=== PATIENT | female | born 1985 | race Caucasian/White ===

== ENCOUNTER 2018-02-10 11:05 | Outpatient (CLI) | payer BC, MEDICAID, SELFPAY ==
[2018-02-10 11:26] VITALS: BMI 32.8
[2018-02-10 11:58] LABS: Absolute Neutrophil Count 5.8 X10^3/uL (2.0-7.7); Basophil# 0.03 X10^3/uL; Basophil% 0.3 % (0-1); Eosinophil# 0.08 X10^3/uL; Eosinophils% 0.9 % (0-5); Hematocrit 36.1 % (37-47); Hemoglobin 12.4 g/dl (12.0-15.0); Lymphocyte % 25.2 % (19-41); Mean Corp Hgb Conc 34.3 g/gl (32-36); Mean Corpuscular Hgb 28.7 pg (27.0-32.0); Mean Corpuscular Volume 83.6 fL (81-99); Mean Platelet Vol. 10.8 fl (6.2-12.0); Monocyte# 0.57 X10^3/uL; Monocyte% 6.5 % (0-10); Neutrophil # 5.81 X10^3/uL (2.7-7.7); Neutrophil % 66.5 % (47-70); Platelet Count 214 K/mm3 (150-450); RBC Distribution Width CV 13.7 % (11.6-14.6); RBC Distribution Width SD 41.1 fl (35.1-43.9); Red Blood Count 4.32 M/mm3 (4.2-5.4); White Blood Count 8.7 K/mm3 (4.4-11.0)
[2018-02-10 12:05] LABS: POSITIVE COUNT NO; POSITIVE DIFFERENTIAL NO; POSITIVE MORPHOLOGY NO
[2018-02-10 12:20] LABS: Protein, Urine (Random) 16.5 mg/dL (<11.9); Protein:Creat Ratio 209 mg/g CRE (0-200)
[2018-02-10 12:25] LABS: ALB/GLOB Ratio 0.6 RATIO (0.9-2.4); AST(SGOT) 26 U/L (15-37); Alanine Aminotransfer ALT/SGPT 45 U/L (13-56); Albumin, Serum 2.8 g/dL (3.2-5.0); Alkaline Phosphatase 242 U/L (45-117); Anion Gap 9 (5-15); BUN 9 mg/dL (7-18); BUN/Creat Ratio 18.1 RATIO (10-20); Calcium,Total 8.9 mg/dL (8.5-10.1); Chloride 107 mmol/L (98-107); EST Glomerular Filtration Rate 153 mL/min (>60); Est Glom Filt Rate - Afr Amer 186 mL/min (>60); Estimated Creatinine Clearance 158.53 ml/min; Globulin 4.6 g/dL (2.2-4.2); Glucose 83 mg/dL (74-106); Potassium 3.9 mmol/L (3.5-5.1); Protein, Total 7.4 g/dL (6.4-8.2); Sodium Level 137 mmol/L (136-145)
[2018-02-10] MEDS: 0.9% NaCl Peripheral Flush Adult/Peds IV (12:25)
[2018-02-10] MEDS: Mag Hydrox/Al Hydrox/Simeth 30 ML UDC PO (12:25)
[2018-02-10] MEDS: Acetaminophen 500 MG Tablet 1000 MG PO (12:25)
--- NOTE | 2018-02-10 18:23 | OB.TRI.NOTE ---
History of Present Illness Date of Service: 02/10/18 Was patient seen by the physician?: Yes Reason For Visit: breech, elevated BP Date of Service: 02/10/18 Final PILAR: 03/04/18 Final PILAR Source: US <20 weeks Gestational age: 36 Weeks and 6 Days History of Present Illness: 32-year-old 8 para 6106 36-6/7 weeks gestation presents from the office today due to being vanessa breech with elevated blood pressures. She denies any visual changes, epigastric pain, or persistent headaches. She has had a mild intermittent headache that resolved with Tylenol. She also had some sinus congestion and a cold which she reviewed the headache 2. Had good movement. Regular contractions, vaginal bleeding, or leaking of fluid. She has a history of some elevated blood pressures in her prior pregnancies but never in between her pregnancies. She was induced for elevated blood pressures with at least 1 of her previous pregnancies but it was at full-term. She also was confirmed to be vanessa breech in the office today. She had a growth scan last week which revealed an AGA fetus with an amniotic fluid volume of 11. Her placenta is in the right lateral and fundal area. She presents for rule out preeclampsia evaluation and possible attempted external cephalic version. Home Medications Medication Instructions Recorded Vits [Prenatabs FA] 1 tablet PO DAILY 02/10/18 proMETHazine tablet [Phenergan 25 mg PO Q8H PRN PRN 02/10/18 tablet] Allergies No Known Allergies Allergy (Verified 02/10/18 12:01) Physical Exam General: Alert, Cooperative, No apparent distress Abdomen: Soft, Non Tender, Non-Distended, Gravid, Appropriate for Gestational Age Extremities:: Other - trace edema, 2+ DTRs, no clonus Estimated gestational size: Appropriate for gestational size Presentation: Breech Cervix Dilation (cm): 1 Station: -3 Effacement (%): 50 NST - FHR Rate Baby A Baseline: 150 bpm Variability:: Moderate Accelerations:: 15 x 15 Decelerations:: None NST Reactive:: Yes, Appropriate for gestational age FHR Category:: Category I Uterine Activity:: no ctxs Impression/Plan 32-year-old 8 para 6106 at 6-6/7 weeks gestation. Preeclampsia labs are negative. She has no symptoms of preeclampsia with severe features. At this point she has gestational hypertension. She agrees to monitoring her blood pressures at home twice daily and calling us if they are persistently above 140s/90s she develops symptoms of severe preeclampsia. Risks benefits and alternatives to trial of external cephalic version were discussed with patient, her questions were answered to her satisfaction she desired to proceed. Consent was signed. She has O+ blood type. Procedure note: The breech was elevated out of the pelvis and an attempt was made at a frontward roll and then a backward roll. The head moved less than 4 cm in either direction and the breech was not able to be rotated significantly. Patient tolerated the procedure well. At this point the procedure was terminated. I discussed with the patient and her increased risk of morbidity mortality with breech delivery. We discussed risk of possible hypoxia and brain damage. We discussed increased risk of maternal trauma. I reviewed with them that my recommendation medically would be for primary section if AB remains breech. Patient states understanding. However, she would like to proceed with a breech vaginal delivery if at all possible. I discussed with her that I would recommend that she have a epidural in place. In addition, I discussed with her that if there was a cord prolapse or any other emergent situation that a section may be indicated and she states understanding of this. This point she declined section and elects for trial of vaginal breech delivery if she should arrive in labor. I discussed with the patient that she meets criteria for gestational hypertension. At this time there is no evidence of preeclampsia. However I discussed with her that I would recommend delivery between 37 and 38 weeks gestation. We discussed that the standard of care decreased and maternal morbidity from preeclampsia. She states understanding this. She agrees to follow-up in our office 3-4 days or return here as needed. She was scheduled for an appointment in my office at 1040 on 02/14/18
== END 2018-02-10 13:13 | disposition home or self-care (01) ==
LOC: WPOUT 11:17 → WP 11:18
PROVIDERS: Family Provider Family Medicine Geriatric Medicine; PCP Family Medicine Geriatric Medicine; Visit Provider Obstetrics & Gynecology
DX: O32.1XX0 Maternal care for breech presentation, not applicable or unspecified (principal); O13.3 Gestational [pregnancy-induced] hypertension without significant proteinuria, third trimester; Z3A.36 36 weeks gestation of pregnancy
CPT/HCPCS: 36415; 59025; 59050; 59412; 76815; 80053; 82570; 84156; 85025; 86850; 86900; 99218; A4216; G0378

== ENCOUNTER 2018-02-16 19:35 | Inpatient (IN) | payer BC, MEDICAID, SELFPAY ==
[2018-02-16 19:48] VITALS: BMI 32.9
[2018-02-16] MEDS: Lactated Ringers 1,000 ML 50 ML IV (19:55)
[2018-02-16 20:14] LABS: Hematocrit 37.1 % (37-47); Hemoglobin 12.6 g/dl (12.0-15.0); Mean Corpuscular Hgb 28.2 pg (27.0-32.0); Mean Platelet Vol. 10.6 fl (6.2-12.0); Platelet Count 221 K/mm3 (150-450); RBC Distribution Width CV 13.7 % (11.6-14.6); RBC Distribution Width SD 41.7 fl (35.1-43.9); Red Blood Count 4.47 M/mm3 (4.2-5.4); Scan Indicated on CBC? Y/N NO; White Blood Count 9.3 K/mm3 (4.4-11.0)
[2018-02-16] MEDS: 0.9% Normal Saline 100 ML IV.SOLN. INTRA-UTER (20:15)
[2018-02-16] MEDS: Mag Hydrox/Al Hydrox/Simeth 30 ML UDC PO (20:18)
[2018-02-16] MEDS: proMETHazine 25 MG/ML Syringe IV (20:18)
--- NOTE | 2018-02-16 20:29 | PCM.HP.OB ---
History Date of Admission: 02/16/18 Final PILAR: 03/04/18 Final PILAR Source: US <20 weeks Gestational age: 37 Weeks and 5 Days History of this : 32yo @ 37.5 weeks gestation gestational HTN - BREECH presentation that declined primary c/s. pt had attempt at external cephalic version and failed. pt was counseled on Breech vaginal delivery by Dr. Brenda Quevedo and opted for Breech vaginal delivery. pt is not against a primary c/s if indicated due to distress. pt transferred care to [facility] at 34 weeks gestation. EFW on ultrasound at 35.5 wks was 6lb5oz Allergies No Known Allergies Allergy (Verified 02/10/18 12:01) Current Medications Acetaminophen (Tylenol) 325 - 650 mg PO Q4H PRN PRN PRN Reason: PAIN OR FEVER >100.4F Al Hydroxide/Mg Hydroxide (Mylanta Ii) 15 - 30 ml PO Q4H PRN PRN PRN Reason: INDIGESTION Last Admin: 02/16/18 20:18 Dose: 30 ml Citric Acid/Sodium Citrate (Bicitra) 30 ml PO UD PRN Lactated Ringer's () 1,000 mls @ 50 mls/hr IV .Q20H MADISYN Last Admin: 02/16/18 19:55 Dose: 50 mls/hr Oxytocin/Sodium Chloride () 30 units in 500 mls @ 1 mls/hr IV .Q500H MADISYN Penicillin G Potassium 5 mu/ (Dextrose) 105 mls @ 150 mls/hr IV X1 ONE Stop: 02/16/18 20:41 Penicillin G Potassium/Dextrose (Penicillin G Potassium) 3 mu in 50 mls @ 100 mls/hr IV Q4H MADISYN Nalbuphine HCl (Nubain) 5 - 10 mg IV Q3H PRN PRN PRN Reason: PAIN (4-10/10) Ondansetron HCl (Zofran) 4 mg IV Q8H PRN PRN PRN Reason: NAUSEA Promethazine HCl (Phenergan) 6.25 - 12.5 mg IV Q4H PRN PRN; Protocol PRN Reason: IF NAUSEA PERSISTS Last Admin: 02/16/18 20:18 Dose: 12.5 mg Sodium Chloride () 5 - 15 ml IV UD MADISYN Last Admin: 02/16/18 20:11 Dose: Not Given Smoking Status: Never smoker Alcohol: None Drug Use: none Number of Fetus(es): 1 Review of Systems Constitutional: Denies: Anorexia Cardiovascular: Denies: Chest Pain Gastrointestinal: Denies: Abdominal Pain Physical Exam General: Alert, Oriented x3 Abdomen: Soft, Non Tender, Gravid Estimated gestational size: Appropriate for gestational size Presentation: Breech Cervix Dilation (cm): 1 Station: -3 Effacement (%): 40 Assessment/Plan 32yo @ 37.5 wks, Labor induction for Gestational HTN, Breech presentation - declines C/S 1) admit to L&D 2) samson/pitocin 3) will have two physicians available for delivery 4) pt counseled on risks of vaginal breech delivery previously and wishes to proceed 5) PCN for GBS prophylaxis 6) Epidural if requested for pain
[2018-02-17] MEDS: Lactated Ringers 1,000 ML 50 ML IV ×2 (00:11→09:55)
[2018-02-17] MEDS: Acetaminophen 325 MG Tablet PO (01:27)
[2018-02-17] MEDS: 0.9% Saline Lock 10 ML Syringe IV ×2 (01:28→03:34)
[2018-02-17] MEDS: Oxytocin 30 units/NS 500 ml 30 UNITS/500 ML IV.SOLN IV (03:36)
[2018-02-17] MEDS: fentaNYL-bupivacaine (epidural) 100 ML BAG EPIDURAL (08:11)
[2018-02-17] MEDS: Ondansetron 4 MG/2 ML Vial IV (08:40)
[2018-02-17] MEDS: Mag Hydrox/Al Hydrox/Simeth 30 ML UDC PO (11:21)
[2018-02-17] MEDS: Oxytocin 30 units/NS 500 ml 30 UNITS/500 ML IV.SOLN 334 UNITS IV (14:01)
--- NOTE | 2018-02-17 14:14 | PCM.OB.VAG ---
Vaginal Delivery Maternal Presentation: Medically Indicated Induction Method of Induction: Pitocin, Cannon Bulb, Amniotomy Medical Reason for Induction: Gestational Hypertension Amniotic Membrane Rupture Type: Artificial Amniotic Fluid Description: Clear - upon rupture, meconium passed by fetus as labor progressed Final PILAR: 03/04/18 Final PILAR Source: US <20 weeks Gestational age: 37 Weeks and 6 Days Date of Procedure: 02/17/18 Pre-Operative Diagnosis: vanessa breech, grandmultiparrous, 37 weeks, gest HTN Post-Operative Diagnosis: same Surgery/ Procedure Performed: Spontaneous Vaginal Delivery Type of Anesthesia: Epidural Description of Procedure: Morning the patient was examined and found to be 4 cm 70% effaced and -2 station, artificial rupture membranes was performed with return of clear fluid. The position was confirmed by ultrasound and was vanessa breech and the head was flexed. position was left sacrum transverse. I was called to the room and the patient was complete and feeling the urge to push. The fetus had been passing some meconium during the later stages of labor. The patient began pushing in the breech began to crown. As it crowned, it rotated spontaneously to sacrum anterior position. The patient continued to push until were delivered to the knees. Towel was placed under the legs to allow for support until the delivered past the umbilicus with maternal pushing efforts only. At this point the hips were rotated and the left leg was swept out. The right leg delivered spontaneously. The was then wrapped in a blanket with the legs flexed at the hips against the abdomen and the patient pushed until the scapula were indentified. The arms were swept out. With the next push the head delivered without difficulty before I could even reach the maxilla. A loose nuchal cord x 1 was easily reduced and the infant was placed on the maternal abdomen. No traction was placed on the neck and the spine was kept neutral during the delivery by supporting it with the towel. Dr. Payan assisted. From of the breech until complete delivery was timed and was 91 seconds. The cord was clamped and cut as the was not immediately vigorous. The Pitocin infusion was initiated for active management of the third stage. The placenta was delivered spontaneously and intact. The cervix and vagina were intact. The perineum and cervix were intact. The fundus was firm. Sponge and needle counts were correct. A vaginal sweep was completed by me. Presentation: Vanessa Breech Placenta Disposition: [facility] Cord Vessel Description: 3 Vessels Nuchal Cord Compression: Without compression Cord Entanglement: Around neck x 1, loose Drain: - - none Estimated Blood Loss: 200 A gender: Female (1 minute): 8 (5 minute): 9 Episiotomy Description: None Laceration: None Medications given after delivery: IV Pitocin Complications: None
[2018-02-17] MEDS: Oxytocin 30 units/NS 500 ml 30 UNITS/500 ML IV.SOLN 167 UNITS IV (14:31)
--- NOTE | 2018-02-17 14:32 | OP.PCM_ITS ---
Vaginal Delivery Maternal Presentation: Medically Indicated Induction Method of Induction: Pitocin, Cannon Bulb, Amniotomy Medical Reason for Induction: Gestational Hypertension Amniotic Membrane Rupture Type: Artificial Amniotic Fluid Description: Clear - upon rupture, meconium passed by fetus as labor progressed Final PILAR: 03/04/18 Final PILAR Source: US <20 weeks Gestational age: 37 Weeks and 6 Days Date of Procedure: 02/17/18 Pre-Operative Diagnosis: vanessa breech, grandmultiparrous, 37 weeks, gest HTN Post-Operative Diagnosis: same Surgery/ Procedure Performed: Spontaneous Vaginal Delivery Type of Anesthesia: Epidural Description of Procedure: Morning the patient was examined and found to be 4 cm 70% effaced and -2 station , artificial rupture membranes was performed with return of clear fluid. The position was confirmed by ultrasound and was vanessa breech and the head was flexed. position was left sacrum transverse. I was called to the room and the patient was complete and feeling the urge to push. The fetus had been passing some meconium during the later stages of labor. The patient began pushing in the breech began to crown. As it crowned, it rotated spontaneously to sacrum anterior position. The patient continued to push until were delivered to the knees. Towel was placed under the legs to allow for support until the delivered past the umbilicus with maternal pushing efforts only. At this point the hips were rotated and the left leg was swept out. The right leg delivered spontaneously. The was then wrapped in a blanket with the legs flexed at the hips against the abdomen and the patient pushed until the scapula were indentified. The arms were swept out. With the next push the head delivered without difficulty before I could even reach the maxilla. A loose nuchal cord x 1 was easily reduced and the was placed on the maternal abdomen. No traction was placed on the neck and the spine was kept neutral during the delivery by supporting it with the towel. Dr. Payan assisted. From of the breech until complete delivery was timed and was 91 seconds. The cord was clamped and cut as the was not immediately vigorous. The Pitocin infusion was initiated for active management of the third stage. The placenta was delivered spontaneously and intact. The cervix and vagina were intact. The perineum and cervix were intact. The fundus was firm. Sponge and needle counts were correct. A vaginal sweep was completed by me. Presentation: Vanessa Breech Placenta Disposition: [facility] Cord Vessel Description: 3 Vessels Nuchal Cord Compression: Without compression Cord Entanglement: Around neck x 1, loose Drain: - - none Estimated Blood Loss: 200 Infant A gender: Female (1 minute): 8 (5 minute): 9 Episiotomy Description: None Laceration: None Medications given after delivery: IV Pitocin Complications: None
[2018-02-17] MEDS: oxyCODONE 5 MG Tablet PO ×2 (16:06→20:15)
[2018-02-17] MEDS: Acetaminophen 500 MG Tablet 1000 MG PO (17:10)
[2018-02-17 20:24] VITALS: BP 122/85; PULSE 102; RESP 18
[2018-02-18 00:15] VITALS: BP 105/64; PULSE 74; RESP 18; TEMP 36.5
[2018-02-18] MEDS: oxyCODONE 5 MG Tablet PO ×6 (00:28→22:48)
[2018-02-18 05:10] VITALS: BP 114/86; PULSE 88; RESP 18; TEMP 36.6
[2018-02-18 06:43] LABS: Hematocrit 35.8 % (37-47); Mean Corp Hgb Conc 33.5 g/gl (32-36); Mean Corpuscular Hgb 28.2 pg (27.0-32.0); Mean Corpuscular Volume 84.2 fL (81-99); Mean Platelet Vol. 10.2 fl (6.2-12.0); Platelet Count 195 K/mm3 (150-450); RBC Distribution Width CV 14.1 % (11.6-14.6); RBC Distribution Width SD 43.5 fl (35.1-43.9); Red Blood Count 4.25 M/mm3 (4.2-5.4)
[2018-02-18 06:51] LABS: Scan Indicated on CBC? Y/N NO
[2018-02-18 08:45] VITALS: BP 124/72; PULSE 98; RESP 18; TEMP 36.7; O2SAT 95
--- NOTE | 2018-02-18 09:57 | PCM.PN.OB ---
Subjective: Some abdominal pain with nursing. Meds help. - Physical Exam General: Alert, Oriented x3 Abdomen: Soft, Non Tender, Non-Distended - ff mid & below umb Extremities: No Calf Tenderness Vital Signs Temp Pulse Resp BP Pulse Ox 98.0 F 98 18 124/72 H 95 02/18/18 08:45 02/18/18 08:45 02/18/18 08:45 02/18/18 08:45 02/18/18 08:45 Oxygen Delivery Method Room Air Weight: 210 lb 1.608 oz Body Mass Index (BMI) 32.9 Intake and Output for Last 24 Hours 02/16/18 02/17/18 02/18/18 23:59 23:59 23:59 Intake Total 1350 / 1350 Output Total 201 / 201 1400 / 1400 Balance 1149 / 1149 -1400 / -1400 Laboratory Tests Past 24 Hrs 02/18/18 06:30 WBC 12.0 H RBC 4.25 Hgb 12.0 Hct 35.8 L MCV 84.2 MCH 28.2 MCHC 33.5 RDW 14.1 RDW Differential 43.5 Plt Count 195 MPV 10.2 Medical Necessity - Tobacco Use Smoking Status: Never smoker Assessment/Plan PPD#1 Routine care
[2018-02-18] MEDS: Senna/Docusate Sodium 1 Tablet PO (12:36)
[2018-02-18 12:42] VITALS: BP 129/74; PULSE 98; RESP 16; TEMP 36.1; O2SAT 96
[2018-02-18] MEDS: Naproxen 250 MG Tablet PO (14:00)
[2018-02-18 16:25] VITALS: BP 110/65; PULSE 96; RESP 16; TEMP 36.7; O2SAT 95
[2018-02-18 21:00] VITALS: BP 138/79; PULSE 94; RESP 16; TEMP 36.6
[2018-02-19 02:00] VITALS: BP 109/58; PULSE 83; RESP 16; TEMP 37.3
--- NOTE | 2018-02-19 03:50 | PCM.PN.OB ---
Subjective: Pain controlled - Physical Exam General: Alert, Oriented x3 Abdomen: Soft, Non Tender, Non-Distended - ff mid & below umb Extremities: No Calf Tenderness Vital Signs Temp Pulse Resp BP Pulse Ox 99.1 F 83 16 109/58 L 95 02/19/18 02:00 02/19/18 02:00 02/19/18 02:00 02/19/18 02:00 02/18/18 16:25 Oxygen Delivery Method Room Air Weight: 210 lb 1.608 oz Body Mass Index (BMI) 32.9 Intake and Output for Last 24 Hours 02/17/18 02/18/18 02/19/18 23:59 23:59 23:59 Output Total 1400 / 1400 Balance -1400 / -1400 Laboratory Tests Past 24 Hrs 02/18/18 06:30 WBC 12.0 H RBC 4.25 Hgb 12.0 Hct 35.8 L MCV 84.2 MCH 28.2 MCHC 33.5 RDW 14.1 RDW Differential 43.5 Plt Count 195 MPV 10.2 Medical Necessity - Tobacco Use Smoking Status: Never smoker Assessment/Plan PPD#2 D/c home later today Oxycodone (5 tabs) given for pain as she reports severe cramping with
--- NOTE | 2018-02-19 03:57 | PCM.DCVAG ---
Discharge Diet: No Restrictions Discharge Activity: May not drive while taking narcotic pain medications., May Shower May resume sexual activity in: 4-6 weeks Weight Bearing Status: Weight bearing as tolerated Additional Instructions: If you experience any of the following, contact your healthcare provider. Bleeding that soaks a pad every hour for 2 hours Fever 100.4 or higher Unrelieved incision or abdominal pain Swelling, redness, discharge or bleeding from your incision or episiotomy site Your incision begins to separate Problems urinating (including inability to urinate or burning while urinating). Visual changes Severe headache Flu-like symptoms Pain or redness in one of both of your breasts Pain, warmth, tenderness or swelling in your legs, especially the calf area Frequent nausea and vomiting Symptoms of depression or anxiety If you experience any of the following, call 911 or go to the nearest Emergency Room. Chest pain Problems breathing Seizure activity Partial or complete paralysis of a body part, slurred speech, weakness or drooping of the face, or a sudden inability to walk or hold your balance Allergies/Adverse Reactions: Allergies No Known Allergies Allergy (Verified 02/10/18 12:01) Medications to take at Discharge Vits [Prenatabs FA] 1 tablet PO DAILY 02/10/18 proMETHazine tablet [Phenergan tablet] 25 mg PO Q8H PRN PRN 02/10/18 Oxycodone [Oxyir] 5 - 10 mg PO Q4H PRN PRN 3 Days #5 tab 02/19/18 The following prescriptions were given: Oxycodone [Oxyir] 5 - 10 mg PO Q4H PRN PRN 3 Days #5 tab PRN Reason: Mod-Severe Pain () Primary Care Physician: Fransisco Downey [Primary Care Provider] -
--- NOTE | 2018-02-19 03:58 | DCINST_ITS ---
Discharge Diet: No Restrictions Discharge Activity: May not drive while taking narcotic pain medications., May Shower May resume sexual activity in: 4-6 weeks Weight Bearing Status: Weight bearing as tolerated Additional Instructions: If you experience any of the following, contact your healthcare provider. * Bleeding that soaks a pad every hour for 2 hours * Fever 100.4 or higher * Unrelieved incision or abdominal pain * Swelling, redness, discharge or bleeding from your incision or episiotomy site * Your incision begins to separate * Problems urinating (including inability to urinate or burning while urinating) . * Visual changes * Severe headache * Flu-like symptoms * Pain or redness in one of both of your breasts * Pain, warmth, tenderness or swelling in your legs, especially the calf area * Frequent nausea and vomiting * Symptoms of depression or anxiety If you experience any of the following, call 911 or go to the nearest Emergency Room. * Chest pain * Problems breathing * Seizure activity * Partial or complete paralysis of a body part, slurred speech, weakness or drooping of the face, or a sudden inability to walk or hold your balance Allergies/Adverse Reactions: Allergies No Known Allergies Allergy (Verified 02/10/18 12:01) Medications to take at Discharge Vits [Prenatabs FA] 1 tablet PO DAILY 02/10/18 proMETHazine tablet [Phenergan tablet] 25 mg PO Q8H PRN PRN 02/10/18 Oxycodone [Oxyir] 5 - 10 mg PO Q4H PRN PRN 3 Days #5 tab 02/19/18 The following prescriptions were given: Oxycodone [Oxyir] 5 - 10 mg PO Q4H PRN PRN 3 Days #5 tab PRN Reason: Mod-Severe Pain () Primary Care Physician: Fransisco Downey [Primary Care Provider] -
[2018-02-19] MEDS: oxyCODONE 5 MG Tablet PO ×3 (06:32→15:18)
[2018-02-19 10:00] VITALS: BP 123/68; PULSE 94; RESP 18; TEMP 36.4; O2SAT 96
[2018-02-19] MEDS: Hydrocortisone 2.5% Crm 1 APPLIC TOPICAL (10:32)
[2018-02-19] MEDS: Senna/Docusate Sodium 1 Tablet PO (10:32)
[2018-02-19] MEDS: Naproxen 250 MG Tablet PO (13:03)
[2018-02-19 15:00] VITALS: BP 120/70; PULSE 94; RESP 16; TEMP 36.7; O2SAT 95
== END 2018-02-19 19:30 | disposition home or self-care (01) | DRG 775 ==
PROVIDERS: Admitting Provider Obstetrics & Gynecology; Family Provider Family Medicine Geriatric Medicine; PCP Family Medicine Geriatric Medicine; Visit Provider Obstetrics & Gynecology
DX: O32.1XX0 Maternal care for breech presentation, not applicable or unspecified (principal); O13.3 Gestational [pregnancy-induced] hypertension without significant proteinuria, third trimester; O69.81X0 Labor and delivery complicated by cord around neck, without compression, not applicable or unspecified; O77.0 Labor and delivery complicated by meconium in amniotic fluid; O09.43 Supervision of pregnancy with grand multiparity, third trimester; Z3A.37 37 weeks gestation of pregnancy; Z37.0 Single live birth
CPT/HCPCS: 59025; 59050; 76815; 85027; 86850; 86900; 99218; J7120; A4216; G0378; J0290; J2405

== ENCOUNTER 2019-09-10 07:15 | Inpatient (IN) | payer BC, MEDICAID, SELFPAY ==
[2019-09-10] MEDS: Lactated Ringers 1,000 ML 50 ML IV (07:30)
[2019-09-10 07:46] VITALS: BMI 32.6
[2019-09-10] MEDS: Ondansetron 4 MG/2 ML Vial IV ×2 (08:16→16:26)
[2019-09-10] MEDS: Oxytocin 30 units/NS 500 ml 30 UNITS/500 ML IV.SOLN IV (09:00)
[2019-09-10] MEDS: Mag Hydrox/Al Hydrox/Simeth 30 ML UDC PO (09:00)
[2019-09-10] MEDS: 0.9% Normal Saline 100 ML IV.SOLN. IY (09:14)
[2019-09-10 09:21] LABS: Absolute Lymphocyte Count 1.67 X10^3/uL (0.83-4.51); Absolute Neutrophil Count 4.3 X10^3/uL (2.0-7.7); Basophil# 0.02 X10^3/uL; Basophil% 0.3 % (0-1); Eosinophil# 0.12 X10^3/uL; Eosinophils% 1.8 % (0-5); Hematocrit 36.3 % (37-47); Lymphocyte # 1.67 X10^3/ul (4.0); Lymphocyte % 25.5 % (19-41); Mean Corp Hgb Conc 33.1 g/dL (32-36); Mean Corpuscular Hgb 28.5 pg (27.0-32.0); Mean Corpuscular Volume 86.2 fL (81-99); Mean Platelet Vol. 10.3 fl (6.2-12.0); Monocyte# 0.43 X10^3/uL; Monocyte% 6.6 % (0-10); NRBC Flagged by Analyzer 0 % (0-5); Neutrophil # 4.29 X10^3/uL (2.7-7.7); Neutrophil % 65.3 % (47-70); Platelet Count 220 K/mm3 (150-450); RBC Distribution Width CV 13.9 % (11.6-14.6); RBC Distribution Width SD 43.5 fl (35.1-43.9); Red Blood Count 4.21 M/mm3 (4.2-5.4); White Blood Count 6.6 K/mm3 (4.4-11.0)
[2019-09-10 09:30] LABS: Prothrombin Time (Protime)PT. 13.3 SECONDS (11.7-14.9)
[2019-09-10 09:31] LABS: Partial Thromboplast Time 25.9 Seconds (24.1-36.2)
[2019-09-10 09:36] LABS: AST(SGOT) 38 U/L (15-37); Alanine Aminotransfer ALT/SGPT 53 U/L (13-56); Creatinine, Serum 0.48 mg/dL (0.55-1.02); EST Glomerular Filtration Rate 158 mL/min (>60); Est Glom Filt Rate - Afr Amer 191 mL/min (>60); Estimated Creatinine Clearance 162.11 ml/min; Uric Acid 4.1 mg/dL (2.6-6.0)
[2019-09-10] MEDS: Nalbuphine 10 MG/ML Ampul IV (16:19)
[2019-09-10] MEDS: Lactated Ringers 500 ML 999 ML IV (17:30)
[2019-09-10] MEDS: fentaNYL-bupivacaine (epidural) 100 ML BAG EPIDURAL (18:00)
[2019-09-10] MEDS: Oxytocin 30 units/NS 500 ml 30 UNITS/500 ML IV.SOLN 334 UNITS IV (18:44)
--- NOTE | 2019-09-10 18:55 | PCM.OPRPT ---
Vaginal Delivery Maternal Presentation: Medically Indicated Induction Method of Induction: Pitocin, Cannon Bulb, Amniotomy Medical Reason for Induction: Gestational Hypertension Amniotic Membrane Rupture Type: Artificial Amniotic Fluid Description: Clear Final PILAR: 09/30/19 Final PILAR Source: US <20 weeks Gestational age: 37 Weeks and 1 Days Date of Procedure: 09/10/19 Pre-Operative Diagnosis: labor Post-Operative Diagnosis: same Surgery/ Procedure Performed: Spontaneous Vaginal Delivery Type of Anesthesia: Epidural Description of Procedure: A vigorous female infant was delivered SHANIKA over intact perineum. The remainder the was delivered with maternal pushing and gentle traction only in less than 15 seconds. The Pitocin infusion was initiated for active management of the third stage. The cord was clamped and cut after pulsation stopped. The infant was attended to by the waiting nursing staff. The placenta was delivered spontaneously and intact. The cervix and vagina were intact. Sponge and needle counts were correct. A vaginal sweep was completed by me. Presentation: SHANIKA Placental Delivery Description: Spontaneous Placenta Disposition: [facility] Cord Vessel Description: 3 Vessels Cord Entanglement: None Drain: - - none Estimated Blood Loss: 200 Infant A gender: Female (1 minute): 8 (5 minute): 9 Episiotomy Description: None Laceration: None Medications given after delivery: IV Pitocin Complications: None
--- NOTE | 2019-09-10 18:57 | PCM.HP.OB ---
History Date of Admission: 02/16/18 Final PILAR: 09/30/19 Final PILAR Source: US <20 weeks Gestational age: 37 Weeks and 1 Days History of this : This is a 34 year-old, 9 para 7-1-0-7 presents at 37-1/7 weeks gestation for induction of labor due to gestational hypertension. She denies any epigastric pain. She is had intermittent headaches over the last couple months of . No severe persistent headache today. Good movement. No vaginal bleeding or leaking of fluid. No regular contractions. Allergies No Known Allergies Allergy (Verified 09/10/19 07:50) Home Medications: Home Medications Vits [Prenatabs FA] 1 tablet PO DAILY 02/10/18 proMETHazine tablet [Phenergan tablet] 25 mg PO Q8H PRN PRN 02/10/18 Acetaminophen/Butalbital/Caffe [Fioricet] 1 tab PO Q4H PRN PRN 09/10/19 Smoking Status: Never smoker Number of Fetus(es): 1 History Past Pregnancies: Past Pregnancies Delivery Date Name GA/ Weeks Outcome Route Wt Sex Labor Length Anesthesia Delivery Location Provider FOB Expected Infant Delivery Method: Spontaneous Vaginal Review of Systems Constitutional: Denies: Chills, Fever Eyes: Denies: Blurred vision Cardiovascular: Denies: Chest Pain Respiratory: Denies: Cough Gastrointestinal: Denies: Diarrhea, Nausea Genitourinary: Denies: Dysuria Neurological: Denies: Blurred vision, Double vision, Change in Speech, Slurred speech, Confusion Physical Exam General: Alert, Cooperative, No apparent distress Cardiovascular: Regular rate Lungs: Normal air movement Abdomen: Soft, Non-Distended, Gravid, Appropriate for Gestational Age Extremities:: Other Neurological: Cranial nerves II-XII grossly intact, Deep Tendon Reflexes 2+/4 and Symmetrical. Negative for: Clonus MANAGER CONTRACTING: Normal external genitalia Estimated gestational size: Appropriate for gestational size Presentation: Cephalic Cervix Dilation (cm): 1 Station: -3 Effacement (%): 60 Assessment/Plan This is a 34 year-old, 9 para 7-1-0-7 at 37-1/7 weeks gestation for induction of labor due to gestational hypertension. No evidence of preeclampsia. Estimated weight is less than 4500 g clinically and pelvis clinically adequate to expect vaginal delivery. May have nitrous oxide, Nubain or epidural as needed for pain control. Procedure note: This morning at approximately 8:30 AM, Cannon catheter was placed over stylette into the internal cervical loss in the usual sterile fashion. The balloon was inflated with 30 cc of normal saline. Placement over the internal cervical loss was confirmed. The patient and fetus tolerated the procedure well.
[2019-09-10 20:45] VITALS: BP 119/82; PULSE 95; RESP 18; TEMP 36.7
[2019-09-10] MEDS: Naproxen 250 MG Tablet 500 MG PO (21:29)
[2019-09-10 23:13] VITALS: BP 110/62; PULSE 85; RESP 18; TEMP 36.7
[2019-09-11 04:00] VITALS: BP 101/60; PULSE 71; RESP 16; TEMP 36.4
--- NOTE | 2019-09-11 05:30 | NURSING ---
Taking over pt and care at this time.
[2019-09-11 08:00] VITALS: BP 121/73; PULSE 80; RESP 16; TEMP 36.2
--- NOTE | 2019-09-11 08:02 | PN.OBGYN_ITS ---
Subjective: Patient is doing well. Denies lightheadedness, dizziness, headache, vision changes, chest pain, shortness of breath, palpitations, increased pain, leg pain. Ambulating voiding without difficulty. Lochia normal. Breast-feeding. - Physical Exam Vitals/I&O's: Vital Signs Temp Pulse Resp BP 97.5 F L 71 16 101/60 09/11/19 04:00 09/11/19 04:00 09/11/19 04:00 09/11/19 04:00 Oxygen Delivery Method Room Air Weight: 208 lb 9.6 oz Body Mass Index (BMI) 32.6 Intake and Output for Last 24 Hours 09/09/19 09/10/19 09/11/19 23:59 23:59 23:59 Intake Total 2372.79 / 2372.79 Output Total 1400 / 1400 Balance 972.79 / 972.79 General: Alert, No apparent distress HEENT: Atraumatic Abdomen: Soft, Non Tender, - - FF@U Extremities: No edema Skin: No rashes Neurological: Neuro grossly intact Psych/Mental Status: Normal Affect, Appropriate Laboratory Results 09/10/19 07:30: WBC Cancelled, Corrected WBC Cancelled, RBC Cancelled, Hgb Cancelled, Hct Cancelled, MCV Cancelled, MCH Cancelled, MCHC Cancelled, RDW Std Deviation Cancelled, RDW Coeff of Kathryn Cancelled, Plt Count Cancelled, MPV Cancelled, Immature Gran % (Auto) Cancelled, Neut % (Auto) Cancelled, Lymph % (Auto) Cancelled, Pickett % (Auto) Cancelled, Eos % (Auto) Cancelled, Baso % (Auto) Cancelled, Absolute Neuts (auto) Cancelled, Absolute Lymphs (auto) Cancelled, Total Counted Cancelled, Neutrophils % (Manual) Cancelled, Band Neutrophils % Cancelled, Lymphocytes % (Manual) Cancelled, Monocytes % (Manual) Cancelled, Eosinophils % (Manual) Cancelled, Basophils % (Manual) Cancelled, Metamyelocytes % Cancelled, Myelocytes % Cancelled, Promyelocytes % Cancelled, Blast Cells % Cancelled, Plasma Cell % (Manual) Cancelled, Other Cells % Cancelled, Nucleated RBC % Cancelled, Nucleated RBCs/100 WBC Cancelled, Differential Comment Cancelled, Diff Path Review Cancelled, Hypersegmented Neuts Cancelled, Atypical Lymphocytes Cancelled, Reactive Lymphocytes Cancelled, Smudge Cells Cancelled, Toxic Granulation Cancelled, Toxic Vacuolation Cancelled, Dohle Bodies Cancelled, Nevaeh Rods Cancelled, Platelet Estimate Cancelled, Plt Morphology Comment Cancelled, RBC Morphology Cancelled, Polychromasia Cancelled, Hypochromasia Cancelled, Poikilocytosis Cancelled, Basophilic Stippling Cancelled, Anisocytosis Cancelled, Microcytosis Cancelled, Macrocytosis Cancelled, Spherocytes Cancelled, Sickle Cells Cancelled, Target Cells Cancelled, Tear Drop Cells Cancelled, Ovalocytes Cancelled, Stomatocytes Cancelled, [place] Bodies Cancelled, Zoila Cells Cancelled, Bite Cells Cancelled, Crenated Cell Cancelled, Acanthocytes (Spur) Cancelled, Rouleaux Cancelled, Schistocytes Cancelled 09/10/19 07:30: Blood Type O POSITIVE, Antibody Screen NEGATIVE 09/10/19 09:10: PT 13.3, INR 1.0, APTT 25.9 09/10/19 09:10: Creatinine 0.48 L, Estim Creat Clear Calc 162.11, Est GFR (MDRD) Af Amer 191, Est GFR (MDRD) Non-Af 158, Uric Acid 4.1, AST 38 H, ALT 53 09/10/19 09:10: WBC 6.6, RBC 4.21, Hgb 12.0, Hct 36.3 L, MCV 86.2, MCH 28.5, MCHC 33.1, RDW Std Deviation 43.5, RDW Coeff of Kathryn 13.9, Plt Count 220, MPV 10.3, Immature Gran % (Auto) 0.500, Neut % (Auto) 65.3, Lymph % (Auto) 25.5, Pickett % (Auto) 6.6, Eos % (Auto) 1.8, Baso % (Auto) 0.3, Absolute Neuts (auto) 4.3, Absolute Lymphs (auto) 1.67, Nucleated RBC % 0 Current Medications Acetaminophen (Tylenol) 1,000 mg PO Q8H PRN PRN PRN Reason: Pain Score 1-3/10 Bisacodyl (Dulcolax) 10 mg RECTAL UD PRN PRN Reason: If no BM Dibucaine (Dibucaine) 1 applic TOPICAL TID PRN PRN; Protocol PRN Reason: Discomfort Hydrocortisone (Hytone) 1 applic TOPICAL TID PRN PRN; Protocol PRN Reason: Discomfort Methylergonovine Maleate (Methergine) 0.2 mg IM X1 PRN PRN Reason: Excess bleeding/uterine atony Naproxen (Naprosyn) 500 mg PO Q8H PRN PRN PRN Reason: Pain Score 1-3/10 Last Admin: 09/10/19 21:29 Dose: 500 mg Documented by: Ondansetron HCl (Zofran) 4 mg IV Q4H PRN PRN PRN Reason: Nausea Oxycodone HCl (Oxyir) 5 mg PO Q6 PRN PRN Reason: Pain Score 6-10/10 Senna/Docusate Sodium (Senokot-S, Bridget-Colace) 1 - 2 tablet PO DAILY PRN PRN PRN Reason: Constipation Simethicone (Mylicon) 80 mg PO PCHS PRN PRN Reason: Indigestion/Stomach pain Sodium Chloride () 5 - 15 ml IV UD PRN PRN Reason: SALINE FLUSH Medical Necessity - Tobacco Use Smoking Status: Never smoker Assessment/Plan day 1 from a vaginal delivery - Pt doing well - - Dispo: Pt requests to go home today. D/c home 24 hrs after delivery
--- NOTE | 2019-09-11 08:03 | DCINST_ITS ---
Discharge Diet: No Restrictions Discharge Activity: May Drive, May Shower, May Take a Tub Bath May resume sexual activity in: 6 weeks Weight Bearing Status: Full weight bearing Lifting Restrictions: None Call your doctor if you observe: Fever of 101 or Higher, Inability to urinate, Inability to have a bowel movement, Using more than one pad per hour, Shortness of breath, Dizziness, Fainting spells, Chest pain, Increased palpitations (irregular heartbeat), Calf discomfort, Uncontrolled pain Cleanse incision/area with: Soap & Water Instructions: After a Vaginal Additional Instructions: If you experience any of the following, contact your healthcare provider. * Bleeding that soaks a pad every hour for 2 hours * Fever 100.4 or higher * Unrelieved incision or abdominal pain * Swelling, redness, discharge or bleeding from your incision or episiotomy site * Your incision begins to separate * Problems urinating (including inability to urinate or burning while urinating). * Visual changes * Severe headache * Flu-like symptoms * Pain or redness in one of both of your breasts * Pain, warmth, tenderness or swelling in your legs, especially the calf area * Frequent nausea and vomiting * Symptoms of depression or anxiety If you experience any of the following, call 911 or go to the nearest Emergency Room. * Chest pain * Problems breathing * Seizure activity * Partial or complete paralysis of a body part, slurred speech, weakness or drooping of the face, or a sudden inability to walk or hold your balance Allergies/Adverse Reactions: Allergies No Known Allergies Allergy (Verified 09/10/19 07:50) Medications to take at Discharge Vits [Prenatabs FA] 1 tablet PO DAILY 02/10/18 proMETHazine tablet [Phenergan tablet] 25 mg PO Q8H PRN PRN 02/10/18 Acetaminophen/Butalbital/Caffe [Fioricet] 1 tab PO Q4H PRN PRN 09/10/19 Please Follow Up With: Brenda Quevedo MD When: 6 weeks for visit. You can also schedule an appointment 1-2 weeks after your delivery for follow up Primary Care Physician: Fransisco Downey [Primary Care Provider] - Test Results: Test results from this visit will be discussed in further detail at your follow- up appointment, if applicable. Proposed Discharge Date: 09/11/19 - 24 hours after delivery
[2019-09-11] MEDS: Naproxen 250 MG Tablet 500 MG PO ×2 (11:07→21:42)
[2019-09-11 12:25] VITALS: BP 110/67; PULSE 93; RESP 16; TEMP 36.3
[2019-09-11] MEDS: Senna/Docusate Sodium 1 Tablet PO (21:43)
[2019-09-11 22:00] VITALS: BP 125/72; PULSE 80; RESP 16; TEMP 36.4
[2019-09-11] MEDS: Acetaminophen 500 MG Tablet 1000 MG PO (22:58)
[2019-09-12 02:00] VITALS: BP 111/69; PULSE 76; RESP 15; TEMP 36.6
--- NOTE | 2019-09-12 08:32 | PCM.PN.OB ---
Subjective: pain well controlled, average lochia, denies OVIEDO or epigastric pain - Physical Exam Vitals/I&O's: Vital Signs Temp Pulse Resp BP 97.9 F 76 15 111/69 09/12/19 02:00 09/12/19 02:00 09/12/19 02:00 09/12/19 02:00 Oxygen Delivery Method Room Air Weight: 94.619 kg Body Mass Index (BMI) 32.6 Intake and Output for Last 24 Hours 09/10/19 09/11/19 09/12/19 23:59 23:59 23:59 Intake Total 2372.79 / 2372.79 Output Total 1400 / 1400 Balance 972.79 / 972.79 General: Alert, Cooperative, No apparent distress Current Medications Acetaminophen (Tylenol) 1,000 mg PO Q8H PRN PRN PRN Reason: Pain Score 1-3/10 Last Admin: 09/11/19 22:58 Dose: 1,000 mg Documented by: Bisacodyl (Dulcolax) 10 mg RECTAL UD PRN PRN Reason: If no BM Dibucaine (Dibucaine) 1 applic TOPICAL TID PRN PRN; Protocol PRN Reason: Discomfort Hydrocortisone (Hytone) 1 applic TOPICAL TID PRN PRN; Protocol PRN Reason: Discomfort Methylergonovine Maleate (Methergine) 0.2 mg IM X1 PRN PRN Reason: Excess bleeding/uterine atony Naproxen (Naprosyn) 500 mg PO Q8H PRN PRN PRN Reason: Pain Score 1-3/10 Last Admin: 09/11/19 21:42 Dose: 500 mg Documented by: Ondansetron HCl (Zofran) 4 mg IV Q4H PRN PRN PRN Reason: Nausea Oxycodone HCl (Oxyir) 5 mg PO Q6 PRN PRN Reason: Pain Score 6-10/10 Senna/Docusate Sodium (Senokot-S, Bridget-Colace) 1 - 2 tablet PO DAILY PRN PRN PRN Reason: Constipation Last Admin: 09/11/19 21:43 Dose: 1 tablet Documented by: Simethicone (Mylicon) 80 mg PO PCHS PRN PRN Reason: Indigestion/Stomach pain Sodium Chloride () 5 - 15 ml IV UD PRN PRN Reason: SALINE FLUSH Medical Necessity - Tobacco Use Smoking Status: Never smoker Assessment/Plan PPD#2 s/p doing well bp stable, ready for d/c home monitor bp
[2019-09-12] MEDS: Senna/Docusate Sodium 1 Tablet PO (08:44)
[2019-09-12] MEDS: Dibucaine 30 GM Tube 1 APPLIC TOPICAL (08:45)
[2019-09-12] MEDS: Hydrocortisone 2.5% Crm 1 APPLIC TOPICAL (08:45)
[2019-09-12 08:57] VITALS: BP 129/80; PULSE 82; RESP 16; TEMP 36.4
== END 2019-09-12 09:15 | disposition home or self-care (01) | DRG 807 ==
PROVIDERS: Admitting Provider Obstetrics & Gynecology; Family Provider Family Medicine Geriatric Medicine; PCP Family Medicine Geriatric Medicine; Referring Provider Obstetrics & Gynecology; Visit Provider Obstetrics & Gynecology
DX: O13.4 Gestational [pregnancy-induced] hypertension without significant proteinuria, complicating childbirth (principal); Z37.0 Single live birth; Z3A.37 37 weeks gestation of pregnancy
CPT/HCPCS: 59025; 59050; 82565; 84450; 84460; 84550; 85025; 85610; 85730; 86850; 86900; 86901; 99218; J7120; G0378; J0290; J2405

== ENCOUNTER 2022-01-11 07:15 | Inpatient (IN) | payer OTHER, MEDICAID, SELFPAY ==
[2022-01-11] VITALS (10 sets, daily range): BP systolic 119–155; BP diastolic 68–83; PULSE 89–107; TEMP 36.2–36.8; O2SAT 96–98; BMI 29.9
[2022-01-11 08:45] LABS: Absolute Neutrophil Count 5.3 X10^3/uL (2.0-7.7); Basophil# 0.03 X10^3/uL; Basophil% 0.4 % (0-1); Eosinophil# 0.12 X10^3/uL; Eosinophils% 1.6 % (0-5); Hematocrit 37.4 % (37-47); Hemoglobin 12.8 g/dL (12.0-15.0); Lymphocyte % 22.2 % (19-41); Mean Corp Hgb Conc 34.2 g/dL (32-36); Mean Corpuscular Hgb 29.4 pg (27.0-32.0); Mean Platelet Vol. 10.4 fl (6.2-12.0); Monocyte# 0.42 X10^3/uL; Monocyte% 5.5 % (0-10); NRBC Flagged by Analyzer 0 % (0-5); Neutrophil # 5.34 X10^3/uL (2.7-7.7); Neutrophil % 69.6 % (47-70); Platelet Count 205 K/mm3 (150-450); RBC Distribution Width CV 13.2 % (11.6-14.6); RBC Distribution Width SD 40.9 fl (35.1-43.9); Red Blood Count 4.35 M/mm3 (4.2-5.4); White Blood Count 7.7 K/mm3 (4.4-11.0)
[2022-01-11] MEDS: Lactated Ringers 1,000 ML 50 ML IV (08:45)
[2022-01-11] MEDS: 0.9% Normal Saline Single 100 ML IV.SOLN. INTRA-UTER (09:05)
[2022-01-11] MEDS: Oxytocin 30 units/NS 500 ml 30 UNITS/500 ML IV.SOLN IV (09:51)
--- NOTE | 2022-01-11 10:59 | PCM.HP.OB ---
HPI - General General Date of Admission: 01/11/22 HPI Narrative MARITZA PHAN, is a 36 F who presents [facility] Medical History (Updated 01/11/22 @ 09:30 by Leigh Robbins) depression Pre-eclampsia Stillborn, normal Home Medications Prenatabs FA 1 tab PO DAILY 02/10/18 [History Last Taken 01/10/22 21:00] ondansetron HCl [Zofran] 4 mg PO Q6H 01/11/22 [History Last Taken 01/11/22 05:30] promethazine [Phenergan] 25 mg PO Q6H PRN 01/11/22 [History Last Taken 01/09/22 21:00] ursodiol 300 mg PO BID 01/11/22 [History Last Taken 01/10/22 21:00] Allergy/AdvReac Type Severity Reaction Status Date / Time No Known Allergies Allergy Verified 01/11/22 07:44 Social History Smoking Status: Never smoker History Elective abortions Hx Para 8 Spontaneous abortions Hx # Term Pregnancies Ectopic pregnancies Hx # Pregnancies Multiple births # of living children NST FHR Rate Baby A Baseline: 155 Variability:: Moderate Accelerations:: 15 x 15 Decelerations:: None FHR Category:: Category I Uterine Activity:: None Vital Signs Vital Signs Vital Signs: 01/11/22 07:42 01/11/22 07:43 Temperature 97.2 F L Temperature Source Temporal Pulse Rate 99 Blood Pressure 127/83 H BP Systolic 127 BP Diastolic 83 Weight Weight: 191 lb 9.307 oz Body Mass Index (BMI) 29.9 Labs Labs Labs: Blood Type O POSITIVE Antibody Screen NEGATIVE Hct 37.4 % (37-47) Hgb 12.8 g/dL (12.0-15.0) Rhogam given: No
--- NOTE | 2022-01-11 12:10 | PCM.HP.OB ---
HPI - General General Date of Admission: 01/11/22 HPI Narrative MARITZA PHAN, is a 36-year-old 11 para 8-1-1-8 who presents at 36 weeks gestation for induction of labor due to severe cholestasis of , suspected growth restriction, history of COVID-19 in the second trimester. She denies any vaginal bleeding or leaking of fluid. She has had some irregular contractions. was complicated to date by COVID-19 and second trimester and influenza in the third trimester. Is also had significant nausea and fatigue during the . Maternal Data Information Final PILAR: 02/08/22 Gestational age: 36 0/7 [facility] Medical History (Updated 01/11/22 @ 12:[address] Brenda Quevedo MD) depression Pre-eclampsia Stillborn, normal Home Medications Prenatabs FA 1 tab PO DAILY 02/10/18 [History Last Taken 01/10/22 21:00] ondansetron HCl [Zofran] 4 mg PO Q6H 01/11/22 [History Last Taken 01/11/22 05:30] promethazine [Phenergan] 25 mg PO Q6H PRN 01/11/22 [History Last Taken 01/09/22 21:00] ursodiol 300 mg PO BID 01/11/22 [History Last Taken 01/10/22 21:00] Allergy/AdvReac Type Severity Reaction Status Date / Time No Known Allergies Allergy Verified 01/11/22 07:44 Social History Smoking Status: Never smoker History Elective abortions Hx Para 8 Spontaneous abortions Hx # Term Pregnancies Ectopic pregnancies Hx # Pregnancies Multiple births # of living children NST FHR Rate Baby A Baseline: normal Variability:: Moderate Accelerations:: 15 x 15 Decelerations:: None NST Reactive:: Yes FHR Category:: Category I ROS Constitutional Constitutional: Denies fatigue, fever(s) or malaise Eyes Eyes: Denies change in vision ENT HEENT: Denies dizziness or headache(s) Cardiovascular Cardiovascular: Denies chest pain, dyspnea or lightheadedness Respiratory/Chest Respiratory/Chest: Denies cough or dyspnea Gastrointestinal Gastrointestinal: Denies change in bowel habits Genitourinary Genitourinary: Denies burning urination or genital lesions Integumentary Integumentary: Denies rash Neurologic Neurologic: Denies confusion, dizziness, headache(s), numbness or weakness Vital Signs Vital Signs Vital Signs: 01/11/22 07:42 01/11/22 07:43 01/11/22 11:04 Temperature 97.2 F L 97.9 F Temperature Source Temporal Pulse Rate 99 89 Blood Pressure 127/83 H 119/74 BP Systolic 127 119 BP Diastolic 83 74 Pulse Ox 01/11/22 11:05 Temperature Temperature Source Pulse Rate 91 Blood Pressure BP Systolic BP Diastolic Pulse Ox 97 Weight Weight: 86.9 kg Body Mass Index (BMI) 29.9 Physical Exam Const alert and no apparent distress General Appearance: cooperative HEENT normocephalic Resp normal respiratory effort Cardio regular rate GI soft to palpation GI Narrative: gravid, nontender, appropriate for gestational age Extremity no calf tenderness General Extremity: edema Skin no wounds Rashes: No rashes noted Psych activity/motor behavior normal Labs Labs Labs: Blood Type O POSITIVE Antibody Screen NEGATIVE Hct 37.4 % (37-47) Hgb 12.8 g/dL (12.0-15.0) Rhogam given: No Assessment & Plan (1) 36 weeks gestation of : PLAN: Risk benefits and alternatives to late delivery versus continued close monitoring expectant management were discussed with the patient, questions were answered to her satisfaction she desires to proceed with induction of labor. We will proceed with Cannon and Pitocin ripening of cervix. Artificial rupture membranes as needed. May have epidural if desires. May use nitrous oxide if needed. Suspect SGA fetus, possible intrauterine growth restriction. Bronzer is notified. Estimated weight is less than 3000 g clinically and pelvis clinically adequate to expect vaginal delivery. (2) Supervision of other high risk pregnancies, third trimester: (3) Grand multipara in labor: (4) Unfavorable cervix in term : (5) Advanced maternal age during in third trimester: (6) Cholestasis during in third trimester: (7) Personal history of COVID-19:
[2022-01-11] MEDS: Lactated Ringers 1,000 ML 200 ML IV ×2 (14:33→19:35)
[2022-01-11] MEDS: Ondansetron 4 MG/2 ML Vial IV ×2 (14:41→22:06)
--- NOTE | 2022-01-11 17:22 | PCM.PN.OB ---
Subjective Subjective Resting upright in bed. at bedside. Objective Data Objective Data Vital Signs: Vital Signs Temp Pulse BP Pulse Ox 97.9 F 89 124/72 H 97 01/11/22 15:57 01/11/22 15:57 01/11/22 15:57 01/11/22 11:05 Weight: 191 lb 9.307 oz Body Mass Index (BMI) 29.9 Intake & Output: Intake and Output for Last 24 Hours 01/09/22 01/10/22 01/11/22 23:59 23:59 23:59 Intake Total 1031.31 / 1031.31 Balance 1031.31 / 1031.31 Lab / Micro Data Result Diagrams: 01/11/22 08:30 Labs: Laboratory Results - last 24 hr 01/11/22 08:30: WBC 7.7, RBC 4.35, Hgb 12.8, Hct 37.4, MCV 86.0, MCH 29.4, MCHC 34.2, RDW Std Deviation 40.9, RDW Coeff of Kathryn 13.2, Plt Count 205, MPV 10.4, Immature Gran % (Auto) 0.700, Neut % (Auto) 69.6, Lymph % (Auto) 22.2, Christian % (Auto) 5.5, Eos % (Auto) 1.6, Baso % (Auto) 0.4, Absolute Neuts (auto) 5.3, Absolute Lymphs (auto) 1.70, Nucleated RBC % 0 01/11/22 08:30: Blood Type O POSITIVE, Antibody Screen NEGATIVE Micro: Microbiology 01/11/22 08:30 Nasal Secretion SARS-CoV-2 Antigen (Rapid) - Final Physical Exam Manual OB Exam: estimated gestational size appropriate, presentation cephalic, dilated 4cm, effaced 50% and station -1 Amniotic Fluid: clear amniotic fluid NST FHR Rate Baby A Baseline: 135 Variability:: Moderate Accelerations:: 15 x 15 Decelerations:: None FHR Category:: Category I Uterine Activity:: Every 2-3 minutes, moderate to strong Assessment & Plan (1) Cholestasis during in third trimester: (2) Advanced maternal age during in third trimester: (3) Unfavorable cervix in term : (4) Grand multipara in labor: (5) 36 weeks gestation of : PLAN: 1) AROM with patient consent, clear fluid 2) Continue Pitocin per policy, at 14mu's 3) Planning unmedicated , nitrous upon request 4) Continuous EFM 5) managing patient and notified of patient status
[2022-01-11] MEDS: 0.9% Saline Lock 10 ML Syringe IV (22:06)
[2022-01-11] MEDS: Mag Hydrox/Al Hydrox/Simeth 30 ML UDC PO (22:16)
[2022-01-11] MEDS: Lactated Ringers 500 ML 999 ML IV (23:31)
[2022-01-12] VITALS (41 sets, daily range): BP systolic 99–133; BP diastolic 57–82; PULSE 81–103; RESP 16–18; TEMP 36.1–36.6; O2SAT 96–99
[2022-01-12] MEDS: Oxytocin 30 units/NS 500 ml 30 UNITS/500 ML IV.SOLN 334 UNITS IV
--- NOTE | 2022-01-12 00:10 | EX.PCM.OBRPT ---
Assessment & Plan (1) Personal history of COVID-19: (2) Cholestasis during in third trimester: (3) 36 weeks gestation of : (4) delivery: Maternal Data Information Final PILAR: 02/08/22 Gestational age: 36 0/7 Vaginal Delivery Maternal Presentation Maternal Presentation: Medically Indicated Induction Type of Induction: Pitocin, Cannon Bulb and Amniotomy Operative Information Date of Procedure: 01/11/22 Pre-Operative Diagnosis: labor, cholestasis of Post-Operative Diagnosis: same Surgery / Procedure Performed: Spontaneous Vaginal Delivery Type of Anesthesia: None Special Medications: none Drain: - (none) Estimated Blood Loss: 100 Time of Delivery: 23:55 Findings Description of Procedure: A vigorous female was delivered SHANIKA over an intact perineum. The remainder the infant was delivered with maternal pushing and gentle traction only in less than 15 seconds. The Pitocin infusion was initiated for active management of the third stage. The cord was clamped and cut after 1 minute. The was attended to by the waiting nursing staff. The placenta was delivered spontaneously and intact. The cervix and vagina were intact. Sponge and needle counts were correct. A vaginal sweep was completed by me. Presentation: SHANIKA Amniotic Membrane Rupture Type: Spontaneous Amniotic Fluid Description: Clear Placental Delivery Description: Spontaneous Placenta Disposition: [facility] Cord Vessel Description: 3 Vessels Cord Entanglement: None Infant A Gender: Female (Gemma) (1 minute): 8 (5 minute): 9 Delayed Cord Clamping: Yes Post Vaginal Delivery Medications Given After Delivery: IV Pitocin Episiotomy Description: None Laceration: None Complication Complications: None
[2022-01-12] MEDS: oxyCODONE 5 MG Tablet PO ×6 (00:56→22:54)
[2022-01-12] MEDS: 0.9% Saline Lock 10 ML Syringe IV (02:13)
[2022-01-12] MEDS: Ibuprofen 600 MG Tablet PO (08:35)
--- NOTE | 2022-01-12 18:40 | PCM.PN.OB ---
Subjective Subjective Denied complaints when seen this am Objective Data Objective Data Vital Signs: Vital Signs Temp Pulse Resp BP Pulse Ox 97.5 F L 88 16 104/64 99 01/12/22 16:28 01/12/22 16:27 01/12/22 16:27 01/12/22 16:27 01/12/22 16:27 Oxygen Delivery Method Room Air Weight: 191 lb 9.307 oz Body Mass Index (BMI) 29.9 Intake & Output: Intake and Output for Last 24 Hours 01/10/22 01/11/22 01/12/22 23:59 23:59 23:59 Intake Total 3246.67 / 3246.67 1000 / 1000 Output Total 800 / 800 Balance 3246.67 / 3246.67 200 / 200 Lab / Micro Data Result Diagrams: 01/11/22 08:30 Micro: Microbiology 01/11/22 08:30 Nasal Secretion SARS-CoV-2 Antigen (Rapid) - Final Physical Exam Const alert, oriented x3 and no apparent distress HEENT normocephalic GI soft to palpation, non-tender and non-distended GI Narrative: fundus firm, mid & below umbilicus Extremity normal to inspection and no calf tenderness Assessment & Plan (1) Cholestasis during in third trimester: (2) Advanced maternal age during in third trimester: (3) delivery: COMMENT: PPD#1 PLAN: ROutine care
[2022-01-13 00:28] VITALS: TEMP 36.3
[2022-01-13 00:29] VITALS: BP 121/80; PULSE 81; RESP 18; TEMP 36.3
--- NOTE | 2022-01-13 01:04 | NURSING ---
Late entry: at 0030 pt requested that this RN leave them alone so we can sleep. This RN confirms that patient does not want rounded on and mother agrees. RN and patient agree to resume rounding at 0300.
[2022-01-13] MEDS: oxyCODONE 5 MG Tablet PO (03:14)
--- NOTE | 2022-01-13 08:10 | PCM.PN.OB ---
Subjective Subjective Patient is doing well this morning. She has no complaints and desires discharge today. No issues with pain. Lochia is normal. No chest pain or shortness of breath. No pain in her legs. Objective Data Objective Data Vital Signs: Vital Signs Temp Pulse Resp BP Pulse Ox 97.4 F L 81 18 121/80 H 99 01/13/22 00:29 01/13/22 00:29 01/13/22 00:29 01/13/22 00:29 01/12/22 16:27 Oxygen Delivery Method Room Air Weight: 191 lb 9.307 oz Body Mass Index (BMI) 29.9 Intake & Output: Intake and Output for Last 24 Hours 01/11/22 01/12/22 01/13/22 23:59 23:59 23:59 Intake Total 3246.67 / 3246.67 1000 / 1000 Output Total 800 / 800 Balance 3246.67 / 3246.67 200 / 200 Lab / Micro Data Result Diagrams: 01/11/22 08:30 Micro: Microbiology 01/11/22 08:30 Nasal Secretion SARS-CoV-2 Antigen (Rapid) - Final Physical Exam Const no apparent distress General Appearance: comfortable Assessment & Plan (1) Status post vaginal delivery: PLAN: PPD#2 doing well Desires discharge today
--- NOTE | 2022-01-13 08:12 | PCM.DC ---
Discharge Instructions Diet Discharge Diet: No restrictions Activity Discharge Activity: May Shower May resume sexual activity in: 6 weeks Weight Bearing Status: Weight bearing as tolerated Lifting Restrictions: Nothing heavier than baby Dressing / Incision Call your doctor if you observe: Fever of 101 or Higher, Coldness, Increased Pain, Numbness or Tingling, Change in Color, Inability to urinate, Inability to have a bowel movement, Using more than 1 pad per hour, Shortness of breath, Dizziness, Fainting spells, Swelling in the ankles, Chest pain, Increased palpitations (irregular heartbeat), Calf discomfort and Uncontrolled pain Follow Up Care When: 6 week visit Test Results: Test results from this visit will be discussed in further detail at your follow-up appointment, if applicable. Discharge Plan Admission Admit Date/Time: 01/11/22 07:15 Primary Reason for Your Visit: Delivery Attending Provider: Brenda Quevedo Primary Care Provider: Fransisco Downey Instructions Patient Instructions: After a Vaginal Discharge Orders/Prescriptions Prescriptions: New ibuprofen 600 mg tablet 600 mg PO Q6H PRN (Reason: pain) Qty: 30 RF: 0 Continued Prenatabs FA 1 TABLET tablet 1 tab PO DAILY RF: 0 Discontinued ondansetron HCl [Zofran] 4 mg Tablet 4 mg PO Q6H RF: 0 promethazine [Phenergan] 25 mg Tablet 25 mg PO Q6H PRN (Reason: Nausea) RF: 0 ursodiol 300 mg Capsule 300 mg PO BID RF: 0 Referrals / Follow Up: Fransisco Downey MD [Primary Care Provider] - Disposition Disposition (needs filled in before D/C Order can be placed): Home, Self Care
[2022-01-13 08:30] VITALS: BP 110/74; PULSE 82; RESP 16; TEMP 36.6
[2022-01-13 08:31] VITALS: TEMP 36.6
[2022-01-13 08:33] VITALS: BP 110/74; PULSE 82
--- NOTE | 2022-01-13 10:45 | CASEMGMT ---
Social Work Assessment Labor and Delivery Unit Date of Referral: 01/12/2022 Time of Referral: 09:32 Referred By: Dr. Lizett Morales Date of Intervention: 01/13/2022 Time of Intervention: 10:45 Reason for Referral: Mental Health History obtained from: Mother of baby (MOB), Father of baby (FOB), charting, nursing. Household composition: MOB, FOB, Edvin Liu live in a private home with their 8 children and now this , Sadie Liu. Edvin?s mother is also living in the home since dEvin?s father in 2021. Patient's parent/guardian status: MOB and FOB have been for 17 years. was planned and accepted. FOB is father to all of MOB?s children. FOB does not have any other children. Medical History: MOB induced due to Cholestasis at 36 weeks with vaginal delivery. MOB with history prior to delivery of this infant. Infant born on 01/11/2021 with apgars of 8 and 9 at 1min and 5min. Infant birthweight of 2570g. MOB plans to breast feed infant. Dr. Tere Grimes to follow care of in the community. Educational Status: MOB denies any issues with comprehension or understanding. Financial Status: Denies concerns. FOB works full-time for an accounting firm. Infant Supplies: MOB reports to have needed infant supplies including a car seat and crib. Childcare/Caregiver(s): MOB plans to be primary caregiver for . MOB is a homemaker and cares for the children in the home. FOB?s mother is currently caring for children in the home and is able to assist with care of children as needed after MOB?s/infants discharge from hospital. Transportation: MOB denies issues or concerns. Programs/Agencies Involved: No active community services. Children Services/Legal Issues: None identified. Mental Health History: MOB denies mental health history. MOB reports history of depression with one ?13 years ago.? MOB reports to have been ?more down.? MOB denies suicidal thoughts, plans, intents or history of. MOB reports positive relationship with FOB and family supports and feels that MOB is able to reach out to support system if MOB is having signs/symptoms of depression and anxiety. Substance Use History: Denies. PHQ9: Did not trigger. Family/Social Stressors: MOB denies stressors outside adjusting to life with now 9 children. Support Systems: MOB reports to have positive support from FOB and multiple other family members/friends. Depression and Anxiety/Shaken Baby/Safe Sleeping: This social worker psychiatric provided MOB with resources on depression/anxiety as well as shaken baby, and safe sleeping. ASSESSMENT: This social worker psychiatric met with MOB, FOB and infant in room. This social worker psychiatric introduced self and social worker psychiatric role. MOB agreeable to speak with this social worker psychiatric and provided verbal permission for this social worker psychiatric to speak openly with FOB present. FOB holding infant and providing support for MOB during assessment. MOB gazing towards often during assessment. MOB with pleasant and engaged affect during assessment. MOB denies issues or concerns on returning to home and to be bonding with infant. PLAN: to discharge to home with MOB and FOB. No other services requested or indicated. Kanwal MORENO, CIPRIANO
== END 2022-01-13 12:00 | disposition home or self-care (01) | DRG 805 ==
PROVIDERS: Admitting Provider Advanced Practice Midwife; PCP Family Medicine Geriatric Medicine; Referring Provider Advanced Practice Midwife; Visit Provider Obstetrics & Gynecology
DX: O60.14X0 Preterm labor third trimester with preterm delivery third trimester, not applicable or unspecified (principal); Z37.0 Single live birth; K83.1 Obstruction of bile duct; O26.62 Liver and biliary tract disorders in childbirth; O36.5930 Maternal care for other known or suspected poor fetal growth, third trimester, not applicable or unspecified; O34.43 Maternal care for other abnormalities of cervix, third trimester; Z3A.36 36 weeks gestation of pregnancy; Z86.16 Personal history of COVID-19; Z87.59 Personal history of other complications of pregnancy, childbirth and the puerperium
CPT/HCPCS: 59025; 59050; 85025; 86850; 86900; 86901; 87426; 99218; J7120; A4216; G0378; J2405

== ENCOUNTER 2023-02-09 07:20 | Inpatient (IN) | payer OTHER, MEDICAID, SELFPAY ==
[2023-02-09] VITALS (60 sets, daily range): BP systolic 79–143; BP diastolic 43–83; PULSE 68–149; TEMP 36.1–36.9; O2SAT 96–100
[2023-02-09] MEDS: Lactated Ringers 1,000 ML 200 ML IV ×2 (08:35→13:37)
[2023-02-09] MEDS: Mag Hydrox/Al Hydrox/Simeth 30 ML UDC PO (08:54)
[2023-02-09] MEDS: Oxytocin 15 Units/NS 250ml 15 UNITS/250 ML IV.SOLN 2 UNITS IV (08:56)
[2023-02-09 09:23] LABS: Syphilis Antibodies Non-reactive
[2023-02-09] MEDS: Ondansetron 4 MG/2 ML Vial IV (11:13)
--- NOTE | 2023-02-09 13:07 | PCM.HP.OB ---
[facility] - General General Date of Admission: 02/09/23 Date of Service: 02/09/23 Chief Complaint: induction HPI Narrative MARITZA PHAN, is a 37 F who presents 12 para 8-2-1-9 who presents at 39 gestational weeks for induction of labor due to high risk with advanced maternal age. This has been uncomplicated to date other than advanced maternal age. She has a history remarkable for depression, preeclampsia and earlier pregnancies, iron deficiency anemia, nausea and vomiting of , cholestasis of with just her last . Maternal Data Information Final PILAR: 02/15/23 Gestational age: 39 17 [facility] Medical History (Updated 02/09/23 @ 13:[address] Brenda Quevedo MD) Cholestasis during in third trimester Grand multipara in labor Personal history of COVID-19 depression Pre-eclampsia delivery Stillborn, normal Unfavorable cervix in term Home Medications vits,calcium no.78-iron fumarate-folic acid 29 mg-1 mg tablet (Prenatabs FA) 1 tab PO DAILY 02/10/18 [History Last Taken 02/08/23 21:00] aspirin 81 mg chewable tablet 81 mg PO DAILY 02/09/23 [History Last Taken 02/08/23 06:00] ondansetron HCl 4 mg tablet 4 mg PO Q6H nausea 02/09/23 [History Last Taken 02/09/23 06:00] Allergy/AdvReac Type Severity Reaction Status Date / Time No Known Allergies Allergy Verified 01/11/22 07:44 Surgical History (Updated 02/09/23 @ 09:25 by Leigh Robbins) History of surgery Status post vaginal delivery Social History Smoking Status: Never smoker History Elective abortions Hx Para 9 Spontaneous abortions Hx # Term Pregnancies Ectopic pregnancies Hx # Pregnancies Multiple births # of living children ROS Constitutional Constitutional: Denies fatigue, fever(s) or malaise Eyes Eyes: Denies change in vision ENT HEENT: Denies dizziness or headache(s) Cardiovascular Cardiovascular: Denies chest pain, dyspnea or lightheadedness Respiratory/Chest Respiratory/Chest: Denies cough or dyspnea Gastrointestinal Gastrointestinal: Denies change in bowel habits Genitourinary Genitourinary: Denies burning urination or genital lesions Integumentary Integumentary: Denies rash Neurologic Neurologic: Denies confusion, dizziness, headache(s), numbness or weakness Vital Signs Vital Signs Vital Signs: 02/09/23 07:52 02/09/23 07:54 02/09/23 07:54 Temperature Temperature Source Temporal Pulse Rate 88 Blood Pressure 125/82 H BP Systolic 125 BP Diastolic 82 02/09/23 07:53 02/09/23 11:28 02/09/23 11:28 Temperature 97.0 F L Temperature Source Pulse Rate 82 Blood Pressure 114/66 BP Systolic 114 BP Diastolic 66 02/09/23 11:28 02/09/23 11:28 Temperature 97.9 F Temperature Source Temporal Pulse Rate Blood Pressure BP Systolic BP Diastolic Weight Weight: 87.09 kg Body Mass Index (BMI) 30.0 Physical Exam Const alert and no apparent distress General Appearance: cooperative HEENT normocephalic Resp normal respiratory effort Cardio regular rate GI soft to palpation GI Narrative: gravid, nontender, appropriate for gestational age Extremity no calf tenderness General Extremity: edema Skin no wounds Rashes: No rashes noted Psych activity/motor behavior normal Labs Labs Labs: Blood Type O POSITIVE Antibody Screen NEGATIVE Hct Not Reportable Hgb Not Reportable Syphilis Total Ab Non-reactive Rhogam given: No Assessment & Plan (1) Supervision of other high risk pregnancies, third trimester: PLAN: High risk grand multiparity patient for induction of labor due to advanced maternal age. Risk benefits and alternatives to induction and reviewed, consent was signed questions were answered and she desires to proceed. Estimated weight is less than 4500 g clinically and pelvis clinically adequate to expect vaginal delivery. May use epidural, nitrous oxide or other pain relieving methods as indicated. (2) 39 weeks gestation of :
[2023-02-09] MEDS: fentaNYL 100 MCG/2 ML Ampul IV (13:45)
[2023-02-09] MEDS: LACTATED RINGERS 500 ML 999 ML IV ×2 (15:20→16:20)
[2023-02-09] MEDS: fentaNYL-bupivacaine (epidural) 100 ML BAG EPIDURAL (16:08)
--- NOTE | 2023-02-09 18:24 | PCM.PN.BLA ---
Progress Note Called to confirm presentation, US confirms complete breech. EFW < 4000 gm clinically, Pelvis adequate. R/B/a to c/s vs vaginal delivery of breech. Questions answered. She desires to proceed w/ planned breech delivery. Meconium noted but likely from breech more than MSF as fluid initially clear. Peds aware. Epidural adequate. Cannon in place.
--- NOTE | 2023-02-09 18:54 | EX.PCM.OBRPT ---
Assessment & Plan (1) (spontaneous vaginal delivery): (2) Breech : Maternal Data Information Final PILAR: 02/17/23 Gestational age: 39 1/7 Vaginal Delivery Maternal Presentation Maternal Presentation: Medically Indicated Induction Type of Induction: Pitocin and Amniotomy Operative Information Date of Procedure: 02/09/23 Pre-Operative Diagnosis: labor Post-Operative Diagnosis: same Surgery / Procedure Performed: Spontaneous Vaginal Delivery (Complete breech) preschool substitute teacher #1: Alessandra Ruiz Type of Anesthesia: Epidural Special Medications: none Drain: Cannon to straight drain Estimated Blood Loss: 200 Time of Delivery: 18:41 Findings Description of Procedure: A vigorous [female] was complete breech, sacrum SHANIKA over an intact perineum. The legs were swept out individually and a towel was placed around the neonates torso. The left arm was swept out and there was a loose nuchal cord that reduced. The right arm was then swept out. Gentle traction was then placed on the maxilla. The infant delivered on the next push with minimal traction. The entire delivery occurred within 1 contraction. The Pitocin infusion was initiated for active management of the third stage. The cord was clamped and cut after cord pulsations ceased. The infant was attended to by the waiting nursing staff. The placenta was delivered spontaneously and intact. The cervix and vagina were intact. Sponge and needle counts were correct. A vaginal sweep was completed by me. Presentation: Complete Breech Amniotic Membrane Rupture Type: Artificial Amniotic Fluid Description: Clear Placental Delivery Description: Spontaneous Placenta Disposition: [facility] Cord Vessel Description: 3 Vessels Cord Entanglement: - (around body x 1 loose) Nuchal Cord Compression: Without compression A Gender: Female (1 minute): 8 (5 minute): 9 Delayed Cord Clamping: Yes Post Vaginal Delivery Medications Given After Delivery: IV Pitocin Episiotomy Description: None Laceration: None Complication Complications: None
[2023-02-09] MEDS: Oxytocin 15 Units/NS 250ml 15 UNITS/250 ML IV.SOLN 83 UNITS IV (19:20)
[2023-02-09] MEDS: Ibuprofen 600 MG Tablet PO (20:45)
[2023-02-09] MEDS: oxyCODONE 5 MG Tablet PO (21:25)
[2023-02-10] VITALS (12 sets, daily range): BP systolic 98–147; BP diastolic 59–84; PULSE 71–107; RESP 15–16; TEMP 35.9–36.7; O2SAT 97–98
[2023-02-10] MEDS: oxyCODONE 5 MG Tablet PO ×6 (01:07→22:55)
[2023-02-10] MEDS: cycloBENZAPRine HCl 10 MG Tablet PO ×3 (02:29→17:47)
[2023-02-10] MEDS: 0.9% Saline Lock 10 ML Syringe IV ×2 (05:25→05:37)
[2023-02-10] MEDS: HYDROmorphone 1 MG/ML Syringe IV (05:25)
--- NOTE | 2023-02-10 08:56 | PCM.PN.OB ---
Subjective Subjective Patient reports neck pain that radiates down her back. Also reports a headache. She has h/o torticollis and thinks this may be flaring. Pain is somewhat worse when she sits up. Objective Data Objective Data Vital Signs: Vital Signs Temp Pulse Resp BP Pulse Ox O2 Del Method 97.2 F L 88 16 127/82 H 97 Room Air 02/10/23 07:49 02/10/23 07:50 02/10/23 07:49 02/10/23 07:49 02/10/23 07:49 02/10/23 07:49 Oxygen Delivery Method Room Air Weight: 192 lb Body Mass Index (BMI) 30.0 Intake & Output: Intake and Output for Last 24 Hours 02/08/23 02/09/23 02/10/23 23:59 23:59 23:59 Intake Total 3500.00 / 3500.00 Output Total 700 / 950 250 / 250 Balance 2800.00 / 2550.00 -250 / -250 Lab / Micro Data Result Diagrams: 02/09/23 08:33 Labs: Laboratory Results - last 24 hr 02/09/23 08:33: WBC , RBC Not Reportable, Hgb Not Reportable, Hct Not Reportable, MCV Not Reportable, MCH Not Reportable, MCHC Not Reportable, RDW Std Deviation Not Reportable, RDW Coeff of Kathryn Not Reportable, Plt Count Not Reportable, Neut % (Auto) Not Reportable, Absolute Neuts (auto) Not Reportable 02/09/23 08:33: Blood Type O POSITIVE, Antibody Screen NEGATIVE 02/09/23 08:33: Syphilis Total Ab Non-reactive Physical Exam Const alert, oriented x3 and no apparent distress HEENT normocephalic GI soft to palpation, non-tender and non-distended GI Narrative: fundus firm, mid & below umbilicus Extremity normal to inspection and no calf tenderness Assessment & Plan (1) (spontaneous vaginal delivery): COMMENT: PPD#1 (2) Breech : PLAN: Plan Routine PP care Neck. back & head pain - try flexeril & heat. If no improvement plan for anesthesia eval for possible spinal headache.
--- NOTE | 2023-02-10 08:58 | DCINST_ITS ---
Discharge Instructions Diet Discharge Diet: No restrictions Activity Discharge Activity: May Shower May resume sexual activity in: 6 weeks Weight Bearing Status: Weight bearing as tolerated Dressing / Incision Call your doctor if you observe: Fever of 101 or Higher, Coldness, Increased Pain, Change in Color, Inability to urinate, Inability to have a bowel movement, Using more than 1 pad per hour, Shortness of breath, Dizziness, Fainting spells, Chest pain, Increased palpitations (irregular heartbeat), Calf discomfort and Uncontrolled pain Suture Line Care: Avoid Pulling/Pushing and Avoid Pinching/Bending Follow Up Care Please Follow Up With: Brenda Quevedo MD When: Follow up in 2 and 6 weeks for visits. Test Results: Test results from this visit will be discussed in further detail at your follow- up appointment, if applicable. Discharge Plan Admission Admit Date/Time: 02/09/23 07:20 Primary Reason for Your Visit: Vaginal delivery Attending Provider: Brenda Quevedo Primary Care Provider: Fransisco Downey Discharge Orders/Prescriptions Prescriptions: New acetaminophen 500 mg Tablet 1,000 mg PO Q6H PRN PRN (Reason: Pain 1-10 Or Fever) Qty: 0 0RF ibuprofen 600 mg Tablet 600 mg PO Q6H PRN PRN (Reason: Pain Score 1-3) Qty: 0 0RF Continued Prenatabs FA 1 TABLET tablet 1 tab PO DAILY Discontinued ondansetron HCl [Zofran] 4 mg Tablet 4 mg PO Q6H aspirin [Baby Aspirin] 81 mg Tablet,Chewable 81 mg PO DAILY Referrals / Follow Up: Fransisco Downey MD [Primary Care Provider] - Disposition Disposition (needs filled in before D/C Order can be placed): Home, Self Care
[2023-02-10] MEDS: Ibuprofen 600 MG Tablet PO (10:13)
[2023-02-11] MEDS: cycloBENZAPRine HCl 10 MG Tablet PO (01:46)
[2023-02-11 01:47] VITALS: BP 123/56; PULSE 77; RESP 15; TEMP 36.6
[2023-02-11] MEDS: Ibuprofen 600 MG Tablet PO (01:54)
[2023-02-11] MEDS: oxyCODONE 5 MG Tablet PO ×2 (02:56→07:46)
[2023-02-11 07:52] VITALS: BP 117/79; PULSE 87; RESP 16; TEMP 36.4; O2SAT 97
[2023-02-11 07:53] VITALS: TEMP 36.1
[2023-02-11 07:54] VITALS: BP 117/79; PULSE 82
--- NOTE | 2023-02-11 08:39 | PCM.PN.OB ---
Subjective Subjective Doing well per patient and nursing staff. Ambulating and taking PO without difficulty. Voiding and passing flatus. Pain controlled. , services for assistance. Denies headache, visual changes, chest pain, shortness of breath, leg pain or increased bleeding. Lochia normal. Objective Data Objective Data Vital Signs: Vital Signs Temp Pulse Resp BP Pulse Ox O2 Del Method 97.0 F L 82 16 117/79 97 Room Air 02/11/23 07:53 02/11/23 07:54 02/11/23 07:52 02/11/23 07:54 02/11/23 07:52 02/11/23 07:52 Oxygen Delivery Method Room Air Weight: 192 lb Body Mass Index (BMI) 30.0 Intake & Output: Intake and Output for Last 24 Hours 02/09/23 02/10/23 02/11/23 23:59 23:59 23:59 Intake Total 3500.00 / 3500.00 400 / 400 Output Total 700 / 950 250 / 250 Balance 2800.00 / 2550.00 -250 / 150 400 / 400 Lab / Micro Data Result Diagrams: 02/09/23 08:33 ROS Constitutional Constitutional: Reports systems reviewed and no addt'l complaints, except as documented; Denies headache(s) Eyes Eyes: Denies acute decrease in peripheral vision, blurry vision or change in vision ENT HEENT: Reports systems reviewed and no addt'l complaints, except as documented Cardiovascular Cardiovascular: Denies chest pain or dizziness Respiratory/Chest Respiratory/Chest: Denies cough, dyspnea, dyspnea on exertion, shortness of breath at rest or shortness of breath with exertion Gastrointestinal Gastrointestinal: Denies abdominal pain, diarrhea, nausea or vomiting Genitourinary Genitourinary: Denies abdominal discomfort Musculoskeletal Musculoskeletal: Denies limited range of motion Integumentary Integumentary: Reports systems reviewed and no addt'l complaints, except as documented Neurologic Neurologic: Reports systems reviewed and no addt'l complaints, except as documented Psychiatric Psychiatric: Reports systems reviewed and no addt'l complaints, except as documented Endocrine Endocrinology: Reports systems reviewed and no addt'l complaints, except as documented Hematologic/Lymphatic Hematologic/Lymphatic: Reports systems reviewed and no addt'l complaints, except as documented Allergic/Immunologic Allergic/Immunologic: Reports systems reviewed and no addt'l complaints, except as documented Physical Exam Const alert and oriented x3 General Appearance: cooperative Orientation / Consciousness: awake, oriented to person, oriented to place and oriented to time Exam Limitations: no limitations HEENT normocephalic Head and Scalp: normal to inspection, normocephalic and atraumatic Face and Sinus: normal facial exam Eyes General Eye: normal appearance of both eyes Neck full ROM Chest Chest: symmetrical chest wall rise Resp normal respiratory effort and normal air movement Auscultation: clear to auscultation bilaterally Cardio regular rate, regular rhythm, S1 normal heart sound, S2 normal heart sound, no murmurs, no rub, no gallops and no clicks GI normal to inspection, nondistended, normoactive bowel sounds and non-tender appearance of the vagina normal Bladder / Kidney Exam: no CVA tenderness Back/Spine normal ROM Extremity normal to inspection and full ROM Skin no rashes or lesions noted Neuro oriented x3, CN's II-XII intact bilaterally and moves all extremities Sensorium / Orientation: awake, alert and oriented to person Motor Exam: clonus absent Deep Tendon Reflexes: Rt Patellar (L4): 2+ and Lt Patellar (L4): 2+ Assessment & Plan (1) Breech : (2) (spontaneous vaginal delivery): COMMENT: PPD#2 PLAN: Plan 1) Routine PPD#2 2) Pain management, flexeril and oxycodone for neck and back pain 3) Vitals stable 4) I&O 5) Follow up in 2 weeks and 6 weeks
--- NOTE | 2023-02-11 08:48 | PCM.DC.SUM ---
Providers Date of Admission: 02/09/23 Primary Care Physician: Dr. Fransisco Downey MD Reason For Visit: VAGINAL DELIVERY Diagnosis Discharge Diagnosis (1) Breech : Status: Acute Code(s): O32.1XX0 - Maternal care for breech presentation, not applicable or unspecified (2) (spontaneous vaginal delivery): Status: Acute Code(s): O80 - Encounter for full-term uncomplicated delivery Plan 1) Routine PPD#2 2) Pain management, flexeril and oxycodone for neck and back pain 3) Vitals stable 4) I&O 5) Follow up in 2 weeks and 6 weeks Medications at Discharge Home Medications vits,calcium no.78-iron fumarate-folic acid 29 mg-1 mg tablet (Prenatabs FA) 1 tab PO DAILY 02/10/18 acetaminophen 500 mg tablet 1,000 mg PO Q6H PRN PRN Pain 1-10 Or Fever #0 tabs 02/10/23 ibuprofen 600 mg tablet 600 mg PO Q6H PRN PRN Pain Score 1-3 #0 tabs 02/10/23 cyclobenzaprine 10 mg tablet 10 mg PO TID PRN PRN neck pain #30 tabs 02/11/23 oxycodone 5 mg tablet 5 mg PO Q6H 7 days #10 tabs 02/11/23 Weight / BMI Weight Weight: 192 lb Body Mass Index (BMI) 30.0 ABG / Lab / Microbiology Data Result Diagrams: 02/09/23 08:33 D/C Instructions Discharge Diet: No restrictions May resume sexual activity in: 6 weeks Weight Bearing Status: Weight bearing as tolerated Call your doctor if you observe: Fever of 101 or Higher, Coldness, Increased Pain, Change in Color, Inability to urinate, Inability to have a bowel movement, Using more than 1 pad per hour, Shortness of breath, Dizziness, Fainting spells, Chest pain, Increased palpitations (irregular heartbeat), Calf discomfort and Uncontrolled pain Suture Line Care: Avoid Pulling/Pushing and Avoid Pinching/Bending Please Follow Up With: Brenda Quevedo MD When: Follow up in 2 and 6 weeks for visits. Meaningful Use Info Meaningful Use Diagnoses (Choose all that apply): None applicable Discharge Plan Admission Admit Date/Time: 02/09/23 07:20 Primary Reason for Your Visit: Vaginal delivery Attending Provider: Brenda Quevedo Primary Care Provider: Fransisco Downey Discharge Orders/Prescriptions Prescriptions: New acetaminophen 500 mg Tablet 1,000 mg PO Q6H PRN PRN (Reason: Pain 1-10 Or Fever) Qty: 0 0RF ibuprofen 600 mg Tablet 600 mg PO Q6H PRN PRN (Reason: Pain Score 1-3) Qty: 0 0RF cyclobenzaprine 10 mg Tablet 10 mg PO TID PRN PRN (Reason: neck pain) Qty: 30 0RF oxycodone 5 mg Tablet 5 mg PO Q6H 7 Days Qty: 10 0RF Continued Prenatabs FA 1 TABLET tablet 1 tab PO DAILY Discontinued ondansetron HCl [Zofran] 4 mg Tablet 4 mg PO Q6H aspirin [Baby Aspirin] 81 mg Tablet,Chewable 81 mg PO DAILY Referrals / Follow Up: Fransisco Downey MD [Primary Care Provider] - Brenda Quevedo MD [Med Staff - Active Staff] - (2 weeks virtual visit and 6 weeks in person) Disposition Disposition (needs filled in before D/C Order can be placed): Home, Self Care
== END 2023-02-11 09:55 | disposition home or self-care (01) | DRG 807 ==
PROVIDERS: Advanced Practice Midwife; Admitting Provider Obstetrics & Gynecology; PCP Family Medicine Geriatric Medicine; Visit Provider Obstetrics & Gynecology
DX: O32.1XX0 Maternal care for breech presentation, not applicable or unspecified (principal); Z37.0 Single live birth; M54.2 Cervicalgia; X58.XXXA Exposure to other specified factors, initial encounter; O99.893 Other specified diseases and conditions complicating puerperium; O69.81X0 Labor and delivery complicated by cord around neck, without compression, not applicable or unspecified; O77.0 Labor and delivery complicated by meconium in amniotic fluid; Z79.82 Long term (current) use of aspirin; Z86.16 Personal history of COVID-19; Z3A.39 39 weeks gestation of pregnancy; Z87.59 Personal history of other complications of pregnancy, childbirth and the puerperium
CPT/HCPCS: 59025; 59050; 76815; 85025; 86780; 86850; 86900; 86901; 99221; J7120; A4216; G0378; J2405

== ENCOUNTER 2025-10-12 07:11 | Inpatient (IN) | payer OTHER, SELFPAY ==
[2025-10-12] VITALS (25 sets, daily range): BP systolic 107–145; BP diastolic 62–87; PULSE 69–222; RESP 16; TEMP 36.2–36.6; O2SAT 85–98
--- OUTSIDE RECORDS SUMMARY | 2025-10-12 07:13 | XMS RPT_ITS | CCD ---
Author Organization [facility] ion [facility] Care Team Providers Care S Iron Worker Name Role Phone SAMIA MONICA Unavailable Unavailable KIM ROSS Unavailable Unavailable NO PRIMARY CARE, Unavailable Unavailable Kim Ross Unavailable Unavailable Shayan, Ross Unavailable Unavailable Downey, Ross Unavailable Unavailable Kim Ross Unavailable Unavailable Ross Downey Unavailable Unavailable Ross Downey Unavailable Unavailable Ross Downey Primary Care Provider Ross Downey Primary Care Provider Shayan Arizmendi, Ross Torres Primary Care Provider Ross Downey MD Primary Care Provider Shayan Arizmendi, Ross Torres Primary Care Provider Shayan Arizmendi, Ross Torres Primary Care Provider Shayan Arizmendi, Ross Torres Primary Care Provider Brian Downey Primary Care Unavailable Alessandra Ruiz Referring Unavailable Brenda Mcdaniel Admitting Unavailable Brenda Mcdaniel Attending Unavailable Shayan HOPKINS, Ross Torres Primary Care Provider Shayan Arizmendi, Ross Torres Primary Care Provider ROSS DOWNEY Attending Unavailable ROSS DOWNEY Referring Unavailable DOWNEY, ROSS Primary Care Unavailable DOWNEY, ROSS Referring Unavailable DOWNEY, ROSS Primary Care Unavailable ROSS DOWNEY Attending Unavailable SHAYAN, ROSS Referring Unavailable DOWNEY, ROSS Primary Care Unavailable DOWNEY, ROSS Referring Unavailable DOWNEY, ROSS Primary Care Unavailable SHAYAN, ROSS Attending Unavailable OMAR FREEDMAN Referring Unavailable ROSS DOWNEY JR Primary Care Unavaila ELIZABETH Espinoza Attending Unavailable ROSS DOWNEY JR Primary Care Unavaila KELLY Ann Referring Unavailable ROSS DOWNEY JR Primary Care UnavailBRENDA Olson Referring Unavailable DOWNEY JR, [facility] Unavaila ble REZA, OMAR Referring Unavailable DOWNEY , [facility] Unavaila ble REZA, OMAR Referring Unavailable DOWNEY , ROSS [facility] Unavaila ble SENDY, CAITLYN Attending Unavailable REZA, OMAR Referring Unavailable SHAYAN , ROSS [facility] Unavaila ble BRENDA MCDANIEL Attending Unavailable SHAYAN MATUTE, ROSS [facility] Unavaila ble JASMIN MCKEON Attending Unavailable DOWNEY , ROSS [facility] Unavaila ble SHAYAN MATUTE, [facility] Unavaila ble SHAYAN MATUTE, [facility] Unavaila ble SENDY, CAITLYN Attending Unavailable MEENA CUEVAS Attending Unavailable DOWNEY , ROSS [facility] Unavaila ble REZA, OMAR Attending Unavailable SHAYAN MATUTE, [facility] Unavaila BRENDA Ames Attending Unavailable DOWNEY , [facility] Unavaila ble Medications Current Medications Medication Drug Class(es) Dates Sig (Normalized) Sig (Original) aspirin 81 mg delayed release oral tablet (8 sources) Platelet Aggregation Inhibitor, Nonsteroidal Anti-inflammatory Drug Start: 03-28-2025 take 2 tablets by mouth once daily at bedtime aspirin, enteric coated (ECOTRIN LOW STRENGTH) 81 mg EC tablet Indications: with uncertain dates in first trimester (HCC) Take 2 tablets by mouth daily at bedtime. Starting at 12 weeks. 180 tablet 2 03/28/2025 Active enteric contrast (will be provided with radiology test) (1 source) Start: 04-26-2024 End: 04-27-2024 enteric contrast (will be provided with radiology test) Indications: Right sided abdominal pain , Abdominal distension (gaseous) , Right lower quadrant abdominal pain , Nausea For CT ABD/PEL W IVCON Routine order Administer, As Directed One Time Only, via Oral, Rectal, both Oral and Rectal, Enteric Tube, Stoma or Indwelling Catheter, Enteric Contrast as designated per enteric contrast guidelines 1 Each 0 04/26/2024 04/27/2024 Active ferrous sulfate (8 sources) ferrous sulfate (IRON ORAL) Take by mouth. Active fluconazole 100 mg oral tablet (3 sources) Azole Antifungal Start: 01-20-2022 End: 01-26-2022 fluconazole (DIFLUCAN) 100 mg tablet 100 mg every other day x 3 doses 3 tablet 0 01/20/2022 01/26/2022 Active Start: 01-20-2022 End: 01-20-2022 take 1 tablet by mouth once fluconazole (DIFLUCAN) 150 mg tablet Take 1 tablet by mouth one time only for 1 dose. 1 tablet 0 01/20/2022 01/20/2022 Discontinued Comment on above: 100 mg every other d ay x 3 doses Take 1 tablet by dez th one time only for 1 dose. hydrocortisone acetate 25 mg rectal suppository (3 sources) Corticosteroid Start: 05-25-2024 End: 2024 hydrocortisone (ANUSOL-HC) 25 mg suppository Indications: Hemorrhoids, internal 1 Suppository by RECTAL route every 12 hours. 60 Each 0 05/25/2024 2024 Active Start: 04-26-2024 End: 05-10-2024 hydrocortisone (ANUSOL-HC) 2 .5 % rectal cream Indications: BRBPR (bright red blood per rectum) , Hemorrhoids, internal by RECTAL route two times a day for 14 days. 28 g 2 04/26/2024 05/10/2024 Active ibuprofen 600 mg oral tablet (1 source) Nonsteroidal Anti-inflammatory Drug Start: 01-13-2022 take 600 mg by mouth every six hours Ibuprofen Active 600 MG PO EVERY 6 HOURS January 13, 2022 8:18am iv contrast (will be provided with radiology test) (1 source) Start: 04-26-2024 End: 04-27-2024 iv contrast (will be provided with radiology test) Indications: Right sided abdominal pain , Abdominal distension (gaseous) , Right lower quadrant abdominal pain , Nausea CT ABD/PEL -Inject, intravenously, once for 1 dose.No IV access, insert saline lock prior to the beginning of sedation, infusion, injection of imaging exam. Discontinue saline lock post exam. If Pt. has a central line or IVAD, may access for administration according to line specific nursing protocol. Once exam is complete flush line and de-access according to line specific nursing protocol in the CT contrast administration guidelines link. 1 Each 0 04/26/2024 04/27/2024 Active Magnesium (8 sources) MAGNESIUM ORAL Take by mouth. Active metroNIDAZOLE 250 mg oral tablet (2 sources) Nitroimidazole Antimicrobial Start: 01-09-2025 End: 01-16-2025 take 1 tablet by mouth three times daily metroNIDAZOLE (FLAGYL) 250 mg tablet Indications: Anal disorder , Papule Take 1 tablet by mouth three times a day for 7 days. 21 tablet 01/09/2025 01/16/2025 Active naproxen 500 mg oral tablet (3 sources) Nonsteroidal Anti-inflammatory Drug Start: 03-23-2016 take 1 tablet by mouth twice daily at mealtime naproxen (NAPROSYN) 500 MG tablet Take 1 tablet by mouth 2 times daily (with meals) 30 tablet 0 03/23/2016 Active ondansetron 4 mg disintegrating oral tablet (20 sources) Serotonin-3 Receptor Antagonist Start: 04-17-2025 take 1 tablet by mouth every eight hours as needed ondansetron orally disintegrating (ZOFRAN ODT) 4 mg disintegrating tablet Take 1 tablet by mouth every 8 hours as needed for nausea/vomiting. 60 tablet 4 04/17/2025 Active Start: 03-28-2025 End: 04-17-2025 take 1 tablet by mouth every eight hours as needed for nausea ondansetron (ZOFRAN) 4 mg tablet Indications: Nausea and vomiting in (HCC) Take 1 tablet by mouth every 8 hours as needed for nausea/vomiting. 60 tablet 3 03/28/2025 04/17/2025 Discontinued Start: 01-11-2022 End: 01-13-2022 take 1 tablet by mouth every six hours Ondansetron Hcl (Zofran) 4 mg Tablet Discontinued 4 MG PO EVERY 6 HOURS January 11, 2022 7:45am January 13, 2022 8:11am Start: 12-01-2021 End: 04-26-2024 take 1 tablet by mouth every eight hours as needed ondansetron orally disintegrating (ZOFRAN ODT) 4 mg disintegrating tablet Take 1 tablet by mouth every 8 hours as needed for nausea/vomiting. 40 tablet 2 01/27/2023 04/26/2024 Discontinued Comment on above: DISSOLVE ONE TABLET BY MOUTH ON TONGUE EVERY 8 HOURS NEEDED FOR NAUSEA/VOMITING. Take 1 tablet by dez th every 8 hours as needed for nausea/vomiting. PNV no.95/ferrous fum/folic ac ( ORAL) (8 sources) PNV no.95/ferrous fum/folic ac ( ORAL) Take by mouth. Active Vit,[id number] (Prenatabs Fa) 1 TABLET tablet (1 source) Start: 02-11-20 take 1 tablet by mouth once daily Vit,[id number]- Folic (Prenatabs Fa) 1 TABLET tablet Active 1 TABLET PO DAILY February 10, 2018 12:01pm traMADol hydrochloride 50 mg oral tablet (3 sources) Opioid Agonist take 1 tablet by mouth every six hours as needed for pain traMADol (ULTRAM) 50 MG tablet Take 50 mg by mouth every 6 hours as needed for Pain 0 Active Completed/Discontinued Medications Medication Drug Class(es) Dates Sig (Normalized) Sig (Original) acetaminophen 325 mg / butalbital 50 mg / caffeine 40 mg oral tablet (1 source) Barbiturate, Central Nervous System Stimulant, Methylxanthine Start: 09-10-2019 End: 09-12-2019 take 1 tablet by mouth every four hours as needed Butalbital-Acetam inophen-Caff Discontinued 1 TABLET PO EVERY 4 HOURS NEEDED September 10, 2019 8:50am September 12, 2019 9:31am Ascorbic Acid (20 sources) Vitamin C End: 04-26-2024 ascorbic acid (VITAMIN C ORAL) Take by mouth. 0 04/26/2024 Discontinued ascorbic acid (V ITAMIN C ORAL) Take by mouth. 0 Active Comment on above: Take by mouth. cholecalciferol, vitamin D3, (VITAMIN D3 ORAL) (20 sources) End: 04-26-2024 cholecalciferol, vitamin D3, (VITAMIN D3 ORAL) Take by mouth. 0 04/26/2024 Discontinued cholecalciferol, vitamin D3, (VITAMIN D3 ORAL) Take by mouth. 0 Active Comment on above: Take by mouth. cyclobenzaprine hydrochloride 10 mg oral tablet (13 sources) Muscle Relaxant Start: End: take 5-10 mg by mouth every eight hours as needed cyclobenzaprine (FLEXERIL) 10 mg tablet Take 0.5-1 tablets by mouth three times daily as needed. 20 tablet 0 02/10/2023 06/18/2023 Discontinued (Course of therapy completed) Comment on above: Take 0.5-1 tablets b y mouth three times daily as needed. fluticasone propionate 0.05 mg/actuat metered dose nasal spray (8 sources) Corticosteroid Start: End: take 1 spray(s) nasal route twice daily fluticasone (FLONASE ALLERGY RELIEF) 50 mcg/actuation nasal spray Indications: Acute non-recurrent pansinusitis Use 1 Beulah in each nostril twice daily. 1 Each 0 12/10/2021 07/07/2022 Discontinued (Other) Comment on above: Use 1 Beulah in each nostril twice daily. gadobutrol (Gadavist) injection 7.6 mL (2 sources) Start: 023 End: gadobutrol (Gadavist) injection 7.6 mL hydrOXYzine pamoate 25 mg oral capsule (8 sources) Antihistamine Start: 021 End: take 1 capsule by mouth three times daily as needed hydrOXYzine pamoate (VISTARIL) 25 mg capsule Indications: 22 weeks gestation of , Pruritus Take 1 capsule by mouth three times daily as needed. 30 capsule 0 10/05/2021 07/07/2022 Discontinued (Other) Comment on above: [facility] daily as needed. MEDICATION, NON-DATABASE (2 sources) End: 024 MEDICATION, NON-DATABASE CBD oil 0 04/26/2024 Discontinued MEDICATION, NON- DATABASE CBD oil 0 Active Comment on above: CBD oil meloxicam 15 mg oral tablet (6 sources) Nonsteroidal Anti-inflammatory Drug End: 01-10-20 take 1 tablet by mouth once daily meloxicam (MOBIC) 15 mg tablet Take 1 tablet by mouth once daily. 01/09/2025 Discontinued metoclopramide 5 mg oral tablet (8 sources) Dopamine-2 Receptor Antagonist Start: 11-05-19 End: 06-18-20 take 5-10 mg by mouth every six hours as needed metoclopramide HCl (REGLAN) 5 mg tablet Take 1-2 tablets by mouth four times daily as needed (nausea or headache). 30 tablet 3 11/05/2022 06/18/2023 Discontinued (Course of therapy completed) Comment on above: Take 1-2 tablets by mouth four times daily as needed (nausea or headache). miconazole nitrate 20 mg/ml topical cream (1 source) Azole Antifungal Start: 09-05-20 End: 04-26-20 miconazole 2 % cream Indications: state , Nipple pain Apply a small amount to the nipple after every feed. 42.5 g 0 09/05/2023 04/26/2024 Discontinued nystatin 100 unt/mg topical powder (4 sources) Polyene Antifungal Start: 02-04-20 End: 06-18-20 nystatin (MYCOSTATIN) powder Apply 1 application to affected area three times daily. 60 g 1 02/03/2023 06/18/2023 Discontinued (Course of therapy completed) Comment on above: Apply 1 application to affected area three times daily. oxyCODONE hydrochloride 5 mg oral tablet (3 sources) Opioid Agonist Start: 02-11-20 End: 06-18-20 take 1 tablet by mouth every eight hours as needed for pain oxyCODONE IR (ROXICODONE) 5 mg immediate release tablet Indications: Pain in neck Take 1 tablet by mouth every 8 hours as needed for pain. 10 tablet 0 02/10/2023 06/18/2023 Discontinued (Course of therapy completed) Start: 01-13-2022 End: 01-18-2022 take 1 tablet by mouth every six hours as needed for pain oxyCODONE IR (ROXICODONE) 5 mg immediate release tablet Indications: Postoperative pain Take 1 tablet by mouth every 6 hours as needed for pain for up to 5 days. 7 tablet 0 01/13/2022 01/18/2022 Active Comment on above: Take 1 tablet by dez th every 6 hours as needed for pain for up to 5 days. Take 1 tablet by dez th every 8 hours as needed for pain. VIT37/IRON/FOLIC ACID (PRENATA ORAL) (20 sources) End: 04-26-2024 VIT37/IRON/FOLIC ACID (PRENATA ORAL) Take by mouth. 0 04/26/2024 Discontinued VIT37/I ADAL/FOLIC ACID (PRENATA ORAL) Take by mouth. 0 Active Comment on above: Take by mouth. promethazine hydrochloride 25 mg oral tablet (10 sources) Phenothiazine Start: 06-23-2021 End: 07-07-2022 take 12.5-25 mg by mouth every six hours as needed promethazine (PHENERGAN) 25 mg tablet Take 0.5-1 tablets by mouth every 6 hours as needed. 60 tablet 2 06/23/2021 07/07/2022 Discontinued (Other) Start: 02-10-2018 End: 09-12-2019 take 25 mg by mouth every eight hours as needed Promethazine Discontinued 25 MG PO EVERY 8 HOURS NEEDED February 10, 2018 12:01pm September 12, 2019 9:31am Comment on above: Take 0.5-1 tablets b y mouth every 6 hours as needed. ursodiol 300 mg oral capsule (9 sources) Bile Acid Start: 01-11-2022 End: 01-13-2022 take 300 mg by mouth twice daily Ursodiol Discontinued 300 MG PO TWICE A DAY January 11, 2022 7:45am January 13, 2022 8:11am Start: 10-28-2021 End: 07-07-2022 take 2 capsules by mouth twice daily ursodiol (ACTIGALL) 300 mg capsule Take 2 capsules by mouth twice daily. 120 capsule 1 10/28/2021 07/07/2022 Discontinued (Other) Comment on above: Take 2 capsules by m outh twice daily. Zinc (20 sources) End: 04-26-2024 ZINC ORAL Take by mouth. 0 04/26/2024 Discontinued ZINC ORAL Take b y mouth. 0 Active Comment on above: Take by mouth. Problems Active Problems Problem Classification Problem Date Documented Da te Episodic/Chronic Abdominal pain (8 sources) Right sided abdominal pain; Translations: [Unspecified abdominal pain] Onset: 4 04-26-2024 Episodic Allergic reactions (20 sources) Non-celiac gluten sensitivity; Translations: [Non-celiac gluten sensitivity] Onset: 1 04-03-2021 Chronic Bacterial infection; unspecified site (8 sources) Bacteria present; Translations: [Streptococcus, group B, as the cause of diseases classified elsewhere] Onset: 5 04-01-2025 Episodic Early or threatened labor (2 sources) Premature delivery; Translations: [ labor with delivery, unspecified trimester, not applicable or unspecified] Episodic Gastrointestinal hemorrhage (1 source) Gastrointestinal hemorrhage; Translations: [Hemorrhage of anus and rectum] 04-26-2024 Episodic Hemorrhoids (2 sources) Internal hemorrhoids; Translations: [Other hemorrhoids] 04-26-2024 Episodic Malaise and fatigue (3 sources) Malaise and fatigue; Translations: [Other malaise] Onset: 5 06-04-2025 Episodic Nausea and vomiting (1 source) Nausea; Translations: [Nausea] 04-26-2024 Episodic Nutritional deficiencies (2 sources) Vitamin D deficiency; Translations: [Vitamin D deficiency, unspecified] Onset: 5 06-05-2025 Chronic Other bone disease and musculoskeletal deformities (3 sources) Disorder of bone; Translations: [Other specified disorders of bone, upper arm] 04-12-2023 Episodic Other complications of ; puerperium affecting management of mother (2 sources) Advanced maternal age ; Translations: [Advanced maternal age during in third trimester] Episodic Other complications of (20 sources) High risk ; Translations: [Supervision of other high risk pregnancies, third trimester] Onset: 8 Resolved: 1 Episodic Other complications of (1 source) A/N care: poor obstetric history; Translations: [Supervision of with other poor reproductive or obstetric history, third trimester] Episodic Other complications of (20 sources) Multigravida of advanced maternal age; Translations: [Supervision of elderly multigravida, unspecified trimester] Onset: 1 06-15-2021 Episodic Other complications of (1 source) Cervical observation during and labor; Translations: [Maternal care for other abnormalities of cervix, unspecified trimester] Episodic Other complications of (1 source) Liver and biliary tract disorders in , third trimester; Translations: [Liver and biliary tract disorders in , antepartum condition or complication] Episodic Other complications of (1 source) Supervision of other high risk pregnancies, third trimester; Translations: [Supervision of other high-risk ] Episodic Other complications of (1 source) Maternal care for other abnormalities of cervix, unspecified trimester; Translations: [Other congenital or acquired abnormality of cervix, antepartum condition or complication] Episodic Other complications of (1 source) Cramp in lower limb; Translations: [Leg cramps in ] Episodic Other complications of (1 source) Headache; Translations: [Other specified related conditions, second trimester] Episodic Other complications of (2 sources) Supervision of high risk , unspecified, second trimester; Translations: [Supervision of high risk in second trimester (HCC)] Onset: 5 Episodic Other complications of (1 source) Supervision of high risk , unspecified, third trimester; Translations: [Supervision of high risk in third trimester (HCC)] Onset: 5 Episodic Other complications of (1 source) Supervision of elderly multigravida, third trimester; Translations: [AMA (advanced maternal age) multigravida 35+, third trimester (HCC)] Onset: 5 Episodic Other complications of (1 source) Supervision of elderly multigravida, second trimester; Translations: [AMA (advanced maternal age) multigravida 35+, second trimester (HCC)] Onset: 5 Episodic Other complications of (2 sources) Supervision of elderly multigravida, first trimester; Translations: [AMA (advanced maternal age) multigravida 35+, first trimester (HCC)] Onset: 5 Episodic Other connective tissue disease (1 source) Pain in right lower limb; Translations: [Pain in right leg] Episodic Other female genital disorders (2 sources) History of past delivery; Translations: [Status post vaginal delivery] Episodic Other gastrointestinal disorders (1 source) Diarrhea; Translations: [Diarrhea, unspecified] 04-26-2024 Episodic Other gastrointestinal disorders (1 source) Abdominal distension, gaseous; Translations: [Abdominal distension (gaseous)] 04-26-2024 Episodic Other infections; including parasitic (2 sources) Personal history of other infectious and parasitic diseases; Translations: [History of severe acute respiratory syndrome coronavirus 2 (SARS-CoV-2) disease] Episodic Other liver diseases (2 sources) Disease of liver; Translations: [Liver disease, unspecified] 06-30-2023 Chronic Other liver diseases (1 source) Lesion of liver; Translations: [Liver disease, unspecified] 10-08-2024 Chronic Other liver diseases (1 source) Liver disease, unspecified; Translations: [Liver lesion] Onset: 4 Chronic Other nervous system disorders (1 source) Postoperative pain ; Translations: [Other acute postprocedural pain] Episodic Other non-traumatic joint disorders (2 sources) Shoulder pain; Translations: [Pain in right shoulder] 04-12-2023 Episodic Other skin disorders (1 source) Papule of skin; Translations: [Other skin changes] 01-09-2025 Episodic Residual codes; unclassified (2 sources) Gestation period, 36 weeks; Translations: [36 weeks gestation of ] Episodic Residual codes; unclassified (1 source) 36 weeks gestation of ; Translations: [ state, incidental] Episodic Residual codes; unclassified (1 source) Gestation period, 8 weeks; Translations: [8 weeks gestation of ] Episodic Residual codes; unclassified (2 sources) Gestation period, 12 weeks; Translations: [12 weeks gestation of ] Episodic Residual codes; unclassified (1 source) Gestation period, 16 weeks; Translations: [16 weeks gestation of ] Episodic Residual codes; unclassified (2 sources) Gestation period, 19 weeks; Translations: [19 weeks gestation of ] Episodic Residual codes; unclassified (1 source) Gestation period, 23 weeks; Translations: [23 weeks gestation of ] Episodic Residual codes; unclassified (1 source) Gestation period, 25 weeks; Translations: [25 weeks gestation of ] Episodic Residual codes; unclassified (1 source) Gestation period, 34 weeks; Translations: [34 weeks gestation of ] Episodic Residual codes; unclassified (1 source) Gestation period, 37 weeks; Translations: [37 weeks gestation of ] Episodic Residual codes; unclassified (1 source) Gestation period, 38 weeks; Translations: [38 weeks gestation of ] Episodic Residual codes; unclassified (1 source) Procedure not done; Translations: [Procedure and treatment not carried out, unspecified reason] 06-18-2023 Episodic Residual codes; unclassified (1 source) Gestation period, 9 weeks; Translations: [9 weeks gestation of ] 03-28-2025 Episodic Residual codes; unclassified (10 sources) History of gestational hypertension; Translations: [Personal history of other complications of , childbirth and the puerperium] Onset: 03-28-2025 Episodic Residual codes; unclassified (2 sources) Gestation period, 13 weeks; Translations: [13 weeks gestation of ] 04-25-2025 Episodic Residual codes; unclassified (1 source) 29 weeks gestation of ; Translations: [29 weeks gestation of (HCC)] Onset: Episodic Residual codes; unclassified (1 source) 27 weeks gestation of ; Translations: [27 weeks gestation of (HCC)] Onset: 5 Episodic Residual codes; unclassified (1 source) 23 weeks gestation of ; Translations: [23 weeks gestation of ([facility])] Onset: 5 Episodic Residual codes; unclassified (1 source) 19 weeks gestation of ; Translations: [19 weeks gestation of ([facility])] Onset: 5 Episodic Unclassified (8 sources) Encounter for screening of mother; Translations: [Patient encounter status] Onset: 7 Episodic Unclassified (2 sources) Encounter for other specified screening; Translations: [Encounter for other specified screening] Onset: 7 Unclassified (8 sources) [facility] Education - COMMON Onset: 5 03-28-2025 Unclassified (8 sources) Education - [place] Onset: 5 03-28-2025 Past or Other Problems Problem Classification Problem Date Documented Da te Episodic/Chronic Administrative/social admission (20 sources) Grand multipara; Translations: [Problems related to multiparity] Onset: 01-24-2018 Resolved: 02-22-2018 06-15-2021 Episodic Anal and rectal conditions (5 sources) Disorder of anus; Translations: [Disease of anus and rectum, unspecified] Onset: 02-18-2025 01-09-2025 Episodic Genitourinary symptoms and ill-defined conditions (19 sources) Bacteriuria; Translations: [Bacteriuria] Onset: 01-26-2018 Resolved: 02-22-2018 02-22-2018 Episodic Hypertension complicating ; childbirth and the puerperium (19 sources) -induced hypertension; Translations: [Gestational [-induced] hypertension without significant proteinuria, third trimester] Onset: 02-12-2018 Resolved: 02-22-2018 02-22-2018 Episodic Immunizations and screening for infectious disease (20 sources) Group B Streptococcus carrier; Translations: [Carrier of Group B streptococcus] Onset: 02-19-2019 Resolved: 04-03-2021 04-03-2021 Episodic Malposition; malpresentation (19 sources) Breech presentation; Translations: [Maternal care for breech presentation, not applicable or unspecified] Onset: 02-02-2018 Resolved: 02-22-2018 02-22-2018 Episodic Normal and/or delivery (12 sources) Encounter for supervision of normal , unspecified, first trimester; Translations: [Grand multipara in labor] Onset: 07-15-2017 Episodic Other bone disease and musculoskeletal deformities (4 sources) Hypertrophy of bone; Translations: [Hypertrophy of bone, left shoulder] Onset: 04-16-2024 04-16-2024 Episodic Other bone disease and musculoskeletal deformities (1 source) Hypertrophy of bone, left shoulder; Translations: [Hypertrophy of bone, left shoulder] Onset: 04-16-2024 Episodic Other complications of (20 sources) Cholestasis of ; Translations: [Liver and biliary tract disorders in , third trimester] Onset: 12-17-2021 Resolved: 10-21-2022 Episodic Other complications of (20 sources) History of pre-eclampsia; Translations: [Supervision of with other poor reproductive or obstetric history, unspecified trimester] Onset: 01-24-2018 Resolved: 02-22-2018 06-15-2021 Episodic Other complications of (20 sources) H/O: depression; Translations: [History of depression, currently ] Onset: 02-15-2019 06-15-2021 Episodic Other complications of (20 sources) Nausea and vomiting; Translations: [Vomiting of , unspecified] Onset: 06-15-2021 06-15-2021 Episodic Other complications of (20 sources) Disease caused by 2019-nCoV; Translations: [Other viral diseases complicating , second trimester] Onset: 10-05-2021 Resolved: 10-21-2022 10-05-2021 Episodic Other complications of (19 sources) Vomiting of , unspecified; Translations: [Unspecified vomiting of , unspecified as to episode of care or not applicable] Onset: 06-15-2021 07-07-2022 Episodic Other complications of (2 sources) Supervision of high risk , unspecified, first trimester; Translations: [Encounter for supervision of high risk in first trimester, antepartum (HCC)] Onset: 03-28-2025 Episodic Other hematologic conditions (20 sources) H/O: anemia - iron deficient; Translations: [Personal history of diseases of the blood and blood-forming organs and certain disorders involving the immune mechanism] Onset: 01-24-2018 06-15-2021 Episodic Other liver diseases (20 sources) Elevated liver enzymes level; Translations: [Abnormal levels of other serum enzymes] Onset: 01-24-2018 Resolved: 03-28-2025 10-05-2021 Episodic Other non-traumatic joint disorders (4 sources) Pain in left knee; Translations: [Pain in joint, lower leg] Onset: 12-20-2023 12-20-2023 Episodic Residual codes; unclassified (20 sources) FH: Congenital anomaly; Translations: [Family history of other congenital malformations, deformations and chromosomal abnormalities] Onset: 02-15-2019 06-15-2021 Episodic Residual codes; unclassified (20 sources) History of cholestasis in ; Translations: [Personal history of other complications of , childbirth and the puerperium] Onset: 07-07-2022 07-07-2022 Episodic Residual codes; unclassified (2 sources) Personal history of other complications of , childbirth and the puerperium; Translations: [History of gestational hypertension] Onset: 03-28-2025 Episodic Residual codes; unclassified (2 sources) 9 weeks gestation of ; Translations: [9 weeks gestation of (HCC)] Onset: 03-28-2025 Episodic Residual codes; unclassified (1 source) 13 weeks gestation of ; Translations: [13 weeks gestation of (HCC)] Onset: 04-25-2025 Episodic Results Test Name Value Interpretation Reference Range Facil ity CBC panel Auto (Bld)on 08-01 Erythrocyte distribution width (RBC) [Ratio] 13.1 % Normal 11.5-15.0 [facility] Comment on above: Order Comment: Blue dennison Type: BLOOD SPECIMEN Ordering Facility: [facility] Address: [address] [place] [address] Performed By: #### 5 8410-2 #### [facility] [id number] [address] [place] [address] [place] Hematocrit (Bld) [Volume fraction] 34.5 % Low 36.0-46.0 [facility] Comment on above: Order Comment: Blue dennison Type: BLOOD SPECIMEN Ordering Facility: [facility] Address: [address] [id number] Performed By: #### 5 8410-2 #### [facility] CLIA [id number] [address] [place] [address] [place] Hemoglobin (Bld) [Mass/Vol] 12.3 g/dL Normal 11.5-15.5 [facility] Comment on above: Order Comment: Speci men Type: BLOOD SPECIMEN Ordering Facility: [facility] Address: [address] [place] [address] Performed By: #### 5 8410-2 #### [facility] CLIA [id number] [address] [place] [address] [place] MCH (RBC) [Entitic mass] 29.3 pg Normal 26.0-34.0 [facility] Comment on above: Order Comment: Speci men Type: BLOOD SPECIMEN Ordering Facility: [facility] Address: [address] [place] [address] Performed By: #### 5 8410-2 #### [id number] [address] [place] [address] [place] MCHC (RBC) [Mass/Vol] 35.7 g/dL Normal 30.5-36.0 [facility] Comment on above: Order Comment: Speci men Type: BLOOD SPECIMEN Ordering Facility: [facility] Address: [address] [place] [address] Performed By: #### 5 8410-2 #### [facility] CLIA [id number] [address] [place] [address] [place] MCV (RBC) [Entitic vol] 82.1 fL Normal 80.0-100.0 [facility] Comment on above: Order Comment: Speci men Type: BLOOD SPECIMEN Ordering Facility: [facility] Address: [address] [place] [address] Performed By: #### 5 8410-2 #### [facility] CLIA [id number] [address] [place] [address] [place] Nucleated RBC (Bld) [#/Vol] 10*3/uL Normal <0.01 [facility] Comment on above: Order Comment: Speci men Type: BLOOD SPECIMEN Ordering Facility: [facility] Address: [address] [place] [address] Performed By: #### 5 8410-2 #### [facility] CLIA [id number] [address] [place] [address] [place] Platelet mean volume (Bld) [Entitic vol] 11.0 fL Normal 9.0-12.7 [facility] Comment on above: Order Comment: Speci men Type: BLOOD SPECIMEN Ordering Facility: [facility] Address: [address] [place] [address] Performed By: #### 5 8410-2 #### [facility] CLIA [id number] [address] [place] [address] [place] Platelets (Bld) [#/Vol] 239 10*3/uL Normal 150-400 [facility] Comment on above: Order Comment: Speci men Type: BLOOD SPECIMEN Ordering Facility: [facility] Address: [address] [place] [address] Performed By: #### 5 8410-2 #### [facility] CLIA [id number] [address] [place] [address] [place] RBC (Bld) [#/Vol] 4.20 10*6/uL Normal 3.90-5.20 [facility] Comment on above: Order Comment: Speci men Type: BLOOD SPECIMEN Ordering Facility: [facility] Address: [address] [place] [address] Performed By: #### 5 8410-2 #### [facility] CLIA [id number] [address] [place] [address] [place] WBC (Bld) [#/Vol] 8.00 10*3/uL Normal 3.70-11.00 [facility] Comment on above: Order Comment: Speci juma Type: BLOOD SPECIMEN Ordering Facility: [facility] Address: [address] [place] [address] Performed By: #### 5 8410-2 #### [facility] CLIA [id number] [address] [place] [address] [place] GESTATIONAL GLUCOSE SCREEN, 1-HOUR, 50 GRAM, NON-FASTINGon 08-01-2025 Glucose [Mass/Vol] 96 mg/dL Normal 74-134 [facility] Comment on above: Order Comment: Blue dennison Type: BLOOD SPECIMEN Ordering Facility: [facility] Address: [address] [place] [place] [address] Result Comment: [facility] Congress of Obstetricians and Gynecologists (Eliel/Chacorta) guidelines state a gestational diabetes mellitus positive screen is made, in women not previously diagnosed with overt diabetes, when the 1 hr plasma glucose level is equal to or above 140 mg/dL. The [facility] [employer] [facility] [place] recommends a 135 mg/dL cutoff. Performed By: #### G LTGST #### [id number] [address] [place] [address] [place] Reagin and Treponema pallidu m IgG and IgM [Interp]on 08-01-2025 T. pallidum IgG+IgM IA Ql (S) Non-Reactive Normal Nonreactive [facility] Comment on above: Order Comment: Blue dennison Type: BLOOD SPECIMEN Ordering Facility: [facility] Address: [address] [place] [address] Performed By: #### 7 3752-8 #### [facility] CLIA [id number] [address] [place] [address] [place] Reagin+T pallidum IgG+IgM Se rPl-Impon 08-01-2025 Reagin and Treponema pallidum IgG and IgM [Interp] Cannot exclude recent Treponemal infection if specimen collected within 7-10 days after appearance of suspect lesions or 2-3 weeks after an exposure. Clinical correlation is required. Normal [facility] Comment on above: Order Comment: Speci men Type: BLOOD SPECIMEN Ordering Facility: [facility] Address: [address] [place] [address] Performed By: #### 7 3752-8 #### [facility] CLIA [id number] [address] [place] [address] [place] Examination level ultrasound on 06-06-2025 Indication Detailed anatomic survey, Advanced maternal age, History of gestational hypertension, History of preeclampsia, History of Cholestasis, History of intrauterine demise at 23 weeks Impression The patient is referred for a detailed anatomic survey. - Single, live, intrauterine . - biometry is consistent with the established gestational age. - No malformations were visualized on a complete detailed anatomic survey. - The amniotic fluid volume is normal amount. - The placenta is anterior, fundal. - The Transvaginal cervical length measures 38.8 mm with no evidence of funneling or other dynamic changes. - Not all structural malformations can be detected by ultrasound examination. Recommendations Additional follow-up as clinically indicated. Maternal Assessment Height 170 cm Height (ft) 5 ft Height (in) 7 in Physical Exam Initial weight (lb) 176 lb Initial BMI 27.56 kg/m Method Transabdominal and transvaginal ultrasound examination. View: Adequate visualization Schmid . Number of fetuses: 1 Dating LMP on: 01/24/2025 GA by LMP 19 w + 0 d PILAR by LMP: 10/31/2025 GA by prior assessment 19 w + 0 d PILAR by prior assessment: 10/31/2025 Ultrasound examination on: 06/06/2025 GA by U/S based upon: AC, BPD, Femur, HC GA by U/S 18 w + 4 d PILAR by U/S: 11/03/2025 Assigned: based on stated PILAR, selected on 04/25/2025 Assigned GA 19 w + 0 d Assigned PILAR: 10/31/2025 General Evaluation Cardiac activity present. FHR 155 bpm. movements: present. Presentation: cephalic Placenta: Placental site: anterior, fundal Umbilical cord: Cord vessels: 3 vessel cord. Insertion site: normal insertion Amniotic fluid: Amount of AF: normal amount. MVP 3.6 cm Growth Overview Exam date GA BPD (mm) HC (mm) AC (mm) FL (mm) HL (mm) EFW (g) 06/06/2025 19w 0d 40.1 17% 151.2 22% 140.8 62% 27.9 48% 26.5 27% 261 37% Biometry Standard BPD 40.1 mm 18w 1d 17% Hadlock OFD 54.2 mm 18w 0d 24% Nicolaides HC 151.2 mm 18w 0d 22% Terence Cerebellum tr 19.4 mm 18w 6d 27% Hill Nuchal fold 3.7 mm AC 140.8 mm 19w 3d 62% Hadlock Femur 27.9 mm 18w 5d 48% Terence Humerus 26.5 mm 18w 3d 27% Terence EFW 261 g 18w 5d 37% Hadlock EFW (lb) 0 lb EFW (oz) 9 oz EFW by: Hadlock (HC-AC-FL) Extended Lidder 5.4 mm CM 3.9 mm 23% Nicolaides Nasal bone 6.4 mm Extremities / Bony Struc FL / HC 0.18 48% Hadlock Other Structures FHR 155 bpm Anatomy Cranium: normal Lateral ventricles: normal Choroid plexus: normal Midline falx: normal Cavum septi pellucidi: normal Cerebellum: normal Cisterna magna: normal Head / Neck Vermis: normal Neck: normal Nuchal fold: normal Lips: normal Profile: normal Nose: normal Face Maxilla: normal Mandible: normal Orbits: normal Lens: normal 4-chamber view: normal RVOT view: normal LVOT view: normal 3-vessel view: normal 4-iqczun-bvvrdvi view: normal Heart / Thorax Situs: situs solitus (normal) Aortic arch view: normal SVC: normal IVC: normal Cardiac axis: normal Rt lung: normal Lt lung: normal Diaphragm: normal Cord insertion: normal Stomach: normal Kidneys: normal Bladder: normal Genitals: normal Abdomen Abdom. wall: normal Cervical spine: normal Thoracic spine: normal Lumbar spine: normal Sacral spine: normal Arms: normal Legs: normal Rt upper arm: normal Rt forearm: normal Rt hand: normal Rt fingers: normal Lt upper arm: normal Lt forearm: normal Lt hand: normal Lt fingers: normal Rt upper leg: normal Rt lower leg: normal Rt foot: normal Lt upper leg: normal Lt lower leg: normal Lt foot: normal sex: male Wants to know sex: yes Maternal Structures Uterus / Cervix Uterus: Visualized Cervix: Visualized Approach: Transvaginal Cervical length 38.8 mm Ovaries / Tubes / Adnexa Rt ovary: Normal Lt ovary: Normal Performed By: Araceli Dugan RDMS Read By: Marilee Nazario M.D. MATERNAL MEDICINE [facility] Radiology Study observation (narrative) [facility] 25(OH)D3 SerPl-mCncon 2024 25-hydroxyvitamin D3 [Mass/Vol] 26.2 ng/mL Low >=30.0 [facility] Comment on above: Order Comment: Speci men Type: BLOOD SPECIMEN Ordering Facility: [facility] Address: [address] [place] [address] Result Comment: Clas sification of 25 [place] Vitamin D status: Deficiency: <= 20.0 ng/ml. Insufficiency: 21.0-29.0 ng/ml. Sufficiency: >= 30.0 ng/ml. Performed By: #### 1 989-3 #### [facility] CLIA [id number] [address] [place] [address] [place] 25-hydroxyvitamin D3 [Mass/V ol]on 06-04-2025 Interpretation and review of laboratory results Abnormal [facility] CBC panel Auto (Bld)on 06-04 Erythrocyte distribution width (RBC) [Ratio] 13.2 % 11.5 - 15.0 % [facility] Hematocrit (Bld) [Volume fraction] 35.6 % Low 36.0 - 46.0 % [facility] Hemoglobin (Bld) [Mass/Vol] 11.8 g/dL 11.5 - 15.5 g/dL [facility] Interpretation and review of laboratory results Abnormal [facility] MCH (RBC) [Entitic mass] 29.5 pg 26.0 - 34.0 pg [facility] MCHC (RBC) [Mass/Vol] 33.1 g/dL 30.5 - 36.0 g/dL [facility] MCV (RBC) [Entitic vol] 89.0 fL 80.0 - 100.0 fL [facility] Nucleated RBC (Bld) [#/Vol] NINF [facility] Platelet mean volume (Bld) [Entitic vol] 10.3 fL 9.0 - 12.7 fL [facility] Platelets (Bld) [#/Vol] 253 10*3/uL [facility] RBC (Bld) [#/Vol] 4.00 10*6/uL 3.90 - 5.2 0 m/uL [facility] WBC (Bld) [#/Vol] 6.54 10*3/uL [facility] Erythrocyte distribution width (RBC) [Ratio] 13.2 % Normal 11.5-15.0 [facility] Comment on above: Order Comment: Speci men Type: BLOOD SPECIMEN Ordering Facility: [facility] Address: [address] [place] [address] Performed By: #### 5 8410-2 #### [facility] CLIA [id number] [address] Hematocrit (Bld) [Volume fraction] 35.6 % Low 36.0-46.0 [facility] Comment on above: Order Comment: Speci men Type: BLOOD SPECIMEN Ordering Facility: [facility] Address: [address] [place] [address] Performed By: #### 5 8410-2 #### [facility] CLIA [id number] [address] STATES OF [facility] Hemoglobin (Bld) [Mass/Vol] 11.8 g/dL Normal 11.5-15.5 [facility] Comment on above: Order Comment: Speci men Type: BLOOD SPECIMEN Ordering Facility: [facility] Address: [address] [place] [address] Performed By: #### 5 8410-2 #### [facility] CLIA [id number] [address] [place] MCH (RBC) [Entitic mass] 29.5 pg Normal 26.0-34.0 [facility] Comment on above: Order Comment: Speci men Type: BLOOD SPECIMEN Ordering Facility: [facility] Address: [address] [place] [address] Performed By: #### 5 8410-2 #### [facility] CLIA [id number] [address] MCHC (RBC) [Mass/Vol] 33.1 g/dL Normal 30.5-36.0 [facility] Comment on above: Order Comment: Speci men Type: BLOOD SPECIMEN Ordering Facility: [facility] Address: [address] [place] [address] Performed By: #### 5 8410-2 #### [facility] CLIA [id number] [address] OF [place] MCV (RBC) [Entitic vol] 89.0 fL Normal 80.0-100.0 [facility] Comment on above: Order Comment: Speci men Type: BLOOD SPECIMEN Ordering Facility: [facility] Address: [address] [place] [address] Performed By: #### 5 8410-2 #### [facility] CLIA [id number] [address] Nucleated RBC (Bld) [#/Vol] 10*3/uL Normal <0.01 [facility] Comment on above: Order Comment: Speci men Type: BLOOD SPECIMEN Ordering Facility: [facility] Address: [address] [place] [address] Performed By: #### 5 8410-2 #### [facility] CLIA [id number] [address] Platelet mean volume (Bld) [Entitic vol] 10.3 fL Normal 9.0-12.7 [facility] Comment on above: Order Comment: Speci men Type: BLOOD SPECIMEN Ordering Facility: [facility] Address: [address] [place] [address] Performed By: #### 5 8410-2 #### [facility] CLIA [id number] [address] [place] Platelets (Bld) [#/Vol] 253 10*3/uL Normal 150-400 [facility] Comment on above: Order Comment: Speci men Type: BLOOD SPECIMEN Ordering Facility: [facility] Address: [address] [place] [address] Performed By: #### 5 8410-2 #### [facility] CLIA [id number] [address] [place] RBC (Bld) [#/Vol] 4.00 10*6/uL Normal 3.90-5.20 [facility] Comment on above: Order Comment: Speci men Type: BLOOD SPECIMEN Ordering Facility: [facility] Address: [address] [place] [place] [address] Performed By: #### 5 8410-2 #### [facility] CLIA [id number] [address] [place] WBC (Bld) [#/Vol] 6.54 10*3/uL Normal 3.70-11.00 [facility] Comment on above: Order Comment: Speci men Type: BLOOD SPECIMEN Ordering Facility: [facility] Address: [address] [place] [place] [address] Performed By: #### 5 8410-2 #### [facility] CLIA [id number] [address] [place] [address] [place] Cobalamin (Vitamin B12) [Mas s/Vol]on 06-04-2025 Interpretation and review of laboratory results Normal [facility] Iron and Iron binding capaci ty panelon 06-04-2025 Interpretation and review of laboratory results Abnormal [facility] Iron [Mass/Vol] 89 ug/dL 41 - 186 ug/dL [facility] Iron binding capacity [Mass/Vol] 391 ug/dL High 232 - 386 ug/dL [facility] Iron saturation [Mass fraction] 22.8 % 15.0 - 57.0 % [facility] Iron [Mass/Vol] 89 ug/dL Normal 41-186 [facility] Comment on above: Order Comment: Speci men Type: BLOOD SPECIMEN Ordering Facility: [facility] Address: [address] [place] [address] Performed By: #### 5 195-3, 85030-8 #### [facility] CLIA [id number] [address] [place] Iron binding capacity [Mass/Vol] 391 ug/dL High 232-386 [facility] Comment on above: Order Comment: Speci men Type: BLOOD SPECIMEN Ordering Facility: [facility] Address: [address] [place] [address] Performed By: #### 5 195-3, 84035-8 #### [facility] CLIA [id number] [address] Iron saturation [Mass fraction] 22.8 % Normal 15.0-57.0 [facility] Comment on above: Order Comment: Speci men Type: BLOOD SPECIMEN Ordering Facility: [facility] Address: [address] [place] [address] Performed By: #### 5 195-3, 38237-9 #### [facility] CLIA [id number] [address] VITAMIN B12on 06-04-2025 Cobalamin (Vitamin B12) [Mass/Vol] 411 pg/mL 232 - 1245 pg/mL [facility] VITAMIN D 25 HYDROXYon 06-04 25-hydroxyvitamin D3 [Mass/Vol] 26.2 ng/mL Low 30.0 - PINF ng/mL [facility] Comment on above: Classification of 25 [place] Vitamin D status: Deficiency: <= 20.0 ng/ml. Insufficiency: 21.0-29.0 ng/ml. Sufficiency: >= 30.0 ng/ml. Vit B12 SerPl-mCncon 025 Cobalamin (Vitamin B12) [Mass/Vol] 411 pg/mL Normal 232-1245 [facility] Comment on above: Order Comment: Speci men Type: BLOOD SPECIMEN Ordering Facility: [facility] Address: [address] [place], [place] [address] Performed By: #### 5 195-3, 23828-6 #### [facility] CLIA [id number] [address] STATES OF [facility] Examination level ultrasound on 04-25-2025 Indication First trimester anatomic survey Advanced maternal age Impression The patient is referred for a first trimester anatomy scan including nuchal translucency measurement as clinically indicated. - Single, live, intrauterine . - [place] rump length measurement is consistent with the established gestational age. - A qualitative screen of the nuchal translucency and other anatomic structures was unremarkable on an incomplete first trimester anatomic assessment. - Not all structural malformations can be detected by ultrasound examination. Maternal Structures: Right Ovary: Size 40 mm x 19 mm x 20 mm Left Ovary: Size 32 mm x 16 mm x 21 mm Recommendations - A standard anatomic survey at 16 weeks can be offered and a detailed exam at 20 weeks is recommended for increased risk. Maternal Assessment Height 170 cm Height (ft) 5 ft Height (in) 7 in Physical Exam Initial weight (lb) 176 lb Initial BMI 27.56 kg/m Maternal assessment other: 13 Para 10 REMOTE READ Method Transabdominal ultrasound examination Schmid . Number of fetuses: 1 Dating LMP on: 01/24/2025 GA by LMP 13 w + 0 d PILAR by LMP: 10/31/2025 GA by prior assessment 13 w + 0 d PILAR by prior assessment: 10/31/2025 Ultrasound examination on: 04/25/2025 GA by U/S based upon: CRL GA by U/S 13 w + 1 d PILAR by U/S: 10/30/2025 Assigned: based on stated PLIAR, selected on 04/25/2025 Assigned GA 13 w + 0 d Assigned PILAR: 10/31/2025 General Evaluation Cardiac activity present Placenta: anterior Cord vessels: 3 vessel cord Amniotic fluid: normal amount Biometry Standard FHR 159 bpm CRL 68.0 mm 13w 1d 48% Hadlock First Trimester Anatomy Calvarium: normal Falx cerebri: normal Choroid plexus: normal Profile: normal Nasal bone: normal Retronasal triangle: normal Maxilla: normal Mandible: normal Nuchal translucency: Unremarkable Situs: normal Cardiac position: normal Cardiac axis: normal 4-chamber view: suboptimal 4-chamber view with color: suboptimal 2-upflvl-vlqulfe view: normal Abdominal cord insertion: normal Stomach: normal Kidneys: suboptimal Bladder: normal Color doppler of perivesical umbilical arteries: normal Vertebral alignment: normal Arms: normal Hands: normal Legs: normal Feet: normal Maternal Structures Uterus / Cervix Uterus: Visualized Uterus length 164 mm Uterus width 116 mm Uterus height 83 mm Uterus Vol 820.1 cm Ovaries / Tubes / Adnexa Rt ovary: Visualized Rt ovary D1 40 mm Rt ovary D2 19 mm Rt ovary D3 20 mm Rt ovary Vol 8.2 cm Lt ovary: Visualized Lt ovary D1 32 mm Lt ovary D2 16 mm Lt ovary D3 21 mm Lt ovary Vol 5.3 cm Performed By: Rosa Dorado RDMS, RVT Read By: Vinita Minor M.D. MATERNAL MEDICINE [facility] Radiology Study observation (narrative) [facility] CBC W Auto Differential pane l (Bld)on 04-11-2025 Basophils (Bld) [#/Vol] 0.04 10*3/uL Normal <0.11 [facility] Comment on above: Order Comment: Speci men Type: BLOOD SPECIMEN Ordering Facility: [facility] Address: [address] [place] [address] Performed By: #### 5 7021-8 #### [facility] CLIA [id number] 1 [place] [address] [place] Basophils/100 WBC (Bld) 0.7 % Normal [facility] Comment on above: Order Comment: Speci men Type: BLOOD SPECIMEN Ordering Facility: [facility] Address: [address] [place] [address] Performed By: #### 5 7021-8 #### [facility] CLIA [id number] 1 [place] [address] [place] Differential cell count method Nom (Bld) Auto Normal [facility] Comment on above: Order Comment: Speci men Type: BLOOD SPECIMEN Ordering Facility: [facility] Address: [address] [place] [address] Performed By: #### 5 7021-8 #### [facility] CLIA [id number] 1 [place] [address] [place] Eosinophils (Bld) [#/Vol] 0.07 10*3/uL Normal <0.46 [facility] Comment on above: Order Comment: Speci men Type: BLOOD SPECIMEN Ordering Facility: [facility] Address: [facility] [place] [address] Performed By: #### 5 7021-8 #### [facility] CLIA [id number] 1 [place] [address] [place] Eosinophils/100 WBC (Bld) 1.2 % Normal [facility] Comment on above: Order Comment: Speci men Type: BLOOD SPECIMEN Ordering Facility: [facility] Address: [address] [place] [address] Performed By: #### 5 7021-8 #### [facility] CLIA [id number] [address] [place] Erythrocyte distribution width (RBC) [Ratio] 12.9 % Normal 11.5-15.0 [facility] Comment on above: Order Comment: Speci men Type: BLOOD SPECIMEN Ordering Facility: [facility] Address: [address] [place] [address] Performed By: #### 5 7021-8 #### [facility] CLIA [id number] [address] [place] Hematocrit (Bld) [Volume fraction] 37.9 % Normal 36.0-46.0 [facility] Comment on above: Order Comment: Speci men Type: BLOOD SPECIMEN Ordering Facility: [facility] Address: [address] [place] [address] Performed By: #### 5 7021-8 #### [facility] CLIA [id number] [address] [place] Hemoglobin (Bld) [Mass/Vol] 12.2 g/dL Normal 11.5-15.5 [facility] Comment on above: Order Comment: Speci men Type: BLOOD SPECIMEN Ordering Facility: [facility] Address: [address] [place] [address] Performed By: #### 5 7021-8 #### [facility] CLIA [id number] 1 [place] [address] [place] Immature granulocytes (Bld) [#/Vol] 10*3/uL Normal <0.10 [facility] Comment on above: Order Comment: Speci men Type: BLOOD SPECIMEN Ordering Facility: [facility] Address: [address] [place] [address] Performed By: #### 5 7021-8 #### [facility] CLIA [id number] [address] OF [facility] Immature granulocytes/100 WBC (Bld) 0.2 % Normal [facility] Comment on above: Order Comment: Speci men Type: BLOOD SPECIMEN Ordering Facility: [facility] Address: [address] [place] [address] Performed By: #### 5 7021-8 #### [facility] CLIA [id number] [address] [place] Lymphocytes (Bld) [#/Vol] 1.74 10*3/uL Normal 1.00-4.00 [facility] Comment on above: Order Comment: Speci men Type: BLOOD SPECIMEN Ordering Facility: [facility] Address: [address] [place] [address] Performed By: #### 5 7021-8 #### [facility] CLIA [id number] [address] Lymphocytes/100 WBC (Bld) 30.3 % Normal [facility] Comment on above: Order Comment: Speci men Type: BLOOD SPECIMEN Ordering Facility: [facility] Address: [address] [place] [address] Performed By: #### 5 7021-8 #### [facility] CLIA [id number] [address] [place] MCH (RBC) [Entitic mass] 28.5 pg Normal 26.0-34.0 [facility] Comment on above: Order Comment: Speci men Type: BLOOD SPECIMEN Ordering Facility: [facility] Address: [address] [place] [address] Performed By: #### 5 7021-8 #### [facility] CLIA [id number] [address] [place] MCHC (RBC) [Mass/Vol] 32.2 g/dL Normal 30.5-36.0 [facility] Comment on above: Order Comment: Speci men Type: BLOOD SPECIMEN Ordering Facility: [facility] Address: [address] [place] [address] Performed By: #### 5 7021-8 #### [facility] CLIA [id number] [address] [place] MCV (RBC) [Entitic vol] 88.6 fL Normal 80.0-100.0 [facility] Comment on above: Order Comment: Speci men Type: BLOOD SPECIMEN Ordering Facility: [facility] Address: [address] [place] [address] Performed By: #### 5 7021-8 #### [facility] CLIA [id number] [address] [place] Monocytes (Bld) [#/Vol] 0.44 10*3/uL Normal <0.87 [facility] Comment on above: Order Comment: Speci men Type: BLOOD SPECIMEN Ordering Facility: [facility] Address: [address] [place] [address] Performed By: #### 5 7021-8 #### [facility] CLIA [id number] [address] Monocytes/100 WBC (Bld) 7.7 % Normal [facility] Comment on above: Order Comment: Speci men Type: BLOOD SPECIMEN Ordering Facility: [facility] Address: [address] [place] [address] Performed By: #### 5 7021-8 #### [facility] CLIA [id number] [address] [place] Neutrophils (Bld) [#/Vol] 3.44 10*3/uL Normal 1.45-7.50 [facility] Comment on above: Order Comment: Speci men Type: BLOOD SPECIMEN Ordering Facility: [facility] Address: [address] [place] [address] Performed By: #### 5 7021-8 #### [facility] CLIA [id number] [address] [place] Neutrophils/100 WBC (Bld) 59.9 % Normal [facility] Comment on above: Order Comment: Speci men Type: BLOOD SPECIMEN Ordering Facility: [facility] Address: [address] [place] [address] Performed By: #### 5 7021-8 #### [facility] CLIA [id number] [address] Nucleated RBC (Bld) [#/Vol] 10*3/uL Normal <0.01 [facility] Comment on above: Order Comment: Speci men Type: BLOOD SPECIMEN Ordering Facility: [facility] Address: [address] [place] [address] Performed By: #### 5 7021-8 #### [facility] CLIA [id number] [address] [place] Nucleated RBC/100 WBC (Bld) [Ratio] 0.0 /100 WBC Normal [facility] Comment on above: Order Comment: Speci men Type: BLOOD SPECIMEN Ordering Facility: [facility] Address: [address] [place] [address] Performed By: #### 5 7021-8 #### [facility] CLIA [id number] [address] [place] Platelet mean volume (Bld) [Entitic vol] 10.4 fL Normal 9.0-12.7 [facility] Comment on above: Order Comment: Speci men Type: BLOOD SPECIMEN Ordering Facility: [facility] Address: [address] [place] [address] Performed By: #### 5 7021-8 #### [facility] CLIA [id number] [address] [place] Platelets (Bld) [#/Vol] 248 10*3/uL Normal 150-400 [facility] Comment on above: Order Comment: Speci men Type: BLOOD SPECIMEN Ordering Facility: [facility] Address: [address] [place] [address] Performed By: #### 5 7021-8 #### [facility] CLIA [id number] [address] [place] RBC (Bld) [#/Vol] 4.28 10*6/uL Normal 3.90-5.20 [facility] Comment on above: Order Comment: Speci men Type: BLOOD SPECIMEN Ordering Facility: [facility] Address: [address] [place] [address] Performed By: #### 5 7021-8 #### [facility] CLIA [id number] [address] WBC (Bld) [#/Vol] 5.74 10*3/uL Normal 3.70-11.00 [facility] Comment on above: Order Comment: Speci men Type: BLOOD SPECIMEN Ordering Facility: [facility] Address: [address] [place] [address] Performed By: #### 5 7021-8 #### [facility] CLIA [id number] [address] Comprehensive metabolic 2000 panelon 04-11-2025 Albumin [Mass/Vol] 4.4 g/dL Normal 3.9-4.9 [facility] Comment on above: Order Comment: Speci men Type: BLOOD SPECIMEN Ordering Facility: [facility] Address: [address] [place] [address] Performed By: #### 5 195-3, 19098-8 #### [facility] CLIA [id number] [address] ALP [Catalytic activity/Vol] 111 U/L Normal 34-123 [facility] Comment on above: Order Comment: Speci men Type: BLOOD SPECIMEN Ordering Facility: [facility] Address: [address] [place] [address] Performed By: #### 5 195-3, 26296-2 #### [facility] CLIA [id number] [address] ALT With P-5'-P [Catalytic activity/Vol] 23 U/L Normal 7-38 [facility] Comment on above: Order Comment: Speci men Type: BLOOD SPECIMEN Ordering Facility: [facility] Address: [address] [place] [address] Performed By: #### 5 195-3, 20770-0 #### [facility] CLIA [id number] 1 [place] [address] [place] Anion gap [Moles/Vol] 10 mmol/L Normal 8-15 [facility] Comment on above: Order Comment: Speci men Type: BLOOD SPECIMEN Ordering Facility: [facility] Address: [address] [place] [address] Performed By: #### 5 195-3, 54650-0 #### [facility] CLIA [id number] [address] [place] AST With P-5'-P [Catalytic activity/Vol] 15 U/L Normal 13-35 [facility] Comment on above: Order Comment: Speci men Type: BLOOD SPECIMEN Ordering Facility: [facility] Address: [address] [place] [address] Performed By: #### 5 195-3, 90961-2 #### [facility] CLIA [id number] [address] [place] Bilirubin [Mass/Vol] 0.4 mg/dL Normal 0.2-1.3 [facility] Comment on above: Order Comment: Speci men Type: BLOOD SPECIMEN Ordering Facility: [facility] Address: [address] [place] [address] Performed By: #### 5 195-3, 27488-4 #### [facility] CLIA [id number] [address] [place] Calcium [Mass/Vol] 9.3 mg/dL Normal 8.5-10.2 [facility] Comment on above: Order Comment: Speci men Type: BLOOD SPECIMEN Ordering Facility: [facility] Address: [address] [place] [address] Performed By: #### 5 195-3, 57475-5 #### [facility] CLIA [id number] [address] [place] Chloride [Moles/Vol] 105 mmol/L Normal 98-107 [facility] Comment on above: Order Comment: Speci men Type: BLOOD SPECIMEN Ordering Facility: [facility] Address: [address] [place] [address] Performed By: #### 5 195-3, 79563-0 #### [facility] CLIA [id number] [address] [place] CO2 [Moles/Vol] 21 mmol/L Low 22-30 [facility] Comment on above: Order Comment: Speci men Type: BLOOD SPECIMEN Ordering Facility: [facility] Address: [address] [place] [address] Performed By: #### 5 195-3, 80196-2 #### [facility] CLIA [id number] [address] [place] Creatinine [Mass/Vol] 0.55 mg/dL Low 0.58-0.96 [facility] Comment on above: Order Comment: Speci men Type: BLOOD SPECIMEN Ordering Facility: [facility] Address: [address] [place] [address] Performed By: #### 5 195-3, 44142-3 #### [facility] CLIA [id number] [address] Creatinine and Glomerular filtration rate.predicted panel (S/P/Bld) 120 mL/min/1.73m??? Normal >=60 [facility] Comment on above: Order Comment: Speci men Type: BLOOD SPECIMEN Ordering Facility: [facility] Address: [address] [place] [address] Result Comment: Yessi mated Glomerular Filtration Rate (eGFR) is calculated using the 2020 CKD-EPI creatinine equation. This equation utilizes serum creatinine, sex, and age as parameters. The creatinine assay has traceable calibration to isotope dilution-mass spectrometry. Refer to KDIGO guidelines for clinical interpretation. In patients with unstable renal function, e.g. those with acute kidney injury, the eGFR may not accurately reflect actual GFR. Performed By: #### 5 195-3, 28906-9 #### [facility] CLIA [id number] [address] [place] Glucose [Mass/Vol] 90 mg/dL Normal 74-99 [facility] Comment on above: Order Comment: Blue dennison Type: BLOOD SPECIMEN Ordering Facility: [facility] Address: [address] [id number] Result Comment: The [place] Diabetes Association (ADA) provides guidance for cutoff values for fasting glucose and random glucose. The ADA defines fasting as no caloric intake for at least 8 hours. Fasting plasma glucose results between 100 to 125 mg/dL indicate increased risk for diabetes (prediabetes). Fasting plasma glucose results greater than or equal to 126 mg/dL meet the criteria for diagnosis of diabetes. In the absence of unequivocal hyperglycemia, results should be confirmed by repeat testing. In a patient with classic symptoms of hyperglycemia or hyperglycemic crisis, random plasma glucose results greater than or equal to 200 mg/dL meet the criteria for diagnosis of diabetes. Reference: Standards of Medical Care in Diabetes 2016, [place] Diabetes Association. Diabetes Care. 2016.39(Suppl 1). Performed By: #### 5 195-3, 51423-4 #### [facility] CLIA [id number] 1 [place] [address] [place] Potassium [Moles/Vol] 4.0 mmol/L Normal 3.7-5.1 [facility] Comment on above: Order Comment: lBue dennison Type: BLOOD SPECIMEN Ordering Facility: [facility] Address: [address] [place], [place] [address] Performed By: #### 5 195-3, 15453-6 #### [facility] CLIA [id number] 1 [place] [address] [place] Protein [Mass/Vol] 6.8 g/dL Normal 6.3-8.0 [facility] Comment on above: Order Comment: Blue dennison Type: BLOOD SPECIMEN Ordering Facility: [facility] Address: [address] [id number] Performed By: #### 5 195-3, 31425-1 #### [facility] CLIA [id number] 1 [place] [address] [place] Sodium [Moles/Vol] 136 mmol/L Normal 136-144 [facility] Comment on above: Order Comment: Blue dennison Type: BLOOD SPECIMEN Ordering Facility: [facility] Address: [address] [place] [address] Performed By: #### 5 195-3, 30874-7 #### [facility] CLIA [id number] [address] STATES [facility] Urea nitrogen [Mass/Vol] 8 mg/dL Normal 7- [facility] Comment on above: Order Comment: Speci men Type: BLOOD SPECIMEN Ordering Facility: [facility] Address: [address] [place] [address] Performed By: #### 5 195-3, 06240-0 #### [facility] CLIA [id number] [address] [place] HBV surface Ag Ser Qlon 03-18 HBV surface Ag Ql (S) Non-Reactive Normal Nonreactive [facility] Comment on above: Order [facility]: [facility] Ordering Facility: [facility] Address: [address] [place] [address] Performed By: #### 5 -3, 92322-0 #### [facility] CLIA [id number] [address] [place] HCV Ab Ser Qlon 04-11-2025 HCV Ab Ql (S) Non-Reactive Normal Nonreactive [facility] Comment on above: Order Comment: Speci men Type: BLOOD SPECIMEN Ordering Facility: [facility] Address: [address] [place] [address] Result Comment: The result suggests no evidence of active infection with Hepatitis C virus. Should recent infection be suspected, repeat testing may be considered 4-6 weeks after this draw. Performed By: #### 5 195-3, 59191-3 #### [facility] CLIA [id number] [address] OF [facility] HIV 1+2 Ab IA Qlon HIV 1 and 2 Ab IA.rapid Nom (S/P/Bld) Normal [facility] Comment on above: Order Comment: Speci [facility] Type: BLOOD SPECIMEN Ordering Facility: [facility] Address: [address] [place] [address] Result Comment: Test not indicated. Performed By: #### 5 195-3, 46039-8 #### [facility] CLIA [id number] [address] HIV 1+2 Ab+HIV1 p24 Ag IA Ql Non-Reactive Normal Nonreactive [facility] Comment on above: Order Comment: Speci men Type: BLOOD SPECIMEN Ordering Facility: [facility] Address: [address] [place] [address] Result Comment: [place] Rev. Code 3701.243(E): This information has been disclosed to you from confidential records protected from disclosure by state law. ???You shall make no further disclosure of this information without the specific, written, and informed release of the individual to whom it pertains or as otherwise permitted by state law. A general authorization for the release of medical or other information is not sufficient for the purpose of the release of HIV test results or diagnoses. Performed By: #### 5 195-3, 10858-9 #### [facility] CLIA [id number] [address] HIV immunoassay testing algorithm interpretation (S/P/Bld) [Interp] Normal [facility] Comment on above: Order Comment: Speci men Type: BLOOD SPECIMEN Ordering Facility: [facility] Address: [address] [place] [address] Result Comment: No e vidence of HIV-1 or HIV-2 infection. Should recent infection be suspected, repeat testing may be considered 2-3 weeks after this draw. Performed By: #### 5 195-3, 38923-6 #### [facility] CLIA [id number] [address] [place] [address] HbA1c (Bld)on 04-11-2025 Average glucose Estimated from glycated hemoglobin (Bld) [Mass/Vol] 100 mg/dL Normal [facility] Comment on above: Order Comment: Speci men Type: BLOOD SPECIMEN Ordering Facility: [facility] Address: [address] [place] [address] Result Comment: eAG: (Estimated average glucose) is a calculated value from HgbA1c and is sales representative public utilities of the average blood glucose level in the last 2-3 month period. Performed By: #### 5 195-3, 00598-3 #### [facility] CLIA [id number] 1 [place] [address] [place] HbA1c (Bld) [Mass fraction] 5.1 % Normal 4.3-5.6 [facility] Comment on above: Order Comment: Speci men Type: BLOOD SPECIMEN Ordering Facility: [facility] Address: [address] [place] [address] Result Comment: [place] Diabetes Association guidelines indicate that patients with HgbA1c in the range 5.7-6.4% are at increased risk for development of diabetes, and intervention by lifestyle modification may be beneficial. HgbA1c greater or equal to 6.5% is considered diagnostic of diabetes. Performed By: #### 5 195-3, 77802-7 #### [facility] CLIA [id number] [address] [place] [address] [place] Lipase SerPl-cCncon 04-11-20 25 Lipase [Catalytic activity/Vol] 14 U/L Low 16-61 [facility] Comment on above: Order Comment: Speci men Type: BLOOD SPECIMEN Ordering Facility: [facility] Address: [address] [place] [address] Performed By: #### 5 195-3, 10457-5 #### [facility] CLIA [id number] 1 [place] [address] [place] [id number] PLUSon 04-11-2025 Cell-free DNA./Cell-free DNA.total Dosage of chromosome-specific cfDNA (cfDNA) [Molar fraction] 17% Normal [facility] Comment on above: Order Comment: Speci men Type: BLOOD SPECIMEN Ordering Facility: [facility] Address: [address] [place] [address] Performed By: #### 5 195-3, 45876-7 #### [facility] CLIA [id number] [address] [place] Chr 13+18+21+X+Y aneuploidy Dosage of chromosome-specific cfDNA Ql (cfDNA) Negative Normal [facility] Comment on above: Order Comment: Speci men Type: BLOOD SPECIMEN Ordering Facility: [facility] Address: [address] [place] [address] Performed By: #### 5 195-3, 89602-9 #### [facility] CLIA [id number] [address] Chr 21 trisomy Dosage of chromosome-specific cfDNA Ql (cfDNA) Negative Normal [facility] Comment on above: Order Comment: Speci men Type: BLOOD SPECIMEN Ordering Facility: [facility] Address: [address] [place] [address] Performed By: #### 5 195-3, 66310-7 #### [facility] CLIA [id number] [address] [place] [address] Chr X and Y aneuploidy risk Sequencing Ql (cfDNA) [Interp] Not detected Normal [facility] Comment on above: Order Comment: Speci men Type: BLOOD SPECIMEN Ordering Facility: [facility] Address: [address] [place] [address] Result Comment: Not Detected Not Detected Performed By: #### 5 -3, 11439-9 #### [facility] CLIA [id number] [address] [place] [address] Citation Lavon (Reference lab test) Comment Normal [facility] Comment on above: Order Comment: Speci men Type: BLOOD SPECIMEN Ordering Facility: [facility] Address: [address] [place] [address] Result Comment: 1. P tata SHETH, et al. Darlyn Med. 2012;14(3):296-305. 2. Anahi CLARK et al. Prenat Diag. 2013;33(6):591-597. 3. Perdomo C, et al. Clin Chem. 2015 Apr;61(4):608-616. 4. Sotero SHETH et al. Darlyn Med. 2011;13(11):913-920. 5. ACOG/SMFM Practice Bulletin No. 226, Jul 2020. Performed By: #### 5 195-3, 55882-7 #### [facility] CLIA [id number] [address] Gestational age Estimated from conception date [facility] Comment on above: Order Comment: Speci men Type: BLOOD SPECIMEN Ordering Facility: [facility] Address: [address] [place] [address] Performed By: #### 5 195-3, 80582-2 #### [facility] CLIA [id number] [address] GESTATIONALAGE AGE > OR = 9W Yes [facility] Comment on above: Order Comment: Speci men Type: BLOOD SPECIMEN Ordering Facility: [facility] Address: [address] [place] [address] Performed By: #### 5 -3, #### [facility] CLIA [id number] [address] [place] [address] Laboratory comment Lavon (Report) Comment [facility] Comment on above: Order Comment: Speci men Type: BLOOD SPECIMEN Ordering Facility: [facility] Address: [address] [place] [address] Result Comment: The MaterniT(R) 21 PLUS laboratory-developed test (LDT) analyzes circulating cell-free DNA from a maternal blood sample. This test is used for screening purposes and not diagnostic. Clinical correlation is recommended. Validation data on twin pregnancies is limited and the ability of this test to detect aneuploidy in higher multiple gestations has not yet been validated. Performed By: #### 5 195-3, 30269-9 #### [facility] CLIA [id number] [address] [place] [address] preschool program director name Nom (Provider) Comment [facility] Comment on above: Order Comment: Speci men Type: BLOOD SPECIMEN Ordering Facility: [facility] Address: [address] [place] [address] Result Comment: This specimen showed an expected representation of chromosome 21, 18 and 13 material. Clinical correlation is suggested. Comment Leonardo Mae MD, PhD, Director, Myze Performed By: #### 5 195-3, 93370-2 #### [facility] CLIA [id number] 1 [place] [address] [place] LIMITATIONS OF THE TEST Comment Normal [facility] Comment on above: Order Comment: Speci men Type: BLOOD SPECIMEN Ordering Facility: [facility] Address: [address] [place] [address] Result Comment: Matt gómez the results of these tests are highly reliable, discordant results, including inaccurate sex prediction, may occur due to placental, maternal, or mosaicism or neoplasm; vanishing twin; prior maternal organ transplant; or other causes. These tests are screening tests and not diagnostic; they do not replace the accuracy and precision of diagnosis with CVS or amniocentesis. A patient with a positive test result should be referred for genetic counseling and offered invasive diagnosis for confirmation of test results.[5] The results of this testing, including the benefits and limitations, should be discussed with a qualified healthcare provider. management decisions, including termination of the , should not be based on the results of these tests alone. The healthcare provider is responsible for the use of this information in the management of their patient. Sex chromosomal aneuploidies are not reportable for known multiple gestations. A negative result does not ensure an unaffected nor does it exclude the possibility of other chromosomal abnormalities or defects which are not a part of these tests. An uninformative result may be reported, the causes of which may include, but are not limited to, insufficient sequencing coverage, noise or artifacts in the region, amplification or sequencing bias, or insufficient fraction. These tests are not intended to identify pregnancies at risk for neural tube defects or ventral wall defects. Testing for whole chromosome abnormalities (including sex chromosomes) and for subchromosomal abnormalities could lead to the potential discovery of both and maternal genomic abnormalities that could have major, minor, or no, clinical significance. Evaluating the significance of a positive or a non-reportable result may involve both invasive testing and additional studies on the mother. Such investigations may lead to a diagnosis of maternal chromosomal or subchromosomal abnormalities, which on occasion may be associated with benign or malignant maternal neoplasms. These tests may not accurately identify triploidy, balanced rearrangements, or the precise location of subchromosomal duplications or deletions; these may be detected by diagnosis with CVS or amniocentesis. The ability to report results may be impacted by maternal BMI, maternal weight, maternal systemic lupus erythematosus (SLE) and/or by certain pharmaceutical agents such as low molecular weight heparin (for example: Lovenox(R), Xaparin(R), Clexane(R) and Fragmin(R)). Performed By: #### 5 195-3, 73698-3 #### [facility] [employer] CLIA [id number] [address] Monosomy X risk Dosage of chromosome-specific cfDNA Ql (Plasma cell-free+WBC DNA) [Interp] Not detected Normal [facility] Comment on above: Order Comment: Blue [facility] Type: BLOOD SPECIMEN Ordering Facility: [facility] Address: [address] [place] [address] Performed By: #### 5 195-3, 40827-9 #### [facility] CLIA [id number] [address] NEGATIVE PREDICTIVE VALUE Note Normal [facility] Comment on above: Order Comment: Blue [facility] Type: BLOOD SPECIMEN Ordering Facility: [facility] Address: [address] [place] [address] Result Comment: The Negative Predictive Value (NPV) for trisomy 21, 18, and 13 is greater than 99%. The NPV for SCA and ESS cannot be calculated as SCA and ESS are only reported when an abnormality is detected. Performed By: #### 5 195-3, 18386-8 #### [facility] CLIA [id number] [address] PERFORMANCE CHARACTERISTICS Note Normal [facility] Comment on above: Order Comment: Blue [facility] Type: BLOOD SPECIMEN Ordering Facility: [facility] Address: [address] [place] [address] Result Comment: ! Sex ! Accuracy: 99.4% ! ! ! ! Region (associated syndrome) ! Est. Sens# ! Est. Spec ! ! ! ! Trisomy 21 (Down Syndrome) ! 99.1% ! 99.9% ! ! ! ! Trisomy 18 (Live Syndrome) ! >99.9% ! 99.6% ! ! ! ! Trisomy 13 (Patau Syndrome) ! 91.7% ! 99.7% ! ! ! ! Sex Chromosome Aneuploidies## ! 96.2% ! 99.7% ! ! ! * As reported in ISCA database nstd37 [https://www.ncbi.nlm.nih.gov/dbvar/studies/nstd37/ ] # Estimated Sensitivity. Sensitivity estimated across the observed size distribution of each syndrome [per ISCA database nstd37] and across the range of fractions observed in routine clinical NIPT. Actual sensitivity can also be influenced by other factors such as the size of the event, total sequence counts, amplification bias, or sequence bias. ## Schmid gestation only. Performed By: #### 5 195-3, 64743-9 #### [facility] CLIA [id number] [address] POSITIVE PREDICTIVE VALUE N/A Normal [facility] Comment on above: Order Comment: Speci men Type: BLOOD SPECIMEN Ordering Facility: [facility] Address: [address] [place] [address] Performed By: #### 5 195-3, 82342-7 #### [facility] CLIA [id number] [address] Reference Lab Test Method Comment Normal [facility] Comment on above: Order Comment: Speci men Type: BLOOD SPECIMEN Ordering Facility: [facility] Address: [address] [place] [address] Result Comment: Circ ulating cell-free DNA was purified from the plasma component of maternal blood. The extracted DNA was then converted into a genomic DNA library for aneuploidy analysis of chromosomes 21, 18, and 13 via next generation sequencing.[1] Optional findings based on the test order include sex chromosome aneuploidy (SCA)[2], and enhanced sequencing series (ESS)[3], which will only be reported on as an additional finding when an abnormality is detected. SCA testing includes information on X and Y representation, while ESS testing includes deletions in selected regions (22q, 15q, 11q, 8q, 5p, 4p, 1p) and trisomy of chromosomes 16 and 22. Performed By: #### 5 195-3, 61209-1 #### [facility] CLIA [id number] [address] [place] Service comment (Unsp spec) [Interp] Comment Normal [facility] Comment on above: Order Comment: Speci men Type: BLOOD SPECIMEN Ordering Facility: [facility] Address: [address] [place] [address] Result Comment: [employer] is a subsidiary of [employer], using the brand [employer]. This test was developed and its performance characteristics determined by [employer]. It has not been cleared or approved by the Food and Drug Administration. This laboratory is certified under the Clinical Laboratory Improvement Amendments (CLIA) as qualified to perform high complexity clinical laboratory testing and accredited by the College of [place] [employer] (CAP). If there is future clinical need for adding MaterniT GENOME testing, this specimen will be available until term. [facility] samples will not be retained beyond 60 days. [facility] patients will have to send a new sample for re-sequencing ([facility] Test Code: [id number]). Performed By: #### 5 195-3, 22862-6 #### [facility] CLIA [id number] [address] Sex Dosage of chromosome-specific cfDNA Nom (cfDNA) Comment Normal [facility] Comment on above: Order Comment: Speci men Type: BLOOD SPECIMEN Ordering Facility: [facility] Address: [address] [place] [address] Result Comment: Cons istent with Male Performed By: #### 5 195-3, 85733-5 #### [facility] CLIA [id number] [address] Test performance information Lavon (Unsp spec) Comment Normal [facility] Comment on above: Order Comment: Speci men Type: BLOOD SPECIMEN Ordering Facility: [facility] Address: [address] [place] [address] Result Comment: The performance characteristics of the MaterniT(R) 21 PLUS laboratory-developed test (LDT) have been determined in a clinical validation study with women at increased risk for chromosomal aneuploidy.[1-4] Performed By: #### 5 -3, 36921-5 #### [facility] CLIA [id number] [address] Trisomy 13 risk Dosage of chromosome-specific cfDNA Ql (cfDNA) [Interp] Negative Normal [facility] Comment on above: Order Comment: Speci men Type: BLOOD SPECIMEN Ordering Facility: [facility] Address: [address] [place] [address] Performed By: #### 5 195-3, 34556-2 #### [facility] CLIA [id number] [address] [place] [address] Trisomy 18 risk Dosage of chromosome-specific cfDNA Ql (Plasma cell-free+WBC DNA) [Interp] Negative Normal [facility] Comment on above: Order Comment: Speci men Type: BLOOD SPECIMEN Ordering Facility: [facility] Address: [address] [place] [address] Performed By: #### 5 195-3, 87102-3 #### [facility] CLIA [id number] [address] [place] Prot/Creat Uron 04-11-2025 Protein/Creatinine (U) [Mass ratio] 0.05 mg/mg Normal <0.15 [facility] Comment on above: Order Comment: Speci men Type: BLOOD SPECIMEN Ordering Facility: [facility] Address: [address] [place] [address] Result Comment: Adul t Proteinuria Categories: <0.15 mg/mg is considered normal to mildly increased 0.15 - 0.50 mg/mg is considered moderately increased >0.50 mg/mg is considered severely increased KDIGO. (2013). KDIGO 2012 Clinical Practice Guideline for the Evaluation and Management of Chronic Kidney Disease. Official Journal of the International Society of Nephrology, 3(1), 1-150. Performed By: #### 5 195-3, 24357-5 #### [facility] CLIA [id number] [address] [place] [address] STATES OF [facility] Protein/Creatinine (U) [Mass ratio]on 04-11-2025 Creatinine (U) [Mass/Vol] 222.2 mg/dL Normal 42.2-237.9 [facility] Comment on above: Order Comment: Speci men Type: BLOOD SPECIMEN Ordering Facility: [facility] Address: [address] [id number] Performed By: #### 5 195-3, 23936-7 #### [facility] CLIA [id number] [address] Protein (U) [Mass/Vol] 11 mg/dL Normal 0-20 [facility] Comment on above: Order Comment: Speci men Type: BLOOD SPECIMEN Ordering Facility: [facility] Address: [address] [place] [address] Performed By: #### 5 195-3, 75366-8 #### [facility] CLIA [id number] [address] [place] RUBELLA IGG ANTIBODYon 04-11 RUBELLA IGG AB, QUAL Positive Normal Positive [facility] Comment on above: Order Comment: Speci men Type: BLOOD SPECIMEN Ordering Facility: [facility] Address: [address] [place] [address] Result Comment: The result suggests recent or past exposure to Rubella virus or history of Rubella vaccination. Positive result may also be seen due to presence of passively-transferred antibodies. Please correlate with patient's history. The following results were obtained with the [employer] Rubella IgG assay. Results from assays of other manufacturers cannot be used interchangeably. Performed By: #### 5 195-3, 95006-1 #### [facility] CLIA [id number] [address] [place] [address] OF [place] Reagin and Treponema pallidu m IgG and IgM [Interp]on 04-11-2025 T. pallidum IgG+IgM IA Ql (S) Non-Reactive Normal Nonreactive [facility] Comment on above: Order Comment: Speci men Type: BLOOD SPECIMEN Ordering Facility: [facility] Address: [address] [place] [address] Performed By: #### 5 195-3, 30921-1 #### [facility] CLIA [id number] [address] [place] [address] [place] Reagin+T pallidum IgG+IgM Se rPl-Impon 04-11-2025 Reagin and Treponema pallidum IgG and IgM [Interp] Cannot exclude recent Treponemal infection if specimen collected within 7-10 days after appearance of suspect lesions or 2-3 weeks after an exposure. Clinical correlation is required. Normal [facility] Comment on above: Order Comment: Speci men Type: BLOOD SPECIMEN Ordering Facility: [facility] Address: [address] [place] [address] Performed By: #### 5 195-3, 18595-1 #### [facility] CLIA [id number] 1 [place] [address] [place] TSH SerPl-aCncon 04-11-2025 TSH Qn 0.308 m[IU]/L Normal 0.270-4.200 [facility] Comment on above: Order Comment: Speci juma Type: BLOOD SPECIMEN Ordering Facility: [facility] Address: [address] [place] [address] Result Comment: If t he patient is , TSH reference range varies by gestational period: First Trimester (weeks 9-12): 0.180-2.990 mIU/L Second Trimester: 0.110-3.980 mIU/L Third Trimester: 0.480-4.710 mIU/L Valeriano Rivera et al. A Practical Approach for the Verifications and Determination of Site- and Trimester-Specific Reference Intervals for Thyroid Function tests in . Thyroid, 2019:29:3:412-420. Jozef E, et al. 2017 Guidelines of the [place] Thyroid Association for the Diagnosis and Management of Thyroid Disease during and the . Thyroid, 2017:27:3:315-389. Performed By: #### 5 195-3, 30169-1 #### [facility] CLIA [id number] [address] STATES OF [facility] TYPE + SCREEN PRENATALon ABO O Normal [facility] Comment on above: Order Comment: Blue dennison Type: BLOOD SPECIMEN Ordering Facility: [facility] Address: [address] [place] [place] [address] Performed By: #### T SPN #### [facility] CLIA [id number] [address] [place] Rh Nom (Bld) Positive Normal [facility] Comment on above: Order Comment: Speci juma Type: BLOOD SPECIMEN Ordering Facility: [facility] Address: [address] [place] [address] Performed By: #### T SPN #### [facility] CLIA [id number] [address] OF [facility] TYPE AND SCREEN EXPIRATION 04/14/2025 23:59 Normal [facility] Comment on above: Order Comment: Speci men Type: BLOOD SPECIMEN Ordering Facility: [facility] Address: [address] [place] [place] [address] Performed By: #### T SPN #### [facility] CLIA [id number] 1 [place] [address] [place] Bacteria Ur Culton Bacteria identified Cx Nom (U) ORGANISM ID: 2 10,000 -<50,000 CFU/ml Normal urogenital kendra Normal [facility] Comment on above: Performed By: #### 6 30-4 #### [facility] CLIA [id number] [address] [place] [address] [place] C. trachomatis+N. gonorrhoea e DNA TREVOR+probe Ql (Unsp spec)on 03-28-2025 C. trachomatis rRNA TREVOR+probe Ql (Unsp spec) Not detected Normal Not detected [facility] Comment on above: Order Comment: Speci men Type: SWAB Ordering Facility: [facility] Address: [address] [place] [address] Performed By: #### T RVAMP, 71194-9 #### [facility] CLIA [id number] [address] [place] [address] [place] N. gonorrhoeae rRNA TREVOR+probe Ql (Unsp spec) Not detected Normal Not detected [facility] Comment on above: Order Comment: Speci men Type: SWAB Ordering Facility: [facility] Address: [address] [place] [address] Performed By: #### T RVAMP, 54356-3 #### [facility] CLIA [id number] [address] [place] [address] [place] HIGH RISK HUMAN PAPILLOMA GINO (HPV), PCR FOR DETECTION AND GENOTYPINGon 03-28-2025 HPV 16 Ag Ql (Unsp spec) Not detected Normal Not detected [facility] Comment on above: Order Comment: Speci men Type: FLUID SPECIMEN Ordering Facility: [facility] Address: [address] [place] [address] Performed By: #### H PVHRT #### [facility] CLIA [id number] [address] [place] [address] [place] HPV 18 Ag Ql (Unsp spec) Not detected Normal Not detected [facility] Comment on above: Order Comment: Speci men Type: FLUID SPECIMEN Ordering Facility: [facility] Address: [address] [place] [address] Performed By: #### H PVHRT #### [facility] CLIA [id number] [address] [place] [address] [place] HPV 31+33+35+39+45+51+52 +56+58+59+66+68 DNA TREVOR+probe Ql (Cvx) Not detected Normal Not detected [facility] Comment on above: Order Comment: Speci men Type: FLUID SPECIMEN Ordering Facility: [facility] Address: [address] [place] [address] Result Comment: High Risk HPV Other Type includes HPV types 31, 33, 35, 39, 45, 51, 52, 56, 58, 59, 66 and 68. Performed By: #### H PVHRT #### [facility] CLIA [id number] [address] [place] [address] [place] PAP TESTon 03-28-2025 ADEQUACY Normal [facility] Comment on above: Order Comment: Speci men Type: FLUID SPECIMEN Ordering Facility: [facility] Address: [address] [place] [address] Result Comment: Sati sfactory for interpretation. Transformation zone present Performed By: #### L [id number] #### [facility] CLIA [id number] [address] [place] [address] [place] CASE REPORT Normal [facility] Comment on above: Order Comment: Speci men Type: FLUID SPECIMEN Ordering Facility: [facility] Address: [address], [place] [address] Result Comment: Gyne cologic Cytology Report Case: [id number] Authorizing Provider: Omar Freedman APRN.[employer]ING LABORATORY TECHNICIAN Collected: 03/28/2025 02:34 PM Ordering Location: OB/Gynecology Received: 03/28/2025 03:37 PM First Screen: Christy, Laney, CT, ASCP Specimen: Pap Test, ThinPrep, Cervix Performed By: #### L [id number] #### [facility] CLIA [id number] [address] [place] [address] [place] CLINICAL HISTORY, CYTOLOGY, RAIL SPLITTER Routine Exam Normal [facility] Comment on above: Order Comment: Speci men Type: FLUID SPECIMEN Ordering Facility: [facility] Address: [address] [place] [place] [address] Performed By: #### L [id number] #### [facility] CLIA [id number] [address] [place] [address] [place] CYTOLOGY PAP OTHER INTERPRETATION Fungal organisms morphologically consistent with Antionette species. Normal [facility] Comment on above: Order Comment: Speci men Type: FLUID SPECIMEN Ordering Facility: [facility] Address: [address] [place] [place] [address] Performed By: #### L [id number] #### [facility] CLIA [id number] [address] [place] [address] [place] FINAL PERFORMING LAB Normal [facility] Comment on above: Order Comment: Speci men Type: FLUID SPECIMEN Ordering Facility: [facility] Address: [address] [place] [address] Result Comment: Tech nical component, auto body mechanic apprentice screening performed at: [facility], [address] [place] [address] CLIA: [id number] Diagnostic interpretation performed at: [facility], [address] [place] [address] CLIA# [id number] Inspector Aide: Brice Orlando MD Performed By: #### L [id number] #### [facility] CLIA [id number] [address] [place], [place] [address] [place] INTERPRETATION, CYTOLOGY, RAIL SPLITTER Normal [facility] Comment on above: Order Comment: Speci men Type: FLUID SPECIMEN Ordering Facility: [facility] Address: [address] [place] [place] [address] Result Comment: Nega tive for intraepithelial lesion or malignancy. at 1406 EDT Performed By: #### L [id number] #### [facility] CLIA [id number] [address] [place] [address] [place] LMP 01/24/2025 Normal [facility] Comment on above: Order Comment: Speci men Type: FLUID SPECIMEN Ordering Facility: [facility] Address: [address] [place] [place] [address] Performed By: #### L [id number] #### [facility] CLIA [id number] [address] [place], [place] [address] [place] PAP DISCLAIMER COMMENT The Pap Smear is a screening test for cervical cancer. False negative results occur with all screening tests, emphasizing the need for rescreening at recommended intervals, and clinical correlation. Normal [facility] Comment on above: Order Comment: Speci men Type: FLUID SPECIMEN Ordering Facility: [facility] Address: [address] [place] [place] [address] Performed By: #### L [id number] #### [facility] CLIA [id number] [address] [place] [address] [place] PAP LIBRARY SCIENCE INSTRUCTOR COMMENT This specimen has been analyzed by the FDA-approved [employer] System, which uses digital imaging and an enhanced artificial intelligence image analysis algorithm to identify lagunas of interest on the microscopic slide, to assist the bread icer and pathologist in evaluating cells on ThinPrep Pap tests. Following analysis, lagunas of interest on the microscopic slide selected by the algorithm are reviewed by a bread icer. If a sample requires hierarchical review, the pathologist will review the same lagunas of interest selected by the algorithm prior to final interpretation. Normal [facility] Comment on above: Order Comment: Speci men Type: FLUID SPECIMEN Ordering Facility: [facility] Address: [address] [place] [address] Performed By: #### L [id number] #### [facility] CLIA [id number] [address] [place] [address] [place] [facility] CULINARY SPECIALIST ULTRASOUNDon 03-28-20 25 Indication Viability; confirm cardiac activity Impression Single intrauterine gestational sac, CRL is appropriate for clinical dates, corresponding to PILAR 10/31/2025 cardiac activity is visualized Recommendations Follow up for 1st Trimester Anatomy with Nuchal Translucency as clinically indicated if desired. Method Transabdominal ultrasound examination, Transvaginal ultrasound examination. View: Adequate visualization Schmid . Number of embryos: 1 Dating LMP on: 01/24/2025 GA by LMP 9 w + 0 d PILAR by LMP: 10/31/2025 Ultrasound examination on: 03/28/2025 GA by U/S based upon: CRL GA by U/S 8 w + 3 d PILAR by U/S: 11/04/2025 Assigned: based on the LMP, selected on 03/28/2025 Assigned GA 9 w + 0 d Assigned PILAR: 10/31/2025 Biometry Standard FHR 178 bpm CRL 19.2 mm 8w 3d 7% Hadlock Assessment Gestational sac: visualized Location: intrauterine Yolk sac: visualized Embryo: visualized CRL 19.2 mm 8w 3d 7% Hadlock Cardiac activity: present FHR 178 bpm General Evaluation Cardiac activity present. FHR 178 bpm Performed By: Omar Freedman NP Read By: Omar Freedman NP MATERNAL MEDICINE [facility] Radiology Study observation (narrative) [facility] TRICHOMONAS VAGINALIS NAATon 03-28-2025 T. vaginalis DNA TREVOR+probe Ql (Unsp spec) Not detected Normal Not detected [facility] Comment on above: Order Comment: Speci men Type: SWAB Ordering Facility: [facility] Address: [address] [place] [address] Performed By: #### T RVAMP, [id number] #### [facility] CLIA [id number] OF [facility] [place] 03-26-2025 CNPN Telephone (OBGYWM) MARIA T PHAN ([id number]) 1985 F Date Time Provider Department 03/26/25 OMAR FREEDMAN During your visit today, we recorded the following information about you: Merlyn Kearney MA 03/26/2025 1:54 PM Signed Called patient and left voice mail to give our office a call back to go over NOB intake questions, I informed her that if she was not able to call back prior to her appointment 03/28/25 to arrive 30 minuets early. Merlyn Kearney MA Allergies As of Date: 03/26/2025 (No Known Allergies) Date Reviewed: 02/18/2025 Reviewed by: Eugene Briones MA - Fully Assessed Reason for Visit: Appointment [186] Prescriptions as of 04/29/2025 - ondansetron orally disintegrating (ZOFRAN ODT) 4 mg disintegrating tablet Take 1 tablet by mouth every 8 hours as needed for nausea/vomiting. - aspirin, enteric coated (ECOTRIN LOW STRENGTH) 81 mg EC tablet Take 2 tablets by mouth daily at bedtime. Starting at 12 weeks. - PNV no.95/ferrous fum/folic ac ( ORAL) Take by mouth. - ferrous sulfate (IRON ORAL) Take by mouth. - MAGNESIUM ORAL Take by mouth. Problem List As Of Date 03/26/2025 Noted Resolved Grand multiparity with current in thi*01/24/2018 02/22/2018 Prior with demise and current p*01/24/2018 04/03/2021 History of iron deficiency anemia [Z86.2] 01/24/2018 H/O pre-eclampsia in prior , currently*01/24/2018 02/22/2018 Elevated liver enzymes [R74.8] 01/24/2018 GBS bacteriuria [R82.71] 01/26/2018 02/22/2018 Breech presentation [O32.1XX0] 02/02/2018 02/22/2018 Gestational hypertension without significant pr*02/12/2018 02/22/2018 Grand multipara [Z64.1] 02/15/2019 Prior with demise, antepartum [*02/15/2019 History of pre-eclampsia in prior , cu*02/15/2019 History of depression, currently pre*02/15/2019 Family history of defects [Z82.79] 02/15/2019 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] 02/19/2019 04/03/2021 Antepartum multigravida of advanced maternal ag*03/26/2021 Patient request for diagnostic testing [Z01.89] 03/26/2021 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] 04/03/2021 Nausea and vomiting in [O21.9] 06/15/2021 COVID-19 affecting in second trimeste*10/05/2021 10/21/2022 Cholestasis during in third trimester*12/17/2021 10/21/2022 History of cholestasis during [Z87.59*07/07/2022 Encounter Status:Closed by MERLYN KEARNEY on 04/29/25 [facility] CNOVon 02-18-2025 CNOV Office Visit (AGGENS3) MARIA T PHAN ([id number]) 1985 F Date Time Provider Department 02/18/25 2:00 PM ELIZABETH KANG During your visit today, we recorded the following information about you: Pulse Blood pressure Weight Height 118/minute 146/80 81.6 kg 1.702 m Elizabeth Kang MD 02/26/2025 10:53 AM Addendum Elizabeth Kang M.D. Colon AND Rectal Surgery [address] [facility], [address] [place] [address] CC: anal lesion/pain HPI: Maria T Phan is a 39 year old White female who was referred by Kelly Win PA-C. for my consultation regarding 1 year history of enlarging anal lesion. My final recommendations will be communicated back to the requesting physician by way of shared Medical record or letter to requesting physician via electronic or US mail. Patient states that for the past year, she has had an enlarging perianal lesion which she feels in the posterior midline. She states that it will intermittently bleed. She does have a history of irritable bowel syndrome and states that she will have 5-7 bowel movements daily. They fluctuate between diarrhea and constipation. Review of Systems: For pertinent positives and negatives, please see HPI PAST MEDICAL HISTORY Diagnosis Date Anemia In 6th - patient required IV iron Cholestasis during in third trimester ([facility]) 12/17/2021 Elevated liver enzymes History of pre-eclampsia in prior , currently ([facility]) Hypertension Reports hx of pre-eclampsia in 4th depression After Demise in 2017 PAST SURGICAL HISTORY Procedure Laterality Date PAST SURGICAL HISTORY OF right leg x2 Social History Tobacco Use Smoking status: Never Smokeless tobacco: Never Vaping Use Vaping status: Never Used Substance Use Topics Alcohol use: Not Currently Drug use: Never FAMILY HISTORY Problem Relation Age of Onset Breast Cancer Mother 44 Bipolar disorder Father Bipolar disorder Sister No Known Problems Sister No Known Problems Sister other (car accident) Brother Heart Maternal Grandmother Alcohol/Drug Maternal Grandmother other (other) Maternal Grandmother Heart Attack Maternal Grandmother Primary Biliary Cirrhosis Maternal Grandmother Stroke Maternal Grandfather No Known Problems Paternal Grandmother No Known Problems Paternal Grandfather No Known Problems Daughter No Known Problems Daughter No Known Problems Daughter No Known Problems Daughter other (stillborn 23 weeks, short cord, CAN) Daughter No Known Problems Daughter other (CRMO-chronic recurrent multifocal osteomyelitis) Son No Known Problems Son No Known Problems Son No Known Problems Other Colon Cancer Maternal great-grandmother The ROS, medical, surgical, family, and social history were reviewed by Elizabeth Kang MD ALLERGIES No Known Allergies No current outpatient medications on file. No current facility-administered medications for this visit. Vitals: BP 146/80 (BP Site: Left Arm, BP Position: Sitting, BP Cuff Size: Regular Adult) Pulse 118 Ht 170.2 cm (5' 7) Wt 81.6 kg (180 lb) LMP 06/16/2023 (Exact Date) BMI 28.19 kg/m? BMI 28.19 kg/(m2) Physical Exam Constitutional: General: She is not in acute distress. Appearance: Normal appearance. She is not ill-appearing. Cardiovascular: Rate and Rhythm: Normal rate and regular rhythm. Heart sounds: Normal heart sounds. No murmur heard. No friction rub. No gallop. Pulmonary: Effort: Pulmonary effort is normal. No respiratory distress. Breath sounds: Normal breath sounds. No wheezing or rales. Abdominal: General: There is no distension. Palpations: Abdomen is soft. There is no mass. Tenderness: There is no abdominal tenderness. There is no guarding or rebound. Genitourinary: Comments: Patient was examined in right lateral decubitus with a wood repatcher present. In the posterior midline, there was some nodularity noted. On digital rectal exam, there was fibrosis in the posterior midline. There is otherwise no palpable masses or lesions. 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 There was a punctate external fistula opening associated with the fibrosis. Grade 1 internal hemorrhoids identified in LL, RP and RA location. Musculoskeletal: General: No deformity. Normal range of motion. Cervical back: Normal range of motion and neck supple. Lymphadenopathy: Cervical: No cervical adenopathy. Skin: General: Skin is warm and dry. Findings: No rash. Neurological: Mental Status: She is alert and oriented to person, place, and time. Gait: Gait is intact. Psychiatric: Mood and Affect: Mood and affect normal. Judgment: Judgment normal. Labs: Hemoglobin (g/dL) Date Value 04/27/2024 13.5 10/05/2021 13.4 Hematoc (more content not included)... Normal [facility] CNOVon 01-09-2025 CNOV Office Visit (GSTNOR ) MARIA T PHAN ([id number]) 1985 F Date Time Provider Department 01/09/25 3:30 PM MEENA CUEVAS During your visit today, we recorded the following information about you: Pulse Blood pressure Weight Height 99/minute 122/78 79.7 kg 1.702 m Meena Cuevas APRN.SYSTEMS TESTING LABORATORY TECHNICIAN 01/09/2025 3:53 PM Signed CHIEF COMPLAINT: Patient presents with: Lump on rectum : Lymph nodes swollen in groin area- pain has improved from what it was at her last office visit. HPI Maria T Phan is a 39 year old female here today for Lump on rectum (Lymph nodes swollen in groin area- pain has improved from what it was at her last office visit.). The lump on the rectum has grown and does bleed. It is painful to touch. Having a BM doesn't really effect the pain. Denies any issues with her bowels. She is having some upper abdominal pain when she eats. The anusol cream did not help. She doesn't think this is a hemorrhoid, as it feels different from a hemorrhoid. No current outpatient medications on file. No current facility-administered medications for this visit. 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 2017 PAST SURGICAL HISTORY Procedure Laterality Date PAST SURGICAL HISTORY OF right leg x2 FAMILY HISTORY Problem Relation Age of Onset Breast Cancer Mother 44 Bipolar disorder Father Bipolar disorder Sister No Known Problems Sister No Known Problems Sister other (car accident) Brother Heart Maternal Grandmother Alcohol/Drug Maternal Grandmother other (other) Maternal Grandmother Heart Attack Maternal Grandmother Primary Biliary Cirrhosis Maternal Grandmother Stroke Maternal Grandfather No Known Problems Paternal Grandmother No Known Problems Paternal Grandfather No Known Problems Daughter No Known Problems Daughter No Known Problems Daughter No Known Problems Daughter other (stillborn 23 weeks, short cord, CAN) Daughter No Known Problems Daughter other (CRMO-chronic recurrent multifocal osteomyelitis) Son No Known Problems Son No Known Problems Son No Known Problems Other Colon Cancer Maternal great-grandmother REVIEW OF SYSTEMS Review of Systems Constitutional: Positive for fatigue. Gastrointestinal: Positive for abdominal pain, anal bleeding, nausea and rectal pain. Gas, Heartburn All other systems reviewed and are negative. PHYSICAL EXAM BP 122/78 Pulse 99 Ht 5' 7 (1.70m) Wt 175 lb 12.8 oz (79.7kg) LMP 06/16/2023 BMI 27.53 kg/(m2). Participation of a fellow, resident, medical student, or advanced practice provider student in performing the sensitive examination was discussed with the patient or authorized sales representative public utilities. The patient or authorized sales representative public utilities has agreed to proceed with the sensitive examination. Physical Exam Exam conducted with a wood repatcher present (Renee Castañeda MA). Pulmonary: Effort: Pulmonary effort is normal. Genitourinary: Rectum: External hemorrhoid and internal hemorrhoid present. Comments: 1-2 mm round, white papule at 6 o'clock position outside of anus; TTP; no fluctuance or pus Neurological: Mental Status: She is alert and oriented to person, place, and time. Psychiatric: Mood and Affect: Mood normal. Behavior: Behavior normal. Thought Content: Thought content normal. Judgment: Judgment normal. ASSESSMENT: (K62.9) Anal disorder (primary encounter diagnosis) (R23.8) Papule 1. Anal disorder (Primary) - small papule abutting anus that is tender. Will treat with flagyl 250mg TID x 7 days and I will check in via in 10-14 days and see how she is doing. May need imaging of perineum - metroNIDAZOLE (FLAGYL) 250 mg tablet; Take 1 tablet by mouth three times a day for 7 days. Dispense: 21 tablet; Refill: 0 2. Papule - metroNIDAZOLE (FLAGYL) 250 mg tablet; Take 1 tablet by mouth three times a day for 7 days. 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 Normal [facility] MRI LIVER WO/W IVCONon 10-08 MRI LIVER WO/W IVCON * * *Final Report* * * DATE OF EXAM: Oct 08 2024 4:45PM AWM 0727 - MRI LIVER WO/W IVCON / PROCEDURE REASON: Liver lesion * * * * Physician Interpretation * * * * MRI LIVER WO/W IVCON INDICATION: Liver lesion COMPARISON: Ultrasound of the right upper quadrant 06/18/2024 and prior TECHNIQUE: Multiplanar, multisequence MR images of the abdomen were obtained before and after the intravenous administration of gadolinium-containing contrast material, using department liver protocol. Multiphase postcontrast imaging was performed. Intravenous Contrast: 15 ml of Dotarem RESULT: Liver: There is loss of signal on out of phase images compared to in phase images, indicating hepatic steatosis. * No mass to correlate for the 1.2 cm echogenic focus in the left hepatic dome and adjacent to the falciform ligament, although location favors focal fatty infiltration. * Small intrahepatic portal venous shunting present in the periphery of the segment IVb. * A 0.8 cm hyperenhancing focus in the periphery of the segment 8/4A this is seen only on arterial phase with decreased conspicuity of the portal venous phase, possibly also small vascular malformation or focal nodular hyperplasia. (11, 27) Biliary: There is no intrahepatic biliary dilatation. The common bile duct is normal in course and caliber. No filling defects are identified within the common bile duct. Large gallstones, no evidence of acute inflammation. Pancreas: No pancreatic ductal dilation. Spleen: No splenomegaly. No focal splenic lesions. Adrenals: No mass. Kidneys: No significant mass. No hydronephrosis. Vasculature: - Abdominal aorta: No aneurysm. - Celiac and SMA: Patent without stenosis. - Portal venous system (SMV, splenic vein, portal vein and branches): Patent. - Hepatic veins: Patent. Visualized portions of the GI tract: No dilation or wall thickening. Mesentery/ peritoneum:No mass or ascites. Lymphadenopathy: Absent. Musculoskeletal/soft tissues: No significant finding. Small vertebral body hemangioma in L5. Cystic changes of the breasts. Lung bases: Unremarkable. Slip Cover Seamstress (topogram) images: No additional findings IMPRESSION: 1. Hepatic steatosis. 2. No mass to correlate for the echogenic focus in the left hepatic dome, although location favors focal fatty infiltration. 3. A 0.8 cm hyperenhancing focus in the periphery of the segment 8/4A, possibly a small vascular malformation or focal nodular hyperplasia if there is no history of malignancy. Consider follow-up MRI in 6 months to assess for stability. 4. Cholelithiasis, no evidence of acute inflammation. Customer Experience Retail Clerk: PSC[employer] Transcribe Date/Time: Oct 16 2024 10:05A Dictated by : JONY THAKUR MD This examination was interpreted and the report reviewed and electronically signed by: JNOY THAKUR MD on Oct 16 2024 10:22AM EST [id number] Normal [facility] US ABDOMEN LIMITEDon 024 US ABDOMEN LIMITED Patient Name: MARIA T PHAN : 1985 Exam Date/Time: 08/24/2024 11:44 Procedure: US ABDOMEN LIMITED Ordering Provider: DOWNEY JOSEPH Reason For Exam: r10.11 Indication: Abdominal pain. FINDINGS: The liver has a 1.5 x 1.3 x 1.3 cm hyperechoic lesion of left lobe similar/slightly larger compared to ultrasound 10/07/2021. Note: MRI 06/30/2023 did not reveal lesion. Large gallstone 1.6 cm noted. Gallbladder sludge noted. No definite gallbladder wall edema.. No Bryant's sign. Common duct normal 2.8 mm. Pancreas unremarkable. The right kidney measures 11.6 cm. There is a 4 mm nonobstructing right renal calculus. No hydronephrosis. IMPRESSION: Abnormal. The etiology of the symptoms is not certain. A large gallstone is present. Please correlate clinically to determine if further evaluation or follow-up is indicated. Hepatic lesion left lobe, mildly larger. The etiology remains uncertain. Consider MRCP for persistent symptoms. Report Dictated on Electronically Signed By: Inderjit Ling MD Electronically Signed Date/Time: 08/24/2024 12:35 PM EST Normal [facility] US Abdomen limitedon 024 Abnormal. The etiology of the symptoms is not certain. A large gallstone is present. Please correlate clinically to determine if further evaluation or follow-up is indicated. Hepatic lesion left lobe, mildly larger. The etiology remains uncertain. Consider MRCP for persistent symptoms. Report Dictated on Electronically Signed By: Inderjit Ling MD Electronically Signed Date/Time: 08/24/2024 12:35 PM EST [facility] Patient Name: MARIA T PHAN : 1985 Exam Date/Time: 08/24/2024 11:44 Procedure: US ABDOMEN LIMITED Ordering Provider: DOWNEY JOSEPH Reason For Exam: r10.11 Indication: Abdominal pain. FINDINGS: The liver has a 1.5 x 1.3 x 1.3 cm hyperechoic lesion of left lobe similar/slightly larger compared to ultrasound 10/07/2021. Note: MRI 06/30/2023 did not reveal lesion. Large gallstone 1.6 cm noted. Gallbladder sludge noted. No definite gallbladder wall edema.. No Bryant's sign. Common duct normal 2.8 mm. Pancreas unremarkable. The right kidney measures 11.6 cm. There is a 4 mm nonobstructing right renal calculus. No hydronephrosis. [facility] Inderjit Ling MD - 08/24/2024 Patient Name: MARIA T PHAN : 1985 Exam Date/Time: 08/24/2024 11:44 Procedure: US ABDOMEN LIMITED Ordering Provider: DOWNEY JOSEPH Reason For Exam: r10.11 Indication: Abdominal pain. FINDINGS: The liver has a 1.5 x 1.3 x 1.3 cm hyperechoic lesion of left lobe similar/slightly larger compared to ultrasound 10/07/2021. Note: MRI 06/30/2023 did not reveal lesion. Large gallstone 1.6 cm noted. Gallbladder sludge noted. No definite gallbladder wall edema.. No Bryant's sign. Common duct normal 2.8 mm. Pancreas unremarkable. The right kidney measures 11.6 cm. There is a 4 mm nonobstructing right renal calculus. No hydronephrosis. IMPRESSION: Abnormal. The etiology of the symptoms is not certain. A large gallstone is present. Please correlate clinically to determine if further evaluation or follow-up is indicated. Hepatic lesion left lobe, mildly larger. The etiology remains uncertain. Consider MRCP for persistent symptoms. Report Dictated on Electronically Signed By: Inderjit Ling MD Electronically Signed Date/Time: 08/24/2024 12:35 PM EST [facility] [employer] Radiology Study observation (narrative) [employer] US Abdomen limitedOrdered By : Inderjit Ling on 08-24-2024 [employer] Work Phone: XR Chest 2 Viewson No acute cardiopulmonary abnormality identified. Report Dictated on Electronically Signed By: Francis Fox MD Electronically Signed Date/Time: 04/16/2024 3:46 PM EDT [employer] [facility] Name: [facility]AN : 1985 [id number] Exam Date/Time: 04/16/2024 13:05 Procedure: XR CHEST 2 VIEWS Ordering Provider: DOWNEY JOSEPH Reason For Exam: m89.312 EXAMINATION: XR chest PA and lateral. 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 FINDINGS: The cardiomediastinal silhouette is within normal limits. No focal consolidation, pleural effusion or pneumothorax. No acute osseous abnormality is demonstrated. [facility] [employer] Francis Fox MD - 04/16/2024 Patient Name: MARIA T PHAN : 1985 [id number] Exam Date/Time: 04/16/2024 13:05 Procedure: XR CHEST 2 VIEWS Ordering Provider: DOWNEY JOSEPH Reason For Exam: m89.312 EXAMINATION: XR chest PA and lateral. 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 FINDINGS: The cardiomediastinal silhouette is within normal limits. No focal consolidation, pleural effusion or pneumothorax. No acute osseous abnormality is demonstrated. IMPRESSION: No acute cardiopulmonary abnormality identified. Report Dictated on Electronically Signed By: Francis Fox MD Electronically Signed Date/Time: 04/16/2024 3:[address]T [facility] Radiology Study observation (narrative) [facility] XR Chest 2 ViewsOrdered By: Francis Fox on 04-16-[address] [facility] Work Phone: XR Tibia and Fibula - left 2 Viewson 12-21-2023 No osseous abnormalities. Report Dictated on Electronically Signed By: Garry Denson MD Electronically Signed Date/Time: 12/21/2023 4:21 PM [facility] [employer] Patient Name: MARIA T PHAN : 1985 [id number] Exam Date/Time: 12/20/2023 13:33 Procedure: XR TIBIA FIBULA 2 VIEWS LEFT Ordering Provider: DOWNEY JOSEPH Reason For Exam: LEFT KNEE PAIN LEFT TIBIA AND FIBULA CLINICAL INDICATION: LEFT KNEE PAIN AP and lateral plain film views of the left tibia and fibula were obtained. COMPARISON: None FINDINGS: The bones are normally mineralized and normally aligned. There is no fracture or periostitis. No radiopaque foreign bodies. The knee and ankle joint spaces are well-maintained. A site of palpable concern was marked along the anterior mid tibia. There is no bony abnormality or focal swelling at this site. [facility] Garry Denson M D - 12/21/2023 Patient Name: MARIA T PHAN : 1985 Exam Date/Time: 12/20/2023 13:33 Procedure: XR TIBIA FIBULA 2 VIEWS LEFT Ordering Provider: DOWNEY JOSEPH Reason For Exam: LEFT KNEE PAIN LEFT TIBIA AND FIBULA CLINICAL INDICATION: LEFT KNEE PAIN AP and lateral plain film views of the left tibia and fibula were obtained. COMPARISON: None FINDINGS: The bones are normally mineralized and normally aligned. There is no fracture or periostitis. No radiopaque foreign bodies. The knee and ankle joint spaces are well-maintained. A site of palpable concern was marked along the anterior mid tibia. There is no bony abnormality or focal swelling at this site. IMPRESSION: No osseous abnormalities. Report Dictated on Electronically Signed By: Garry Denson MD Electronically Signed Date/Time: 12/21/2023 4:21 PM EST [facility] XR Tibia and Fibula - left 2 ViewsOrdered By: Garry Denson on 12-21-2023 [facility] Work Phone: XR Tibia and Fibula - left 2 Viewson 12-20-2023 Radiology Study observation (narrative) [facility] XR Humerus - right Viewson 0 04-14-2023 Findings and impression: Right arm multiple views performed. Bone density is normal. There is no fracture or dislocation, convincing acute bone or soft tissue process seen. The etiology of the symptoms is not certain. Report Dictated on Electronically Signed By: Inderjit Ling Electronically Signed Date/Time: 04/14/2023 7:54 AM EDT [facility] [employer] Patient Name: MARIA T PHAN : 1985 Exam Date/Time: 04/12/2023 13:33 Procedure: XR HUMERUS RIGHT Ordering Provider: DOWNEY JOSEPH Reason For Exam: m89.8x2 Indication: Right arm pain. [facility] [employer] Inderjit Ling MD - 04/14/2023 Patient Name: MARIA T PHAN : 1985 Exam Date/Time: 04/12/2023 13:33 Procedure: XR HUMERUS RIGHT Ordering Provider: DOWNEY JOSEPH Reason For Exam: m89.8x2 Indication: Right arm pain. IMPRESSION: Findings and impression: Right arm multiple views performed. Bone density is normal. There is no fracture or dislocation, convincing acute bone or soft tissue process seen. The etiology of the symptoms is not certain. Report Dictated on Electronically Signed By: Inderjit Ling Electronically Signed Date/Time: 04/14/2023 7:54 AM EDT [facility] XR Humerus - right ViewsOrde red By: Inderjit Lign on 04-14-2023 [facility] Work Phone: XR Humerus - right Viewson 0 04-12-2023 Radiology Study observation (narrative) [facility] [employer] Info Discharge Instructionon - Discharge Instruction [facility] Medical Records Department [address] [place] [address] Instructions for Home/Discharge Instructions 02/10/23 0858 MR#: [id number] Acct: [id number] Name: MARIA T PHAN Rep #: [id number] : 1985 37 From: Isaias Payan MD PCP: Dr. Brian Downey MD Status:ADM IN Discharge Instructions Diet Discharge Diet: No restrictions Activity Discharge Activity: May Shower May resume sexual activity in: 6 weeks Weight Bearing Status: Weight bearing as tolerated Dressing / Incision Call your doctor if you observe: Fever of 101 or Higher, Coldness, Increased Pain, Change in Color, Inability to urinate, Inability to have a bowel movement, Using more than 1 pad per hour, Shortness of breath, Dizziness, Fainting spells, Chest pain, Increased palpitations (irregular heartbeat), Calf discomfort and Uncontrolled pain Suture Line Care: Avoid Pulling/Pushing and Avoid Pinching/Bending Follow Up Care Please Follow Up With: Brenda Mcdaniel MD When: Follow up in 2 and 6 weeks for visits. Test Results: Test results from this visit will be discussed in further detail at your follow-up appointment, if applicable. Discharge Plan Admission Admit Date/Time: 02/09/23 07:20 Primary Reason for Your Visit: Vaginal delivery Attending Provider: Brenda Mcdaniel Primary Care Provider: Brian Downey Discharge Orders/Prescriptions Prescriptions: New acetaminophen 500 mg Tablet 1,000 mg PO Q6H PRN PRN (Reason: Pain 1-10 Or Fever) Qty: 0 0RF ibuprofen 600 mg Tablet 600 mg PO Q6H PRN PRN (Reason: Pain Score 1-3) Qty: 0 0RF Continued Prenatabs FA 1 TABLET tablet 1 tab PO DAILY Discontinued ondansetron HCl [Zofran] 4 mg Tablet 4 mg PO Q6H aspirin [Baby Aspirin] 81 mg Tablet,Chewable 81 mg PO DAILY Referrals / Follow Up: Brian Downey MD [Primary Care Provider] - Disposition Disposition (needs filled in before D/C Order can be placed): Home, Self Care 02/10/23 0901 Isaias Payan MD CC: Dr. Brian Downey MD Signed Normal [facility] .Auto Diffon 02-09-2023 Basophil, Absolute 0.0 10 3/mcL Normal 0.0-0.3 [facility] ([place]) Comment on above: Performed By: #### A YUMIKO DUNBAR, CBC #### [address] [address] Basophils/100 WBC (Bld) 0.3 % Normal 0.0-2.5 [facility] ([place]) Comment on above: Performed By: #### A YUMIKO DUNBAR, CBC #### [address] [address] Eosinophil, Absolute 0.1 10 3/mcL Normal 0.0-0.7 [facility] ([place]) Comment on above: Performed By: #### A YUMIKO DUNBAR, CBC #### [address] [address] Eosinophils/100 WBC (Bld) 1.1 % Normal 0.0-6.0 [facility] ([place]) Comment on above: Performed By: #### A YUMIKO DUNBAR, CBC #### [address] [address] Lymphocyte, Absolute 1.7 10 3/mcL Normal 0.9-4.3 [facility] ([place]) Comment on above: Performed By: #### A YUMIKO DUNBAR, CBC #### [address] [address] Lymphocytes/100 WBC (Bld) 23.5 % Normal 20.0-40.0 [facility] ([place]) Comment on above: Performed By: #### A YUMIKO DUNBAR, CBC #### [address] [address] Monocyte, Absolute 0.5 10 3/mcL Normal 0.1-1.4 [facility] ([place]) Comment on above: Performed By: #### A YUMIKO DUNBAR, CBC #### [address] [address] Monocytes/100 WBC (Bld) 7.5 % Normal 2.0-13.0 [facility] ([place]) Comment on above: Performed By: #### A YUMIKO DUNBAR, CBC #### [address] [address] Neutrophils/100 WBC (Bld) 67.6 % Normal 50.0-75.0 [facility] ([place]) Comment on above: Performed By: #### A YUMIKO DUNBAR, CBC #### [address] [address] .NEUABSon 02-09-2023 Neutrophil, Absolute 4.8 10 3/mcL Normal 2.3-8.1 [facility] ([place]) Comment on above: Performed By: #### A YUMIKO DUNBAR, CBC #### [address] [address] CBCon 02-09-2023 Erythrocyte distribution width (RBC) [Ratio] 13.6 % Normal 11.5-15.5 [facility] ([place]) Comment on above: Performed By: #### A YUMIKO DUNBAR, CBC #### [address] [address] Hematocrit (Bld) [Volume fraction] 37.9 % Normal 34.0-46.0 [facility] ([place]) Comment on above: Performed By: #### A YUMIKO DUNBAR, CBC #### [address] [address] Hgb 12.8 G/dL Normal 12.0-16.0 [facility] ([place]) Comment on above: Performed By: #### A CHANTELL DUNBARIFF, CBC #### [address] [address] MCH (RBC) [Entitic mass] 28.6 pg Normal 27.0-33.0 [facility] ([place]) Comment on above: Performed By: #### A YUMIKO DUNBAR, CBC #### [address] [address] MCHC 33.8 G/dL Normal 32.0-36.0 [facility] ([place]) Comment on above: Performed By: #### A YUMIKO DUNBAR, CBC #### [place] [address] MCV (RBC) [Entitic vol] 84.4 fL Normal 80.0-99.0 [facility] ([place]) Comment on above: Performed By: #### A YUMIKO DUNBAR, CBC #### [address] [address] Platelet 216 10 3/mcL Normal 150-450 [facility] ([place]) Comment on above: Performed By: #### A YUMIKO DUNBAR, CBC #### [place] [id number] Platelet mean volume (Bld) [Entitic vol] 9.1 fL Normal 6.6-10.5 [facility] ([place]) Comment on above: Performed By: #### A YUMIKO DUNBAR, CBC #### [address] [address] RBC 4.49 10 6/mcL Normal 4.10-5.30 [facility] ([place]) Comment on above: Performed By: #### A MANJINDER ADJEANETTE, CBC #### [address] [address] WBC 7.0 10 3/mcL Normal 4.5-10.8 [facility] ([place]) Comment on above: Performed By: #### A MANJINDER, ADIFF, CBC #### [facility] [address] [place] [address] CBC W/Diff, Automatedon 01-16 WBC Normal 4.4-11.0 [facility] Comment on above: Result Comment: Scan brooke image report available in EMR CBCD PERFORMED BY [facility] Performed By: #### B TS, L100.0100 #### [facility] [address] [facility] [place], [address] H AND P Exam - OB/GYNon 01-16 H&P Exam - PROMOTIONAL MARKETING ANALYST [facility] Medical Records Department [address] [facility] [place] [address] H P Exam - PROMOTIONAL MARKETING ANALYST 02/09/23 1307 MR#: [id number] Acct: [id number] Name: MARIA T PHAN Rep #: [id number] : 1985 37 From: Brenda Mcdaniel MD PCP: Dr. Brian Downey MD Status:ADM IN Location: [id number] HPI - General General Date of Admission: 02/09/23 Date of Service: 02/09/23 Chief Complaint: induction HPI Narrative MARIA T PHAN, is a 37 F who presents 12 para 8-2-1-9 who presents at 39 gestational weeks for induction of labor due to high risk with advanced maternal age. This has been uncomplicated to date other than advanced maternal age. She has a history remarkable for depression, preeclampsia and earlier pregnancies, iron deficiency anemia, nausea and vomiting of , cholestasis of with just her last . Maternal Data Information Final PILAR: 02/15/23 Gestational age: [address] 1[address] [facility] Medical History (Updated 02/09/23 @ 13:[address] Brenda Mcdaniel MD) Cholestasis during in third trimester Grand multipara in labor Personal history of COVID-19 depression Pre-eclampsia delivery Stillborn, normal Unfavorable cervix in term Home Medications vits,calcium no.78-iron fumarate-folic acid 29 mg-1 mg tablet (Prenatabs FA) 1 tab PO DAILY 02/10/18 [History Last Taken 02/08/23 21:00] aspirin 81 mg chewable tablet 81 mg PO DAILY 02/09/23 [History Last Taken 02/08/23 06:00] ondansetron HCl 4 mg tablet 4 mg PO Q6H nausea 02/09/23 [History Last Taken 02/09/23 06:00] Allergy/AdvReac Type Severity Reaction Status Date / Time No Known Allergies Allergy Verified 01/11/22 07:44 Surgical History (Updated 02/09/23 @ 09:25 by Leigh Robbins) History of surgery Status post vaginal delivery Social History Smoking Status: Never smoker History Elective abortions Hx Para 9 Spontaneous abortions Hx # Term Pregnancies Ectopic pregnancies Hx # Pregnancies Multiple births # of living children ROS Constitutional Constitutional: Denies fatigue, fever(s) or malaise Eyes Eyes: Denies change in vision ENT HEENT: Denies dizziness or headache(s) Cardiovascular Cardiovascular: Denies chest pain, dyspnea or lightheadedness Respiratory/Chest Respiratory/Chest: Denies cough or dyspnea Gastrointestinal Gastrointestinal: Denies change in bowel habits Genitourinary Genitourinary: Denies burning urination or genital lesions Integumentary Integumentary: Denies rash Neurologic Neurologic: Denies confusion, dizziness, headache(s), numbness or weakness Vital Signs Vital Signs Vital Signs: 02/09/23 07:52 02/09/23 07:54 02/09/23 07:54 Temperature Temperature Source Temporal Pulse Rate 88 Blood Pressure 125/82 H BP Systolic 125 BP Diastolic 82 02/09/23 07:53 02/09/23 11:28 02/09/23 11:28 Temperature 97.0 F L Temperature Source Pulse Rate 82 Blood Pressure 114/66 BP Systolic 114 BP Diastolic 66 02/09/23 11:28 02/09/23 11:28 Temperature 97.9 F Temperature Source Temporal Pulse Rate Blood Pressure BP Systolic BP Diastolic Weight Weight: 87.09 kg Body Mass Index (BMI) 30.0 Physical Exam Const alert and no apparent distress General Appearance: cooperative HEENT normocephalic Resp normal respiratory effort Cardio regular rate GI soft to palpation GI Narrative: gravid, nontender, appropriate for gestational age Extremity no calf tenderness General Extremity: edema Skin no wounds Rashes: No rashes noted Psych activity/motor behavior normal Labs Labs Labs: Blood Type O POSITIVE Antibody Screen NEGATIVE Hct Not Reportable Hgb Not Reportable Syphilis Total Ab Non-reactive Rhogam given: No Assessment Plan (1) Supervision of other high risk pregnancies, third trimester: PLAN: High risk grand multiparity patient for induction of labor due to advanced maternal age. Risk benefits and alternatives to induction and reviewed, consent was signed questions were answered and she desires to proceed. Estimated weight is less than 4500 g clinically and pelvis clinically adequate to expect vaginal delivery. May use epidural, nitrous oxide or other pain relieving methods as indicated. (2) 39 weeks gestation of : 02/09/23 1310 Cosigner Signature (if applicable): CC: Dr. Brian Downey MD; Dr. Brenda Mcdaniel MD Signed [facility] L509.8000on 02-09-2023 Syphilis Abs Non-Reactive [facility] Comment on above: Performed By: #### L 509.8000 #### [facility] [address] [facility] [place], [address] Operative Reporton 3 Operative Report [facility] Medical Records Department [address] [place] [address] Operative Report 02/09/23 1854 MR#: [id number] Acct: [id number] Name: MARIA T PHAN Rep #: [id number] : 1985 37 From: Brenda Mcdaniel MD PCP: Dr. Brian Downey MD Status:ADM IN [id number] Plan (1) (spontaneous vaginal delivery): (2) Breech : Maternal Data Information Final PILAR: 02/17/23 Gestational age: 39 1/7 Vaginal Delivery Maternal Presentation Maternal Presentation: Medically Indicated Induction Type of Induction: Pitocin and Amniotomy Operative Information Date of Procedure: 02/09/23 Pre-Operative Diagnosis: labor Post-Operative Diagnosis: same Surgery / Procedure Performed: Spontaneous Vaginal Delivery (Complete breech) cleaner laboratory equipment #1: Alessandra Ruiz Type of Anesthesia: Epidural Special Medications: none Drain: Cannon to straight drain Estimated Blood Loss: 200 Time of Delivery: 18:41 Findings Description of Procedure: A vigorous [female] infant was complete breech, sacrum SHANIKA over an intact perineum. The legs were swept out individually and a towel was placed around the neonates torso. The left arm was swept out and there was a loose nuchal cord that reduced. The right arm was then swept out. Gentle traction was then placed on the maxilla. The delivered on the next push with minimal traction. The entire delivery occurred within 1 contraction. The Pitocin infusion was initiated for active management of the third stage. The cord was clamped and cut after cord pulsations ceased. The was attended to by the waiting nursing staff. The placenta was delivered spontaneously and intact. The cervix and vagina were intact. Sponge and needle counts were correct. A vaginal sweep was completed by me. Presentation: Complete Breech Amniotic Membrane Rupture Type: Artificial Amniotic Fluid Description: Clear Placental Delivery Description: Spontaneous Placenta Disposition: [facility] Cord Vessel Description: 3 Vessels Cord Entanglement: - (around body x 1 loose) Nuchal Cord Compression: Without compression Infant A Gender: Female (1 minute): 8 (5 minute): 9 Delayed Cord Clamping: Yes Post Vaginal Delivery Medications Given After Delivery: IV Pitocin Episiotomy Description: None Laceration: None Complication Complications: None 02/09/23 8398 Cosigner Signature (if applicable): CC: Dr. Brian Downey MD; Dr. Brenda Mcdaniel MD Signed [facility] Type AND Screenon 3 ABO and Rh group Nom (Bld) Blood group O Rh(D) positive Normal [facility] Comment on above: Order Comment: Labor Performed By: #### B , L100.0100 #### [facility] [address] [place], [place] [address], [address] URINE OB DIP B/Oon 3 Glucose Ql (U) Negative Neg mg/dL [facility] Protein.monoclonal (U) [Mass/Vol] Negative Neg mg/dL [facility] URINE OB DIP B/Oon 3 Glucose Ql (U) Negative Neg mg/dL [facility] Protein.monoclonal (U) [Mass/Vol] Negative Neg mg/dL [facility] URINE OB DIP B/Oon 3 Glucose Ql (U) Negative Neg mg/dL [facility] Protein.monoclonal (U) [Mass/Vol] Negative Neg mg/dL [facility] URINE OB DIP B/Oon 3 Glucose Ql (U) Negative Neg mg/dL [facility] Protein.monoclonal (U) [Mass/Vol] Negative Neg mg/dL [facility] URINE OB DIP B/Oon 2 Glucose Ql (U) Negative Neg mg/dL [facility] Protein.monoclonal (U) [Mass/Vol] Negative Neg mg/dL [facility] URINE OB DIP B/Oon 2 Glucose Ql (U) Negative Neg mg/dL [facility] Protein.monoclonal (U) [Mass/Vol] Negative Neg mg/dL [facility] NUCHAL TRANSLUC[employer]Y WHIon [facility] URINE OB DIP B/Oon 2 Glucose Ql (U) Negative Neg mg/dL [facility] Protein.monoclonal (U) [Mass/Vol] Negative Neg mg/dL [facility] CBC panel Auto (Bld)on 07-07 Erythrocyte distribution width (RBC) [Ratio] 13.4 % 11.5 - 15.0 % [facility] Hematocrit (Bld) [Volume fraction] 36.8 % 36.0 - 46.0 % [facility] Hemoglobin (Bld) [Mass/Vol] 12.2 g/dL 11.5 - 15.5 g/dL [facility] MCH (RBC) [Entitic mass] 28.3 pg 26.0 - 34.0 pg [facility] MCHC (RBC) [Mass/Vol] 33.2 g/dL 30.5 - 36.0 g/dL [facility] MCV (RBC) [Entitic vol] 85.4 fL 80.0 - 100.0 fL [facility] Nucleated RBC (Bld) [#/Vol] <0.01 k/uL [facility] Platelet mean volume (Bld) [Entitic vol] 9.9 fL 9.0 - 12.7 fL [facility] Platelets (Bld) [#/Vol] 256 10*3/uL 150 - 400 k/uL [facility] RBC (Bld) [#/Vol] 4.31 10*6/uL 3.90 - 5.2 0 m/uL [facility] WBC (Bld) [#/Vol] 7.41 10*3/uL 3.70 - 11. 00 k/uL [facility] Comprehensive metabolic 2000 panelon 07-07-2022 Albumin [Mass/Vol] 4.4 g/dL 3.9 - 4.9 g/dL [facility] ALP [Catalytic activity/Vol] 89 U/L 34 - 123 U/L [facility] ALT [Catalytic activity/Vol] 63 U/L High 7 - 38 U/L [facility] Anion gap [Moles/Vol] 8 mmol/L Low 9 - 18 mmol/L [facility] AST [Catalytic activity/Vol] 30 U/L 13 - 35 U/L [facility] Bilirubin [Mass/Vol] 0.2 mg/dL 0.2 - 1.3 mg/dL [facility] Calcium [Mass/Vol] 9.0 mg/dL 8.5 - 10. 2 mg/dL [facility] Chloride [Moles/Vol] 105 mmol/L 97 - 105 mmol/L [facility] CO2 [Moles/Vol] 22 mmol/L 22 - 30 mmol/L [facility] Creatinine [Mass/Vol] 0.54 mg/dL Low 0.58 - 0.96 mg/dL [facility] Estimated Glomerular Filtration Rate 123 mL/min/1.73m >=60 mL/min/1.73m [facility] Glucose [Mass/Vol] 98 mg/dL 74 - 99 mg/dL [facility] Potassium [Moles/Vol] 3.6 mmol/L Low 3.7 - 5.1 mmol/L [facility] Protein [Mass/Vol] 6.6 g/dL 6.3 - 8.0 g/dL [facility] Sodium [Moles/Vol] 135 mmol/L Low 136 - 144 mmol/L [facility] Urea nitrogen [Mass/Vol] 8 mg/dL 7 - 21 mg/dL [facility] CR Spine Thoracic 3 Viewson 04-28-2022 CR Spine Thoracic 3 Views Patient Name: MARIA T PHAN Diagnostic Radiology ACCESSION EXAM DATE/TIME PROCEDURE ORDERING PROVIDER [id number] 04/28/2022 11:05 EDT CR Spine Thoracic 3 SHAYAN MATUTE, ROSS TORRES Views CPT code 03090 Reason For Exam (CR Spine Thoracic 3 Views) thoracic spine pain Report DORSAL SPINE History: Upper back pain. Findings: Frontal, lateral, and swimmer's views show unremarkable dorsal vertebral bodies, disk spaces, bone density, and vertebral alignment. IMPRESSION: Unremarkable exam. Report Dictated on Final Dictating Physician: MD REYNA AHMAD Signed Date and Time: 04/28/2022 3:18 pm Signed by: MD REYNA AHMAD Transcribed Date and Time: 04/28/2022 3:19 [facility] XR Spine Thoracic 3 VWon Patient Name: MARIA T PHAN Diagnostic Radiology ACCESSION EXAM DATE/TIME PROCEDURE ORDERING PROVIDER [id number] 04/28/2022 11:05 EDT CR Spine Thoracic 3 DOWNEY JR, ROSS TORRES Views CPT code 71946 Reason For Exam (CR Spine Thoracic 3 Views) thoracic spine pain Report DORSAL SPINE History: Upper back pain. Findings: Frontal, lateral, and swimmer's views show unremarkable dorsal vertebral bodies, disk spaces, bone density, and vertebral alignment. IMPRESSION: Unremarkable exam. Report Dictated on --- Final --- Dictating Physician: MD REYNA AHMAD Signed Date and Time: 04/28/2022 3:18 pm Signed by: MD REYNA AHMAD Transcribed Date and Time: 04/28/2022 3:[address] [facility] Nir Reyna MD - 04/28/2022 Patient Name: MARIA T PHAN Diagnostic Radiology ACCESSION EXAM DATE/TIME PROCEDURE ORDERING PROVIDER [id number] 04/28/2022 11:05 EDT CR Spine Thoracic 3 DOWNEY JR, ROSS BRIAN Views CPT code 27050 Reason For Exam (CR Spine Thoracic 3 Views) thoracic spine pain Report DORSAL SPINE History: Upper back pain. Findings: Frontal, lateral, and swimmer's views show unremarkable dorsal vertebral bodies, disk spaces, bone density, and vertebral alignment. IMPRESSION: Unremarkable exam. Report Dictated on --- Final --- Dictating Physician: MD REYNA AHMAD Signed Date and Time: 04/28/2022 3:18 pm Signed by: MD REYNA AHMAD Transcribed Date and Time: 04/28/2022 3:19 [facility] Work Phone: Radiology Study observation (narrative) [facility] Work Phone: XR Spine Thoracic 3 VWOrdere d By: Nir Reyna on 04-28-2022 [facility] Work Phone: Absolute lymphocyte counton 01-11-2022 Lymphocytes Auto (Unsp spec) [#/Vol] 1.70 10*3/uL 0.83-4.51 [facility] Work Phone: Basophil percentageon 2021 Basophils/100 WBC (Bld) 0.4 % 0-1 [facility] Work Phone: Eosinophils/100 WBC (Bld) 1.6 % 0-5 [facility] Work Phone: Neutrophils (Bld) [#/Vol] 5.3 10*3/uL 2.0-7.7 [facility] Work Phone: Neutrophils/100 WBC (Bld) 69.6 % 47-70 [facility] Work Phone: WBC (Bld) [#/Vol] 7.7 10*3/uL 4.4-11.0 [facility] Work Phone: Blood erythrocytes count (nu mber/volume)on 01-11-2022 RBC (Bld) [#/Vol] 4.35 10*6/uL 4.2-5.4 [facility] Work Phone: Blood hemoglobin measurement (mass/volume)on 01-11-2022 Hemoglobin (Bld) [Mass/Vol] 12.8 g/dL 12.0-15.0 [facility] Work Phone: Blood lymphocytes/100 leukoc yteson 01-11-2022 Lymphocytes/100 WBC (Bld) 22.2 % 19-41 [facility] Work Phone: Blood monocytes/100 leukocyt eson 01-11-2022 Monocytes/100 WBC (Bld) 5.5 % 0-10 [facility] Work Phone: Blood platelet mean volumeon 01-11-2022 Platelet mean volume (Bld) [Entitic vol] 10.4 fL 6.2-12.0 [facility] Work Phone: Determination of erythrocyte mean corpuscular volume (MCV)on 01-11-2022 MCV (RBC) [Entitic vol] 86.0 fL 81-99 [facility] Work Phone: Hematocrit Auto (Bld) [Volum e fraction]on 01-11-2022 Hematocrit (Bld) [Volume fraction] 37.4 % 37-47 [facility] Work Phone: Laboratory - Hematology and Cell countson 01-11-2022 Erythrocyte distribution width (RBC) [Entitic vol] 40.9 fL 35.1-43.9 [facility] Work Phone: Erythrocyte distribution width (RBC) [Ratio] 13.2 % 11.6-14.6 [facility] Work Phone: Immature granulocytes/100 WBC (Bld) 0.700 % 0.0-0.9 [facility] Work Phone: Comment on above: IG% - Immature Granu locytes (promyelocytes, myelocytes and metamyelocytes) > 1% indicates that a LEFT SHIFT is Present. MCH (RBC) [Entitic mass] 29.4 pg 27.0-32.0 [facility] Work Phone: Nucleated RBC/100 WBC (Bld) [Ratio] 0 % 0-5 [facility] Work Phone: MCHC Auto (RBC) [Mass/Vol]on 01-11-2022 MCHC (RBC) [Mass/Vol] 34.2 g/dL 32-36 [facility] Work Phone: Platelets bldon 01-11-2022 Platelets (Bld) [#/Vol] 205 10*3/uL 150-450 [facility] Work Phone: BIOPHYSICAL PROFILE US WHDiego 01-08-2022 Transportation Planning Engineer Indication Growth, BPP cholestasis, Advanced maternal age Impression REMOTE READ: Follow-up assessment of growth and well-being in a complicated by AMA, intrahepatic cholestasis of , history of preeclampsia, and history of a midtrimester demise. - Normal growth - No malformations visualized on a limited survey - Biophysical profile score of 05/24 The patient was informed of the sonographic findings. Weekly surveillance is recommended until delivery. Thank you for the referral. Recommendations Weekly surveillance Maternal Assessment Height 170 cm Height (ft) 5 ft Height (in) 7 in Physical Exam Initial weight (lb) 159 lb Initial BMI 24.90 kg/m Maternal assessment other: 11 Para 8 Method Transabdominal ultrasound examination Schmid . Number of fetuses: 1 Dating GA by prior assessment 35 w + 4 d PILAR by prior assessment: 02/08/2022 Ultrasound examination on: 01/08/2022 GA by U/S based upon: AC, BPD, Femur, HC GA by U/S 34 w + 1 d PILAR by U/S: 02/18/2022 Assigned: based on stated PILAR, selected on 01/08/2022 Assigned GA 35 w + 4 d Assigned PILAR: 02/08/2022 General Evaluation Cardiac activity present. FHR 153 bpm. movements: present. Presentation: cephalic Placenta: Placental site: anterior, fundal Umbilical cord: 3 vessel cord Amniotic fluid: Amount of AF: normal amount. MVP 5.5 cm. ERIKA 13.4 cm. Q1 5.5 cm, Q2 3.9 cm, Q3 1.6 cm, Q4 2.5 cm Biophysical Profile 2: breathing movements 2: Gross body movements 2: tone 2: Amniotic fluid volume 05/24 Biophysical profile score Growth Overview Exam date GA BPD (mm) HC (mm) AC (mm) FL (mm) HL (mm) EFW (g) 09/09/2021 18w 2d 37.2 14% 145.0 16% 125.9 44% 24.8 17% 24.5 29% 212 21% 10/28/2021 25w 2d 58.9 9% 223.9 7% 199.7 21% 42.7 7% 684 10% 11/20/2021 28w 4d 67.6 7% 256.4 7% 231.7 15% 51.6 12% 1,091 11% 12/17/2021 32w 3d 76.1 4% 278.9 <1% 276.9 29% 58.6 5% 1,714 11% 01/08/2022 35w 4d 83.7 10% 304.8 2% 311.8 45% 65.2 6% 2,430 21% Biometry Standard BPD 83.7 mm 33w 5d 10% Hadlock OFD 107.3 mm 32w 1d 12% Nicolaides HC 304.8 mm 33w 6d 2% Hadlock AC 311.8 mm 35w 1d 45% Hadlock Femur 65.2 mm 33w 4d 6% Hadlock EFW 2,430 g 34w 2d 21% Hadlock EFW (lb) 5 lb EFW (oz) 6 oz EFW by: Hadlock ([id number]) Extremities / Bony Struc FL / HC 0.21 Other Structures FHR 153 bpm Anatomy Lateral ventricles: normal Cavum septi pellucidi: normal 4-chamber view: normal RVOT view: normal LVOT view: normal Heart / Thorax Situs: situs solitus (normal) Stomach: normal Kidneys: normal Bladder: normal sex: female Wants to know sex: yes Performed By: Rosa Dorado RDMS, RVT Read By: Jose Wolff M.D. [facility] MRI Abdomen w/o Contraston 0 11-03-2021 MRI Abdomen w/o Contrast Patient Name: MARIA T PHAN Magnetic Resonance Imaging ACCESSION EXAM DATE/TIME PROCEDURE ORDERING PROVIDER [id number] 11/03/2021 08:34 EST MRI Abdomen w/o Contrast ROSS DOWNEY JR CPT code 78466 Reason For Exam (MRI Abdomen w/o Contrast) intrahepatic bile duct diation Report MRI OF THE ABDOMEN WITH MRCP: CLINICAL INDICATION: Biliary dilation. TECHNIQUE: Transaxial and coronal T1 and T2 breath hold along with transaxial and coronal gradient echo sequences were performed through the abdomen. Thick section multi-angle and thin section multi-slice MRCP sequences were performed through the abdomen as well. Maximum intensity projection 3-D images were created with the latter data set on an independent workstation. COMPARISON: 10/07/2021 FINDINGS: Gallbladder: A large gallstone is present in the gallbladder neck. The gallbladder is mildly distended but without mural thickening or adjacent edema. Biliary tree: Intrahepatic and extrahepatic biliary tree demonstrates normal caliber. No filling defects identified. Normal tapered configuration of the distal end of the common bile duct. Pancreatic duct: Normal caliber. Liver: Normal size and contour. Small echogenic liver lesion noted on the prior ultrasound is not seen on this study though evaluation is limited in the absence of IV contrast. Pancreas: No mass or peripancreatic fluid identified. Spleen: Normal. Adrenals:Normal Kidneys: No contour abnormality or hydronephrosis. Tiny cyst in the right upper kidney. Aorta: Normal caliber. Visualized Osseous structures: Unremarkable. Other: Partly visualized intrauterine . Note that this study is not tailored to the evaluation of the anatomy. IMPRESSION: Magnetic Resonance Imaging Report 1. No biliary dilation or evidence of choledocholithiasis. 2. Large gallstone in the gallbladder neck. Gallbladder distention which could be due to fasting but given the presence of cholecystolithiasis, cholecystitis cannot be excluded and if there is clinical concern, HIDA scan could be obtained. 3. Nonvisualization of the suspected left hepatic lobe hemangioma, though evaluation is limited in the absence of IV contrast. 4. Single intrauterine , incompletely characterized. Report Dictated on Final Dictating Physician: MD DAVIDSON NICHOLAS Signed Date and Time: 11/03/2021 9:09 am Signed by: MD DAVIDSON NICHOLAS Transcribed Date and Time: 11/03/2021 9:10 Normal [facility] US Abdomen Limitedon 021 US Abdomen Limited Patient Name: MARIA T PHAN Ultrasound ACCESSION EXAM DATE/TIME PROCEDURE ORDERING PROVIDER [id number] 10/07/2021 17:40 EST US Abdomen Limited ROSS DOWNEY JR CPT code 35192 Reason For Exam (US Abdomen Limited) elevated bilirubin Addendum Critical Test Results: Results were conveyed to Dr. Downey via Ininal messaging at 6:33 PM on 10/07/2021. Report Dictated on Workstation: MARISA Final Addendum Addendum Dictating Physician: MD KATZ JOHN R Signed Date and Time: 10/07/2021 6:46 pm Signed by: MD KATZ JOHN R Transcribed Date and Time: 10/07/2021 6:47 Report ULTRASOUND OF THE RIGHT UPPER QUADRANT CLINICAL INDICATION: elevated bilirubin TECHNIQUE: Real-time ultrasound of the right upper quadrant of the abdomen. COMPARISON: 12/31/2014 FINDINGS: Pancreas poorly seen secondary to overlying bowel gas. Echogenic lesion in the left hepatic lobe measures 1.2 x 1.0 x 0.9 cm, most likely a hemangioma. Mild intrahepatic biliary tree dilatation. Common bile duct is 3.1 mm, which is normal. There is a 2 cm mobile gallstone. Also, irregularly shaped polyp or uterine sludge along the anterior wall of the gallbladder measures 1.4 x 0.6 x 1.5 cm. Negative Bryant sign. Normal right kidney measuring 10.8 x 4.8 x 4.3 cm. IMPRESSION: 1. Mild intrahepatic biliary tree dilatation. Common bile duct is normal. Consider CT abdomen with IV contrast for further evaluation, or MRCP. 2. Gallstone and irregularly shaped polyp or adherent sludge. Given its very unusual configuration, would recommend short-term follow-up in one month to reassess persistence. 3. Echogenic lesion left hepatic lobe most likely hemangioma. Ultrasound Report Report Dictated on Workstation: MARISA Final Dictating Physician: MD KATZ JOHN R Signed Date and Time: 10/07/2021 6:32 pm Signed by: MD KATZ JOHN R Transcribed Date and Time: 10/07/2021 6:33 Report last revised on 10/07/2021 18:46 EST by MD KATZ JOHN R [facility] XR LUMBAR SPINE (MIN 4 VIEWS )on 07-15-2020 Patient Name: MARIA T PHAN ---Diagnostic Radiology--- Exam Date/Time 07/15/2020 12:28:44 EDT Exam CR Spine Lumbosacral 4+ Views Ordering Physician ROSS DOWNEY JR Accession Number [id number] CPT4 Codes 96987 () Reason For Exam lumbosacral back pain Report CLINICAL INFORMATION: Low back pain. Frontal, bilateral oblique , L5/S1 spot view and lateral views of the lumbar spine were obtained. There are 5 lumbar type vertebrae. Bone density appears normal. The vertebral heights are within normal limits. No spondylolisthesis or spondylolysis is noted. The disc spaces are maintained. No fracture is noted. AP view shows mild curvature, convex to the left. IMPRESSION: No acute bony abnormality or significant degenerative change. Mild scoliotic curvature. Report Dictated on --- Final --- Dictating Physician: MD WHITE LAURA Signed Date and Time: 07/15/2020 5:21 pm Signed by: MD WHITE LAURA Transcribed Date and Time: 07/15/2020 5:23 [place], [place] Robert, [facility] Incoming Radiology Results From [facility] - 07/15/2020 5:23 PM EDT Patient Name: MARIA T PHAN ---Diagnostic Radiology--- Exam Date/Time 07/15/2020 12:28:44 EDT Exam CR Spine Lumbosacral 4+ Views Ordering Physician ROSS DOWNEY JR Accession Number [id number] CPT4 Codes 42048 () Reason For Exam lumbosacral back pain Report CLINICAL INFORMATION: Low back pain. Frontal, bilateral oblique , L5/S1 spot view and lateral views of the lumbar spine were obtained. There are 5 lumbar type vertebrae. Bone density appears normal. The vertebral heights are within normal limits. No spondylolisthesis or spondylolysis is noted. The disc spaces are maintained. No fracture is noted. AP view shows mild curvature, convex to the left. IMPRESSION: No acute bony abnormality or significant degenerative change. Mild scoliotic curvature. Report Dictated on --- Final --- Dictating Physician: MD WHITE LAURA Signed Date and Time: 07/15/2020 5:21 pm Signed by: MD WHITE LAURA Transcribed Date and Time: 07/15/2020 5:23 [facility] [place], [place] US ABD RIGHT UPPER QUADRANTo n 02-23-2020 US ABD RIGHT UPPER QUADRANT * * *Final Report* * * DATE OF EXAM: Feb 23 2020 10:46AM AWU 1032 - US ABD RIGHT UPPER QUADRANT / PROCEDURE REASON: r79.89 * * * * Physician Interpretation * * * * EXAMINATION: RIGHT UPPER QUADRANT ULTRASOUND CLINICAL HISTORY: Elevated LFTs TECHNIQUE: Sonography of the right upper quadrant was performed. Images were obtained and stored in a permanent archive. MQ: URUQ_2 RESULT: Please of that this examination is limited secondary to overlying bowel gas. Pancreas: Normal sonographic appearance. Portions obscured: tail Liver: Echotexture: Normal, homogeneous. Echogenicity: Normal Surface contour: Smooth Lesions: None. Biliary: No intrahepatic biliary duct dilation. CBD: 0.5 cm at the hilum. Gallbladder: Normal caliber -Contents: There is an approximately 1.5 x 1.6 cm gallstone. -Wall: Normal -Other: No pericholecystic fluid. Right Kidney: No hydronephrosis. The right kidney measures approximately 13.2 cm. Ascites: None. IMPRESSION: Normal liver echotexture, without focal hepatic lesion. Cholelithiasis, without convincing sonographic evidence for acute cholecystitis. No biliary dilation. Customer Experience Retail Clerk: JET Transcribe Date/Time: Feb 23 2020 10:53A Dictated by : FRANCISCO SMITH MD This examination was interpreted and the report reviewed and electronically signed by: FRANCISCO SMITH MD on Feb 23 2020 10:54AM EST Normal [facility] MRI BRAIN WO/W IVCONon 02-21 MRI BRAIN WO/W IVCON * * *Final Report* * * DATE OF EXAM: Feb 22 2020 5:15PM AW 0295 - MRI BRAIN WO/W IVCON / PROCEDURE REASON: R26.9 * * * * Physician Interpretation * * * * EXAMINATION: MRI BRAIN WO/W IVCON CLINICAL HISTORY: The patient presents with headaches and dizziness. Tongue numbness. TECHNIQUE: Routine brain MRI protocol without and with contrast including diffusion images. MQ: [id number]_2 Contrast: 16 mL Dotarem IV COMPARISON: None. RESULT: Acute Change: There is no evidence of restricted diffusion to suggest an acute infarct. Hemorrhage: No evidence of prior parenchymal hemorrhage on the gradient echo images. Mass Lesion/ Mass Effect: No evidence of an intracranial mass or extra-axial fluid collection. No abnormal parenchymal or leptomeningeal enhancement is noted following contrast administration. No significant mass effect. Chronic Change: The white matter is within normal limits of signal intensity for age. Parenchyma: No significant volume loss for age. The brain parenchyma is otherwise within normal limits of signal intensity and morphology. Ventricles: Normal caliber and morphology. Skull Base: Hypothalamic and pituitary region are grossly normal. Craniocervical junction is normal. No significant marrow replacement process. Vasculature: Major intracranial arterial structures, and dural venous sinuses show typical flow void, suggesting patency by spin echo criteria. Other: The visualized paranasal sinuses and mastoid air cells are clear. The orbits and extracranial soft tissues are unremarkable. IMPRESSION: MRI brain with and without contrast within normal limits for age. No significant intracranial abnormality. Customer Experience Retail Clerk: [facility] Transcribe Date/Time: Feb 22 2020 5:19P Dictated by : YOEL LEWIS MD This examination was interpreted and the report reviewed and electronically signed by: YOEL LEWIS MD on Feb 22 2020 5:26PM EST Normal [facility] XR HUMERUS RIGHT (MIN 2 VIEW S)on 08-28-2019 Patient Name: MARIA T PHAN ---Diagnostic Radiology--- Exam Date/Time 08/28/2019 12:32:00 EST Exam CR Humerus 2+ Views Right Ordering Physician ROSS DOWNEY JR Accession Number [id number] CPT4 Codes 38576 () Reason For Exam M79.621 PAIN RIGHT HUMERUS Report RIGHT HUMERUS History: Stabbing pain midhumerus for 2 to 3 weeks, TECHNIQUE: Reportedly, the patient is 35 weeks , therefore, the exam and risk of radiation during were explained to the patient who agreed to proceed, and double lead shielding of the abdomen and pelvis applied. FINDINGS: Two views of the right humerus show unremarkable bone density without fracture, dislocation, periosteal reaction, or bone erosion. IMPRESSION: Unremarkable humerus. Report Dictated on --- Final --- Dictating Physician: MD REYNA AHMAD Signed Date and Time: 08/28/2019 1:42 pm Signed by: MD REYNA AHMAD Transcribed Date and Time: 08/28/2019 1:43 [place], [place] Karthik Jones Incoming Radiology Results From [facility] - 08/28/2019 1:43 PM EST Patient Name: MARIA T PHAN ---Diagnostic Radiology--- Exam Date/Time 08/28/2019 12:32:00 EST Exam CR Humerus 2+ Views Right Ordering Physician ROSS DOWNEY JR Accession Number [id number] CPT4 Codes 62214 () Reason For Exam M79.621 PAIN RIGHT HUMERUS Report RIGHT HUMERUS History: Stabbing pain midhumerus for 2 to 3 weeks, TECHNIQUE: Reportedly, the patient is 35 weeks , therefore, the exam and risk of radiation during were explained to the patient who agreed to proceed, and double lead shielding of the abdomen and pelvis applied. FINDINGS: Two views of the right humerus show unremarkable bone density without fracture, dislocation, periosteal reaction, or bone erosion. IMPRESSION: Unremarkable humerus. Report Dictated on --- Final --- Dictating Physician: MD REYNA AHMAD Signed Date and Time: 08/28/2019 1:42 pm Signed by: MD REYNA AHMAD Transcribed Date and Time: 08/28/2019 1:43 [place], [place] Vital Signs Date Time Vital Sign Value Performing Clinician Facility 06-06-2025 13:52-0400 Body mass index (BMI) [Ratio] 29.04 kg/m2 Caitlyn Kaur MD Work Phone: [facility] 06-06-2025 13:52-0400 Body weight 84.1 kg Caitlyn Kaur MD Work Phone: [facility] 06-06-2025 13:52-0400 Diastolic blood pressure 78 mm[Hg] Caitlyn Kaur MD Work Phone: [facility] 06-06-2025 13:52-0400 Systolic blood pressure 100 mm[Hg] Caitlyn Kaur MD Work Phone: [facility] 04-25-2025 13:48-0400 Body mass index (BMI) [Ratio] 28.66 kg/m2 Brenda Mcdaniel MD Work Phone: [facility] 04-25-2025 13:48-0400 Body weight 83.01 kg Brenda Mcdaniel MD Work Phone: [facility] 04-25-2025 13:48-0400 Diastolic blood pressure 70 mm[Hg] Brenda Mcdaniel MD Work Phone: [facility] 04-25-2025 13:48-0400 Systolic blood pressure 110 mm[Hg] Brenda Mcdaniel MD Work Phone: [facility] 03-28-2025 13:46-0400 Body height 170.2 cm Omar Haury SUPPLY ANALYST.SYSTEMS TESTING LABORATORY TECHNICIAN Work Phone: [facility] 03-28-2025 13:46-0400 Body mass index (BMI) [Ratio] 28.51 kg/m2 Omar Haury SUPPLY ANALYST.SYSTEMS TESTING LABORATORY TECHNICIAN Work Phone: [facility] 03-28-2025 13:46-0400 Body weight 82.56 kg Omar Haury SUPPLY ANALYST.SYSTEMS TESTING LABORATORY TECHNICIAN Work Phone: [facility] 03-28-2025 13:46-0400 Diastolic blood pressure 60 mm[Hg] Omar Haury SUPPLY ANALYST.SYSTEMS TESTING LABORATORY TECHNICIAN Work Phone: [facility] 03-28-2025 13:46-0400 Systolic blood pressure 120 mm[Hg] Omar Haury SUPPLY ANALYST.SYSTEMS TESTING LABORATORY TECHNICIAN Work Phone: [facility] 02-18-2025 13:59-0400 Body height 170.2 cm Elizabeth Kang MD Work Phone: [facility] 02-18-2025 13:59-0400 Body mass index (BMI) [Ratio] 28.19 kg/m2 Elizabeth Kang MD Work Phone: [facility] 02-18-2025 13:59-0400 Body weight 81.65 kg Elizabeth Kang MD Work Phone: [facility] 02-18-2025 13:59-0400 Diastolic blood pressure 80 mm[Hg] Elizabeth Kang MD Work Phone: [facility] 02-18-2025 13:59-0400 Heart rate 118 /min Elizabeth Kang MD Work Phone: [facility] 02-18-2025 13:59-0400 Systolic blood pressure 146 mm[Hg] Elizabeth Kang MD Work Phone: [facility] 01-09-2025 15:19-0400 Body height 170.2 cm Meena Hritz SUPPLY ANALYST.SYSTEMS TESTING LABORATORY TECHNICIAN Work Phone: [facility] 01-09-2025 15:19-0400 Body mass index (BMI) [Ratio] 27.53 kg/m2 Meena Hritz SUPPLY ANALYST.SYSTEMS TESTING LABORATORY TECHNICIAN Work Phone: [facility] 01-09-2025 15:19-0400 Body weight 79.74 kg Meena Hritz SUPPLY ANALYST.SYSTEMS TESTING LABORATORY TECHNICIAN Work Phone: [facility] 01-09-2025 15:19-0400 Diastolic blood pressure 78 mm[Hg] Meena Hritz SUPPLY ANALYST.SYSTEMS TESTING LABORATORY TECHNICIAN Work Phone: [facility] 01-09-2025 15:19-0400 Heart rate 99 /min Meena Hritz SUPPLY ANALYST.SYSTEMS TESTING LABORATORY TECHNICIAN Work Phone: [facility] 01-09-2025 15:19-0400 Systolic blood pressure 122 mm[Hg] Meena Hritz SUPPLY ANALYST.SYSTEMS TESTING LABORATORY TECHNICIAN Work Phone: [facility] 04-26-2024 14:23-0400 Body height 170.2 cm Kelly Kalka PA-C Work Phone: [facility] 04-26-2024 14:23-0400 Body mass index (BMI) [Ratio] 25.84 kg/m2 Kelly Kalka PA-C Work Phone: [facility] 04-26-2024 14:23-0400 Body weight 74.84 kg Kelly Kalka PA-C Work Phone: [facility] 04-26-2024 14:23-0400 Diastolic blood pressure 70 mm[Hg] Kelly Rasmussenka PA-C Work Phone: [facility] 04-26-2024 14:23-0400 Heart rate 81 /min Kelly Kalka PA-C Work Phone: [facility] 04-26-2024 14:23-0400 Systolic blood pressure 118 mm[Hg] Kelly Kalka PA-C Work Phone: [facility] 06-18-2023 11:20-0400 Body height 170.2 cm Carmen Ball SUPPLY ANALYST.SYSTEMS TESTING LABORATORY TECHNICIAN Work Phone: [facility] 06-18-2023 11:20-0400 Body temperature 96.01 [degF] Carmen Ball SUPPLY ANALYST.SYSTEMS TESTING LABORATORY TECHNICIAN Work Phone: [facility] 06-18-2023 11:20-0400 Body weight 78.47 kg Carmen Ball SUPPLY ANALYST.SYSTEMS TESTING LABORATORY TECHNICIAN Work Phone: [facility] 06-18-2023 11:20-0400 Diastolic blood pressure 80 mm[Hg] Carmen Ball SUPPLY ANALYST.SYSTEMS TESTING LABORATORY TECHNICIAN Work Phone: [facility] 06-18-2023 11:20-0400 Heart rate 76 /min Carmen Ball SUPPLY ANALYST.SYSTEMS TESTING LABORATORY TECHNICIAN Work Phone: [facility] 06-18-2023 11:20-0400 Systolic blood pressure 135 mm[Hg] Carmen Ball SUPPLY ANALYST.SYSTEMS TESTING LABORATORY TECHNICIAN Work Phone: [facility] 02-03-2023 09:49-0400 Body weight 87.54 kg Brenda Mcdaniel MD Work Phone: [facility] 02-03-2023 09:49-0400 Diastolic blood pressure 80 mm[Hg] Brenda Mcdaniel MD Work Phone: [facility] 02-03-2023 09:49-0400 Systolic blood pressure 119 mm[Hg] Brenda Mcdaniel MD Work Phone: [facility] 01-27-2023 10:50-0400 Body weight 87.09 kg Brenda Mcdaniel MD Work Phone: [facility] 01-27-2023 10:50-0400 Diastolic blood pressure 83 mm[Hg] Brenda Mcdaniel MD Work Phone: [facility] 01-27-2023 10:50-0400 Systolic blood pressure 121 mm[Hg] Brenda Mcdaniel MD Work Phone: [facility] 01-21-2023 15:18-0400 Body weight 87.82 kg Brenda Mcdaniel MD Work Phone: [facility] 01-21-2023 15:18-0400 Diastolic blood pressure 78 mm[Hg] Brenda Mcdaniel MD Work Phone: [facility] 01-21-2023 15:18-0400 Systolic blood pressure 112 mm[Hg] Brenda Mcdaniel MD Work Phone: [facility] 01-05-2023 11:43-0400 Body weight 86.18 kg Brenda Mcdaniel MD Work Phone: [facility] 01-05-2023 11:43-0400 Diastolic blood pressure 70 mm[Hg] Brenda Mcdaniel MD Work Phone: [facility] 01-05-2023 11:43-0400 Systolic blood pressure 114 mm[Hg] Brenda Mcdaniel MD Work Phone: [facility] 11-05-2022 10:12-0500 Body weight 83.46 kg Brenda Mcdaniel MD Work Phone: [facility] 11-05-2022 10:12-0500 Diastolic blood pressure 66 mm[Hg] Brenda Mcdaniel MD Work Phone: [facility] 11-05-2022 10:12-0500 Systolic blood pressure 108 mm[Hg] Brenda Mcdaniel MD Work Phone: [facility] 10-21-2022 15:16-0500 Body weight 83.92 kg Brenda Mcdaniel MD Work Phone: [facility] 01-05-2023 15:16-0500 Diastolic blood pressure 68 mm[Hg] Brenda Mcdaniel MD Work Phone: [facility] 10-21-2022 15:16-0500 Systolic blood pressure 118 mm[Hg] Brenda Mcdaniel MD Work Phone: [facility] 09-22-2022 11:16-0500 Body weight 82.56 kg Lynette Figueroa MD Work Phone: [facility] 09-22-2022 11:16-0500 Diastolic blood pressure 60 mm[Hg] Lynette Figueroa MD Work Phone: [facility] 09-22-2022 11:16-0500 Systolic blood pressure 98 mm[Hg] Lynette Figueroa MD Work Phone: [facility] 09-01-2022 16:12-0500 Body weight 79.83 kg Brenda Mcdaniel MD Work Phone: [facility] 09-01-2022 16:12-0500 Diastolic blood pressure 60 mm[Hg] Brenda Mcdaniel MD Work Phone: [facility] 09-01-2022 16:12-0500 Systolic blood pressure 112 mm[Hg] Brenda Mcdaniel MD Work Phone: [facility] 08-04-2022 10:15-0400 Body weight 77.47 kg Brenda Mcdaniel MD Work Phone: [facility] 08-04-2022 10:15-0400 Diastolic blood pressure 66 mm[Hg] Brenda Mcdaniel MD Work Phone: [facility] 08-04-2022 10:15-0400 Systolic blood pressure 102 mm[Hg] Brenda Mcdaniel MD Work Phone: [facility] 07-07-2022 13:04-0400 Diastolic blood pressure 72 mm[Hg] Brenda Mcdaniel MD Work Phone: [facility] 07-07-2022 13:04-0400 Systolic blood pressure 112 mm[Hg] Brenda Mcdaniel MD Work Phone: [facility] 01-13-2022 08:33-0400 Diastolic blood pressure 74 mm[Hg] [facility] Work Phone: 01-13-2022 08:33-0400 Heart rate 82 /min [facility] Work Phone: 01-13-2022 08:33-0400 Systolic blood pressure 110 mm[Hg] [facility] Work Phone: 01-13-2022 08:31-0400 Body temperature 97.9 [degF] [facility] Work Phone: 01-13-2022 08:30-0400 Respiratory rate 16 /min [facility] Work Phone: 01-12-2022 16:27-0400 SaO2% (BldA) [Mass fraction] 99 % [facility] Work Phone: 01-11-2022 07:44-0400 Body height 170.18 cm [facility] Work Phone: 01-11-2022 07:44-0400 Body mass index (BMI) [Ratio] 29.9 kg/m2 [facility] Work Phone: 01-11-2022 07:44-0400 Body weight 86.9 kg [facility] Work Phone: 01-08-2022 14:59-0400 Body height 170.2 cm Jose Wolff MD Work Phone: [facility] 01-08-2022 14:59-0400 Body weight 85.73 kg Jose Wolff MD Work Phone: [facility] 01-08-2022 14:59-0400 Diastolic blood pressure 80 mm[Hg] Jose Wolff MD Work Phone: [facility] 01-08-2022 14:59-0400 Systolic blood pressure 120 mm[Hg] Jose Wolff MD Work Phone: [facility] Encounters Encounter Date Encounter Type Care Provider Facility Start: 08-16-2025 End: 08-16-2025 ambulatory ROSS BRINA DOWNEY JR Facility:[facility] Start: 08-01-2025 End: 08-01-2025 ambulatory ROSS DOWNEY JR Facility:[facility] Start: 07-04-2025 End: 07-04-2025 ambulatory BRENDA MCDANIEL Facility:[facility] Start: 06-06-2025 End: 06-06-2025 ambulatory CAITLYN KAUR Facility:[facility] Start: 06-06-2025 End: 06-06-2025 Patient encounter procedure Caitlyn Kaur MD Work Phone: OB/Gynecology Comment on above: 19 weeks gestation o f (HCC) (Primary Dx); Supervision of high risk in second trimester ([facility]); AMA (advanced maternal age) multigravida 35+, first trimester ([facility]) Multigravida of adva nced maternal age in first trimester ([facility]) (Primary Dx); with uncertain dates in first trimester ([facility]); Prior with demise and current in first trimester ([facility]) Start: 06-04-2025 End: 06-04-2025 ambulatory Brenda Mcdaniel MD Work Phone: OB/Gynecology Comment on above: Blood work Start: 04-25-2025 End: 04-25-2025 Patient encounter procedure Brenda Mcdaniel MD Work Phone: OB/Gynecology Comment on above: Encounter for superv ision of high risk in first trimester, antepartum (HCC) (Primary Dx); AMA (advanced maternal age) multigravida 35+, first trimester ([facility]); 13 weeks gestation of ([facility]) Encounter for antena beck screening for malformation using ultrasound ([facility]) (Primary Dx); 13 weeks gestation of ([facility]) Start: 04-25-2025 End: 04-25-2025 ambulatory OMAR FREEDMAN Facility:[facility] Start: 04-17-2025 End: 04-17-2025 ambulatory Brenda Mcdaniel MD Work Phone: OB/Gynecology Comment on above: Zofrwai Start: 04-11-2025 End: 04-11-2025 ambulatory OMAR FREEDMAN Facility:[facility] Start: 04-01-2025 End: 06-01-2025 Follow-up encounter Omar Freedman APRN.CNP Work Phone: OB/Gynecology Start: 03-28-2025 End: 03-28-2025 Patient encounter procedure Omarpavel Yuanjohn PARK Work Phone: OB/Gynecology Comment on above: Encounter for superv ision of high risk in first trimester, antepartum (HCC) (Primary Dx); 9 weeks gestation of (HCC); with uncertain dates in first trimester (HCC); Screening for cervical cancer; Encounter for screening for human papillomavirus (HPV); Nausea and vomiting in (HCC); Multigravida of advanced maternal age in first trimester (HCC); History of gestational hypertension; History of pre-eclampsia in prior , currently (HCC); History of depression, currently (HCC) Start: 03-28-2025 End: 03-28-2025 ambulatory OMAR FREEDMAN Facility:[facility] Start: 03-26-2025 End: 04-29-2025 Telephone encounter Omar Freedman APRN.SYSTEMS TESTING LABORATORY TECHNICIAN Work Phone: OB/Gynecology Comment on above: Appointment Start: 03-18-2025 End: 03-19-2025 ambulatory Brenda Mcdaniel MD Work Phone: OB/Gynecology Comment on above: Gerber Start: 03-15-2025 End: 03-15-2025 Telephone encounter Omar Freedman APRN.SYSTEMS TESTING LABORATORY TECHNICIAN Work Phone: OB/Gynecology Comment on above: Appointment; Opened In Error Start: 02-18-2025 End: 02-18-2025 Office outpatient new 45 minutes Elizabeth Kang MD Work Phone: [facility] Comment on above: Anal fistula (Primar y Dx) Start: 02-18-2025 End: 02-18-2025 ambulatory ELIZABETH KANG Facility:[facility] Start: 01-21-2025 End: 01-21-2025 ambulatory Kelly Win PA-C Work Phone: [facility] Comment on above: Spot still not gone Start: 01-09-2025 End: 01-09-2025 ambulatory MEENA CUEVAS Facility:[facility] Start: 01-09-2025 End: 01-09-2025 Office outpatient visit 15 minutes Meena Cuevas SUPPLY ANALYST.SYSTEMS TESTING LABORATORY TECHNICIAN Work Phone: [facility] Comment on above: Anal disorder (Prima ry Dx); Papule Start: 10-08-2024 ambulatory KELLY RASMUSSENKA Facility: [facility] Start: 10-08-2024 End: 10-08-2024 Subsequent hospital visit by physician Mri [facility] (1.5t/Lg Bore 70cm) Work Phone: [facility] Comment on above: Liver lesion [K76.9] Start: 08-25-2024 End: 08-26-2024 ambulatory Kelly Rasmussenka PA-C Work Phone: [facility] Comment on above: Ultrasound Start: 08-24-2024 End: 08-24-2024 Subsequent hospital visit by physician Ross Downey MD Work Phone: [facility] Comment on above: Right upper quadrant pain Start: 08-24-2024 End: 08-24-2024 ambulatory ROSS DOWNEY [facility] Start: 05-25-2024 ambulatory Kelly Rasmussenka PA-C Work Phone: [facility] Comment on above: Pain Start: 05-02-2024 ambulatory Kelly Rasmussenka PA-C Work Phone: [facility] Comment on above: CT scan Start: 04-26-2024 End: 04-26-2024 Patient encounter procedure Kelly Kalka PA-C Work Phone: [facility] Comment on above: Diarrhea, unspecifie d type (Primary Dx); BRBPR (bright red blood per rectum); Hemorrhoids, internal; Right sided abdominal pain; Abdominal distension (gaseous); Right lower quadrant abdominal pain; Nausea Start: 04-16-2024 End: 07-16-2024 Subsequent hospital visit by physician Ross Downey MD Work Phone: [facility] Radiology Comment on above: Hypertrophy of bone, left shoulder Hypertrophy of bone, left shoulder (Primary Dx) Start: 04-16-2024 End: 04-17-2024 ambulatory [facility] Start: 04-12-2024 End: 07-12-2024 Transcribe Orders Ross Downey MD Work Phone: [facility] Sched[facility] Comment on above: Right upper quadrant pain (Primary Dx) Start: 12-20-2023 End: 12-20-2023 Subsequent hospital visit by physician Ross Downey MD Work Phone: [facility] Radiology Comment on above: Pain in left knee Pain in left knee (P rimary Dx) Start: 12-20-2023 End: 12-20-2023 [facility] Start: 06-30-2023 End: 06-30-2023 Subsequent hospital visit by physician Ross Downey MD Work Phone: [facility] MRI Comment on above: Liver disease, unspe cified Start: 06-18-2023 End: 06-18-2023 Patient encounter procedure Carmen Acuña SUPPLY ANALYST.SYSTEMS TESTING LABORATORY TECHNICIAN Work Phone: [facility] Comment on above: Procedure not gino d out (Primary Dx) Start: 04-12-2023 End: 04-12-2023 Subsequent hospital visit by physician [facility] Xr Exam Room 3 [facility] Radiology Comment on above: Other specified diso rders of bone, upper arm Pain in right should er Other specified diso rders of bone, upper arm (Primary Dx) Start: 02-17-2023 ambulatory Brenda gonzalez MD Work Phone: OB/Gynecology Comment on above: Spinal headache Start: 02-10-2023 ambulatory Brenda gonzalez MD Work Phone: OB/Gynecology Comment on above: Ob Delivery Note Start: 02-09-2023 End: 02-11-2023 Evaluation and management of inpatient Brian Downey Facility:[facility] Start: 02-03-2023 End: 02-03-2023 Patient encounter procedure Brenda Mcdaniel MD Work Phone: OB/Gynecology Comment on above: 38 weeks gestation o f (Primary Dx); AMA (advanced maternal age) multigravida 35+, third trimester; Grand multipara; Supervision of other high risk pregnancies, third trimester Start: 01-27-2023 End: 01-27-2023 Patient encounter procedure Brenda Mcdaniel MD Work Phone: OB/Gynecology Comment on above: AMA (advanced matern al age) multigravida 35+, third trimester (Primary Dx); 37 weeks gestation of Start: 01-21-2023 End: 01-21-2023 Patient encounter procedure Brenda Mcdaniel MD Work Phone: OB/Gynecology Comment on above: Grand multipara ([facility] Dx); Antepartum multigravida of advanced maternal age; 36 weeks gestation of Start: 01-05-2023 End: 01-05-2023 Patient encounter procedure Brenda Mcdaniel MD Work Phone: OB/Gynecology Comment on above: 34 weeks gestation o f (Primary Dx); AMA (advanced maternal age) multigravida 35+, third trimester; Supervision of other high risk pregnancies, third trimester Start: 11-05-2022 End: 11-05-2022 Patient encounter procedure Brenda Mcdaniel MD Work Phone: OB/Gynecology Comment on above: AMA (advanced matern al age) multigravida 35+, second trimester (Primary Dx); 25 weeks gestation of ; Leg cramps in ; Right leg pain; Headache in , antepartum, second trimester Start: 11-04-2022 ambulatory Brenda gonzalez MD Work Phone: OB/Gynecology Comment on above: Leg Start: 10-21-2022 End: 10-21-2022 Patient encounter procedure Brenda Mcdaniel MD Work Phone: OB/Gynecology Comment on above: 23 weeks gestation o f (Primary Dx); AMA (advanced maternal age) multigravida 35+, second trimester; History of pre-eclampsia in prior , currently Start: 10-13-2022 ambulatory Brenda gonzalez MD Work Phone: OB/Gynecology Comment on above: Zofran Start: 09-22-2022 End: 09-22-2022 Patient encounter procedure Lyntete Figueroa MD Work Phone: OB/Gynecology Comment on above: History of pre-eclam psia in prior , currently (Primary Dx); Antepartum multigravida of advanced maternal age; Grand multipara; 19 weeks gestation of Start: 09-01-2022 End: 09-01-2022 Patient encounter procedure Brenda Mcdaniel MD Work Phone: OB/Gynecology Comment on above: 16 weeks gestation o f (Primary Dx); AMA (advanced maternal age) multigravida 35+, second trimester Start: 08-09-2022 Telephone encounter Vinita muir MD Work Phone: Maternal Medicine Comment on above: NIPT results Start: 08-04-2022 End: 08-04-2022 Patient encounter procedure Brenda Mcdaniel MD Work Phone: OB/Gynecology Comment on above: 12 weeks gestation o f (Primary Dx); Supervision of other high risk pregnancies, first trimester; Encounter for screening of mother; Multigravida of advanced maternal age in second trimester; Advanced maternal age in multigravida, first trimester Encounter for (NT) n uchal translucency scan (Primary Dx); 12 weeks gestation of ; Multigravida of advanced maternal age in first trimester Start: 08-03-2022 Orders Only Vinita Minor MD Work Phone: Maternal Medicine Comment on above: Multigravida of adva nced maternal age in first trimester (Primary Dx) Start: 07-29-2022 ambulatory Brenda gonzalez MD Work Phone: OB/Gynecology Comment on above: Start: 07-07-2022 Patient requested procedure Brenda Mcdaniel MD Work Phone: [facility] Work Phone: Start: 07-07-2022 End: 07-07-2022 Patient encounter procedure Brenda Mcdaniel MD Work Phone: OB/Gynecology Comment on above: AMA (advanced matern al age) multigravida 35+, first trimester (Primary Dx); 8 weeks gestation of ; Supervision of other high risk pregnancies, first trimester; History of pre-eclampsia in prior , currently , first trimester Start: 07-01-2022 Telephone encounter Brenda Mcdaniel MD Work Phone: OB/Gynecology Comment on above: Missed Appointment Start: 06-28-2022 End: 06-28-2022 Patient encounter procedure Lynette Figueroa MD Work Phone: OB/Gynecology Comment on above: with uncer tain dates in first trimester (Primary Dx) Start: 04-28-2022 End: 04-28-2022 Subsequent hospital visit by physician Ross Downey MD Work Phone: [facility] Radiology Start: 01-22-2022 Refill Brenda gonzalez MD Work Phone: OB/Gynecology Comment on above: Refill Request Start: 01-20-2022 ambulatory Brenda gonzalez MD Work Phone: OB/Gynecology Comment on above: Thrush! Start: 01-13-2022 ambulatory Brenda gonzalez MD Work Phone: OB/Gynecology Comment on above: Stronger meds Start: 01-11-2022 ambulatory Brenda gonzalez MD Work Phone: OB/Gynecology Comment on above: Ob Delivery Note Start: 01-11-2022 End: 01-13-2022 [facility] Start: 01-08-2022 End: 01-08-2022 Patient encounter procedure Jose Wolff MD Work Phone: Maternal Medicine Comment on above: Cholestasis during p regnancy in third trimester (Primary Dx); Supervision of other high risk pregnancies, third trimester; Prior poor obstetrical history in third trimester, antepartum Start: 06-15-2021 Patient requested procedure Jose Wolff MD Work Phone: [facility] Work Phone: Start: 07-15-2020 End: 07-15-2020 Subsequent hospital visit by physician Ross Downey Work Phone: [facility] Radiology Start: 08-28-2019 End: 08-28-2019 Subsequent hospital visit by physician Ross Downey Work Phone: [facility] Radiology Start: 10-28-2017 [facility] Start: 10-12-2017 Ambulatory Kim [facility] Start: 07-15-2017 Ambulatory Kim Ross [facility] Procedures Date Procedure Procedure Detail Performing Clinician Start: 06-06-2025 Us preg uterus after 1st trimest 1/ gestation Omar Freedman APRN.SYSTEMS TESTING LABORATORY TECHNICIAN Work Phone: Start: 04-25-2025 Us preg uterus after 1st trimest 1/ gestation Omar Freedman APRN.SYSTEMS TESTING LABORATORY TECHNICIAN Work Phone: Start: 04-11-2025 Antibody screen OMAR H TIFFANY Comment on above: Order Comment: Speci men Type: BLOOD SPECIMEN Ordering Facility: [facility] Address: [address] [place] [address] Performed By: #### T SPN #### [facility] [place] [id number] [address] [place] [address] [place] Start: 03-28-2025 Us uterus l imited 1/> fetuses Omar Freedman APRN.SYSTEMS TESTING LABORATORY TECHNICIAN Work Phone: Start: 08-24-2024 Us abdominal real ti me w/image limited Ross Downey MD Work Phone: Start: 04-16-2024 Radiologic exam ches t 2 views Ross Downey MD Work Phone: Start: 02-03-2023 URINE OB DIP B/O Sid Mcdaniel MD Work Phone: Start: 01-21-2023 URINE OB DIP B/O Sid Mcdaniel MD Work Phone: Start: 11-05-2022 URINE OB DIP B/O Sid Mcdaniel MD Work Phone: Start: 10-21-2022 URINE OB DIP B/O Sid Mcdanile MD Work Phone: Start: 09-22-2022 URINE OB DIP B/O Lynette Figueroa MD Work Phone: Start: 09-01-2022 URINE OB DIP B/O Sid Mcdaniel MD Work Phone: Start: 08-04-2022 URINE OB DIP B/O Sid Mcdaniel MD Work Phone: Start: 08-04-2022 Us nuchal translucency 1st gestation Brenda Mcdaniel MD Work Phone: Start: 04-28-2022 Radex spine thoracic 3 views Ross Downey MD Work Phone: Start: 01-11-2022 End: 01-11-2022 Viral antigen assay Start: 01-08-2022 biophysical pr ofile non-stress testing Brenda Mcdaniel MD Work Phone: Start: 07-15-2020 Radex spine lumbosac ral minimum 4 views Ross Downey Work Phone: Start: 08-28-2019 Radex humerus minimu m 2 views Ross Downey Work Phone: Plan of Treatment Date Care Activity Detail Author Start: 2061 RSV Immunization for Adults (1 - 1-dose 75+ series) RSV Immunization for Adults (1 - 1-dose 75+ series) [facility] Start: 2046 RSV Immunization aged 60 or older (1 - 1-dose 60+ series) RSV Immunization aged 60 or older (1 - 1-dose 60+ series) [facility] Start: 2036 Zoster Vaccines (1 of 2) Zoster Vaccines (1 of 2) [facility] Start: 03-28-2030 Screening for malignant neoplasm of cervix Cervical Cancer Screening [facility] Start: 09-05-2025 RSV Vaccine (1 - Risk 1-dose series) RSV Vaccine (1 - Risk 1-dose series) [facility] Start: 07-04-2025 End: 07-04-2025 Patient encounter procedure 07/04/2025 1:40 PM EDT Routine Office Visit OB/Gynecology [address] [place] [address] Brenda Mcdaniel MD [address] [place] [id number] OB OB/Gynecology Comment on above: OB Start: 06-17-2025 Influenza vaccination [facility] Start: 06-06-2025 End: 06-06-2025 Patient encounter procedure [facility] Comment on above: Anatomy Anatomy/OB Start: 06-05-2025 End: 06-05-2025 Patient encounter procedure Maternal [facility]et al Medicine Comment on above: Anatomy Anatomy/OB Start: 05-01-2025 End: 05-01-2025 Patient encounter procedure 05/01/2025 1:10 PM EDT Routine Office Visit OB/Gynecology [address] [place], [place] [id number] Brenda Mcdaniel MD [address] [place] [id number] OB/Gynecology Comment on above: Start: 04-25-2025 End: 04-25-2025 Patient encounter procedure OB/Gynecolog y Comment on above: Nuchal/ OB Nuchal Start: 04-20-2025 End: 04-20-2025 ambulatory 04/20/2025 10:30 AM EDT Results Only [facility] [address] [place] [address] [facility] Start: 03-28-2025 End: 06-27-2025 ANEMIA REFLEX PANEL ANEMIA REFLEX PANEL Lab Routine with uncertain dates in first trimester (HCC) Expected: 03/28/2025, Expires: 06/27/2025 [facility] Work Phone: Comment on above: Expected: 03/28/2025, Expires: Start: 03-28-2025 End: 06-27-2025 Chromosome 21 trisomy [Presence] in Blood or Tissue by Cytogenetics [id number] PLUS Lab Routine 9 weeks gestation of (HCC) Encounter for supervision of high risk in first trimester, antepartum (HCC) Expected: 03/28/2025, Expires: 06/27/2025 [facility] Comment on above: Expected: 03/28/2025, Expires: Start: 03-28-2025 End: 06-27-2025 Comprehensive metabolic 2000 panel - Serum or Plasma COMPREHENSIVE METABOLIC PANEL Lab Routine History of gestational hypertension Expected: 03/28/2025, Expires: 06/27/2025 [facility] Comment on above: Expected: 03/28/2025, Expires: Start: 03-28-2025 End: 06-27-2025 Hemoglobin A1c in Blood HEMOGLOBIN A1C Lab Routine with uncertain dates in first trimester (HCC) Expected: 03/28/2025, Expires: 06/27/2025 [facility] Comment on above: Expected: 03/28/2025, Expires: Start: 03-28-2025 End: 06-27-2025 Hepatitis B virus surface Ag [Presence] in Serum HEPATITIS B SURFACE ANTIGEN Lab Routine with uncertain dates in first trimester (HCC) Expected: 03/28/2025, Expires: 06/27/2025 [facility] Comment on above: Expected: 03/28/2025, Expires: Start: 03-28-2025 End: 06-27-2025 Hepatitis C virus Ab [Presence] in Serum HEPATITIS C ANTIBODY IA WITH CONFIRMATION Lab Routine with uncertain dates in first trimester (HCC) Expected: 03/28/2025, Expires: 06/27/2025 [facility] Comment on above: Expected: 03/28/2025, Expires: Start: 03-28-2025 End: 06-27-2025 HIV 1+2 Ab [Presence] in Serum or Plasma by Immunoassay HIV 1/2 COMBO WITH REFLEX TO DIFFERENTIATION Lab Routine with uncertain dates in first trimester (HCC) Expected: 03/28/2025, Expires: 06/27/2025 [facility] Comment on above: Expected: 03/28/2025, Expires: Start: 03-28-2025 End: 06-27-2025 Lipase [Enzymatic activity/volume] in Serum or Plasma LIPASE Lab Routine Encounter for supervision of high risk in first trimester, antepartum (HCC) History of gestational hypertension Expected: 03/28/2025, Expires: 06/27/2025 [facility] Comment on above: Expected: 03/28/2025, Expires: Start: 03-28-2025 End: 06-27-2025 MYRIAD FORESIGHT CARRIER SCREEN MYRIAD FORESIGHT CARRIER SCREEN Lab Routine 9 weeks gestation of ([facility]) Encounter for supervision of high risk in first trimester, antepartum ([facility]) Expected: 03/28/2025, Expires: 06/27/2025 [facility] Comment on above: Expected: 03/28/2025, Expires: Start: 03-28-2025 End: 03-28-2026 OBSTETRIC ULTRASOUND WHI OBSTETRIC ULTRASOUND WHI Anc Imaging Routine with uncertain dates in first trimester ([facility]) Expected: 03/28/2025, Expires: 03/28/2026 [facility] Comment on above: Expected: 03/28/2025, Expires: Start: 03-28-2025 End: 06-27-2025 Protein/Creatinine [Mass Ratio] in Urine PROTEIN / CREATININE RATIO Lab Routine History of gestational hypertension Expected: 03/28/2025, Expires: 06/27/2025 [facility] Comment on above: Expected: 03/28/2025, Expires: Start: 03-28-2025 End: 06-27-2025 RUBELLA IGG ANTIBODY RUBELLA IGG ANTIBODY Lab Routine with uncertain dates in first trimester ([facility]) Expected: 03/28/2025, Expires: 06/27/2025 [facility] Comment on above: Expected: 03/28/2025, Expires: Start: 03-28-2025 End: 06-27-2025 SYPHILIS TREPONEMAL W/REFLEX SYPHILIS TREPONEMAL W/REFLEX Lab Routine with uncertain dates in first trimester ([facility]) Expected: 03/28/2025, Expires: 06/27/2025 [facility] Comment on above: Expected: 03/28/2025, Expires: Start: 03-28-2025 End: 06-27-2025 Thyrotropin [Units/volume] in Serum or Plasma THYROID STIMULATING HORMONE Lab Routine History of gestational hypertension Expected: 03/28/2025, Expires: 06/27/2025 [facility] Comment on above: Expected: 03/28/2025, Expires: Start: 03-28-2025 End: 06-27-2025 TYPE + SCREEN TYPE + SCREEN Blood Bank Routine with uncertain dates in first trimester (HCC) Expected: 03/28/2025, Expires: 06/27/2025 [facility] Comment on above: Expected: 03/28/2025, Expires: Start: 03-28-2025 End: 03-28-2025 Patient encounter procedure 03/28/2025 1:45 PM EDT Initial Office Visit OB/Gynecology [address] [place] [address] Omar Freedman APRN.SYSTEMS TESTING LABORATORY TECHNICIAN [address] [place] [place] [address] OB/Gynecology Comment on above: Start: 06-17-2024 COVID-19 Vaccine ( season) COVID-19 Vaccine ( season) [facility] Start: 06-17-2024 COVID-19 Vaccine ( season) COVID-19 Vaccine ( season) [facility] Start: 06-17-2024 Influenza vaccination [facility] Start: 05-12-2024 End: 05-12-2024 Patient encounter procedure [facility] Comment on above: Right sided abdominal pain [R10.9]; Abdo juan ramon distension (gaseous) [R14.0]; Right lower quadrant abdominal pain [R10.31]; Nausea [R11.0] Start: 04-26-2024 End: 07-26-2024 CBC panel - Blood by Automated count COMPLETE BLOOD COUNT Lab Routine BRBPR (bright red blood per rectum) Right sided abdominal pain Expected: 04/26/2024, Expires: 07/26/2024 [facility] Work Phone: Comment on above: Expected: 04/26/2024, Expires: Start: 04-26-2024 End: 07-26-2024 CELIAC SCREEN WITH REFLEX CELIAC SCREEN WITH REFLEX Lab Routine Diarrhea, unspecified type Expected: 04/26/2024, Expires: 07/26/2024 [facility] Comment on above: Expected: 04/26/2024, Expires: Start: 04-26-2024 End: 07-26-2024 Choriogonadotropin ( test) [Presence] in Urine HCG, QUALITATIVE, URINE Lab Routine Diarrhea, unspecified type Expected: 04/26/2024, Expires: 07/26/2024 [facility] Comment on above: Expected: 04/26/2024, Expires: Start: 04-26-2024 End: 07-26-2024 Comprehensive metabolic 2000 panel - Serum or Plasma COMPREHENSIVE METABOLIC PANEL Lab Routine Right sided abdominal pain Expected: 04/26/2024, Expires: 07/26/2024 [facility] Comment on above: Expected: 04/26/2024, Expires: Start: 04-26-2024 End: 07-26-2024 Lipase [Enzymatic activity/volume] in Serum or Plasma LIPASE Lab Routine Right sided abdominal pain Expected: 04/26/2024, Expires: 07/26/2024 [facility] Comment on above: Expected: 04/26/2024, Expires: Start: 04-12-2024 End: 04-12-2025 US Abdomen limited US abdomen limited Imaging Routine Right upper quadrant pain Expected: 04/12/2024, Expires: 04/12/2025 [facility] Work Phone: Comment on above: Expected: 04/12/2024, Expires: 5 Start: 10-17-2023 Behavioral Health Screening Behavioral Health Screening [facility] Start: 06-17-2023 COVID-19 Vaccine () COVID-19 Vaccine () [facility] Start: 06-17-2023 Influenza vaccination [facility] Start: 06-08-2023 HPV TESTING HPV TESTING [facility] Start: 06-08-2023 PAP TESTING PAP TESTING [facility] Start: 06-08-2023 Screening for malignant neoplasm of cervix Cervical Cancer Screening [facility] Start: 10-21-2022 End: 12-21-2022 CBC W Auto Differential panel - Blood CBC + DIFF Lab Routine 23 weeks gestation of AMA (advanced maternal age) multigravida 35+, second trimester History of pre-eclampsia in prior , currently Expected: 10/21/2022, Expires: 12/21/2022 [facility] Work Phone: Comment on above: Expected: 10/21/2022, Expires: 3 Start: 10-21-2022 End: 12-21-2022 Comprehensive metabolic 2000 panel - Serum or Plasma COMP METABOLIC PANEL Lab Routine 23 weeks gestation of AMA (advanced maternal age) multigravida 35+, second trimester History of pre-eclampsia in prior , currently Expected: 10/21/2022, Expires: 12/21/2022 [facility] Work Phone: Comment on above: Expected: 10/21/2022, Expires: 3 Start: 10-21-2022 End: 12-21-2022 GEST GLUC SCREEN, 1-HR, 50 GM, NON-FASTING GEST GLUC SCREEN, 1-HR, 50 GM, NON-FASTING Lab Routine 23 weeks gestation of AMA (advanced maternal age) multigravida 35+, second trimester History of pre-eclampsia in prior , currently Expected: 10/21/2022, Expires: 12/21/2022 [facility] Work Phone: Comment on above: Expected: 10/21/2022, Expires: 3 Start: 10-21-2022 End: 12-21-2022 SYPHILIS TOTAL W/REFLEX SYPHILIS TOTAL W/REFLEX Lab Routine 23 weeks gestation of AMA (advanced maternal age) multigravida 35+, second trimester History of pre-eclampsia in prior , currently Expected: 10/21/2022, Expires: 12/21/2022 [facility] Work Phone: Comment on above: Expected: 10/21/2022, Expires: 3 Start: 10-17-2022 DEPRESSION ASSESSMENT DEPRESSION ASSESSMENT [facility] Start: 09-01-2022 End: 11-01-2022 ALPHA FETOPRO MATERNAL [facility] Work Phone: Comment on above: Expected: 09/01/2022, Expires: 3 Start: 08-04-2022 End: 08-04-2023 OBSTETRIC ULTRASOUND WHI OBSTETRIC ULTRASOUND WHI Anc Imaging Routine Supervision of other high risk pregnancies, first trimester Encounter for screening of mother Multigravida of advanced maternal age in second trimester Expected: 08/04/2022, Expires: 08/04/2023 [facility] Work Phone: Comment on above: Expected: 08/04/2022, Expires: 3 Start: 08-03-2022 End: 10-03-2022 Chromosome 21 trisomy [Presence] in Blood or Tissue by Cytogenetics [id number] PLUS Lab Routine Multigravida of advanced maternal age in first trimester Expected: 08/03/2022, Expires: 10/03/2022 [facility] Work Phone: Comment on above: Expected: 08/03/2022, Expires: 2 Start: 07-07-2022 End: 09-06-2022 Hepatitis B virus surface Ab [Presence] in Serum by Immunoassay [facility] Work Phone: Comment on above: Expected: 07/07/2022, Expires: 2 Start: 07-07-2022 End: 09-06-2022 Hepatitis C virus Ab [Presence] in Serum [facility] Work Phone: Comment on above: Expected: 07/07/2022, Expires: 2 Start: 07-07-2022 End: 09-06-2022 HIV 1+2 Ab [Presence] in Serum or Plasma by Immunoassay [facility] Work Phone: Comment on above: Expected: 07/07/2022, Expires: 2 Start: 07-07-2022 End: 09-06-2022 Protein/Creatinine [Mass Ratio] in Urine PROTEIN CREATININE RATIO Lab Routine AMA (advanced maternal age) multigravida 35+, first trimester 8 weeks gestation of Supervision of other high risk pregnancies, first trimester History of pre-eclampsia in prior , currently , first trimester Expected: 07/07/2022, Expires: 09/06/2022 [facility] Work Phone: Comment on above: Expected: 07/07/2022, Expires: 2 Start: 07-07-2022 End: 09-06-2022 RUBELLA IGG AB [facility] Work Phone: Comment on above: Expected: 07/07/2022, Expires: 2 Start: 07-07-2022 End: 09-06-2022 SYPHILIS TOTAL W/REFLEX [facility] Work Phone: Comment on above: Expected: 07/07/2022, Expires: 2 Start: 07-07-2022 End: 09-06-2022 TYPE + SCREEN [facility] Work Phone: Comment on above: Expected: 07/07/2022, Expires: 2 Start: 06-17-2022 Influenza vaccination [facility] Start: 10-17-2021 DEPRESSION ASSESSMENT DEPRESSION ASSESSMENT [facility] Start: 06-17-2021 Influenza vaccination INFLUENZA (#1) [facility] Start: 06-17-2020 Influenza vaccination Flu vaccine (#1) [place] Start: 06-17-2019 Influenza vaccination Flu vaccine (#1) [place] Start: 2016 Screening for malignant neoplasm of cervix [facility] Start: 2013 HPV Vaccine (1 - 3-dose SCDM series) HPV Vaccine (1 - 3-dose SCDM series) [facility] Start: 2007 Cervical cancer screen Cervical cancer screen [place] Start: 2007 Screening for malignant neoplasm of cervix [facility] Start: 2005 DTaP/Tdap/Td vaccine (1 - Tdap) DTaP/Tdap/Td vaccine (1 - Tdap) [facility] Start: 2005 DTaP/Tdap/Td Vaccines (1 - Tdap) DTaP/Tdap/Td Vaccines (1 - Tdap) [facility] Start: 2005 Hepatitis A Vaccines (1 of 2 - Risk 2-dose series) Hepatitis A Vaccines (1 of 2 - Risk 2-dose series) [facility] Start: 2005 Hepatitis B Vaccine (1 of 3 - 19+ 3-dose series) Hepatitis B Vaccine (1 of 3 - 19+ 3-dose series) [facility] Start: 2005 Hepatitis B Vaccines (1 of 3 - 19+ 3-dose series) Hepatitis B Vaccines (1 of 3 - 19+ 3-dose series) [facility] Start: 2005 Urine microalbumin profile [facility] Start: 2004 Anxiety Screening Anxiety Screening [facility] Start: 2004 Depression Screening Depression Screening [facility] Start: 2004 Hepatitis C screening Hepatitis C Screening [facility] Start: 2001 HIV screen HIV screen [place] Start: 2001 HIV screening HIV screen [facility] Start: 1999 Varicella vaccination Varicella Vaccines (1 of 2 - 13+ 2-dose series) [facility] Start: 1998 Adult depression screening assessment DEPRESSION SCREENING [facility] Start: 1998 Depression Screen Depression Screen [facility] Start: 1997 DTaP/Tdap/Td vaccine (1 - Tdap) DTaP/Tdap/Td vaccine (1 - Tdap) [place] Start: 1991 COVID-19 VACCINE (1) COVID-19 VACCINE (1) [facility] Start: 1987 MMR Vaccines (1 of 1 - Standard series) MMR Vaccines (1 of 1 - Standard series) [facility] Start: 1987 Varicella vaccination Varicella Vaccines (1 of 2 - 2-dose childhood series) [facility] Start: 1987 Varicella Vaccine (1 of 2 - 2-dose childhood series) Varicella Vaccine (1 of 2 - 2-dose childhood series) [facility] Start: 1986 COVID-19 VACCINE (#1) COVID-19 VACCINE (#1) [facility] Start: 1986 HEPATITIS B (1 of 3 - 3-dose series) HEPATITIS B (1 of 3 - 3-dose series) [facility] Start: 1986 Hepatitis B Vaccines (1 of 3 - 3-dose series) Hepatitis B Vaccines (1 of 3 - 3-dose series) [facility] Start: 1986 HIV screening HIV Screening [facility] Bacteria identified in Urine by Culture URINE CULTURE Microbiology Routine AMA (advanced maternal age) multigravida 35+, first trimester 8 weeks gestation of 07/07/2022 2:18 PM EDT [facility] Work Phone: Bacteria identified in Urine by Culture BACTERIAL CULTURE, URINE Microbiology Routine with uncertain dates in first trimester ([facility]) 03/28/2025 2:34 PM EDT [facility] Calprotectin [Mass/m ass] in Stool CALPROTECTIN,FECAL Lab Routine Diarrhea, unspecified type Ordered: 04/26/2024 [facility] Comment on above: Ordered: 04/26/2024 Chlamydia trachomatis+Neisseria gonorrhoeae DNA [Presence] in Unspecified specimen by TREVOR with probe detection GC/CHLAMYDIA DNA DET Lab Routine AMA (advanced maternal age) multigravida 35+, first trimester 8 weeks gestation of 07/07/2022 2:18 PM EDT [facility] Work Phone: Chlamydia trachomatis+Neisseria gonorrhoeae DNA [Presence] in Unspecified specimen by TREVOR with probe detection GONORRHEA/CHLAMYDIA NAAT Lab Routine with uncertain dates in first trimester ([facility]) Screening for cervical cancer 03/28/2025 2:34 PM EDT [facility] Clostridioides diffi cile toxin genes [Presence] in Stool by TREVOR with probe detection C. DIFFICILE PCR Lab Routine Diarrhea, unspecified type Ordered: 04/26/2024 [facility] Comment on above: Ordered: 04/26/2024 End: 05-26-2025 CT Abdomen and Pelvis W contrast IV CT ABD/PEL W IVCON Radiology Routine Right sided abdominal pain Abdominal distension (gaseous) Right lower quadrant abdominal pain Nausea 1 Occurrences starting 04/26/2024 until 05/26/2025 [facility] Comment on above: 1 Occurrences starting 04/26/2024 until 05/26/2025 End: 03-07-2023 nonstress test NON-STRESS TEST Procedures Routine AMA (advanced maternal age) multigravida 35+, third trimester Once per week for 4 Occurrences starting 01/05/2023 until 03/07/2023 [facility] Work Phone: Comment on above: Once per week for 4 Occurrences starting 01/05/2023 until 03/07/2023 Gastrointestinal pat hogens panel - Stool by TREVOR with probe detection EXPANDED STOOL GASTROINTESTINAL PANEL BY PCR Lab Routine Diarrhea, unspecified type Ordered: 04/26/2024 [facility] Comment on above: Ordered: 04/26/2024 End: 06-30-2023 MR Abdomen WO and W contrast IV [facility] [employer] Work Phone: Comment on above: Once for 1 Occurrences starting 06/30/20 until 06/30/2023 End: 10-08-2024 MR Liver WO and W contrast IV [facility] Work Phone: Comment on above: 1 Occurrences starting 10/08/2024 until 10/08/2024 NUCHAL TRANSLUCENCY WHI NUCHAL T RANSLUCENCY WHI Anc Imaging Routine AMA (advanced maternal age) multigravida 35+, first trimester 8 weeks gestation of Ordered: 07/07/2022 [facility] Work Phone: Comment on above: Ordered: 07/07/2022 OUTSIDE PROCEDURE SCAN OUTSIDE P ROCEDURE SCAN Procedures Ordered: 04/12/2023 [facility] Comment on above: Ordered: 04/12/2023 OUTSIDE PROCEDURE SCAN OUTSIDE P ROCEDURE SCAN Procedures Ordered: 06/29/2023 [facility] Comment on above: Ordered: 06/29/2023 OUTSIDE PROCEDURE SCAN OUTSIDE P ROCEDURE SCAN Procedures Ordered: 12/20/2023 [facility] Comment on above: Ordered: 12/20/2023 OUTSIDE PROCEDURE SCAN OUTSIDE P ROCEDURE SCAN Procedures Ordered: 04/16/2024 [facility] Comment on above: Ordered: 04/16/2024 PANC ELASTASE, FECAL PANC ELASTA SE, FECAL Lab Routine Diarrhea, unspecified type Ordered: 04/26/2024 [facility] Comment on above: Ordered: 04/26/2024 PAP TEST PAP TEST Lab Rou radha with uncertain dates in first trimester (HCC) Screening for cervical cancer Encounter for screening for human papillomavirus (HPV) 03/28/2025 2:34 PM EDT [facility] Patient Education After a Vaginal [facility] Work Phone: Patient referral [facility] Work Phone: ROUTINE, GR OUP B STREP PCR ROUTINE, GROUP B STREP PCR Microbiology Routine Grand multipara Antepartum multigravida of advanced maternal age 36 weeks gestation of 01/21/2023 3:51 PM EDT [facility] Work Phone: TRICHOMONAS VAGINALIS NAAT TRICH OMONAS VAGINALIS NAAT Lab Routine with uncertain dates in first trimester (HCC) 03/28/2025 2:34 PM EDT [facility] URINE OB DIP B/O URINE OB DIP B/ O Lab Routine 34 weeks gestation of AMA (advanced maternal age) multigravida 35+, third trimester Ordered: 01/05/2023 [facility] Work Phone: Comment on above: Ordered: 01/05/2023 URINE OB DIP B/O URINE OB DIP B/ O Lab Routine AMA (advanced maternal age) multigravida 35+, third trimester 37 weeks gestation of Ordered: 01/27/2023 [facility] Work Phone: Comment on above: Ordered: 01/27/2023 End: 04-12-2023 [facility] Work Phone: Comment on above: Once for 1 Occurrences starting 04/12/20 until 04/12/2023 End: 04-12-2023 XR Shoulder - right 2 [facility] [employer] Work Phone: Comment on above: Once for 1 Occurrences starting 04/12/20 23 until 04/12/2023 End: 12-20-2023 XR Tibia and Fibula - left 2 [facility] [employer] Work Phone: Comment on above: Once for 1 Occurrences starting 12/20/19 24 until 12/20/2023 [facility] c Immunizations Immunization Date Immunization Notes Care Provider Alma Rosa eduardo 08-15-2014 influenza virus vacc ine, unspecified formulation [facility] [address] [facility] Payers Date Payer Category Payer Self-pay [id number] 2022 Commercial Managed C are - HMO MMO SUPERMED Member Subscriber Plan / Payer (Effective 2022-Present) Name: Maria T Phan Relation to Subscriber: Spouse Name: Tho Phan Date of : 1982 Address: [address] [place] [address] Payer ID: Not on file Type: Commercial Address: [place] [id number] 2021 Unknown [id number] 2021 Private Health Insurance MMO SUP ERMED PPO Member Subscriber Plan / Payer (Effective 2021-Present) Name: MARIA T PHAN Relation to Subscriber: Spouse Name: THO PHAN Date of : 1982 (Home) Address: [address] [place] [address] Payer ID: Not on file Type: PPO Address: [place] [id number] 2021 Unknown 2021 Unknown MMO MMO SUPERMED PLUS [id number] 2021-Present [phone] [address] [place] [address] PPO [id number] 2021 Unknown [id number] 2018 Medicaid [employer] [facility] MEDICAID [id number] 2018-Present [phone] [address] [place] [address] Medicaid [id number] 2018 Medicaid [id number] Unknown [id number] Unknown SELF PAY INSURANCE [id number] Unknown [id number] Social History Date Type Detail Facility Start: 03-23-2016 End: 07-07-2022 Tobacco smoking status NHIS Never smoker [facility] Start: 03-23-2016 Alcohol intake Current non-dr network specialist of alcohol (finding) [place], [place] Start: 1985 Sex Assigned At Not on file M [place] Start: 03-23-2016 End: 07-07-2022 Tobacco use and exposure Never used [place] Start: 01-07-2022 End: 06-06-2025 Alcohol intake Ex-drinker (finding) [facility] Start: 03-26-2021 Education 13 [facility] Start: 05-18-2021 [facility] Start: 11-22-2021 End: 06-30-2023 Exposure to SARS-CoV-2 (event) Not sure [facility] Start: 01-11-2022 Tobacco smoking stat us ORIS Unknown if ever smoked [facility] Work Phone: Start: 02-16-2018 None [facility] Work Phone: Start: 1985 Sex Assigned At Female W [facility] Work Phone: Start: 06-18-2023 End: 06-19-2023 Gender identity Not on file [facility] Start: 06-18-2023 End: 06-19-2023 History of Social function [facility] The thought of lisbet vasquez myself has occurred to me Never [facility] Start: 09-17-2012 National Score (1-10 0), lower number is lower risk 62 [facility] Start: 05-17-2022 Sex Female (finding) [facility] Goals Date Patient Goal Desired Activity /State Personal health goal Personal health goal Clinical Notes 02-19-2019 to 06-06-2025 Caitlyn Kaur MD - 06/06/2025 2:02 PM EDTPatient InstructionsTelephone Encounter - Rosa Sher RN - 06/04/2025 11:01 AM EDTTelephone Encounter - Rosa Sher RN - 06/04/2025 11:01 AM EDT Note Date & Type Note Facility 06-06-2025 Note HNO ID: [id number] Author: CAITLYN KAUR MD Service: ? Author Type: Physician Type: Progress Notes Filed: 06/06/2025 14:05 Note Text: SW- Pt doing well. No pain. Vb, lof. Not feeling FM yet. PE: Gen- NAD, well appearing See flowsheet A/p 19 wk gestation - Anatomy US today - Completed labs - Cont LDA - RTO 4 wks Caitlyn Kaur DO [facility] 06-06-2025 History of Present illness Narrative SW- Pt doing well. No pain. Vb, lof. Not feeling FM yet. PE: Gen- NAD, well appearing See flowsheet A/p 19 wk gestation - Anatomy US today - Completed labs - Cont LDA - RTO 4 wks Caitlyn Kaur DO documented in this encounter [facility] 06-06-2025 Instructions Mahsa Mirza MA - 06/06/2025 1:52 PM EDT SEQUENTIAL SCREENINGS The [facility] offers sequential screenings for women who are interested in screenings for chromosomal abnormalities and certain defects during a . The sequential screen combines ultrasound and blood tests to determine the risk of chromosomal abnormalities, including Down's Syndrome (Trisomy 21) and Trisomy 18, as well as open neural tube defects including spina bifida. Ultrasound examination is performed between 11 weeks and 13 weeks gestational age. Blood tests are drawn after the ultrasound and again later in the between 15 and 21 weeks gestational age. Please let your physician know if you are interested in this testing. It will require an appointment with our support technician. This is not an ultrasound performed by a physician in our office during a routine visit. SIGNS AND SYMPTOMS OF LABOR 1. Contractions every 10 minutes or more often 2. Clear, pink, or brownish fluid (water) leaking from vagina 3. Feeling that baby is pushing down, pressure 4. Low, dull backache 5. Cramps that feel like a period 6. Cramps with or without diarrhea If you notice any of the above symptoms, contact our office at [phone] and ask to speak with a nurse. After hours, you can call doctors registry at [phone] OR call [facility] at [phone] and ask to have the doctor construction scheduler paged. If you consider this an emergency, dial 7-6-2 or go to your nearest emergency department. NEED HELP? Are you dealing with a violent or abusive relationship? Are you a victim of rape or sexual assult? Call [facility] [place] ([facility] 24 hour Crisis Hotline: 243.381.4835 or 340-641-3402. MANUAL Your Guide to a Healthy manual is now on-line. Visit [email or web address] to download your free copy documented in this encounter [facility] 06-04-2025 Telephone encounter Note Patient 18w5d, last seen in office on 04/25. Her next appointment with you is on 06/06. Rosa Sher RN [facility] 06-04-2025 Miscellaneous Notes Patient 18w5d, last seen in office on 04/25. Her next appointment with you is on 06/06. Rosa Sher RN documented in this encounter [facility] 04-25-2025 Progress note Formatting of t his note might be different from the original. RR- VB No. LOF No. CTXS No. Movement: absent. Other c/o: nausea but controlled with zofran Medication list reviewed. SENSITIVE EXAM: Sensitive exam not performed. Physical Exam See Flow Sheet Abd: soft, nontender, gravid A/P 13w0d Estimated Date of Delivery: 10/31/25 (O09.91) Encounter for supervision of high risk in first trimester, antepartum (HCC) (primary encounter diagnosis) (O09.521) AMA (advanced maternal age) multigravida 35+, first trimester (HCC) NIpt done first trimester anatomy done (Z3A.13) 13 weeks gestation of ([facility]) n/v of , cont. symptomatic measures and zofran prn f/u in 6 weeks for anatomy US and OB visit or prn starting asa prophylaxis today Brenda Mcdaniel M.D. [facility] 04-25-2025 Miscellaneous Notes RR- VB No. LOF No. CTXS No. Movement: absent. Other c/o: nausea but controlled with zofran Medication list reviewed. SENSITIVE EXAM: Sensitive exam not performed. Physical Exam See Flow Sheet Abd: soft, nontender, gravid A/P 13w0d Estimated Date of Delivery: 10/31/25 (O09.91) Encounter for supervision of high risk in first trimester, antepartum (HCC) (primary encounter diagnosis) (O09.521) AMA (advanced maternal age) multigravida 35+, first trimester (HCC) NIpt done first trimester anatomy done (Z3A.13) 13 weeks gestation of (HCC) n/v of , cont. symptomatic measures and zofran prn f/u in 6 weeks for anatomy US and OB visit or prn starting asa prophylaxis today Brenda Mcdaniel M.D. documented in this encounter [facility] 04-25-2025 Instructions Portia Lilly MA - 04/25/2025 1:49 PM EDT SEQUENTIAL SCREENINGS The [facility] offers sequential screenings for women who are interested in screenings for chromosomal abnormalities and certain defects during a . The sequential screen combines ultrasound and blood tests to determine the risk of chromosomal abnormalities, including Down's Syndrome (Trisomy 21) and Trisomy 18, as well as open neural tube defects including spina bifida. Ultrasound examination is performed between 11 weeks and 13 weeks gestational age. Blood tests are drawn after the ultrasound and again later in the between 15 and 21 weeks gestational age. Please let your physician know if you are interested in this testing. It will require an appointment with our support technician. This is not an ultrasound performed by a physician in our office during a routine visit. SIGNS AND SYMPTOMS OF LABOR 1. Contractions every 10 minutes or more often 2. Clear, pink, or brownish fluid (water) leaking from vagina 3. Feeling that baby is pushing down, pressure 4. Low, dull backache 5. Cramps that feel like a period 6. Cramps with or without diarrhea If you notice any of the above symptoms, contact our office at [phone] and ask to speak with a nurse. After hours, you can call doctors registry at [phone] OR call [facility] at [phone] and ask to have the doctor construction scheduler paged. If you consider this an emergency, dial 3 or go to your nearest emergency department. NEED HELP? Are you dealing with a violent or abusive relationship? Are you a victim of rape or sexual assult? Call [facility] ([place]) 24 hour Crisis Hotline: 706.173.3805 or 074-997-5935. MANUAL Your Guide to a Healthy manual is now on-line. Visit [email or web address] to download your free copy documented in this encounter [facility] 04-17-2025 Telephone encounter Note Patient 11w6d, next appointment on 04/25/25. Rosa Sher RN [facility] 04-17-2025 Miscellaneous Notes Patient 11w6d, next appointment on 04/25/25. Rosa Sher RN documented in this encounter [facility] 03-28-2025 Note HNO ID: [id number] Author: OMAR FREEDMAN APRN.SYSTEMS TESTING LABORATORY TECHNICIAN Service: ? Author Type: Nurse Practitioner Type: Progress Notes Filed: 03/28/2025 14:26 Note Text: Automotive Painter Helper offered: Patient declines. INITIAL OB ASSESSMENT HPI: Maria T is a 39 year old White here to establish Obstetrical Care. Patient's last menstrual period was 01/24/2025. from OB Dating Form. was planned Complaints: (!) Severe nausea/vomiting OB History [id number] Para11 Term9 Preterm2 AB1 [id number] SAB1 IAB0 Ectopic0 Multiple0 Live [id number] Previous history: Prior : No History of 4th degree laceration: No History of shoulder dystocia: No History of Hypertensive disorders including pre-eclampsia or gestational hypertension: Yes History of gestational diabetes: No Patient's Risk Screening for delivery: Have you had a prior schmid between 20w and 36w6d? No How many pregnancies have you had before? 9 Did you have a previous baby with a GBS Infection? No Please select all that apply for any prior : Stillbirth MEDICAL/PSYCHOSOCIAL HISTORY: History of hemorrhage or bleeding concerns: No Thyroid Disease: No History of chronic hypertension: No History of pre-existing diabetes: No ABO/RH(D) Date Value Ref Range Status 08/04/2021 O POSITIVE Final No weight on file for this encounter. Last Pap: 06/08/2018 normal History of abnormal pap: No Prior treatment for cervical dysplasia: none. Last HPV: 06/08/2018 normal History of STDs: None Partner History of STDs: None Did you have a partner with Herpes? No Tobacco use: No E-Cigarette/Vaping Use: No Caffeine use: Yes Drug use: No Alcohol use: No Multivitamin with Folic acid: Yes Would refuse blood transfusion if medically necessary: No Social Needs: How often does this describe you? I don't have enough money to pay my bills: Never Within the past 12 months, have you worried that your food would run out before you had money to buy more? Never In the past 12 months, has lack of reliable transportation kept you from going to medical appointments or work, or from getting things needed for daily living? Never In the past 12 months, have you had any concerns about having a place to live, or about the condition or quality of your housing? Never Would you like more information on any of the following (please check all that apply)? Not interested Social History: Do you have any history of depression, anxiety, PTSD, or other mood problems? Yes Do you have a history of abuse or trauma that may impact your experience? No Are you currently employed? No Depression/Anxiety Screening: denies symptoms of depression. OB Depression and Anxiety Screening- This Encounter Feeling down, depressed, or hopeless: Not at all Little interest or pleasure in doing things: Not at all Feeling nervous, anxious, or on edge Not at all Not being able to stop or control worrying Not at all Anxiety Pre-Screening Total (If >/= 3 additional questions will be reviewed) 0 Genetic Screening: Partner present: No Patient verbalized knowledge of partner family health history: Yes Do you or your partner have any personal or family history of defects not previously discussed: No Do you have history of a complicated by anomaly, genetic condition, or demise: still born Preeclampsia Risk Screening: Screening for prevention of preeclampsia: High risk factors: History of pre-eclampsia, especially when accompanied by an adverse outcome Moderate risk ractors: Age 35 years or older OB Risk Screening: Completed, positive findings include: Patient will be less than 17 or greater than 34 at the time of Delivery Patient answered 'Yes' they had a prior schmid between 20w and 36w6d. Marital Status: Partner: Name: Tho Age: 41 Occupation: Office Admin Gender: Male PAST MEDICAL HISTORY Diagnosis Date Anemia In 6th - patient required IV iron Cholestasis during in third trimester (HCC) 12/17/2021 Elevated liver enzymes Gestational hypertension (HCC) History of pre-eclampsia in prior , currently (HCC) Hypertension Reports hx of pre-eclampsia in 4th depression After Demise in 2017 PAST SURGICAL HISTORY Procedure Laterality Date PAST SURGICAL HISTORY OF right leg x2 No current outpatient medications on file. No current facility-administered medications for this visit. Allergies As of Date: 03/28/2025 (No Known Allergies) Fully Assessed 02/18/2025 Does patient have penicillin allergy: No REVIEW OF SYSTEMS: GENERAL: Negative for: Fever or Chills HEENT: Negative for: Headache, Impaired Vision, Ringing in Ears, Nosebleeds NECK: Negative for: Swelling, Pain, Stiffness RESPIRATORY: Negative for: Cough, Shortness of breath, Wheezing GASTROINTE (more content not included)... [facility] 03-28-2025 History of Present illness Narrative Automotive Painter Helper offered: Patient declines. INITIAL OB ASSESSMENT HPI: Maria T is a 39 year old White here to establish Obstetrical Care. Patient's last menstrual period was 01/24/2025. from OB Dating Form. was planned Complaints: (!) Severe nausea/vomiting OB History [id number] Para11 Term9 Preterm2 AB1 [id number] SAB1 IAB0 Ectopic0 Multiple0 Live [id number] Previous history: Prior : No History of 4th degree laceration: No History of shoulder dystocia: No History of Hypertensive disorders including pre-eclampsia or gestational hypertension: Yes History of gestational diabetes: No Patient's Risk Screening for delivery: Have you had a prior schmid between 20w and 36w6d? No How many pregnancies have you had before? 9 Did you have a previous baby with a GBS Infection? No Please select all that apply for any prior : Stillbirth MEDICAL/PSYCHOSOCIAL HISTORY: History of hemorrhage or bleeding concerns: No Thyroid Disease: No History of chronic hypertension: No History of pre-existing diabetes: No ABO/RH(D) Date Value Ref Range Status 08/04/2021 O POSITIVE Final No weight on file for this encounter. Last Pap: 06/08/2018 normal History of abnormal pap: No Prior treatment for cervical dysplasia: none. Last HPV: 06/08/2018 normal History of STDs: None Partner History of STDs: None Did you have a partner with Herpes? No Tobacco use: No E-Cigarette/Vaping Use: No Caffeine use: Yes Drug use: No Alcohol use: No Multivitamin with Folic acid: Yes Would refuse blood transfusion if medically necessary: No Social Needs: How often does this describe you? I don't have enough money to pay my bills: Never Within the past 12 months, have you worried that your food would run out before you had money to buy more? Never In the past 12 months, has lack of reliable transportation kept you from going to medical appointments or work, or from getting things needed for daily living? Never In the past 12 months, have you had any concerns about having a place to live, or about the condition or quality of your housing? Never Would you like more information on any of the following (please check all that apply)? Not interested Social History: Do you have any history of depression, anxiety, PTSD, or other mood problems? Yes Do you have a history of abuse or trauma that may impact your experience? No Are you currently employed? No Depression/Anxiety Screening: denies symptoms of depression. OB Depression and Anxiety Screening- This Encounter Feeling down, depressed, or hopeless: Not at all Little interest or pleasure in doing things: Not at all Feeling nervous, anxious, or on edge Not at all Not being able to stop or control worrying Not at all Anxiety Pre-Screening Total (If >/= 3 additional questions will be reviewed) 0 Genetic Screening: Partner present: No Patient verbalized knowledge of partner family health history: Yes Do you or your partner have any personal or family history of defects not previously discussed: No Do you have history of a complicated by anomaly, genetic condition, or demise: still born Preeclampsia Risk Screening: Screening for prevention of preeclampsia: High risk factors: History of pre-eclampsia, especially when accompanied by an adverse outcome Moderate risk ractors: Age 35 years or older OB Risk Screening: Completed, positive findings include: Patient will be less than 17 or greater than 34 at the time of Delivery Patient answered 'Yes' they had a prior schmid between 20w and 36w6d. Marital Status: Partner: Name: Tho Age: 41 Occupation: Office Admin Gender: Male PAST MEDICAL HISTORY Diagnosis Date Anemia In 6th - patient required IV iron Cholestasis during in third trimester ([facility]) 12/17/2021 Elevated liver enzymes Gestational hypertension ([facility]) History of pre-eclampsia in prior , currently ([facility]) Hypertension Reports hx of pre-eclampsia in 4th depression After Demise in 2017 PAST SURGICAL HISTORY Procedure Laterality Date PAST SURGICAL HISTORY OF right leg x2 No current outpatient medications on file. No current facility-administered medications for this visit. Allergies As of Date: 03/28/2025 (No Known Allergies) Fully Assessed 02/18/2025 Does patient have penicillin allergy: No REVIEW OF SYSTEMS: GENERAL: Negative for: Fever or Chills HEENT: Negative for: Headache, Impaired Vision, Ringing in Ears, Nosebleeds NECK: Negative for: Swelling, Pain, Stiffness RESPIRATORY: Negative for: Cough, Shortness of breath, Wheezing GASTROINTESTINAL: Negative for: Heartburn, Constipation, Diarrhea, Blood in stool + nausea MUSCULOSKELETAL: Negative for: Muscle or joint pain, stiffness, Joint swelling NEUROLOGIC/PSYCHIATRIC: Negative for: Weakness, Paralysis, Numbness, Tingling, Tremor, Anxiety, Depression, Memory loss SKIN: Negative for: Rash, Itching GENITOURINARY: Negative for: vaginal itching, vaginal discharge, hematuria or dysuria SENSITIVE EXAM: The sensitive examination was discussed with the Patient or Patient's Authorized Shipping Associate. As applicable, any other physician, advance practice provider, medical student, or other health professional student that will be observing or involved in the sensitive examination for educational or training purposes was discussed with the Patient or Authorized Shipping Associate. The Patient or Authorized Shipping Associate has agreed to proceed with the sensitive examination. (Sensitive examination includes inspection and/or palpation of the breasts, pelvis, prostate and anorectal regions). PHYSICAL EXAM: BP 120/60 Ht 5' 7 (1.70m) Wt 182 lb (82.6kg) LMP 01/24/2025 BMI 28.50 kg/(m^2). GENERAL: pleasant in no apparent distress DERMATOLOGY: Normal, without lesions, non-icteric, and non-hirsute NECK: Supple, full range of motion, no adenopathy, and thyroid normal CHEST: Normal inspiratory effort BREAST: soft, non-tender, symmetric, no dominant mass, normal nipple-areolar complex, no lymphadenopathy, and no nipple discharge ABDOMEN: soft, non-tender, and no masses NEURO: alert and oriented x3,exam grossly non-focal PELVIS: External genitalia normal without lesions. Perineal body intact. No vaginal or cervical lesions. Cervix closed. Uterus 9 week size. No adnexal masses or tenderness. Clinical Pelvimetry: Pelvimetry clinically assessed as adequate Limited OB ultrasound exam: single intrauterine and positive cardiac activity ASSESSMENT: 39 year old at Unknown wks gestational age PLAN: 1) Patient oriented to practice. Patient given new OB orientation folder. Discussed nutrition, folic acid supplementation, dietary guidelines, exercise, smoking, alcohol, caffeine, and drug use. Discussed gestational weight gain guidelines. Discussed routine OB labs including STD/HIV. Discussed how to access Your guide to a health and the Boom Supervisor. Reviewed midwifery and raisin washer services that are available. 2) Screening: Hemoglobin A1C: ordered Baby Aspirin: The patient has been counseled about the potential benefits of low dose aspirin in and our recommendation that this be offered to all patients, regardless of whether they meet the high risk criteria specified above. She Accepts Aneuploidy Screening: Discussed aneuploidy screening, nuchal translucency/first trimester early anatomy ultrasound and NIPT. The risks/benefits and limitations of NIPT/aneuploidy screening were reviewed including the potential for false negative and false positive results. The availability of genetic counseling was reviewed. Information on aneuploidy screening was provided. The patient chooses to proceed with First trimester early anatomy ultrasound (12-13w6d) and NIPT (10 weeks) Myriad Carrier Screening: Discussed myriad carrier screening. We discussed the availability of professional-society guided carrier screening and reviewed the conditions screened and limitations of screening. The availability of genetic counseling was reviewed. Information on carrier screening was provided. The patient Accepts 3) Patient offered option of Virtual Visits. Patient unsure. May consider in future. ACTIVE PROBLEM LIST Encounter for Supervision of High Risk in First Trimester, Antepartum (Hcc) - 03/28/2025 Comment: Care Checklist Vaccines: [] Flu vaccine [] declined [] RSV vaccine 32 0/7 - 36 6/7 (Jun - Nov) [] declined [] COVID vaccine [] declined [] TDaP 27-36 [] declined First trimester: [x] Dating US [x] 1st tri labs [x] Pap smear [x] Carrier screening [] declined [x] NIPT screening [] declined [x] First trimester anatomy scan [] declined [x] universal ASA ordered (start 12w-16w) [] declined [] M Power Consult [] not indicated [] declined Second trimester: [] Anatomy scan [] Mode of Delivery - [] Feeding - [] Pump ordered [] Diabetes screen [] CBC, RPR [] Behavioral Health Screening Third trimester (28-30 weeks): [] Consent [] Contraception [] Power Barker [] TeamBirth handout Third trimester (36-40 weeks): [] GBS [] Presentation - [] Scheduled [] yes - Hibiclens, pre-op instructions, CBC, T&S ordered [] no [] H&P [] Preferences worksheet [] Scanned in EM Multigravida of Advanced Maternal Age in First Trimester ([facility]) - 03/28/2025 Comment: March 28, 2025 Will be 40 at PILAR Omar Freedman APRN.DAMION Nausea and Vomiting in ([facility]) - 06/15/2021 Comment: March 28, 2025 Vomiting several times per day and affecting QOL. Would like to trial Zofran as this has helped in the past. Vitamin B6 and doses reviewed. Zofran rx sent - 1st trimester risks reviewed. To notify if symptoms aren't improving. Omar Freedman APRN.DAMION Prior With Demise, Antepartum ([facility]) - 02/15/2019 Comment: 01/24/18: Previous IUFD @ 23 weeks - attributed to cord accident. IOL and delivery in [facility] without complication. Ary Jensen APRN.CNM History of Pre-Eclampsia in Prior , Currently ([facility]) - 02/15/2019 History of Gestational Hypertension - 03/28/2025 Comment: March 28, 2025 Baseline labs ordered. 162 mg ASA at 12 weeks. Omar Freedman APRN.CNP History of Cholestasis During - 07/07/2022 History of Depression, Currently ([facility]) - 02/15/2019 Comment: March 28, 2025 Denies any current mental health concerns. Omar Freedman APRN.SYSTEMS TESTING LABORATORY TECHNICIAN Family History of Defects - 02/15/2019 Comment: 06/15/2021atient's mother ad 2 uncles born with hole in heart-no corrective surgery. FOB's brother with Down Syndrome. TKRN Follow up in 4 weeks or sooner prn. Plan for NT scan between 12w0d and 13w6d gestation. Omar Freedman APRN.DAMION documented in this encounter [facility] 03-28-2025 Instructions Omar Freedman APRN.DAMION - 03/28/2025 1:40 PM EDT Please select the following link to access the [facility] Your Guide to a Healthy . [email or web address] MORNING SICKNESS IN by Angelica Call M.D. for [employer] As you may already know, morning sickness can often be more appropriately called evening sickness or zptip-vdnjru-zc-the-day sickness. While there are the alec few, most women (50-90%) experience some degree of nausea, some have vomiting, and a few develop a severe form of vomiting during called hyperemesis gravidarum. What causes the nausea and vomiting of ? We can't explain why some people feel fine and others are green for months. Even the same woman may feel vastly different in each . There is some relationship between nausea and the level of the hormone hCG. In twin pregnancies, and in other situations where the hCG is greater than expected, nausea and vomiting tend to be worse. In a destined for miscarriage, hCG levels tend to be low, and nausea is often less severe. This being said, a lack of nausea doesn't guarantee that the is destined for miscarriage. The fact that nausea and vomiting are often signs of a healthy can offer a silver lining in the dark cloud of miserable nausea. How long will the nausea last? Fortunately, for most women, nausea and vomiting are a first trimester event, peaking at week 9-10 and waning by week 14-16. When you are feeling bad the weeks can go by slowly but most moms do feel tremendously better by the middle of the . Whether morning sickness is a brief experience or lasts through most of the , there are treatments that can make the weeks or months more tolerable. What can you do about it? Diet: See what works for you. Try eating bland dry foods, and avoid fatty or spicy foods. It is okay to eat a less than perfectly balanced diet in the first trimester. Have your liquids separately from dry foods. Try sports drinks, water, clear juices, Morales-aid, or non-caffeinated tea. Avoid carbonated beverages that fill up your stomach. Try eating lots of little meals. If you tend to feel sick when you first wake up, leave crackers next to the bed for a quick snack before rising. Keeping healthy snacks with you all day to nibble when you feel queasy can sometimes even prevent nausea from starting. vitamins and nausea: Pre-stevan vitamins can sometimes worsen nausea in . While folate is necessary, especially early in the , it comes as a smaller pill that many people find more tolerable than the complete vitamin pill. Ask your practitioner if it is okay to temporarily replace vitamins and iron with just a folate pill if you find a significant worsening in the level of your nausea from the vitamins. Alternative therapies: Acupressure may be used to treat nausea in , and is not known to have any risks for the fetus. Wristbands (marketed for seasickness) that put pressure on an acupressure point at the wrist are often available at drugstores or travel stores. Valentín root is used for nausea in many traditional cultures. Some women take fresh grated valentín or valentín tablets. It is possible that the pill form contains other ingredients or contaminants, so you may want to try fresh valentín first. Medications: Emetrol is the only nausea medication approved for use in . It is available over the counter and is soothing to the stomach. A prescription medication called Bendectin was available in the 1970s-1979's and was shown to be safe in , but the company stopped marketing it in the [place] due to the costs of liability coverage. Bendectin contained 10 milligrams of vitamin B6 and 10 milligrams of Doxylamine. Two tablets were given at bedtime and a total of up to 4 tablets could be used in a 24-hour period. Interestingly, Unisom , which contains a higher dose (25 mg.) of the same medication, Doxylamine, is currently marketed as an gwsj-xoj-lcmxepi sleeping pill. Ask your practitioner if creating a vitamin B6/Doxylamine combination with ammn-btl-xafzyla medications would be safe for you. Prescription medications like Compazine and Phenergan can be used if the benefits outweigh possible risks, but these have not been clearly shown to be safe in . Zofran , an expensive anti-nausea medication often used to treat nausea from chemotherapy, can also be used. Can I throw up so much it harms the baby? The act of vomiting cannot hurt your fetus, which is protected inside the uterus. If you get dehydrated or develop a metabolic imbalance, this can be unhealthy. As long as you can keep down liquids, you and your baby will generally do all right. Eat when you feel able. If you are unable to keep anything down, or if you notice potential signs of dehydration such as lightheadedness, or concentrated and/or infrequent urination, call your practitioner. Some women need brief hospital admission for intravenous fluids and anti-nausea medications if their condition becomes severe. This severe form of nausea and vomiting is called Hyperemesis Gravidarum. As with many symptoms of , remind yourself that this, too, shall pass, and you'll have a wonderful baby to show for it! TREATMENT OPTIONS, SHORT VERSION: Frequent small meals Hydrate throughout day [employer] wrist pressure point applicators Valentín root (powdered, in capsules) 250mg four times a day Vitamin B6 25 mg tablet three times a day Also may be taken with half a tablet of Unisom three times a day (Doxylamine 12.5 mg) If severe (weight loss, dehydration), call us and come in for IV hydration and possible medication in the form of injections. Prescription medications such as Phenergan, Compazine, Reglan Ondansetron (Zofran ) May 17, 2020 This sheet talks about exposure to ondansetron in a and while . This information should not take the place of medical care and advice from your healthcare provider. What is ondansetron? Ondansetron is a medication used to treat nausea and vomiting that may be caused by surgery, chemotherapy, or radiation therapy. Ondansetron has also been prescribed during to help with symptoms of nausea and vomiting in (NVP). NVP is also referred to as morning sickness . Ondansetron is taken by mouth, infused into a vein (by IV) or given by injection into a muscle (IM). Ondansetron is sold under the brand name Zofran . What can I do to help control my nausea and vomiting? [employer] has a helpful fact sheet on nausea in with recommendations. You can review it here: [email or web address]://[email or web address].org/fact-shee ts/dkiark-zkeerzqd-ghroqxqcg-nvp/p df/. Also, eating small meals often, drinking plenty of clear fluids, and avoiding triggers (such as odors, heat, and spicy or high fat foods) can help. Talk to your healthcare provider about which NVP treatments are right for you. I take ondansetron. Can it make it harder for me to become ? There are no studies that have looked to see if ondansetron could make it harder for a person to get . Studies in animals did not find that ondansetron would affect the ability to get . Does taking ondansetron increase the chance for miscarriage? Miscarriage can occur in any . One study did not find that miscarriage happened more often for those who reported that they used ondansetron in the first trimester of . Does taking ondansetron increase the chance of defects? Every starts out with a 3-5% chance of having a defect. This is called the background risk. Most studies have found no increased chance for defects among thousands of people who used ondansetron in the first trimester of . A few studies reported a very small (less than 1%) increase in the chance for a cleft palate (an opening in the roof of the mouth that may be repaired with surgery) or a heart defect. Because of other factors that could affect the pregnancies exposed to ondansetron, it is not known if ondansetron actually increases the chance of defects. Could taking ondansetron cause other complications? Studies did not find a higher chance of loss, delivery (delivery before 37 weeks of ), or low weight when ondansetron was used during . At higher doses, there have been reports that ondansetron use might cause a heart rhythm problem (called QT interval prolongation) in the person taking ondansetron. In severe cases, this could become an abnormal heart rhythm known as Torsades de Pointes. If you are taking ondansetron, you can talk to your healthcare provider about how to watch for changes in your heart rhythm. Does taking ondansetron in cause long-term problems in behavior or learning for the baby? One study looked at 78 infants who were exposed to ondansetron at any time during . The infants were looked at between 7 days to 2 months of age and did not show any signs of unusual behaviors. A single follow-up survey for about 25 of these children was sent in by the parents. The children were between 1 to 5 years old. The survey asked about behavior. The surveys did not report behavior differences in these children compared to children who were not exposed ondansetron during . There are no other studies looking at the use of ondansetron in and long-term effects for the baby. Can I breastfeed while taking ondansetron? There have been no studies in humans looking at the use of ondansetron during . Studies in animals suggest that ondansetron enters breast milk, but the effects of ondansetron on a are not known. If ondansetron use is necessary, it is not usually a reason to stop . A different drug may be considered, especially while a or . Be sure to talk to your healthcare provider about all your questions. I take ondansetron. Can it make it harder for me to get my partner or increase the chance of defects? There are no human studies looking at male use of ondansetron. Animal studies have not shown any effect on male fertility. In general, exposures that fathers and sperm donor have are unlikely to increase risks to a . For more information, please see the MotherTo[employer] fact sheet Paternal Exposures at https://mothertobaby.org/fact-shee ts/xzrdzpch-xqtawlwhd-nkdtfjdhd/pd f/. documented in this encounter [facility] 03-26-2025 Telephone encounter Note Called patient and left voice mail to give our office a call back to go over NOB intake questions, I informed her that if she was not able to call back prior to her appointment 03/28/25 to arrive 30 minuets early. Merlyn Kearney MA [facility] 03-26-2025 Miscellaneous Notes Called patient and left voice mail to give our office a call back to go over NOB intake questions, I informed her that if she was not able to call back prior to her appointment 03/28/25 to arrive 30 minuets early. Merlyn Kearney MA documented in this encounter [facility] 03-18-2025 Telephone encounter Note Needs a visit for rx [facility] Work Phone: 03-18-2025 Miscellaneous Notes Needs a visit for rx Patient is scheduled for New OB appointment on 03/28. Rosa Sher RN documented in this encounter [facility] 03-18-2025 Telephone encounter Note Patient is scheduled for New OB appointment on 03/28. Rosa Sher RN [facility] 03-15-2025 Telephone encounter Note Appears to have been opened in error. Disregard. Frances Lassiter RN [facility] 03-15-2025 Miscellaneous Notes Appears to have been opened in error. Disregard. Frances Lassiter, RN I don't see a note associated with this Omar Freedman APRN.CNP documented in this encounter [facility] 03-15-2025 Telephone encounter Note I don't see a note associated with this Omar Freedman APRN.CNP [facility] Work Phone: 02-18-2025 Note HNO ID: [id number] Author: ELIZABETH KANG MD Service: ? Author Type: Physician Type: Progress Notes Filed: 02/26/2025 10:53 Note Text: Elizabeth Kang M.D. Colon AND Rectal Surgery 1 [facility], [address] [place] [address] CC: anal lesion/pain HPI: Maria T Phan is a 39 year old White female who was referred by Kelly Win PA-C. for my consultation regarding 1 year history of enlarging anal lesion. My final recommendations will be communicated back to the requesting physician by way of shared Medical record or letter to requesting physician via electronic or [place] mail. Patient states that for the past year, she has had an enlarging perianal lesion which she feels in the posterior midline. She states that it will intermittently bleed. She does have a history of irritable bowel syndrome and states that she will have 5-7 bowel movements daily. They fluctuate between diarrhea and constipation. 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 PAST SURGICAL HISTORY Procedure Laterality Date PAST SURGICAL HISTORY OF right leg x2 Social History Tobacco Use Smoking status: Never Smokeless tobacco: Never Vaping Use Vaping status: Never Used Substance Use Topics Alcohol use: Not Currently Drug use: Never FAMILY HISTORY Problem Relation Age of Onset Breast Cancer Mother 44 Bipolar disorder Father Bipolar disorder Sister No Known Problems Sister No Known Problems Sister other (car accident) Brother Heart Maternal Grandmother Alcohol/Drug Maternal Grandmother other (other) Maternal Grandmother Heart Attack Maternal Grandmother Primary Biliary Cirrhosis Maternal Grandmother Stroke Maternal Grandfather No Known Problems Paternal Grandmother No Known Problems Paternal Grandfather No Known Problems Daughter No Known Problems Daughter No Known Problems Daughter No Known Problems Daughter other (stillborn 23 weeks, short cord, CAN) Daughter No Known Problems Daughter other (CRMO-chronic recurrent multifocal osteomyelitis) Son No Known Problems Son No Known Problems Son No Known Problems Other Colon Cancer Maternal great-grandmother The ROS, medical, surgical, family, and social history were reviewed by Elizabeth Kang MD ALLERGIES No Known Allergies No current outpatient medications on file. No current facility-administered medications for this visit. Vitals: BP 146/80 (BP Site: Left Arm, BP Position: Sitting, BP Cuff Size: Regular Adult) Pulse 118 Ht 170.2 cm (5' 7) Wt 81.6 kg (180 lb) LMP 06/16/2023 (Exact Date) BMI 28.19 kg/m? BMI 28.19 kg/(m2) Physical Exam Constitutional: General: She is not in acute distress. Appearance: Normal appearance. She is not ill-appearing. Cardiovascular: Rate and Rhythm: Normal rate and regular rhythm. Heart sounds: Normal heart sounds. No murmur heard. No friction rub. No gallop. Pulmonary: Effort: Pulmonary effort is normal. No respiratory distress. Breath sounds: Normal breath sounds. No wheezing or rales. Abdominal: General: There is no distension. Palpations: Abdomen is soft. There is no mass. Tenderness: There is no abdominal tenderness. There is no guarding or rebound. Genitourinary: Comments: Patient was examined in right lateral decubitus with a wood repatcher present. In the posterior midline, there was some nodularity noted. On digital rectal exam, there was fibrosis in the posterior midline. There is otherwise no palpable masses or lesions. 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 There was a punctate external fistula opening associated with the fibrosis. Grade 1 internal hemorrhoids identified in LL, RP and RA location. Musculoskeletal: General: No deformity. Normal range of motion. Cervical back: Normal range of motion and neck supple. Lymphadenopathy: Cervical: No cervical adenopathy. Skin: General: Skin is warm and dry. Findings: No rash. Neurological: Mental Status: She is alert and oriented to person, place, and time. Gait: Gait is intact. Psychiatric: Mood and Affect: Mood and affect normal. Judgment: Judgment normal. Labs: Hemoglobin (g/dL) Date Value 04/27/2024 13.5 10/05/2021 13.4 Hematocrit (%) Date Value 04/27/2024 40.7 10/05/2021 38.5 WBC (k/uL) Date Value 04/27/2024 6.17 10/05/2021 5.19 Platelet Count (k/uL) Date Value 04/27/2024 255 10/05/2021 233 Creatinine Date Value Ref Range Status 04/27/2024 0.64 0.58 - 0.96 mg/dL Fin (more content not included)... [facility] 02-18-2025 History of Present illness Narrative Images from the original note were not included. Elizabeth Kang M.D. Colon & Rectal Surgery 1 [facility], [address] [place] [id number] CC: anal lesion/pain HPI: Maria T Phan is a 39 year old White female who was referred by Kelly Win PA-C. for my consultation regarding 1 year history of enlarging anal lesion. My final recommendations will be communicated back to the requesting physician by way of shared Medical record or letter to requesting physician via electronic or [place] mail. Patient states that for the past year, she has had an enlarging perianal lesion which she feels in the posterior midline. She states that it will intermittently bleed. She does have a history of irritable bowel syndrome and states that she will have 5-7 bowel movements daily. They fluctuate between diarrhea and constipation. 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 PAST SURGICAL HISTORY Procedure Laterality Date PAST SURGICAL HISTORY OF right leg x2 Social History Tobacco Use Smoking status: Never Smokeless tobacco: Never Vaping Use Vaping status: Never Used Substance Use Topics Alcohol use: Not Currently Drug use: Never FAMILY HISTORY Problem Relation Age of Onset Breast Cancer Mother 44 Bipolar disorder Father Bipolar disorder Sister No Known Problems Sister No Known Problems Sister other (car accident) Brother Heart Maternal Grandmother Alcohol/Drug Maternal Grandmother other (other) Maternal Grandmother Heart Attack Maternal Grandmother Primary Biliary Cirrhosis Maternal Grandmother Stroke Maternal Grandfather No Known Problems Paternal Grandmother No Known Problems Paternal Grandfather No Known Problems Daughter No Known Problems Daughter No Known Problems Daughter No Known Problems Daughter other (stillborn 23 weeks, short cord, CAN) Daughter No Known Problems Daughter other (CRMO-chronic recurrent multifocal osteomyelitis) Son No Known Problems Son No Known Problems Son No Known Problems Other Colon Cancer Maternal great-grandmother The ROS, medical, surgical, family, and social history were reviewed by Elizabeth aKng MD ALLERGIES No Known Allergies No current outpatient medications on file. No current facility-administered medications for this visit. Vitals: BP 146/80 (BP Site: Left Arm, BP Position: Sitting, BP Cuff Size: Regular Adult) Pulse 118 Ht 170.2 cm (5' 7) Wt 81.6 kg (180 lb) LMP 06/16/2023 (Exact Date) BMI 28.19 kg/m BMI 28.19 kg/(m^2) Physical Exam Constitutional: General: She is not in acute distress. Appearance: Normal appearance. She is not ill-appearing. Cardiovascular: Rate and Rhythm: Normal rate and regular rhythm. Heart sounds: Normal heart sounds. No murmur heard. No friction rub. No gallop. Pulmonary: Effort: Pulmonary effort is normal. No respiratory distress. Breath sounds: Normal breath sounds. No wheezing or rales. Abdominal: General: There is no distension. Palpations: Abdomen is soft. There is no mass. Tenderness: There is no abdominal tenderness. There is no guarding or rebound. Genitourinary: Comments: Patient was examined in right lateral decubitus with a wood repatcher present. In the posterior midline, there was some nodularity noted. On digital rectal exam, there was fibrosis in the posterior midline. There is otherwise no palpable masses or lesions. 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 There was a punctate external fistula opening associated with the fibrosis. Musculoskeletal: General: No deformity. Normal range of motion. Cervical back: Normal range of motion and neck supple. Lymphadenopathy: Cervical: No cervical adenopathy. Skin: General: Skin is warm and dry. Findings: No rash. Neurological: Mental Status: She is alert and oriented to person, place, and time. Gait: Gait is intact. Psychiatric: Mood and Affect: Mood and affect normal. Judgment: Judgment normal. Labs: Hemoglobin (g/dL) Date Value 04/27/2024 13.5 10/05/2021 13.4 Hematocrit (%) Date Value 04/27/2024 40.7 10/05/2021 38.5 WBC (k/uL) Date Value 04/27/2024 6.17 10/05/2021 5.19 Platelet Count (k/uL) Date Value 04/27/2024 255 10/05/2021 233 Creatinine Date Value Ref Range Status 04/27/2024 0.64 0.58 - 0.96 mg/dL Final AST Date Value Ref Range Status 04/27/2024 23 13 - 35 U/L Final ALT Date Value Ref Range Status 04/27/2024 37 7 - 38 U/L Final Bilirubin, Total (mg/dL) Date Value 04/27/2024 0.2 Bilirubin, Direct (mg/dL) Date Value 06/18/2023 0.2 ABO/RH(D) (no units) Date Value 08/04/2021 O POSITIVE Antibody Screen (no units) Date Value 07/07/2022 Negative WBC (k/uL) Date Value 04/27/2024 6.17 RBC (m/uL) Date Value 04/27/2024 4.67 %DIG,%DBS Assessment/Plan: 1. Anal fistula (Primary) Anal lesion and pain likely associated with an anal fistula. Offered patient a rectal exam under anesthesia with possible fistulotomy. Patient understands and would like to defer any surgical intervention at this time. Patient states that she is extremely busy at this time and will call us back when it is a better time for her to have surgery. Discussed with the patient that this will be unlikely to resolve without surgery. We can also plan to take biopsies at that time of any nodularity to rule out underlying malignancy. Patient will call to schedule surgery at her convenience. Elizabeth Kang M.D. Please Note: This office note has been created using [employer], a speech recognition software program, and may contain errors including punctuation, grammar, spelling, gender, and inappropriate words or phrases that pertain to the sytem. documented in this encounter [facility] 01-21-2025 Note Addended by: KELLY WIN on: 01/21/2025 03:57 PM Modules accepted: Orders [facility] 01-21-2025 Miscellaneous Notes Addended by: KELLY WIN on: 01/21/2025 03:57 PM Modules accepted: Orders documented in this encounter [facility] 01-09-2025 Note HNO ID: [id number] Author: MEENA CUEVAS APRN.SYSTEMS TESTING LABORATORY TECHNICIAN Service: ? Author Type: Nurse Practitioner Type: Progress Notes Filed: 01/09/2025 15:53 Note Text: CHIEF COMPLAINT: Patient presents with: Lump on rectum : Lymph nodes swollen in groin area- pain has improved from what it was at her last office visit. MITCH Phan is a 39 year old female here today for Lump on rectum (Lymph nodes swollen in groin area- pain has improved from what it was at her last office visit.). The lump on the rectum has grown and does bleed. It is painful to touch. Having a BM doesn't really effect the pain. Denies any issues with her bowels. She is having some upper abdominal pain when she eats. The anusol cream did not help. She doesn't think this is a hemorrhoid, as it feels different from a hemorrhoid. No current outpatient medications on file. No current facility-administered medications for this visit. 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 2017 PAST SURGICAL HISTORY Procedure Laterality Date PAST SURGICAL HISTORY OF right leg x2 FAMILY HISTORY Problem Relation Age of Onset Breast Cancer Mother 44 Bipolar disorder Father Bipolar disorder Sister No Known Problems Sister No Known Problems Sister other (car accident) Brother Heart Maternal Grandmother Alcohol/Drug Maternal Grandmother other (other) Maternal Grandmother Heart Attack Maternal Grandmother Primary Biliary Cirrhosis Maternal Grandmother Stroke Maternal Grandfather No Known Problems Paternal Grandmother No Known Problems Paternal Grandfather No Known Problems Daughter No Known Problems Daughter No Known Problems Daughter No Known Problems Daughter other (stillborn 23 weeks, short cord, CAN) Daughter No Known Problems Daughter other (CRMO-chronic recurrent multifocal osteomyelitis) Son No Known Problems Son No Known Problems Son No Known Problems Other Colon Cancer Maternal great-grandmother REVIEW OF SYSTEMS Review of Systems Constitutional: Positive for fatigue. Gastrointestinal: Positive for abdominal pain, anal bleeding, nausea and rectal pain. Gas, Heartburn All other systems reviewed and are negative. PHYSICAL EXAM BP 122/78 Pulse 99 Ht 5' 7 (1.70m) Wt 175 lb 12.8 oz (79.7kg) LMP 06/16/2023 BMI 27.53 kg/(m2). Participation of a fellow, resident, medical student, or advanced practice provider student in performing the sensitive examination was discussed with the patient or authorized sales representative public utilities. The patient or authorized sales representative public utilities has agreed to proceed with the sensitive examination. Physical Exam Exam conducted with a wood repatcher present (Renee Castañeda MA). Pulmonary: Effort: Pulmonary effort is normal. Genitourinary: Rectum: External hemorrhoid and internal hemorrhoid present. Comments: 1-2 mm round, white papule at 6 o'clock position outside of anus; TTP; no fluctuance or pus Neurological: Mental Status: She is alert and oriented to person, place, and time. Psychiatric: Mood and Affect: Mood normal. Behavior: Behavior normal. Thought Content: Thought content normal. Judgment: Judgment normal. ASSESSMENT: (K62.9) Anal disorder (primary encounter diagnosis) (R23.8) Papule 1. Anal disorder (Primary) - small papule abutting anus that is tender. Will treat with flagyl 250mg TID x 7 days and I will check in via in 10-14 days and see how she is doing. May need imaging of perineum - metroNIDAZOLE (FLAGYL) 250 mg tablet; Take 1 tablet by mouth three times a day for 7 days. Dispense: 21 tablet; Refill: 0 2. Papule - metroNIDAZOLE (FLAGYL) 250 mg tablet; Take 1 tablet by mouth three times a day for 7 days. Dispense: 21 tablet; Refill: 0 Follow up in office HANY Cuevas APRN.CNP January 09, 2025 3:51 PM [facility] 01-09-2025 History of Present illness Narrative Images from the original note were not included. CHIEF COMPLAINT: Patient presents with: Lump on rectum : Lymph nodes swollen in groin area- pain has improved from what it was at her last office visit. MITCH Phan is a 39 year old female here today for Lump on rectum (Lymph nodes swollen in groin area- pain has improved from what it was at her last office visit.). The lump on the rectum has grown and does bleed. It is painful to touch. Having a BM doesn't really effect the pain. Denies any issues with her bowels. She is having some upper abdominal pain when she eats. The anusol cream did not help. She doesn't think this is a hemorrhoid, as it feels different from a hemorrhoid. No current outpatient medications on file. No current facility-administered medications for this visit. 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 2017 PAST SURGICAL HISTORY Procedure Laterality Date PAST SURGICAL HISTORY OF right leg x2 FAMILY HISTORY Problem Relation Age of Onset Breast Cancer Mother 44 Bipolar disorder Father Bipolar disorder Sister No Known Problems Sister No Known Problems Sister other (car accident) Brother Heart Maternal Grandmother Alcohol/Drug Maternal Grandmother other (other) Maternal Grandmother Heart Attack Maternal Grandmother Primary Biliary Cirrhosis Maternal Grandmother Stroke Maternal Grandfather No Known Problems Paternal Grandmother No Known Problems Paternal Grandfather No Known Problems Daughter No Known Problems Daughter No Known Problems Daughter No Known Problems Daughter other (stillborn 23 weeks, short cord, CAN) Daughter No Known Problems Daughter other (CRMO-chronic recurrent multifocal osteomyelitis) Son No Known Problems Son No Known Problems Son No Known Problems Other Colon Cancer Maternal great-grandmother REVIEW OF SYSTEMS Review of Systems Constitutional: Positive for fatigue. Gastrointestinal: Positive for abdominal pain, anal bleeding, nausea and rectal pain. Gas, Heartburn All other systems reviewed and are negative. PHYSICAL EXAM BP 122/78 Pulse 99 Ht 5' 7 (1.70m) Wt 175 lb 12.8 oz (79.7kg) LMP 06/16/2023 BMI 27.53 kg/(m^2). Participation of a fellow, resident, medical student, or advanced practice provider student in performing the sensitive examination was discussed with the patient or authorized sales representative public utilities. The patient or authorized sales representative public utilities has agreed to proceed with the sensitive examination. Physical Exam Exam conducted with a wood repatcher present (Renee Castañeda MA). Pulmonary: Effort: Pulmonary effort is normal. Genitourinary: Rectum: External hemorrhoid and internal hemorrhoid present. Comments: 1-2 mm round, white papule at 6 o'clock position outside of anus; TTP; no fluctuance or pus Neurological: Mental Status: She is alert and oriented to person, place, and time. Psychiatric: Mood and Affect: Mood normal. Behavior: Behavior normal. Thought Content: Thought content normal. Judgment: Judgment normal. ASSESSMENT: (K62.9) Anal disorder (primary encounter diagnosis) (R23.8) Papule 1. Anal disorder (Primary) - small papule abutting anus that is tender. Will treat with flagyl 250mg TID x 7 days and I will check in via in 10-14 days and see how she is doing. May need imaging of perineum - metroNIDAZOLE (FLAGYL) 250 mg tablet; Take 1 tablet by mouth three times a day for 7 days. Dispense: 21 tablet; Refill: 0 2. Papule - metroNIDAZOLE (FLAGYL) 250 mg tablet; Take 1 tablet by mouth three times a day for 7 days. Dispense: 21 tablet; Refill: 0 Follow up in office TBD Meena Cuevas APRN.CNP January 09, 2025 3:51 PM documented in this encounter [facility] 10-08-2024 History of Present illness Narrative Radiology Service Progress Note DATE OF SERVICE: October 08, 2024 TIME: 4:14 PM PATIENT IDENTITY VERIFICATION COMPLETED USING TWO (2) STANDARD IDENTIFIERS: Name and Date of confirmed by patient verbally. FALL SCREENING: Has the patient had 2 falls in the last year or 1 fall with injury or currently using an Ambulatory Assistive Device (Walker, Cane, Wheelchair, Crutches, etc.)? No PATIENT GENDER DATA: Female. status: : No status: NO. PATIENT RELEVANT IMPLANT DATA REVIEWED: Yes PATIENT PRESENTS WITH AN IMPLANTABLE OR ATTACHED LENS ENGRAVER: No ALLERGIES: Reviewed and unchanged CONTRAST ALLERGY: NO. EXAM: MRI - CONTRAST TYPE: GROUP II PERIPHERAL IV DATA: Ambulatory: A peripheral IV was started in the Right antecubital site with a Angio cath: 22 gauge. RADIOLOGY DEPARTMENT: MR; Exam(s) Completed: Body: Liver (routine) SIGNATURE: RT Cortes(R) PATIENT NAME: Maria T Phan DATE: October 08, 2024 TIME: 4:14 PM documented in this encounter [facility] 10-08-2024 Note HNO ID: [id number] Author: DUNG AGARWAL RT(Zbigniew) Service: Radiology Author Type: Technologist Type: Progress Notes Filed: 10/08/2024 16:21 Note Text: Radiology Service Progress Note DATE OF SERVICE: October 08, 2024 TIME: 4:14 PM PATIENT IDENTITY VERIFICATION COMPLETED USING TWO (2) STANDARD IDENTIFIERS: Name and Date of confirmed by patient verbally. FALL SCREENING: Has the patient had 2 falls in the last year or 1 fall with injury or currently using an Ambulatory Assistive Device (Walker, Cane, Wheelchair, Crutches, etc.)? No PATIENT GENDER DATA: Female. status: : No status: NO. PATIENT RELEVANT IMPLANT DATA REVIEWED: Yes PATIENT PRESENTS WITH AN IMPLANTABLE OR ATTACHED LENS ENGRAVER: No ALLERGIES: Reviewed and unchanged CONTRAST ALLERGY: NO. EXAM: MRI - CONTRAST TYPE: GROUP II PERIPHERAL IV DATA: Ambulatory: A peripheral IV was started in the Right antecubital site with a Angio cath: 22 gauge. RADIOLOGY DEPARTMENT: MR; Exam(s) Completed: Body: Liver (routine) SIGNATURE: RT Cortes(R) PATIENT NAME: Maria T Phna DATE: October 08, 2024 TIME: 4:14 PM [facility] 04-26-2024 History of Present illness Narrative CHIEF COMPLAINT: Patient presents with: Rectal Pain: Sometimes has bleeding as well. Also having random throbbing abdominal pain. Feels gas pains in her back every morning she wakes up HPI: Accompanied by Maria T Phan is a 38 year old female who presents for Rectal Pain (Sometimes has bleeding as well. Also having random throbbing abdominal pain. Feels gas pains in her back every morning she wakes up). H/O elevated LFTs on labs from 06/2023 that normalized with PCP 10/2023. Bms have changed in the past month. Bms are multiple per day, more loose consistency, BRBPR when wiping. Started fiber bars w/ minimal relief. Has noticed dairy sensitivity. Tried hemorrhoid ointments with minimal relief as well. Will have right sided abd pain, worsened with eating. Taking Tums PRN for heartburn with relief. Has not taken Mobic in over a week, was previously taking for 3 weeks for plantar fasciitis. Denies fevers, weight loss, emesis, anal drainage. Maternal grandmother w/ hx of cirrhosis, not sure if PBC Maternal great grandmother w/ colon CA MRI abd 06/2023 Impression 1. No enhancing liver lesion. The echogenic focus on the prior ultrasound may correspond to an area of focal fatty infiltration. 2. Cholecystolithiasis. Record Review: [facility] / Outside records reviewed. PAST MEDICAL HISTORY Diagnosis Date Anemia In 6th - patient required IV iron Cholestasis during in third trimester 12/17/2021 Elevated liver enzymes History of pre-eclampsia in prior , currently Hypertension Reports hx of pre-eclampsia in 4th depression After Demise in 2017 PAST SURGICAL HISTORY Procedure Laterality Date PAST SURGICAL HISTORY OF right leg x2 Allergies: ALLERGIES No Known Allergies Medications: meloxicam (MOBIC) 15 mg tablet Take 1 tablet by mouth once daily. FAMILY HISTORY Problem Relation Age of Onset Breast Cancer Mother 44 Bipolar disorder Father Bipolar disorder Sister No Known Problems Sister No Known Problems Sister other (car accident) Brother Heart Maternal Grandmother Alcohol/Drug Maternal Grandmother other (other) Maternal Grandmother Heart Attack Maternal Grandmother Primary Biliary Cirrhosis Maternal Grandmother Stroke Maternal Grandfather No Known Problems Paternal Grandmother No Known Problems Paternal Grandfather No Known Problems Daughter No Known Problems Daughter No Known Problems Daughter No Known Problems Daughter other (stillborn 23 weeks, short cord, CAN) Daughter No Known Problems Daughter other (CRMO-chronic recurrent multifocal osteomyelitis) Son No Known Problems Son No Known Problems Son No Known Problems Other Colon Cancer Maternal great-grandmother Employer And Job Title: No employer specified (homemaker) Years Of Education Completed: 12 years Marital Status: to [place] with 9 children Social History Tobacco Use Smoking status: Never Smokeless tobacco: Never Vaping Use Vaping Use: Never used Substance Use Topics Alcohol use: Not Currently Drug use: Never Review of Systems: Review of Systems Constitutional: Positive for chills. Gastrointestinal: Positive for abdominal pain, anal bleeding, constipation, diarrhea, nausea and rectal pain. Change in bowel habits, Gas, Heartburn All other systems reviewed and are negative. Are you taking any blood thinners? No Physical Examination: BP 118/70 Pulse 81 Ht 170.2 cm (5' 7) Wt 74.8 kg (165 lb) LMP 06/16/2023 (Exact Date) BMI 25.84 kg/m Physical Exam Constitutional: General: She is not in acute distress. Appearance: Normal appearance. She is obese. She is not ill-appearing, toxic-appearing or diaphoretic. HENT: Head: Normocephalic and atraumatic. Nose: Nose normal. Eyes: General: No scleral icterus. Right eye: No discharge. Left eye: No discharge. Extraocular Movements: Extraocular movements intact. Conjunctiva/sclera: Conjunctivae normal. Pupils: Pupils are equal, round, and reactive to light. Cardiovascular: Rate and Rhythm: Normal rate and regular rhythm. Pulses: Normal pulses. Heart sounds: Normal heart sounds. No murmur heard. No friction rub. No gallop. Pulmonary: Effort: No respiratory distress. Breath sounds: Normal breath sounds. No stridor. No wheezing, rhonchi or rales. Chest: Chest wall: No tenderness. Abdominal: General: Bowel sounds are normal. There is distension. Palpations: Abdomen is soft. There is no mass. Tenderness: There is abdominal tenderness (Moderate TTP right side of abd). There is no right CVA tenderness, left CVA tenderness, guarding or rebound. Hernia: No hernia is present. Genitourinary: Comments: External exam: Prolapsing internal hemorrhoid. No evidence of ext hemorrhoids, fissures. Automotive Painter Helper: Linsey Colvin MA Musculoskeletal: General: Normal range of motion. Cervical back: Normal range of motion and neck supple. Skin: General: Skin is warm and dry. Neurological: General: No focal deficit present. Mental Status: She is alert and oriented to person, place, and time. Psychiatric: Mood and Affect: Mood normal. Behavior: Behavior normal. Assessment/Plan (R19.7) Diarrhea, unspecified type (primary encounter diagnosis) (K62.5) BRBPR (bright red blood per rectum) (K64.8) Hemorrhoids, internal (R10.9) Right sided abdominal pain (R14.0) Abdominal distension (gaseous) (R10.31) Right lower quadrant abdominal pain (R11.0) Nausea 1. Diarrhea, unspecified type - CELIAC SCREEN WITH REFLEX; Future - C. DIFFICILE PCR - EXPANDED STOOL GASTROINTESTINAL PANEL BY PCR - PANC ELASTASE, FECAL - CALPROTECTIN,FECAL - Stool studies to r/o ID - Check basic labs, Celiac serology - CT scan to r/o acute process, developing appendicitis, cholecystitis (hx cholecystolithiasis on MRI abd 06/2023). Pt reports potential chance of so will check HCG - Start Anusol cream advised to be sure to use applicator to apply med internally. - Low fiber diet, avoid antidiarrheals, continue oral hydration 2. BRBPR (bright red blood per rectum) - COMPLETE BLOOD COUNT; Future - hydrocortisone (ANUSOL-HC) 2.5 % rectal cream; by RECTAL route two times a day for 14 days. Dispense: 28 g; Refill: 2 3. Hemorrhoids, internal - hydrocortisone (ANUSOL-HC) 2.5 % rectal cream; by RECTAL route two times a day for 14 days. Dispense: 28 g; Refill: 2 4. Right sided abdominal pain - COMPLETE BLOOD COUNT; Future - COMPREHENSIVE METABOLIC PANEL; Future - LIPASE; Future - CT ABD/PEL W IVCON; Future - iv contrast (will be provided with radiology test); CT ABD/PEL -Inject, intravenously, once for 1 dose.No IV access, insert saline lock prior to the beginning of sedation, infusion, injection of imaging exam. Discontinue saline lock post exam. If Pt. has a central line or IVAD, may access for administration according to line specific nursing protocol. Once exam is complete flush line and de-access according to line specific nursing protocol in the CT contrast administration guidelines link. Dispense: 1 Each; Refill: 0 - enteric contrast (will be provided with radiology test); For CT ABD/PEL W IVCON Routine order Administer, As Directed One Time Only, via Oral, Rectal, both Oral and Rectal, Enteric Tube, Stoma or Indwelling Catheter, Enteric Contrast as designated per enteric contrast guidelines Dispense: 1 Each; Refill: 0 Recommended to please call office/go to ER if fever, chills, chest pain, SOB, diarrhea, nausea, emesis, worsening abdominal pain, dehydration occurs I spent a total of 22 minutes on the date of the service which included preparing to see the patient, [id number] patient care, completing clinical documentation, obtaining and/or reviewing separately obtained history, performing a medically appropriate examination, counseling and educating the patient/family/caregiver, ordering medications, tests, or procedures, communicating with other HCPs (not separately reported), independently interpreting results (not separately reported), communicating results to the patient/family/caregiver, and care coordination (not separately reported). Kelly Win PA-C April 26, 2024 2:50 PM documented in this encounter [facility] 06-18-2023 History of Present illness Narrative Pt presented to [facility] c/o itching to her hands, feet and scalp as well as mid epigastric pain with eating certain foods. She reports a history with liver failure and symptoms are very similar. She is concerned she is in liver failure again or possible issue with gallbladder stone. She is not jaundice during exam. Recommend she present to ED for evaluation. Of note she has a couple children at home who are positive for Covid. documented in this encounter [facility] 02-17-2023 Miscellaneous Notes I'm glad to hear things are getting better. I would expect for the spinal headache to continue resolving. Since it is getting better I don't think that anesthesia would recommend any further treatment at this time. She should continue hydration and caffeine to help. If pain becomes severe would recommend eval at [facility] Isaias Payan MD Spoke with pt and she stated that when she is lying flat the headache goes away. When she is standing it comes back and she has pain down her spine. She stated that the headaches are improving and it not as intense as before. She has more ROM in her neck. Please and advise. Marilu Silvestre LPN Does the headache go away when she lies flat? If so that is consistent with a spinal headache. Is her pain different now or just persisting? Isaias Payan MD Can you please address in RR's absence. Thank you. Please see pt's mychart message and further advise. Marilu Silvestre LPN documented in this encounter [facility] 02-11-2023 Note [facility] Medical Records Department [address] [place] [address] Discharge Summary 02/11/23 0848 MR#: [id number] Acct: [id number] Name: MARIA T PHAN Rep #: [id number] : 1985 37 From: Alessandra Ruiz CNM PCP: Dr. Brian Downey MD Status:ADM IN Location: [id number] Providers Date of Admission: 02/09/23 Primary Care Physician: Dr. Brian Downey MD Reason For Visit: VAGINAL DELIVERY Diagnosis Discharge Diagnosis (1) Breech : Status: Acute Code(s): O32.1XX0 - Maternal care for breech presentation, not applicable or unspecified (2) (spontaneous vaginal delivery): Status: Acute Code(s): O80 - Encounter for full-term uncomplicated delivery Plan 1) Routine PPD#2 2) Pain management, flexeril and oxycodone for neck and back pain 3) Vitals stable 4) I O 5) Follow up in 2 weeks and 6 weeks Medications at Discharge Home Medications vits,calcium no.78-iron fumarate-folic acid 29 mg-1 mg tablet (Prenatabs FA) 1 tab PO DAILY 02/10/18 acetaminophen 500 mg tablet 1,000 mg PO Q6H PRN PRN Pain 1-10 Or Fever #0 tabs 02/10/23 ibuprofen 600 mg tablet 600 mg PO Q6H PRN PRN Pain Score 1-3 #0 tabs 02/10/23 cyclobenzaprine 10 mg tablet 10 mg PO TID PRN PRN neck pain #30 tabs 02/11/23 oxycodone 5 mg tablet 5 mg PO Q6H 7 days #10 tabs 02/11/23 Weight / BMI Weight Weight: 192 lb Body Mass Index (BMI) 30.0 ABG / Lab / Microbiology Data Result Diagrams: 02/09/23 08:33 D/C Instructions Discharge Diet: No restrictions May resume sexual activity in: 6 weeks Weight Bearing Status: Weight bearing as tolerated Call your doctor if you observe: Fever of 101 or Higher, Coldness, Increased Pain, Change in Color, Inability to urinate, Inability to have a bowel movement, Using more than 1 pad per hour, Shortness of breath, Dizziness, Fainting spells, Chest pain, Increased palpitations (irregular heartbeat), Calf discomfort and Uncontrolled pain Suture Line Care: Avoid Pulling/Pushing and Avoid Pinching/Bending Please Follow Up With: Brenda Mcdaniel MD When: Follow up in 2 and 6 weeks for visits. Meaningful Use Info Meaningful Use Diagnoses (Choose all that apply): None applicable Discharge Plan Admission Admit Date/Time: 02/09/23 07:20 Primary Reason for Your Visit: Vaginal delivery Attending Provider: Brenda Mcdaniel Primary Care Provider: Brian Downey Discharge Orders/Prescriptions Prescriptions: New acetaminophen 500 mg Tablet 1,000 mg PO Q6H PRN PRN (Reason: Pain 1-10 Or Fever) Qty: 0 0RF ibuprofen 600 mg Tablet 600 mg PO Q6H PRN PRN (Reason: Pain Score 1-3) Qty: 0 0RF cyclobenzaprine 10 mg Tablet 10 mg PO TID PRN PRN (Reason: neck pain) Qty: 30 0RF oxycodone 5 mg Tablet 5 mg PO Q6H 7 Days Qty: 10 0RF Continued Prenatabs FA 1 TABLET tablet 1 tab PO DAILY Discontinued ondansetron HCl [Zofran] 4 mg Tablet 4 mg PO Q6H aspirin [Baby Aspirin] 81 mg Tablet,Chewable 81 mg PO DAILY Referrals / Follow Up: Brian Downey MD [Primary Care Provider] - Brenda Mcdaniel MD [Med Staff - Active Staff] - (2 weeks virtual visit and 6 weeks in person) Disposition Disposition (needs filled in before D/C Order can be placed): Home, Self Care 02/11/23 0851 Cosigner Signature (if applicable): CC: MI Ruiz; Dr. Brian Downey MD Signed [facility] 02-10-2023 History of Present illness Narrative Patient delivered via by Dr. Mcdaniel on 02/09/23 at [facility]. See OB history. Amira Giauque RN documented in this encounter [facility] 02-03-2023 History of Present illness Narrative NST SUMMARY PROVIDER ASSESSMENT AND INTERPRETATION Maria T Phan is a 37 year old female, , who is at 38w2d with an PILAR of 02/15/2023, by Last Menstrual Period dating method. Indications for NST: AMA Baseline: 140 Variability: Moderate Accelerations: Present 15 X 15 Decelerations: None Contractions: TOCO: None Interpretation: Category I and Reactive SIGNATURE: Brenda Mcdaniel MD documented in this encounter [facility] 02-03-2023 Miscellaneous Notes RR- VB No. LOF No. CTXS No. Movement: present. Other c/o: No. Medication list reviewed. Physical Exam See Flow Sheet Abd: soft, nontender, gravid Ext: edema: no A/P 38w2d Estimated Date of Delivery: 02/15/23 NST reactive d/w her r/b/a to induction for adv maternal age, she desires to proceed. Likely pit/arom at 39-40 weeks return next week for NST and cervix recheck BP stable, no evidence of preeclampsia Brenda Mcdaniel M.D. documented in this encounter [facility] 02-03-2023 Albin Lilly Ma - 02/03/2023 9:51 AM EDT SEQUENTIAL SCREENINGS The [facility] offers sequential screenings for women who are interested in screenings for chromosomal abnormalities and certain defects during a . The sequential screen combines ultrasound and blood tests to determine the risk of chromosomal abnormalities, including Down's Syndrome (Trisomy 21) and Trisomy 18, as well as open neural tube defects including spina bifida. Ultrasound examination is performed between 11 weeks and 13 weeks gestational age. Blood tests are drawn after the ultrasound and again later in the between 15 and 21 weeks gestational age. Please let your physician know if you are interested in this testing. It will require an appointment with our support technician. This is not an ultrasound performed by a physician in our office during a routine visit. SIGNS AND SYMPTOMS OF LABOR 1. Contractions every 10 minutes or more often 2. Clear, pink, or brownish fluid (water) leaking from vagina 3. Feeling that baby is pushing down, pressure 4. Low, dull backache 5. Cramps that feel like a period 6. Cramps with or without diarrhea If you notice any of the above symptoms, contact our office at [phone] and ask to speak with a nurse. After hours, you can call doctors registry at [phone] OR call [facility] at [phone] and ask to have the doctor construction scheduler paged. If you consider this an emergency, dial 7-8-3 or go to your nearest emergency department. NEED HELP? Are you dealing with a violent or abusive relationship? Are you a victim of rape or sexual assult? Call [facility] ([place]) 24 hour Crisis Hotline: 668.638.6983 or 844-007-5084. MANUAL Your Guide to a Healthy manual is now on-line. Visit [email or web address] to download your free copy documented in this encounter [facility] 01-27-2023 History of Present illness Narrative NST SUMMARY PROVIDER ASSESSMENT AND INTERPRETATION Maria T Phan is a 37 year old female, , who is at 37w2d with an PILAR of 02/15/2023, by Last Menstrual Period dating method. Indications for NST: AMA Baseline: 140 Variability: Moderate Accelerations: Present 15 X 15 Decelerations: None Contractions: TOCO: None Interpretation: Category I and Reactive SIGNATURE: Brenda Mcdaniel MD documented in this encounter [facility] 01-27-2023 Miscellaneous Notes RR- VB No. LOF No. CTXS irreg, BH . Movement: present. Other c/o: still w/ N/V. Some YUAN today but has frequently and is a typical YUAN for her, no visual changes Medication list reviewed. Physical Exam See Flow Sheet Abd: soft, nontender, gravid Ext: edema: Trace, DTRS: 1+, clonus: Absent A/P 37w2d Estimated Date of Delivery: 02/15/23 kick counts. refill on zofran no evidence of preeclampsia, monitor BP NST reactive - done for AMA, check cervix and make delivery plan next week Brenda Mcdaniel M.D. documented in this encounter [facility] 01-27-2023 Instructions Portia Lilly Ak - 01/27/2023 10:51 AM EDT SEQUENTIAL SCREENINGS The [facility] offers sequential screenings for women who are interested in screenings for chromosomal abnormalities and certain defects during a . The sequential screen combines ultrasound and blood tests to determine the risk of chromosomal abnormalities, including Down's Syndrome (Trisomy 21) and Trisomy 18, as well as open neural tube defects including spina bifida. Ultrasound examination is performed between 11 weeks and 13 weeks gestational age. Blood tests are drawn after the ultrasound and again later in the between 15 and 21 weeks gestational age. Please let your physician know if you are interested in this testing. It will require an appointment with our support technician. This is not an ultrasound performed by a physician in our office during a routine visit. SIGNS AND SYMPTOMS OF LABOR 1. Contractions every 10 minutes or more often 2. Clear, pink, or brownish fluid (water) leaking from vagina 3. Feeling that baby is pushing down, pressure 4. Low, dull backache 5. Cramps that feel like a period 6. Cramps with or without diarrhea If you notice any of the above symptoms, contact our office at [phone] and ask to speak with a nurse. After hours, you can call doctors registry at [phone] OR call [facility] at [phone] and ask to have the doctor construction scheduler paged. If you consider this an emergency, dial [phone]- or go to your nearest emergency department. NEED HELP? Are you dealing with a violent or abusive relationship? Are you a victim of rape or sexual assult? Call [facility] ([place]) 24 hour Crisis Hotline: 396.326.6276 or 215-215-6775. MANUAL Your Guide to a Healthy manual is now on-line. Visit [email or web address] to download your free copy documented in this encounter [facility] 01-21-2023 History of Present illness Narrative NST SUMMARY PROVIDER ASSESSMENT AND INTERPRETATION Maria T Phan is a 37 year old female, , who is at 36w3d with an PILAR of 02/15/2023, by Last Menstrual Period dating method. Indications for NST: AMA Baseline: 145 Variability: Moderate Accelerations: Present 15 X 15 Decelerations: None Contractions: TOCO: None Interpretation: Category I and Reactive SIGNATURE: Brenda Mcdaniel MD documented in this encounter [facility] 01-21-2023 Miscellaneous Notes RR- good FM. no VB/LOF. GBS done. NST reactive. F/u in 1 week or prn. Brenda Mcdaniel MD documented in this encounter [facility] 01-21-2023 Albin Richardson Ma - 01/21/2023 3:17 PM EDT SEQUENTIAL SCREENINGS The [facility] offers sequential screenings for women who are interested in screenings for chromosomal abnormalities and certain defects during a . The sequential screen combines ultrasound and blood tests to determine the risk of chromosomal abnormalities, including Down's Syndrome (Trisomy 21) and Trisomy 18, as well as open neural tube defects including spina bifida. Ultrasound examination is performed between 11 weeks and 13 weeks gestational age. Blood tests are drawn after the ultrasound and again later in the between 15 and 21 weeks gestational age. Please let your physician know if you are interested in this testing. It will require an appointment with our support technician. This is not an ultrasound performed by a physician in our office during a routine visit. SIGNS AND SYMPTOMS OF LABOR 1. Contractions every 10 minutes or more often 2. Clear, pink, or brownish fluid (water) leaking from vagina 3. Feeling that baby is pushing down, pressure 4. Low, dull backache 5. Cramps that feel like a period 6. Cramps with or without diarrhea If you notice any of the above symptoms, contact our office at [phone] and ask to speak with a nurse. After hours, you can call doctors registry at [phone] OR call [facility] at [phone] and ask to have the doctor construction scheduler paged. If you consider this an emergency, dial 9-9-3 or go to your nearest emergency department. NEED HELP? Are you dealing with a violent or abusive relationship? Are you a victim of rape or sexual assult? Call [facility] ([place]) 24 hour Crisis Hotline: 279.463.3751 or 757-367-3201. MANUAL Your Guide to a Healthy manual is now on-line. Visit [email or web address] to download your free copy documented in this encounter [facility] 01-05-2023 Miscellaneous Notes RR- some heartburn, using OTC meds and uses prn. No ctxs. No VB/LOF. Good FM. Brenda Mcdaniel MD documented in this encounter [facility] 01-05-2023 Albin Lilly Ma - 01/05/2023 11:43 AM EDT SEQUENTIAL SCREENINGS The [facility] offers sequential screenings for women who are interested in screenings for chromosomal abnormalities and certain defects during a . The sequential screen combines ultrasound and blood tests to determine the risk of chromosomal abnormalities, including Down's Syndrome (Trisomy 21) and Trisomy 18, as well as open neural tube defects including spina bifida. Ultrasound examination is performed between 11 weeks and 13 weeks gestational age. Blood tests are drawn after the ultrasound and again later in the between 15 and 21 weeks gestational age. Please let your physician know if you are interested in this testing. It will require an appointment with our support technician. This is not an ultrasound performed by a physician in our office during a routine visit. SIGNS AND SYMPTOMS OF LABOR 1. Contractions every 10 minutes or more often 2. Clear, pink, or brownish fluid (water) leaking from vagina 3. Feeling that baby is pushing down, pressure 4. Low, dull backache 5. Cramps that feel like a period 6. Cramps with or without diarrhea If you notice any of the above symptoms, contact our office at [phone] and ask to speak with a nurse. After hours, you can call doctors registry at [phone] OR call [facility] at [phone] and ask to have the doctor construction scheduler paged. If you consider this an emergency, dial 9-1-6 or go to your nearest emergency department. NEED HELP? Are you dealing with a violent or abusive relationship? Are you a victim of rape or sexual assult? Call [facility] ([place]) 24 hour Crisis Hotline: 218.980.6710 or 051-806-8205. MANUAL Your Guide to a Healthy manual is now on-line. Visit [email or web address] to download your free copy documented in this encounter [facility] 11-05-2022 Miscellaneous Notes RR_ no VB/LOF. Good FM. Some leg pain right side, feels like warm water running through it about once every 20 min. Some cramping and marianna horses. Legs symmentrical, normal pulses, neg homans sign. No erythema or induration or calor. Reassured no evidence of DVt. Has YUAN not relieved w/ tylenol. Trial of reglan, if not relieved trial of fioricet Brenda Mcdaniel MD documented in this encounter [facility] 11-05-2022 Instructions Portia Lilly Ma - 11/05/2022 10:14 AM EST SEQUENTIAL SCREENINGS The [facility] offers sequential screenings for women who are interested in screenings for chromosomal abnormalities and certain defects during a . The sequential screen combines ultrasound and blood tests to determine the risk of chromosomal abnormalities, including Down's Syndrome (Trisomy 21) and Trisomy 18, as well as open neural tube defects including spina bifida. Ultrasound examination is performed between 11 weeks and 13 weeks gestational age. Blood tests are drawn after the ultrasound and again later in the between 15 and 21 weeks gestational age. Please let your physician know if you are interested in this testing. It will require an appointment with our support technician. This is not an ultrasound performed by a physician in our office during a routine visit. SIGNS AND SYMPTOMS OF LABOR 1. Contractions every 10 minutes or more often 2. Clear, pink, or brownish fluid (water) leaking from vagina 3. Feeling that baby is pushing down, pressure 4. Low, dull backache 5. Cramps that feel like a period 6. Cramps with or without diarrhea If you notice any of the above symptoms, contact our office at [phone] and ask to speak with a nurse. After hours, you can call doctors registry at [phone] OR call [facility] at [phone] and ask to have the doctor construction scheduler paged. If you consider this an emergency, dial 9-1-2 or go to your nearest emergency department. NEED HELP? Are you dealing with a violent or abusive relationship? Are you a victim of rape or sexual assult? Call [facility] ([place]) 24 hour Crisis Hotline: 493.195.5713 or 105-856-8641. MANUAL Your Guide to a Healthy manual is now on-line. Visit [email or web address] to download your free copy documented in this encounter [facility] 11-04-2022 Miscellaneous Notes Patient c/o an intermittent warmth sensation in posterior right calf that runs down to foot. Is having a throbbing sensation and cramping. Denies warmth, redness to right calf. documented in this encounter [facility] 10-21-2022 Miscellaneous Notes RR_ No VB/LOF. Good FM. 28 week labs next visit. F/u in 4 weeks or prn. Brenda Mcdaniel MD documented in this encounter [facility] 10-21-2022 Albin Lilly Ma - 10/21/2022 3:14 PM EST SEQUENTIAL SCREENINGS The [facility] offers sequential screenings for women who are interested in screenings for chromosomal abnormalities and certain defects during a . The sequential screen combines ultrasound and blood tests to determine the risk of chromosomal abnormalities, including Down's Syndrome (Trisomy 21) and Trisomy 18, as well as open neural tube defects including spina bifida. Ultrasound examination is performed between 11 weeks and 13 weeks gestational age. Blood tests are drawn after the ultrasound and again later in the between 15 and 21 weeks gestational age. Please let your physician know if you are interested in this testing. It will require an appointment with our support technician. This is not an ultrasound performed by a physician in our office during a routine visit. SIGNS AND SYMPTOMS OF LABOR 1. Contractions every 10 minutes or more often 2. Clear, pink, or brownish fluid (water) leaking from vagina 3. Feeling that baby is pushing down, pressure 4. Low, dull backache 5. Cramps that feel like a period 6. Cramps with or without diarrhea If you notice any of the above symptoms, contact our office at [phone] and ask to speak with a nurse. After hours, you can call doctors registry at [phone] OR call [facility] at [phone] and ask to have the doctor construction scheduler paged. If you consider this an emergency, dial 06-17- or go to your nearest emergency department. NEED HELP? Are you dealing with a violent or abusive relationship? Are you a victim of rape or sexual assult? Call [facility] ([place]) 24 hour Crisis Hotline: 147.852.6573 or 832-629-4355. MANUAL Your Guide to a Healthy manual is now on-line. Visit [email or web address] to download your free copy documented in this encounter [facility] 10-13-2022 Miscellaneous Notes Order signed. Alessandra Ruiz APRN.CNM Please see pt's [place] message in RR absence. Marilu Silvestre LPN documented in this encounter [facility] 09-22-2022 Miscellaneous Notes DM- Pt doing well today. Denies Vaginal Bleeding, Leaking fluid, or cramping. movement. Anatomy us pending. GIRL. Recommend her to start ASA. Repeat CMP at 28 weeks- slightly elevated ALT. RTO 4 wks. Lynette Leiva MD documented in this encounter [facility] 09-22-2022 Instructions Kayla Scott Ma - 09/22/2022 10:19 AM EST SEQUENTIAL SCREENINGS The [facility] offers sequential screenings for women who are interested in screenings for chromosomal abnormalities and certain defects during a . The sequential screen combines ultrasound and blood tests to determine the risk of chromosomal abnormalities, including Down's Syndrome (Trisomy 21) and Trisomy 18, as well as open neural tube defects including spina bifida. Ultrasound examination is performed between 11 weeks and 13 weeks gestational age. Blood tests are drawn after the ultrasound and again later in the between 15 and 21 weeks gestational age. Please let your physician know if you are interested in this testing. It will require an appointment with our support technician. This is not an ultrasound performed by a physician in our office during a routine visit. SIGNS AND SYMPTOMS OF LABOR 1. Contractions every 10 minutes or more often 2. Clear, pink, or brownish fluid (water) leaking from vagina 3. Feeling that baby is pushing down, pressure 4. Low, dull backache 5. Cramps that feel like a period 6. Cramps with or without diarrhea If you notice any of the above symptoms, contact our office at [phone] and ask to speak with a nurse. After hours, you can call doctors registry at [phone] OR call [facility] at [phone] and ask to have the doctor construction scheduler paged. If you consider this an emergency, dial 4-3-0 or go to your nearest emergency department. NEED HELP? Are you dealing with a violent or abusive relationship? Are you a victim of rape or sexual assult? Call [facility] ([place]) 24 hour Crisis Hotline: 897.180.4171 or 433-492-1893. MANUAL Your Guide to a Healthy manual is now on-line. Visit [email or web address] to download your free copy documented in this encounter [facility] 09-01-2022 Miscellaneous Notes RR_ Mood stable, still a lot of stress but able to deal with it better. Some flutters. Nausea better, uses zofran prn. AFP today. US for anatomy scheduled. Taking PNV. F/u in 4 weeks or prn. Brenda Mcdaniel MD documented in this encounter [facility] 09-01-2022 Albin Lilly Ma - 09/01/2022 4:07 PM EST SEQUENTIAL SCREENINGS The [facility] offers sequential screenings for women who are interested in screenings for chromosomal abnormalities and certain defects during a . The sequential screen combines ultrasound and blood tests to determine the risk of chromosomal abnormalities, including Down's Syndrome (Trisomy 21) and Trisomy 18, as well as open neural tube defects including spina bifida. Ultrasound examination is performed between 11 weeks and 13 weeks gestational age. Blood tests are drawn after the ultrasound and again later in the between 15 and 21 weeks gestational age. Please let your physician know if you are interested in this testing. It will require an appointment with our support technician. This is not an ultrasound performed by a physician in our office during a routine visit. SIGNS AND SYMPTOMS OF LABOR 1. Contractions every 10 minutes or more often 2. Clear, pink, or brownish fluid (water) leaking from vagina 3. Feeling that baby is pushing down, pressure 4. Low, dull backache 5. Cramps that feel like a period 6. Cramps with or without diarrhea If you notice any of the above symptoms, contact our office at [phone] and ask to speak with a nurse. After hours, you can call doctors registry at [phone] OR call [facility] at [phone] and ask to have the doctor construction scheduler paged. If you consider this an emergency, dial 9-1-7 or go to your nearest emergency department. NEED HELP? Are you dealing with a violent or abusive relationship? Are you a victim of rape or sexual assult? Call [facility] ([place]) 24 hour Crisis Hotline: 951.548.1598 or 620-652-0135. MANUAL Your Guide to a Healthy manual is now on-line. Visit [email or web address] to download your free copy documented in this encounter [facility] 08-09-2022 Miscellaneous Notes Called Maria T Phan and identified by name and date of . Maria T Phan was informed of negative Non-Invasive Testing (NIPT) results for Trisomy 21, Trisomy 18 and Trisomy 13. Patient was also notified of the result of no sex chromosome aneuploidy detected. Patient does not wish to know reported sex. Reviewed with patient Maria T Phan that NIPT is considered screening and not diagnostic, so this result greatly reduces, but does not eliminate the chance that the fetus could have trisomy 21, trisomy 18, trisomy 13 or sex chromosome aneuploidy. Maria T Phan indicated understanding this information. Patient advised to follow up with AFP neural tube defect screening (blood draw) at 16-18 weeks gestation and 18-20 week detailed anatomy ultrasound. Also instructed to follow-up with Primary OB Provider. Meera Arvizu MA documented in this encounter [facility] 08-04-2022 Miscellaneous Notes RR_ No VB/LOF. Feeling better nausea parker but hits her in the middle of night. Mood more stable. Still has zofran. NT today and NIPT. Reviewed use as screen for aneuploidy. F/u in 4 weeks or prn. Brenda Mcdaniel MD documented in this encounter [facility] 08-04-2022 Albin Mike Glass Diaper Folder - 08/04/2022 10:14 AM EDT SEQUENTIAL SCREENINGS The [facility] offers sequential screenings for women who are interested in screenings for chromosomal abnormalities and certain defects during a . The sequential screen combines ultrasound and blood tests to determine the risk of chromosomal abnormalities, including Down's Syndrome (Trisomy 21) and Trisomy 18, as well as open neural tube defects including spina bifida. Ultrasound examination is performed between 11 weeks and 13 weeks gestational age. Blood tests are drawn after the ultrasound and again later in the between 15 and 21 weeks gestational age. Please let your physician know if you are interested in this testing. It will require an appointment with our support technician. This is not an ultrasound performed by a physician in our office during a routine visit. SIGNS AND SYMPTOMS OF LABOR 1. Contractions every 10 minutes or more often 2. Clear, pink, or brownish fluid (water) leaking from vagina 3. Feeling that baby is pushing down, pressure 4. Low, dull backache 5. Cramps that feel like a period 6. Cramps with or without diarrhea If you notice any of the above symptoms, contact our office at [phone] and ask to speak with a nurse. After hours, you can call doctors registry at [phone] OR call [facility] at [phone] and ask to have the doctor construction scheduler paged. If you consider this an emergency, dial 9-1-1 or go to your nearest emergency department. NEED HELP? Are you dealing with a violent or abusive relationship? Are you a victim of rape or sexual assult? Call [facility] ([place]) 24 hour Crisis Hotline: 849.581.5379 or 370-895-4178. MANUAL Your Guide to a Healthy manual is now on-line. Visit [email or web address] to download your free copy documented in this encounter [facility] 07-07-2022 History of Present illness Narrative INITIAL OB ASSESSMENT OB Provider: Brenda Mcdaniel MD HPI: Maria T Phan is a 37 year old female here to establish Obstetrical Care. Patient's last menstrual period was 05/11/2022 (exact date). from OB Dating Form. Cycle length: variable days Has had some depression and times when she feels very angry. Has been on antidepressants a couple of times in the past after . Denies thoughts of harming self or others but feels sometimes like she should run away. Gets overwhelmed. Complaints: nausea and vomiting was unplanned but accepted. OB History T8 L9 SAB1 IAB0 Ectopic0 Multiple0 Live Births9 Prior : never History of 4th degree laceration: No Patient's Risk Screening for delivery: History of abnormal pap: No Prior treatment for cervical dysplasia: none. History of STDs: None Tobacco use: No Caffeine use: occas Drug use: No- some THC oil in the past but stopped now Alcohol use: No Multivitamin with Folic acid: Yes Occupation: homemaker Sikh or heritage: No Would refuse blood transfusion if medically necessary: No No weight on file for this encounter. Patient BMI over 30? No Marital Status: Partner: Name: Sharad Age: 39 Occupation: Office Admin Gender: male History of STDs: None PAST MEDICAL HISTORY Diagnosis Date Anemia In 6th - patient required IV iron Cholestasis during in third trimester 12/17/2021 Elevated liver enzymes History of pre-eclampsia in prior , currently Hypertension Reports hx of pre-eclampsia in 4th depression After Demise in 2017 PAST SURGICAL HISTORY Procedure Laterality Date PAST SURGICAL HISTORY OF right leg x2 Current Outpatient Medications on File Prior to Visit Medication Sig ondansetron orally disintegrating (ZOFRAN ODT) 4 mg disintegrating tablet Take 1 tablet by mouth every 8 hours as needed for nausea/vomiting. cholecalciferol, vitamin D3, (VITAMIN D3 ORAL) Take by mouth. ZINC ORAL Take by mouth. ascorbic acid (VITAMIN C ORAL) Take by mouth. VIT37/IRON/FOLIC ACID (PRENATA ORAL) Take by mouth. fluticasone (FLONASE ALLERGY RELIEF) 50 mcg/actuation nasal spray Use 1 [place] in each nostril twice daily. (Patient not taking: No sig reported) ursodiol (ACTIGALL) 300 mg capsule Take 2 capsules by mouth twice daily. (Patient not taking: No sig reported) hydrOXYzine pamoate (VISTARIL) 25 mg capsule Take 1 capsule by mouth three times daily as needed. (Patient not taking: No sig reported) promethazine (PHENERGAN) 25 mg tablet Take 0.5-1 tablets by mouth every 6 hours as needed. (Patient not taking: No sig reported) No current facility-administered medications on file prior to visit. Review of Systems: GENERAL: Negative for: Fever or Chills HEENT: Negative for: Headache, Impaired Vision, Ringing in Ears, Nosebleeds NECK: Negative for: Swelling, Pain, Stiffness RESPIRATORY: Negative for: Cough, Shortness of breath, Wheezing GASTROINTESTINAL: Negative for: Heartburn, Constipation, Diarrhea, Blood in stool, some nausea and vomitin MUSCULOSKELETAL: Negative for: Muscle or joint pain, stiffness, Joint swelling NEUROLOGIC/PSYCHIATRIC: some anxiety and depression SKIN: Negative for: Rash, Itching GENITOURINARY: Negative for: vaginal itching, vaginal discharge, hematuria or dysuria PHYSICAL EXAM: LMP 05/11/2022 GENERAL: pleasant female in no apparent distress DERMATOLOGY: Normal, without lesions, non-icteric, and non-hirsute NECK: Supple, full range of motion, no adenopathy, and thyroid normal CHEST: Normal inspiratory effort BREAST: soft, non-tender, symmetric, no dominant mass, normal nipple-areolar complex, no lymphadenopathy, and no nipple discharge ABDOMEN: soft, non-tender, and no masses NEURO: alert and oriented x3,exam grossly non-focal PELVIS: External genitalia normal without lesions. Perineal body intact. No vaginal or cervical lesions. Cervix closed. Uterus 8 week size. No adnexal masses or tenderness. Clinical Pelvimetry: Pelvimetry clinically assessed as adequate Limited OB ultrasound exam: not performed, single intrauterine , positive cardiac activity, and crown-rump length c/w 7w 6 d which is c/w LMP OB Risk Screening: Completed, no positive findings documented. SBIRT Maria T Phan was given the 4P's screening tool. Maria T answered as follows: OB Opioid Screening - Last Recorded (since 10/10/2021) Did any of your parents have a problem with alcohol or other drug use? No Does your partner have a problem with alcohol or other drug use? No In the past, have you had difficulties in your life because of alcohol or other drugs, including prescription medications? No In the past month have you drunk any alcohol or used other drugs? No Are you taking medication for pain during the either prescribed or not? No Based on the screen and further questions, she is considered at Low risk due to:Low level of use stopped prior to or immediately upon known . Positive reinforcement of current behavior. Plan to rescreen early third trimester. Brenda Mcdaniel MD ASSESSMENT: 37 year old at 8w1d wks gestational age PLAN: 1) Patient oriented to practice. Discussed nutrition, folic acid supplementation, dietary guidelines, exercise, smoking, alcohol, caffeine, and drug use. Discussed routine OB labs including STD/HIV. Discussed aneuploidy screening options including serum screening and nuchal translucency. Desires NT and NIPT CF carrier screening discussed and declined. 2) History of preeclampsia. Baseline labs ordered. 3) check LFTs, h/o elevated LFTs anxiety/depression- referal for counseling, monitor Follow up in 4 weeks or sooner prn. Brenda Mcdaniel MD documented in this encounter [facility] 07-07-2022 Instructions Portia Lilly Ma - 07/07/2022 12:51 PM EDT Please select the following link to access the [facility] Your Guide to a Healthy . [email or web address] documented in this encounter [facility] 07-07-2022 Miscellaneous Notes Patient returned call. Will come in today after 12 PM once her rail specialist arrives. Kim Castellon RN 4th attempt to reach patient. I could see her over my lunch hour today at 12N if she returns phone call 3rd attempt to reach patient-no answer Patient had 930 appointment this morning for Pre new OB. When I did call her today she said she was not available and that I could reschedule her for 11:00. 2 attempts to call after 11:00 with no answer. Message left for patient to return phone call. If I am here I am happy to accommodate her if she calls back and is available documented in this encounter [facility] 01-22-2022 Miscellaneous Notes Patient delivered 01/11/22. Amira Costa RN documented in this encounter [facility] 01-20-2022 Miscellaneous Notes Patient delivered on 01/11/22. Rosa Sher RN documented in this encounter [facility] 01-13-2022 Miscellaneous Notes Prescription signed. Brenda Buckley APRN.SYSTEMS TESTING LABORATORY TECHNICIAN documented in this encounter [facility] 01-12-2022 History of Present illness Narrative Patient delivered via at [facility] on 01/11/22 per Brenda Mcdaniel MD. See OB Outcome note. Kim Castellon, RN documented in this encounter [facility] 12-17-2021 History of Past i llness Narrative Problem Noted Date Resolved Date Cholestasis during in third trimester 12/17/2021 10/21/2022 COVID-19 affecting in second trimester 10/05/2021 10/21/2022 Overview: At approx 21 weeks, 09/25/21. Brenda Mcdaniel MD GBS carrier 02/19/2019 04/03/2021 Overview: February 19, 2019 GBS in urine, not enough to treat but will need prophylaxis in labor. Brenda Mcdaniel MD Gestational hypertension wit hout significant proteinuria in third trimester 02/12/2018 02/22/2018 Overview: February 12, 2018 On L&D on 02/10/18- no evidence of preeclampsuia, BP stable. D/[facility] home. Close f/u. will try to wait until next week for induction as is vanessa breech and may have spontaneous version in interim. Brenda Mcdaniel MD Breech presentation 02/02/2018 02/22/2018 Overview: 02/02/18 - handout given for exercises to turn baby, discussed possible version at 37-38 weeks if needed - KJ February 12, 2018 ECV attempted on 05/12/18- unsuccessful. Counseled on risks/benefits/alternatives of breech attempt vs primary c/s. Declines c/s. Brenda Mcdaniel MD GBS bacteriuria 01/26/2018 02/22/2018 Overview: 01/26/18 - Treat in labor with PCN abx per protocol. Ary Jensen APRN.CNM Grand multiparity with current in thir d trimester 01/24/2018 02/22/2018 Prior with d emise and current in third trimester 01/24/2018 04/03/2021 Overview: 01/24/18: Previous IUFD @ 23 weeks - attributed to cord accident. IOL and delivery in [facility] without complication. Ary Jensen APRN.CNM H/O pre-eclampsia in prior , currently 01/24/2018 02/22/2018 Overview: 01/24/18: Reports pre-eclampsia in 4th , was induced @ 40 weeks. Ary Jensen APRN.CNM documented as of this encounter (statuses as of 10/22/2022) [facility] History of Past illness Narrative* Problem Noted Date Resolved Date Cholestasis during in third trimester 12/17/2021 10/21/2022 COVID-19 affecting in second trimester 10/05/2021 10/21/2022 Overview: At approx 21 weeks, 09/25/21. Brenda Mcdaniel MD GBS carrier 02/19/2019 04/03/2021 Overview: February 19, 2019 GBS in urine, not enough to treat but will need prophylaxis in labor. Brenda Mcdaniel MD Gestational hypertension wit hout significant proteinuria in third trimester 02/12/2018 02/22/2018 Overview: February 12, 2018 On L&D on 02/10/18- no evidence of preeclampsuia, BP stable. D/[facility] home. Close f/u. will try to wait until next week for induction as is vanessa breech and may have spontaneous version in interim. Brenda Mcdaniel MD Breech presentation 02/02/2018 02/22/2018 Overview: 02/02/18 - handout given for exercises to turn baby, discussed possible version at 37-38 weeks if needed - KJ February 12, 2018 ECV attempted on 05/12/18- unsuccessful. Counseled on risks/benefits/alternatives of breech attempt vs primary c/s. Declines c/s. Brenda Mcdaniel MD GBS bacteriuria 01/26/2018 02/22/2018 Overview: 01/26/18 - Treat in labor with PCN abx per protocol. Ary Jensen APRN.CNM Grand multiparity with current in thir d trimester 01/24/2018 02/22/2018 Prior with d emise and current in third trimester 01/24/2018 04/03/2021 Overview: 01/24/18: Previous IUFD @ 23 weeks - attributed to cord accident. IOL and delivery in [facility] without complication. Ary Jensen APRN.CNM H/O pre-eclampsia in prior , currently 01/24/2018 02/22/2018 Overview: 01/24/18: Reports pre-eclampsia in 4th , was induced @ 40 weeks. Ary Jensen APRN.CNM documented as of this encounter (statuses as of 11/04/2022) [facility] History of Past illness Narrative* Problem Noted Date Resolved Date Cholestasis during in third trimester 12/17/2021 10/21/2022 COVID-19 affecting in second trimester 10/05/2021 10/21/2022 Overview: At approx 21 weeks, 09/25/21. Brenda Mcdaniel MD GBS carrier 02/19/2019 04/03/2021 Overview: February 19, 2019 GBS in urine, not enough to treat but will need prophylaxis in labor. Brenda Mcdaniel MD Gestational hypertension wit hout significant proteinuria in third trimester 02/12/2018 02/22/2018 Overview: February 12, 2018 On L&D on 02/10/18- no evidence of preeclampsuia, BP stable. D/[facility] home. Close f/u. will try to wait until next week for induction as is vanessa breech and may have spontaneous version in interim. Brenda Mcdaniel MD Breech presentation 02/02/2018 02/22/2018 Overview: 02/02/18 - handout given for exercises to turn baby, discussed possible version at 37-38 weeks if needed - KJ February 12, 2018 ECV attempted on 05/12/18- unsuccessful. Counseled on risks/benefits/alternatives of breech attempt vs primary c/s. Declines c/s. Brenda Mcdaniel MD GBS bacteriuria 01/26/2018 02/22/2018 Overview: 01/26/18 - Treat in labor with PCN abx per protocol. Ary Jensen APRN.CNM Grand multiparity with current in thir d trimester 01/24/2018 02/22/2018 Prior with d emise and current in third trimester 01/24/2018 04/03/2021 Overview: 01/24/18: Previous IUFD @ 23 weeks - attributed to cord accident. IOL and delivery in [facility] without complication. Ary Jensen APRN.CNM H/O pre-eclampsia in prior , currently 01/24/2018 02/22/2018 Overview: 01/24/18: Reports pre-eclampsia in 4th , was induced @ 40 weeks. Ary Jensen APRN.CNM documented as of this encounter (statuses as of 11/04/2022) [facility]03-03-2022 History of Past illness Narrative* Problem Noted Date Resolved Date Cholestasis during in third trimester 12/17/2021 10/21/2022 COVID-19 affecting in second trimester 10/05/2021 10/21/2022 Overview: At approx 21 weeks, 09/25/21. Brenda Mcdaniel MD GBS carrier 02/19/2019 04/03/2021 Overview: February 19, 2019 GBS in urine, not enough to treat but will need prophylaxis in labor. Brenda Mcdaniel MD Gestational hypertension wit hout significant proteinuria in third trimester 02/12/2018 02/22/2018 Overview: February 12, 2018 On L&D on 02/10/18- no evidence of preeclampsuia, BP stable. [facility]. Close f/u. will try to wait until next week for induction as is vanessa breech and may have spontaneous version in interim. Brenda Mcdaniel MD Breech presentation 02/02/2018 02/22/2018 Overview: 02/02/18 - handout given for exercises to turn baby, discussed possible version at 37-38 weeks if needed - KJ February 12, 2018 ECV attempted on 05/12/18- unsuccessful. Counseled on risks/benefits/alternatives of breech attempt vs primary c/s. Declines c/s. Brenda Mcdaniel MD GBS bacteriuria 01/26/2018 02/22/2018 Overview: 01/26/18 - Treat in labor with PCN abx per protocol. Ary Jensen APRN.CNM Grand multiparity with current in thir d trimester 01/24/2018 02/22/2018 Prior with d emise and current in third trimester 01/24/2018 04/03/2021 Overview: 01/24/18: Previous IUFD @ 23 weeks - attributed to cord accident. IOL and delivery in [facility] without complication. Ary Jensen APRN.CNM H/O pre-eclampsia in prior , currently 01/24/2018 02/22/2018 Overview: 01/24/18: Reports pre-eclampsia in 4th , was induced @ 40 weeks. Ary Jensen APRN.CNM documented as of this encounter (statuses as of 11/05/2022) [facility]03-03-2022 History of Past illness Narrative* Problem Noted Date Resolved Date Cholestasis during in third trimester 12/17/2021 10/21/2022 COVID-19 affecting in second trimester 10/05/2021 10/21/2022 Overview: At approx 21 weeks, 09/25/21. Brenda Mcdaniel MD GBS carrier 02/19/2019 04/03/2021 Overview: February 19, 2019 GBS in urine, not enough to treat but will need prophylaxis in labor. Brenda Mcdaniel MD Gestational hypertension wit hout significant proteinuria in third trimester 02/12/2018 02/22/2018 Overview: February 12, 2018 On L&D on 02/10/18- no evidence of preeclampsuia, BP stable. [facility]. Close f/u. will try to wait until next week for induction as is vanessa breech and may have spontaneous version in interim. Brenda Mcdaniel MD Breech presentation 02/02/2018 02/22/2018 Overview: 02/02/18 - handout given for exercises to turn baby, discussed possible version at 37-38 weeks if needed - KJ February 12, 2018 ECV attempted on 05/12/18- unsuccessful. Counseled on risks/benefits/alternatives of breech attempt vs primary c/s. Declines c/s. Brenda Mcdaniel MD GBS bacteriuria 01/26/2018 02/22/2018 Overview: 01/26/18 - Treat in labor with PCN abx per protocol. Ary Jensen APRN.MI Grand multiparity with current in thir d trimester 01/24/2018 02/22/2018 Prior with d emise and current in third trimester 01/24/2018 04/03/2021 Overview: 01/24/18: Previous IUFD @ 23 weeks - attributed to cord accident. IOL and delivery in [facility] without complication. Ary Jensen APRN.MI H/O pre-eclampsia in prior , currently 01/24/2018 02/22/2018 Overview: 01/24/18: Reports pre-eclampsia in 4th , was induced @ 40 weeks. Ary Jensen APRN.CNM documented as of this encounter (statuses as of 01/05/2023) [facility]03-03-2022 History of Past illness Narrative* Problem Noted Date Resolved Date Cholestasis during in third trimester 12/17/2021 10/21/2022 COVID-19 affecting in second trimester 10/05/2021 10/21/2022 Overview: At approx 21 weeks, 09/25/21. Brenda Mcdaniel MD GBS carrier 02/19/2019 04/03/2021 Overview: February 19, 2019 GBS in urine, not enough to treat but will need prophylaxis in labor. Brenda Mcdaniel MD Gestational hypertension wit hout significant proteinuria in third trimester 02/12/2018 02/22/2018 Overview: February 12, 2018 On L&D on 02/10/18- no evidence of preeclampsuia, BP stable. [facility]. Close f/u. will try to wait until next week for induction as is vanessa breech and may have spontaneous version in interim. Brenda Mcdaniel MD Breech presentation 02/02/2018 02/22/2018 Overview: 02/02/18 - handout given for exercises to turn baby, discussed possible version at 37-38 weeks if needed - KJ February 12, 2018 ECV attempted on 05/12/18- unsuccessful. Counseled on risks/benefits/alternatives of breech attempt vs primary c/s. Declines c/s. Brenda Mcdaniel MD GBS bacteriuria 01/26/2018 02/22/2018 Overview: 01/26/18 - Treat in labor with PCN abx per protocol. Ary Jensen APRN.ERASMOM Grand multiparity with current in thir d trimester 01/24/2018 02/22/2018 Prior with d emise and current in third trimester 01/24/2018 04/03/2021 Overview: 01/24/18: Previous IUFD @ 23 weeks - attributed to cord accident. IOL and delivery in [facility] without complication. Ary Jensen APRN.CNM H/O pre-eclampsia in prior , currently 01/24/2018 02/22/2018 Overview: 01/24/18: Reports pre-eclampsia in 4th , was induced @ 40 weeks. Ary Jensen APRN.CNM documented as of this encounter (statuses as of 01/21/2023) [facility]03-03[facility]2022 History of Past illness Narrative* Problem Noted Date Resolved Date Cholestasis during in third trimester 12/17/2021 10/21/2022 COVID-19 affecting in second trimester 10/05/2021 10/21/2022 Overview: At approx 21 weeks, 09/25/21. Brenda Mcdaniel MD GBS carrier 02/19/2019 04/03/2021 Overview: February 19, 2019 GBS in urine, not enough to treat but will need prophylaxis in labor. Brenda Mcdaniel MD Gestational hypertension wit hout significant proteinuria in third trimester 02/12/2018 02/22/2018 Overview: February 12, 2018 On L&D on 02/10/18- no evidence of preeclampsuia, BP stable. [place]/[facility]. Close f/u. will try to wait until next week for induction as is vanessa breech and may have spontaneous version in interim. Brenda Mcdaniel MD Breech presentation 02/02/2018 02/22/2018 Overview: 02/02/18 - handout given for exercises to turn baby, discussed possible version at 37-38 weeks if needed - KJ February 12, 2018 ECV attempted on 05/12/18- unsuccessful. Counseled on risks/benefits/alternatives of breech attempt vs primary c/s. Declines c/s. Brenda Mcdaniel MD GBS bacteriuria 01/26/2018 02/22/2018 Overview: 01/26/18 - Treat in labor with PCN abx per protocol. Ary Jensen APRN.CNM Grand multiparity with current in thir d trimester 01/24/2018 02/22/2018 Prior with d emise and current in third trimester 01/24/2018 04/03/2021 Overview: 01/24/18: Previous IUFD @ 23 weeks - attributed to cord accident. IOL and delivery in [facility] without complication. Ary Jensen APRN.CNM H/O pre-eclampsia in prior , currently 01/24/2018 02/22/2018 Overview: 01/24/18: Reports pre-eclampsia in 4th , was induced @ 40 weeks. Ary Jensen APRN.CNM documented as of this encounter (statuses as of 01/28/2023) [facility]03-03-2022 History of Past illness Narrative* Problem Noted Date Resolved Date Cholestasis during in third trimester 12/17/2021 10/21/2022 COVID-19 affecting in second trimester 10/05/2021 10/21/2022 Overview: At approx 21 weeks, 09/25/21. Brenda Mcdaniel MD GBS carrier 02/19/2019 04/03/2021 Overview: February 19, 2019 GBS in urine, not enough to treat but will need prophylaxis in labor. Brenda Mcdaniel MD Gestational hypertension wit hout significant proteinuria in third trimester 02/12/2018 02/22/2018 Overview: February 12, 2018 On L&D on 02/10/18- no evidence of preeclampsuia, BP stable. [place]/[facility]. Close f/u. will try to wait until next week for induction as is vanessa breech and may have spontaneous version in interim. Brenda Mcdaniel MD Breech presentation 02/02/2018 02/22/2018 Overview: 02/02/18 - handout given for exercises to turn baby, discussed possible version at 37-38 weeks if needed - KJ February 12, 2018 ECV attempted on 05/12/18- unsuccessful. Counseled on risks/benefits/alternatives of breech attempt vs primary c/s. Declines c/s. Brenda Mcdaniel MD GBS bacteriuria 01/26/2018 02/22/2018 Overview: 01/26/18 - Treat in labor with PCN abx per protocol. Ary Jensen APRN.CNM Grand multiparity with current in thir d trimester 01/24/2018 02/22/2018 Prior with d emise and current in third trimester 01/24/2018 04/03/2021 Overview: 01/24/18: Previous IUFD @ 23 weeks - attributed to cord accident. IOL and delivery in [facility] without complication. Ary Jensen APRN.CNM H/O pre-eclampsia in prior , currently 01/24/2018 02/22/2018 Overview: 01/24/18: Reports pre-eclampsia in 4th , was induced @ 40 weeks. Ary Jensen APRN.CNM documented as of this encounter (statuses as of 02/03/2023) [facility]03-03-2022 History of Past illness Narrative* Problem Noted Date Resolved Date Cholestasis during in third trimester 12/17/2021 10/21/2022 COVID-19 affecting in second trimester 10/05/2021 10/21/2022 Overview: At approx 21 weeks, 09/25/21. Brenda Mcdaniel MD GBS carrier 02/19/2019 04/03/2021 Overview: February 19, 2019 GBS in urine, not enough to treat but will need prophylaxis in labor. Brenda Mcdaniel MD Gestational hypertension wit hout significant proteinuria in third trimester 02/12/2018 02/22/2018 Overview: February 12, 2018 On L&D on 02/10/18- no evidence of preeclampsuia, BP stable. [place]/[facility] [facility]. Close f/u. will try to wait until next week for induction as is vanessa breech and may have spontaneous version in interim. Brenda Mcdaniel MD Breech presentation 02/02/2018 02/22/2018 Overview: 02/02/18 - handout given for exercises to turn baby, discussed possible version at 37-38 weeks if needed - KJ February 12, 2018 ECV attempted on 05/12/18- unsuccessful. Counseled on risks/benefits/alternatives of breech attempt vs primary c/s. Declines c/s. Brenda Mcdaniel MD GBS bacteriuria 01/26/2018 02/22/2018 Overview: 01/26/18 - Treat in labor with PCN abx per protocol. Ary Jensen APRN.CNM Grand multiparity with current in thir d trimester 01/24/2018 02/22/2018 Prior with d emise and current in third trimester 01/24/2018 04/03/2021 Overview: 01/24/18: Previous IUFD @ 23 weeks - attributed to cord accident. IOL and delivery in [facility] without complication. Ary Jensen APRN.CNM H/O pre-eclampsia in prior , currently 01/24/2018 02/22/2018 Overview: 01/24/18: Reports pre-eclampsia in 4th , was induced @ 40 weeks. Ary Jensen APRN.CNM documented as of this encounter (statuses as of 02/10/2023) [facility]03-03-2022 History of Past illness Narrative* Problem Noted Date Resolved Date Cholestasis during in third trimester 12/17/2021 10/21/2022 COVID-19 affecting in second trimester 10/05/2021 10/21/2022 Overview: At approx 21 weeks, 09/25/21. Brenda Mcdaniel MD GBS carrier 02/19/2019 04/03/2021 Overview: February 19, 2019 GBS in urine, not enough to treat but will need prophylaxis in labor. Brenda Mcdaniel MD Gestational hypertension wit hout significant proteinuria in third trimester 02/12/2018 02/22/2018 Overview: February 12, 2018 On L&D on 02/10/18- no evidence of preeclampsuia, BP stable. [place]/[facility] [facility]. Close f/u. will try to wait until next week for induction as is vanessa breech and may have spontaneous version in interim. Brenda Mcdaniel MD Breech presentation 02/02/2018 02/22/2018 Overview: 02/02/18 - handout given for exercises to turn baby, discussed possible version at 37-38 weeks if needed - KJ February 12, 2018 ECV attempted on 05/12/18- unsuccessful. Counseled on risks/benefits/alternatives of breech attempt vs primary c/s. Declines c/s. Brenda Mcdaniel MD GBS bacteriuria 01/26/2018 02/22/2018 Overview: 01/26/18 - Treat in labor with PCN abx per protocol. Ary Jensen APRN.CNM Grand multiparity with current in thir d trimester 01/24/2018 02/22/2018 Prior with d emise and current in third trimester 01/24/2018 04/03/2021 Overview: 01/24/18: Previous IUFD @ 23 weeks - attributed to cord accident. IOL and delivery in [facility] without complication. Ary Jensen APRN.CNM H/O pre-eclampsia in prior , currently 01/24/2018 02/22/2018 Overview: 01/24/18: Reports pre-eclampsia in 4th , was induced @ 40 weeks. Ary Jensen APRN.CNM documented as of this encounter (statuses as of 02/18/2023) [facility]03-03-2022 History of Past illness Narrative* Problem Noted Date Diagnosed Date Resolved Date Cholestasis during in third trimester 12/17/2021 10/21/2022 COVID-19 affecting in second trimester 10/05/2021 10/21/2022 Overview: At approx 21 weeks, 09/25/21. Brenda Mcdaniel MD GBS carrier 02/19/2019 04/03/2021 Overview: February 19, 2019 GBS in urine, not enough to treat but will need prophylaxis in labor. Brenda Mcdaniel MD Gestational hypertension wit hout significant proteinuria in third trimester 02/12/2018 8 Overview: February 12, 2018 On L&D on 02/10/18- no evidence of preeclampsuia, BP stable. [place]/[facility] [facility]. Close f/u. will try to wait until next week for induction as is vanessa breech and may have spontaneous version in interim. Brenda Mcdaniel MD Breech presentation 02/02/2018 02/23/20 18 Overview: 02/02/18 - handout given for exercises to turn baby, discussed possible version at 37-38 weeks if needed - KJ February 12, 2018 ECV attempted on 05/12/18- unsuccessful. Counseled on risks/benefits/alternatives of breech attempt vs primary c/s. Declines c/s. Brenda Mcdaniel MD GBS bacteriuria 01/26/2018 02/22/2018 Overview: 01/26/18 - Treat in labor with PCN abx per protocol. Ary Jensen APRN.MI Grand multiparity with curre nt in third trimester 01/24/2018 02/22/2018 Prior with d emise and current in third trimester 01/24/2018 04/03/2021 Overview: 01/24/18: Previous IUFD @ 23 weeks - attributed to cord accident. IOL and delivery in [facility] without complication. Ary Jensen APRN.MI H/O pre-eclampsia in prior p regnancy, currently 01/24/2018 02/22/2018 Overview: 01/24/18: Reports pre-eclampsia in 4th , was induced @ 40 weeks. Ary Jensen APRN.CNM documented as of this encounter (statuses as of 06/18/2023) [facility]05-06-2019 History of Past illness Narrative* Problem Noted Date Resolved Date GBS carrier 02/19/2019 04/03/2021 Overview: February 19, 2019 GBS in urine, not enough to treat but will need prophylaxis in labor. Brenda Mcdaniel MD Gestational hypertension wit hout significant proteinuria in third trimester 02/12/2018 02/22/2018 Overview: February 12, 2018 On L&D on 02/10/18- no evidence of preeclampsuia, BP stable. D/[place] [facility]. Close f/u. will try to wait until next week for induction as is vanessa breech and may have spontaneous version in interim. Brenda Mcdaniel MD Breech presentation 02/02/2018 02/22/2018 Overview: 02/02/18 - handout given for exercises to turn baby, discussed possible version at 37-38 weeks if needed - KJ February 12, 2018 ECV attempted on 05/12/18- unsuccessful. Counseled on risks/benefits/alternatives of breech attempt vs primary c/s. Declines c/s. Brenda Mcdaniel MD GBS bacteriuria 01/26/2018 02/22/2018 Overview: 01/26/18 - Treat in labor with PCN abx per protocol. Ary Jensen APRN.CNM Grand multiparity with current in thir d trimester 01/24/2018 02/22/2018 Prior with d emise and current in third trimester 01/24/2018 04/03/2021 Overview: 01/24/18: Previous IUFD @ 23 weeks - attributed to cord accident. IOL and delivery in [facility] without complication. Ary Jensen APRN.CNM H/O pre-eclampsia in prior , currently 01/24/2018 02/22/2018 Overview: 01/24/18: Reports pre-eclampsia in 4th , was induced @ 40 weeks. Ary Jensen APRN.CNM documented as of this encounter (statuses as of 01/08/2022) [facility] History of Past illness Narrative* Problem Noted Date Resolved Date GBS carrier 02/19/2019 04/03/2021 Overview: February 19, 2019 GBS in urine, not enough to treat but will need prophylaxis in labor. Brenda Mcdaniel MD Gestational hypertension wit hout significant proteinuria in third trimester 02/12/2018 02/22/2018 Overview: February 12, 2018 On L&D on 02/10/18- no evidence of preeclampsuia, BP stable. D/[place] [facility]. Close f/u. will try to wait until next week for induction as is vanessa breech and may have spontaneous version in interim. Brenda Mcdaniel MD Breech presentation 02/02/2018 02/22/2018 Overview: 02/02/18 - handout given for exercises to turn baby, discussed possible version at 37-38 weeks if needed - KJ February 12, 2018 ECV attempted on 05/12/18- unsuccessful. Counseled on risks/benefits/alternatives of breech attempt vs primary c/s. Declines c/s. Brenda Mcdaniel MD GBS bacteriuria 01/26/2018 02/22/2018 Overview: 01/26/18 - Treat in labor with PCN abx per protocol. Ary Jensen APRN.CNM Grand multiparity with current in thir d trimester 01/24/2018 02/22/2018 Prior with d emise and current in third trimester 01/24/2018 04/03/2021 Overview: 01/24/18: Previous IUFD @ 23 weeks - attributed to cord accident. IOL and delivery in [facility] without complication. Ary Jensen APRN.CNM H/O pre-eclampsia in prior , currently 01/24/2018 02/22/2018 Overview: 01/24/18: Reports pre-eclampsia in 4th , was induced @ 40 weeks. Ary Jensen APRN.CNM documented as of this encounter (statuses as of 01/12/2022) [facility] History of Past illness Narrative* Problem Noted Date Resolved Date GBS carrier 02/19/2019 04/03/2021 Overview: February 19, 2019 GBS in urine, not enough to treat but will need prophylaxis in labor. Brenda Mcdaniel MD Gestational hypertension wit hout significant proteinuria in third trimester 02/12/2018 02/22/2018 Overview: February 12, 2018 On L&D on 02/10/18- no evidence of preeclampsuia, BP stable. D/[place] home. Close f/u. will try to wait until next week for induction as is vanessa breech and may have spontaneous version in interim. Brenda Mcdaniel MD Breech presentation 02/02/2018 02/22/2018 Overview: 02/02/18 - handout given for exercises to turn baby, discussed possible version at 37-38 weeks if needed - KJ February 12, 2018 ECV attempted on 05/12/18- unsuccessful. Counseled on risks/benefits/alternatives of breech attempt vs primary c/s. Declines c/s. Brenda Mcdaniel MD GBS bacteriuria 01/26/2018 02/22/2018 Overview: 01/26/18 - Treat in labor with PCN abx per protocol. Ary Jensen APRN.CNM Grand multiparity with current in thir d trimester 01/24/2018 02/22/2018 Prior with d emise and current in third trimester 01/24/2018 04/03/2021 Overview: 01/24/18: Previous IUFD @ 23 weeks - attributed to cord accident. IOL and delivery in [facility] without complication. Ary Jensen APRN.CNM H/O pre-eclampsia in prior , currently 01/24/2018 02/22/2018 Overview: 01/24/18: Reports pre-eclampsia in 4th , was induced @ 40 weeks. Ary Jensen APRN.CNM documented as of this encounter (statuses as of 01/13/2022) [facility] History of Past illness Narrative* Problem Noted Date Resolved Date GBS carrier 02/19/2019 04/03/2021 Overview: February 19, 2019 GBS in urine, not enough to treat but will need prophylaxis in labor. Brenda Mcdaniel MD Gestational hypertension wit hout significant proteinuria in third trimester 02/12/2018 02/22/2018 Overview: February 12, 2018 On L&D on 02/10/18- no evidence of preeclampsuia, BP stable. D/[place] home. Close f/u. will try to wait until next week for induction as is vanessa breech and may have spontaneous version in interim. Brenda Mcdaniel MD Breech presentation 02/02/2018 02/22/2018 Overview: 02/02/18 - handout given for exercises to turn baby, discussed possible version at 37-38 weeks if needed - KJ February 12, 2018 ECV attempted on 05/12/18- unsuccessful. Counseled on risks/benefits/alternatives of breech attempt vs primary c/s. Declines c/s. Brenda Mcdaniel MD GBS bacteriuria 01/26/2018 02/22/2018 Overview: 01/26/18 - Treat in labor with PCN abx per protocol. Ary Jensen APRN.CNM Grand multiparity with current in thir d trimester 01/24/2018 02/22/2018 Prior with d emise and current in third trimester 01/24/2018 04/03/2021 Overview: 01/24/18: Previous IUFD @ 23 weeks - attributed to cord accident. IOL and delivery in [facility] without complication. Ary Jensen APRN.CNM H/O pre-eclampsia in prior , currently 01/24/2018 02/22/2018 Overview: 01/24/18: Reports pre-eclampsia in 4th , was induced @ 40 weeks. Ary Jensen APRN.CNM documented as of this encounter (statuses as of 01/20/2022) [facility] History of Past illness Narrative* Problem Noted Date Resolved Date GBS carrier 02/19/2019 04/03/2021 Overview: February 19, 2019 GBS in urine, not enough to treat but will need prophylaxis in labor. Brenda Mcdaniel MD Gestational hypertension wit hout significant proteinuria in third trimester 02/12/2018 02/22/2018 Overview: February 12, 2018 On L&D on 02/10/18- no evidence of preeclampsuia, BP stable. D/[place] home. Close f/u. will try to wait until next week for induction as is vanessa breech and may have spontaneous version in interim. Brenda Mcdaniel MD Breech presentation 02/02/2018 02/22/2018 Overview: 02/02/18 - handout given for exercises to turn baby, discussed possible version at 37-38 weeks if needed - KJ February 12, 2018 ECV attempted on 05/12/18- unsuccessful. Counseled on risks/benefits/alternatives of breech attempt vs primary c/s. Declines c/s. Brenda Mcdaniel MD GBS bacteriuria 01/26/2018 02/22/2018 Overview: 01/26/18 - Treat in labor with PCN abx per protocol. Ary Jensen APRN.CNM Grand multiparity with current in thir d trimester 01/24/2018 02/22/2018 Prior with d emise and current in third trimester 01/24/2018 04/03/2021 Overview: 01/24/18: Previous IUFD @ 23 weeks - attributed to cord accident. IOL and delivery in [facility] without complication. Ary Jensen APRN.CNM H/O pre-eclampsia in prior , currently 01/24/2018 02/22/2018 Overview: 01/24/18: Reports pre-eclampsia in 4th , was induced @ 40 weeks. Ary Jensen APRN.CNM documented as of this encounter (statuses as of 01/22/2022) [facility] History of Past illness Narrative* Problem Noted Date Resolved Date GBS carrier 02/19/2019 04/03/2021 Overview: February 19, 2019 GBS in urine, not enough to treat but will need prophylaxis in labor. Brenda Mcdaniel MD Gestational hypertension wit hout significant proteinuria in third trimester 02/12/2018 02/22/2018 Overview: February 12, 2018 On L&D on 02/10/18- no evidence of preeclampsuia, BP stable. D/[place] home. Close f/u. will try to wait until next week for induction as is vanessa breech and may have spontaneous version in interim. Brenda Mcdaniel MD Breech presentation 02/02/2018 02/22/2018 Overview: 02/02/18 - handout given for exercises to turn baby, discussed possible version at 37-38 weeks if needed - KJ February 12, 2018 ECV attempted on 05/12/18- unsuccessful. Counseled on risks/benefits/alternatives of breech attempt vs primary c/s. Declines c/s. Brenda Mcdaniel MD GBS bacteriuria 01/26/2018 02/22/2018 Overview: 01/26/18 - Treat in labor with PCN abx per protocol. Ary Jensen APRN.CNM Grand multiparity with current in thir d trimester 01/24/2018 02/22/2018 Prior with d emise and current in third trimester 01/24/2018 04/03/2021 Overview: 01/24/18: Previous IUFD @ 23 weeks - attributed to cord accident. IOL and delivery in [facility] without complication. Ary Jensen APRN.CNM H/O pre-eclampsia in prior , currently 01/24/2018 02/22/2018 Overview: 01/24/18: Reports pre-eclampsia in 4th , was induced @ 40 weeks. Ary Jensen APRN.CNM documented as of this encounter (statuses as of 06/29/2022) [facility] History of Past illness Narrative* Problem Noted Date Resolved Date GBS carrier 02/19/2019 04/03/2021 Overview: February 19, 2019 GBS in urine, not enough to treat but will need prophylaxis in labor. Brenda Mcdaniel MD Gestational hypertension wit hout significant proteinuria in third trimester 02/12/2018 02/22/2018 Overview: February 12, 2018 On L&D on 02/10/18- no evidence of preeclampsuia, BP stable. [facility]. Close f/u. will try to wait until next week for induction as is vanessa breech and may have spontaneous version in interim. Brenda Mcdaniel MD Breech presentation 02/02/2018 02/22/2018 Overview: 02/02/18 - handout given for exercises to turn baby, discussed possible version at 37-38 weeks if needed - KJ February 12, 2018 ECV attempted on 05/12/18- unsuccessful. Counseled on risks/benefits/alternatives of breech attempt vs primary c/s. Declines c/s. Brenda Mcdaniel MD GBS bacteriuria 01/26/2018 02/22/2018 Overview: 01/26/18 - Treat in labor with PCN abx per protocol. Ary Jensen APRN.CNM Grand multiparity with current in thir d trimester 01/24/2018 02/22/2018 Prior with d emise and current in third trimester 01/24/2018 04/03/2021 Overview: 01/24/18: Previous IUFD @ 23 weeks - attributed to cord accident. IOL and delivery in [facility] without complication. Ary Jensen APRN.CNM H/O pre-eclampsia in prior , currently 01/24/2018 02/22/2018 Overview: 01/24/18: Reports pre-eclampsia in 4th , was induced @ 40 weeks. Ary Jensen APRN.CNM documented as of this encounter (statuses as of 07/07/2022) [facility]05-06-2019 History of Past illness Narrative* Problem Noted Date Resolved Date GBS carrier 02/19/2019 04/03/2021 Overview: February 19, 2019 GBS in urine, not enough to treat but will need prophylaxis in labor. Brenda Mcdaniel MD Gestational hypertension wit hout significant proteinuria in third trimester 02/12/2018 02/22/2018 Overview: February 12, 2018 On L&D on 02/10/18- no evidence of preeclampsuia, BP stable. [facility]. Close f/u. will try to wait until next week for induction as is vanessa breech and may have spontaneous version in interim. Brenda Mcdaniel MD Breech presentation 02/02/2018 02/22/2018 Overview: 02/02/18 - handout given for exercises to turn baby, discussed possible version at 37-38 weeks if needed - KJ February 12, 2018 ECV attempted on 05/12/18- unsuccessful. Counseled on risks/benefits/alternatives of breech attempt vs primary c/s. Declines c/s. Brenda Mcdaniel MD GBS bacteriuria 01/26/2018 02/22/2018 Overview: 01/26/18 - Treat in labor with PCN abx per protocol. Ary Jensen APRN.CNM Grand multiparity with current in thir d trimester 01/24/2018 02/22/2018 Prior with d emise and current in third trimester 01/24/2018 04/03/2021 Overview: 01/24/18: Previous IUFD @ 23 weeks - attributed to cord accident. IOL and delivery in [facility] without complication. Ary Jensen APRN.CNM H/O pre-eclampsia in prior , currently 01/24/2018 02/22/2018 Overview: 01/24/18: Reports pre-eclampsia in 4th , was induced @ 40 weeks. Ary Jensen APRN.CNM documented as of this encounter (statuses as of 07/07/2022) [facility] History of Past illness Narrative* Problem Noted Date Resolved Date GBS carrier 02/19/2019 04/03/2021 Overview: February 19, 2019 GBS in urine, not enough to treat but will need prophylaxis in labor. Brenda Mcdaniel MD Gestational hypertension wit hout significant proteinuria in third trimester 02/12/2018 02/22/2018 Overview: February 12, 2018 On L&D on 02/10/18- no evidence of preeclampsuia, BP stable. [place]. Close f/u. will try to wait until next week for induction as is vanessa breech and may have spontaneous version in interim. Brenda Mcdaniel MD Breech presentation 02/02/2018 02/22/2018 Overview: 02/02/18 - handout given for exercises to turn baby, discussed possible version at 37-38 weeks if needed - February 12, 2018 ECV attempted on 05/12/18- unsuccessful. Counseled on risks/benefits/alternatives of breech attempt vs primary c/s. Declines c/s. Brenda Mcdaniel MD GBS bacteriuria 01/26/2018 02/22/2018 Overview: 01/26/18 - Treat in labor with PCN abx per protocol. Ary Jensen APRN.CNM Grand multiparity with current in thir d trimester 01/24/2018 02/22/2018 Prior with d emise and current in third trimester 01/24/2018 04/03/2021 Overview: 01/24/18: Previous IUFD @ 23 weeks - attributed to cord accident. IOL and delivery in [facility] without complication. Ary Jensen APRN.CNM H/O pre-eclampsia in prior , currently 01/24/2018 02/22/2018 Overview: 01/24/18: Reports pre-eclampsia in 4th , was induced @ 40 weeks. Ary Jensen APRN.CNM documented as of this encounter (statuses as of 07/29/2022) [facility] History of Past illness Narrative* Problem Noted Date Resolved Date GBS carrier 02/19/2019 04/03/2021 Overview: February 19, 2019 GBS in urine, not enough to treat but will need prophylaxis in labor. Brenda Mcdaniel MD Gestational hypertension wit hout significant proteinuria in third trimester 02/12/2018 02/22/2018 Overview: February 12, 2018 On L&D on 02/10/18- no evidence of preeclampsuia, BP stable. [place] [facility]. Close f/u. will try to wait until next week for induction as is vanessa breech and may have spontaneous version in interim. Brenda Mcdaniel MD Breech presentation 02/02/2018 02/22/2018 Overview: 02/02/18 - handout given for exercises to turn baby, discussed possible version at 37-38 weeks if needed - KJ February 12, 2018 ECV attempted on 05/12/18- unsuccessful. Counseled on risks/benefits/alternatives of breech attempt vs primary c/s. Declines c/s. Brenda Mcdaniel MD GBS bacteriuria 01/26/2018 02/22/2018 Overview: 01/26/18 - Treat in labor with PCN abx per protocol. Ary Jensen APRN.CNM Grand multiparity with current in thir d trimester 01/24/2018 02/22/2018 Prior with d emise and current in third trimester 01/24/2018 04/03/2021 Overview: 01/24/18: Previous IUFD @ 23 weeks - attributed to cord accident. IOL and delivery in [facility] without complication. Ary Jensen APRN.CNM H/O pre-eclampsia in prior , currently 01/24/2018 02/22/2018 Overview: 01/24/18: Reports pre-eclampsia in 4th , was induced @ 40 weeks. Ary Jensen APRN.CNM documented as of this encounter (statuses as of 08/03/2022) [facility] History of Past illness Narrative* Problem Noted Date Resolved Date GBS carrier 02/19/2019 04/03/2021 Overview: February 19, 2019 GBS in urine, not enough to treat but will need prophylaxis in labor. Brenda Mcdaniel MD Gestational hypertension wit hout significant proteinuria in third trimester 02/12/2018 02/22/2018 Overview: February 12, 2018 On L&D on 02/10/18- no evidence of preeclampsuia, BP stable. [place] home. Close f/u. will try to wait until next week for induction as is vanessa breech and may have spontaneous version in interim. Brenda Mcdaniel MD Breech presentation 02/02/2018 02/22/2018 Overview: 02/02/18 - handout given for exercises to turn baby, discussed possible version at 37-38 weeks if needed - KJ February 12, 2018 ECV attempted on 05/12/18- unsuccessful. Counseled on risks/benefits/alternatives of breech attempt vs primary c/s. Declines c/s. Brenda Mcdaniel MD GBS bacteriuria 01/26/2018 02/22/2018 Overview: 01/26/18 - Treat in labor with PCN abx per protocol. Ary Jensen APRN.CNM Grand multiparity with current in thir d trimester 01/24/2018 02/22/2018 Prior with d emise and current in third trimester 01/24/2018 04/03/2021 Overview: 01/24/18: Previous IUFD @ 23 weeks - attributed to cord accident. IOL and delivery in [facility] without complication. Ary Jensen APRN.CNM H/O pre-eclampsia in prior , currently 01/24/2018 02/22/2018 Overview: 01/24/18: Reports pre-eclampsia in 4th , was induced @ 40 weeks. Ary Jensen APRN.CNM documented as of this encounter (statuses as of 08/04/2022) [facility] History of Past illness Narrative* Problem Noted Date Resolved Date GBS carrier 02/19/2019 04/03/2021 Overview: February 19, 2019 GBS in urine, not enough to treat but will need prophylaxis in labor. Brenda Mcdaniel MD Gestational hypertension wit hout significant proteinuria in third trimester 02/12/2018 02/22/2018 Overview: February 12, 2018 On L&D on 02/10/18- no evidence of preeclampsuia, BP stable. [place] home. Close f/u. will try to wait until next week for induction as is vanessa breech and may have spontaneous version in interim. Brenda Mcdaniel MD Breech presentation 02/02/2018 02/22/2018 Overview: 02/02/18 - handout given for exercises to turn baby, discussed possible version at 37-38 weeks if needed - KJ February 12, 2018 ECV attempted on 05/12/18- unsuccessful. Counseled on risks/benefits/alternatives of breech attempt vs primary c/s. Declines c/s. Brenda Mcdaniel MD GBS bacteriuria 01/26/2018 02/22/2018 Overview: 01/26/18 - Treat in labor with PCN abx per protocol. Ary Jensen APRN.CNM Grand multiparity with current in thir d trimester 01/24/2018 02/22/2018 Prior with d emise and current in third trimester 01/24/2018 04/03/2021 Overview: 01/24/18: Previous IUFD @ 23 weeks - attributed to cord accident. IOL and delivery in [facility] without complication. Ary Jensen APRN.CNM H/O pre-eclampsia in prior , currently 01/24/2018 02/22/2018 Overview: 01/24/18: Reports pre-eclampsia in 4th , was induced @ 40 weeks. Ary Jensen APRN.CNM documented as of this encounter (statuses as of 08/04/2022) [facility] History of Past illness Narrative* Problem Noted Date Resolved Date GBS carrier 02/19/2019 04/03/2021 Overview: February 19, 2019 GBS in urine, not enough to treat but will need prophylaxis in labor. Brenda Mcdaniel MD Gestational hypertension wit hout significant proteinuria in third trimester 02/12/2018 02/22/2018 Overview: February 12, 2018 On L&D on 02/10/18- no evidence of preeclampsuia, BP stable. [place]/[facility] home. Close f/u. will try to wait until next week for induction as is vanessa breech and may have spontaneous version in interim. Brenda Mcdaniel MD Breech presentation 02/02/2018 02/22/2018 Overview: 02/02/18 - handout given for exercises to turn baby, discussed possible version at 37-38 weeks if needed - KJ February 12, 2018 ECV attempted on 05/12/18- unsuccessful. Counseled on risks/benefits/alternatives of breech attempt vs primary c/s. Declines c/s. Brenda Mcdaniel MD GBS bacteriuria 01/26/2018 02/22/2018 Overview: 01/26/18 - Treat in labor with PCN abx per protocol. Ary Jensen APRN.CNM Grand multiparity with current in thir d trimester 01/24/2018 02/22/2018 Prior with d emise and current in third trimester 01/24/2018 04/03/2021 Overview: 01/24/18: Previous IUFD @ 23 weeks - attributed to cord accident. IOL and delivery in [facility] without complication. Ary Jensen APRN.CNM H/O pre-eclampsia in prior , currently 01/24/2018 02/22/2018 Overview: 01/24/18: Reports pre-eclampsia in 4th , was induced @ 40 weeks. Ary Jensen APRN.CNM documented as of this encounter (statuses as of 08/09/2022) [facility] History of Past illness Narrative* Problem Noted Date Resolved Date GBS carrier 02/19/2019 04/03/2021 Overview: February 19, 2019 GBS in urine, not enough to treat but will need prophylaxis in labor. Brenda Mcdaniel MD Gestational hypertension wit hout significant proteinuria in third trimester 02/12/2018 02/22/2018 Overview: February 12, 2018 On L&D on 02/10/18- no evidence of preeclampsuia, BP stable. [place]/[facility] home. Close f/u. will try to wait until next week for induction as is vanessa breech and may have spontaneous version in interim. Brenda Mcdaniel MD Breech presentation 02/02/2018 02/22/2018 Overview: 02/02/18 - handout given for exercises to turn baby, discussed possible version at 37-38 weeks if needed - KJ February 12, 2018 ECV attempted on 05/12/18- unsuccessful. Counseled on risks/benefits/alternatives of breech attempt vs primary c/s. Declines c/s. Brenda Mcdaniel MD GBS bacteriuria 01/26/2018 02/22/2018 Overview: 01/26/18 - Treat in labor with PCN abx per protocol. Ary Jensen APRN.CNM Grand multiparity with current in thir d trimester 01/24/2018 02/22/2018 Prior with d emise and current in third trimester 01/24/2018 04/03/2021 Overview: 01/24/18: Previous IUFD @ 23 weeks - attributed to cord accident. IOL and delivery in [facility] without complication. Ary Jensen APRN.CNM H/O pre-eclampsia in prior , currently 01/24/2018 02/22/2018 Overview: 01/24/18: Reports pre-eclampsia in 4th , was induced @ 40 weeks. Ary Jensen APRN.CNM documented as of this encounter (statuses as of 09/01/2022) [facility] History of Past illness Narrative* Problem Noted Date Resolved Date GBS carrier 02/19/2019 04/03/2021 Overview: February 19, 2019 GBS in urine, not enough to treat but will need prophylaxis in labor. Brenda Mcdaniel MD Gestational hypertension wit hout significant proteinuria in third trimester 02/12/2018 02/22/2018 Overview: February 12, 2018 On L&D on 02/10/18- no evidence of preeclampsuia, BP stable. [place] home. Close f/u. will try to wait until next week for induction as is vanessa breech and may have spontaneous version in interim. Brenda Mcdaniel MD Breech presentation 02/02/2018 02/22/2018 Overview: 02/02/18 - handout given for exercises to turn baby, discussed possible version at 37-38 weeks if needed - KJ February 12, 2018 ECV attempted on 05/12/18- unsuccessful. Counseled on risks/benefits/alternatives of breech attempt vs primary c/s. Declines c/s. Brenda Mcdaniel MD GBS bacteriuria 01/26/2018 02/22/2018 Overview: 01/26/18 - Treat in labor with PCN abx per protocol. Ary Jensen APRN.CNM Grand multiparity with current in thir d trimester 01/24/2018 02/22/2018 Prior with d emise and current in third trimester 01/24/2018 04/03/2021 Overview: 01/24/18: Previous IUFD @ 23 weeks - attributed to cord accident. IOL and delivery in [facility] without complication. Ary Jensen APRN.CNM H/O pre-eclampsia in prior , currently 01/24/2018 02/22/2018 Overview: 01/24/18: Reports pre-eclampsia in 4th , was induced @ 40 weeks. Ary Jensen APRN.CNM documented as of this encounter (statuses as of 09/22/2022) [facility] note* Diagnosis Cholestasis during in third trimester- Primary Supervision of other high risk pregnancies, third trimester Prior poor obstetrical history in third trimester, antepartum [facility]* Diagnosis Onset Date Resolution Status 36 weeks gestation of acute Advanced maternal age during in third trimester acute Cholestasis during in third trimester acute Grand multipara in labor acu te Personal history of COVID-19 acute delivery acute Status post vaginal delivery acute Supervision of other high ri sk pregnancies, third trimester acute Unfavorable cervix in term acute [facility] Work Phone: Evaluation note* Diagnosis Postoperative pain- Primary Other acute postoperative pain [facility] this encounter [facility]* Diagnosis with uncertain dates in first trimester- Primary [facility]* Diagnosis AMA (advanced maternal age) multigravida 35+, first trimester- Primary 8 weeks gestation of state, incidental Supervision of other high risk pregnancies, first trimester History of pre-eclampsia in prior , currently , first trimester documented [facility]* Diagnosis Multigravida of advanced maternal age in first trimester- Primary [facility]* Diagnosis 12 weeks gestation of - Primary state, incidental Supervision of other high risk pregnancies, first trimester Encounter for screening of mother Unspecified screening Multigravida of advanced maternal age in second trimester Advanced maternal age in multigravida, first trimester [facility] Diagnosis Encounter for (NT) nuchal translucency scan- Primary Other specified screening 12 weeks gestation of state, incidental Multigravida of advanced maternal age in first trimester documented in this encounter [facility] note* Diagnosis 16 weeks gestation of - Primary state, incidental AMA (advanced maternal age) multigravida 35+, second trimester [facility]* Diagnosis History of pre-eclampsia in prior , currently - Primary with other poor obstetric history Antepartum multigravida of advanced maternal age Grand multipara Grand multiparity in labor and delivery, unspecified as to episode of care or not applicable 19 weeks gestation of state, incidental [facility]* Diagnosis 23 weeks gestation of - Primary state, incidental AMA (advanced maternal age) multigravida 35+, second trimester History of pre-eclampsia in prior , currently with other poor obstetric history [facility] Diagnosis AMA (advanced maternal age) multigravida 35+, second trimester- Primary 25 weeks gestation of state, incidental Leg cramps in Other specified complication of , unspecified as to episode of care Right leg pain Pain in limb Headache in , antepartum, second trimester [facility]* Diagnosis 34 weeks gestation of - Primary state, incidental AMA (advanced maternal age) multigravida 35+, third trimester Supervision of other high risk pregnancies, third trimester [facility] Diagnosis Grand multipara- Primary Grand multiparity in labor and delivery, unspecified as to episode of care or not applicable Antepartum multigravida of advanced maternal age 36 weeks gestation of state, incidental AMA (advanced maternal age) multigravida 35+, third trimester [facility] Diagnosis AMA (advanced maternal age) multigravida 35+, third trimester- Primary 37 weeks gestation of state, incidental AMA (advanced maternal age) multigravida 35+, third trimester [facility]* Diagnosis 38 weeks gestation of - Primary state, incidental AMA (advanced maternal age) multigravida 35+, third trimester Grand multipara Grand multiparity in labor and delivery, unspecified as to episode of care or not applicable Supervision of other high risk pregnancies, third trimester documented in this encounter [facility] note* Diagnosis Other specified disorders of bone, upper arm documented in this encounter [facility] note* Diagnosis Pain in right shoulder documented in this encounter [facility] note* Diagnosis Procedure not carried out- Primary Procedure not carried out for other reasons documented in this encounter [facility] note* Diagnosis Liver disease, unspecified documented in this encounter [facility] note* Diagnosis Other specified disorders of bone, upper arm- Primary Other specified disorders of bone, upper arm documented in this encounter [facility] note* Diagnosis Pain in left knee documented in this encounter [facility] note* Diagnosis Pain in left knee- Primary Pain in left knee documented in this encounter [facility] note* Diagnosis Hypertrophy of bone, left shoulder documented in this encounter [facility] note* Diagnosis Diarrhea, unspecified type- Primary BRBPR (bright red blood per rectum) Hemorrhage of rectum and anus Hemorrhoids, internal Internal hemorrhoids without mention of complication Right sided abdominal pain Abdominal pain, unspecified site Abdominal distension (gaseous) Flatulence, eructation, and gas pain Right lower quadrant abdominal pain Abdominal pain, right lower quadrant Nausea Nausea alone documented in this encounter [facility] note* Diagnosis Hemorrhoids, internal- Primary Internal hemorrhoids without mention of complication documented in this encounter [facility] note* Diagnosis Right upper quadrant pain- Primary Abdominal pain, right upper quadrant documented in this encounter [facility] note* Diagnosis Hypertrophy of bone, left shoulder- Primary Hypertrophy of bone, left shoulder documented in this encounter [facility] note* Diagnosis Right upper quadrant pain Abdominal pain, right upper quadrant documented in this encounter [facility] note* Diagnosis Liver lesion Other specified disorders of liver documented in this encounter [facility] note* Diagnosis Anal disorder- Primary Other specified disorder of rectum and anus Papule Other specified disorder of skin documented in this encounter [facility] note* Diagnosis Anal lesion- Primary Other specified disorder of rectum and anus documented in this encounter [facility] note* Diagnosis Anal fistula- Primary [facility]* Diagnosis Supervision of high risk in first trimester (HCC)- Primary Unspecified high-risk [facility] Diagnosis Encounter for supervision of high risk in first trimester, antepartum (HCC)- Primary 9 weeks gestation of ([facility]) state, incidental with uncertain dates in first trimester ([facility]) Screening for cervical cancer Screening for malignant neoplasm of the cervix Encounter for screening for human papillomavirus (HPV) Special screening examination for human papillomavirus (HPV) Nausea and vomiting in ([facility]) Unspecified vomiting of , unspecified as to episode of care Multigravida of advanced maternal age in first trimester ([facility]) History of gestational hypertension History of pre-eclampsia in prior , currently (HCC) with other poor obstetric history History of depression, currently (HCC) with other poor obstetric history [facility] Diagnosis Encounter for supervision of high risk in first trimester, antepartum (HCC)- Primary AMA (advanced maternal age) multigravida 35+, first trimester (HCC) 13 weeks gestation of ([facility]) state, incidental [facility] Diagnosis Encounter for screening for malformation using ultrasound ([facility])- Primary 13 weeks gestation of ([facility]) state, incidental [facility] Diagnosis Supervision of high risk in second trimester (HCC)- Primary Unspecified high-risk Malaise and fatigue Other malaise and fatigue [facility] Diagnosis 19 weeks gestation of (HCC)- Primary state, incidental Supervision of high risk in second trimester (HCC) Unspecified high-risk AMA (advanced maternal age) multigravida 35+, first trimester (HCC) [facility] Diagnosis Multigravida of advanced maternal age in first trimester (HCC)- Primary with uncertain dates in first trimester (HCC) Prior with demise and current in first trimester ([facility]) documented in this encounter [facility] for referral (narrative)* Diagnostic Procedure Only (Routine) - Authorized Specialty Diagnoses / Procedures Referred By Contac t Referred To Contact [facility] Diagnoses AMA (advanced maternal age) multigravida 36+, first trimester 8 weeks gestation of Procedures NUCHAL TRANSLUCENCY WHI US NUCHAL TRANSLUCENCY 1ST GESTATION Brenda Mcdaniel MD [address] [place] [address] [facility] [address] [place] [id number] Referral ID Status Reason Start Date Expiration Date Visits Requested Visits Authorized [id number] Authorized Auto-Generat ed Referral 07/07/2022 07/07/2023 1 1 [facility] for referral (narrative)* Diagnostic Procedure Only (Routine) - Pending Review Specialty Diagnoses / Procedures Referred By Ziaac t Referred To Contact [facility] Diagnoses Supervision of other high risk pregnancies, first trimester Encounter for screening of mother Multigravida of advanced maternal age in second trimester Procedures OBSTETRIC ULTRASOUND WHI US PREG UTERUS AFTER 1ST TRIMEST GESTATION Brenda Mcdaniel MD [address] [place] [address] [id number] [place] [address] Referral ID Status Reason Start Date Expiration Date Visits Requested Visits Authorized [id number] Pending Review Auto-Generat ed Referral 08/04/2023 1 1 [facility] for referral (narrative)* Outpatient Procedure (Routine) - Authorized Specialty Diagnoses / Procedures Referred By Contac t Referred To Contact [facility] Diagnoses AMA (advanced maternal age) multigravida 35+, third trimester Procedures NON-STRESS TEST NON-STRESS TEST Brenda Mcdaniel MD [address] [place] [address] [facility] [address] [place] [id number] Referral ID Status Reason Start Date Expiration Date Visits Requested Visits Authorized [id number] Authorized Auto-Generat ed Referral 01/05/2023 01/05/2024 4 [facility] Diagnostic Procedure Only (Routine) - Closed Specialty Diagnoses / Procedures Referred By Daniel blanco Referred To Contact [facility] Diagnoses with uncertain dates in first trimester (HCC) Procedures OBSTETRIC ULTRASOUND WHI US PREG UTERUS AFTER 1ST TRIMEST GESTATION Omar Freedman APRN.SYSTEMS TESTING LABORATORY TECHNICIAN [address] [place] [address] Phone: tel: fax: [facility] [address] [place] [address] Referral ID Status Reason Start Date Expiration Date V isits Requested Visits Authorized [id number] Closed Auto-Generate d Referral 03/28/2025 03/28/2026 1 1 [facility] Summary Purpose Family History No Family History Records FoundNo Family History Records FoundNo Family History Records FoundNo Family History Records FoundNo Family History Records FoundNo Family History Records FoundNo Family History Records FoundNo Family History Records FoundNo Family History Records Found Advance Directives No Advanced Directives Records FoundDocuments on File Type Date Recorded Patient Shipping Associate Expl anation Advance Directives and Living Will Power of Cyber Workforce Developer And Manager Documents on File Type Date Recorded Patient Shipping Associate Expl anation ACP-Advance Directive ACP-Power of Cyber Workforce Developer And Manager Documents on File Type Date Recorded Patient Shipping Associate Expl anation Advance Directive(s) 10/08/2021 7:09 PM Advance Directive Response Recorded Date/ Time Living Will No January 11, 2022 9:22am Power of Cyber Workforce Developer And Manager No January 11 9:22am Chief Complaint and Reason for Visit Chief Complaint VAGINAL DELIVERY Reason for Visit 36 weeks gestation o f Advanced maternal age during in third trimester Cholestasis during in third trimester Grand multipara in labor Personal history of COVID-19 delivery Status post vaginal delivery Supervision of other high risk pregnancies, third trimester Unfavorable cervix in term Health Concerns Problem Noted Date OB Reminders 07/07/2022 Problem Noted Date OB Reminders 07/07/2022 Problem Noted Date OB Reminders 07/07/2022 Problem Noted Date OB Reminders 07/07/2022 Problem Noted Date OB Reminders 07/07/2022 Problem Noted Date OB Reminders 07/07/2022 Problem Noted Date OB Reminders 07/07/2022 Problem Noted Date OB Reminders 07/07/2022 Problem Noted Date OB Reminders 07/07/2022 Problem Noted Date OB Reminders 07/07/2022 Problem Noted Date OB Reminders 07/07/2022 Problem Noted Date OB Reminders 07/07/2022 Problem Noted Date Diagnosed Date OB Reminders 07/07/2022 Reason for Referral Specialty Diagnoses / Procedures Referred By Contac t Referred To Contact Radiology Diagnoses Liver disease, unspecified Procedures MR abdomen w and wo contrast Ross Downey MD [address] [place] [address] Referral ID Status Reason Start Date Expiration Date Visits Re quested Visits Authorized [id number] Closed 06/22/2023 08/06/2023 1 1 Specialty Diagnoses / Procedures Referred By Contac t Referred To Contact CT IMAGING Diagnoses Right sided abdominal pain Abdominal distension (gaseous) Right lower quadrant abdominal pain Nausea Procedures CT ABD/PEL W IVCON CT ABD & PELVIS W/CONTRAST Kelly Win PA-C [address] [place] [address] [id number] Referral ID Status Reason Start Date Expiration Date Visits Requested Visits Authorized [id number] Authorized Auto-Generat ed Referral 04/26/2024 05/26/2025 1 1 Specialty Diagnoses / Procedures [facility] Diagnoses Liver lesion Procedures MRI LIVER WO/W IVCON MRI ABDOMEN W/O & W/CONTRAST MATERIAL Kelly Win PA-C [address] [place] [address] [place] [address] Referral ID Status Reason Start Date Expiration Date V isits Requested Visits Authorized [id number] Closed Auto-Generate d Referral 08/27/2024 09/26/2025 1 1 Additional Source Comments INFORMATION SOURCE (unrecogn ized section and content) DATE CREATED AUTHOR 04/11/2018 [facility] DATE CREATED AUTHOR AUTHOR'S ORGANIZ ATION 04/11/2018 [facility] DATE CREATED AUTHOR AUTHOR'S ORGANIZ ATION 03/01/2020 [facility] DATE CREATED AUTHOR AUTHOR'S ORGANIZ ATION 05/05/2022 [facility] DATE CREATED AUTHOR AUTHOR'S ORGANIZ ATION 02/10/2023 [facility] ([place] DATE CREATED AUTHOR AUTHOR'S ORGANIZ ATION 02/15/2023 [facility] DATE CREATED AUTHOR AUTHOR'S ORGANIZ ATION 08/26/2024 [facility] DATE CREATED AUTHOR AUTHOR'S ORGANIZ ATION 06/06/2025 [facility] DATE CREATED AUTHOR AUTHOR'S ORGANIZ ATION 08/21/2025 [facility] Source Comments (unrecognize d section and content) In the event this informatio n is protected by the Federal Confidentiality of Alcohol and Drug Abuse Patient Records regulations: The Federal rules restrict any use of the information to criminally investigate or prosecute any alcohol or drug abuse patient.[facility] the event this information is protected by the Federal Confidentiality of Alcohol and Drug Abuse Patient Records regulations: The Federal rules restrict any use of the information to criminally investigate or prosecute any alcohol or drug abuse patient.[facility] the event this information is protected by the Federal Confidentiality of Alcohol and Drug Abuse Patient Records regulations: The Federal rules restrict any use of the information to criminally investigate or prosecute any alcohol or drug abuse patient.[facility] the event this information is protected by the Federal Confidentiality of Alcohol and Drug Abuse Patient Records regulations: The Federal rules restrict any use of the information to criminally investigate or prosecute any alcohol or drug abuse patient.[facility] Hospital[facility] the event this information is protected by the Federal Confidentiality of Alcohol and Drug Abuse Patient Records regulations: The Federal rules restrict any use of the information to criminally investigate or prosecute any alcohol or drug abuse patient.[facility] Hospital[facility] the event this information is protected by the Federal Confidentiality of Alcohol and Drug Abuse Patient Records regulations: The Federal rules restrict any use of the information to criminally investigate or prosecute any alcohol or drug abuse patient.[facility] Hospital[facility] the event this information is protected by the Federal Confidentiality of Alcohol and Drug Abuse Patient Records regulations: The Federal rules restrict any use of the information to criminally investigate or prosecute any alcohol or drug abuse patient.[facility] Hospital[facility] the event this information is protected by the Federal Confidentiality of Alcohol and Drug Abuse Patient Records regulations: The Federal rules restrict any use of the information to criminally investigate or prosecute any alcohol or drug abuse patient.[facility] Hospital[facility] the event this information is protected by the Federal Confidentiality of Alcohol and Drug Abuse Patient Records regulations: The Federal rules restrict any use of the information to criminally investigate or prosecute any alcohol or drug abuse patient.[facility] Hospital[facility] the event this information is protected by the Federal Confidentiality of Alcohol and Drug Abuse Patient Records regulations: The Federal rules restrict any use of the information to criminally investigate or prosecute any alcohol or drug abuse patient.[facility] Hospital[facility] the event this information is protected by the Federal Confidentiality of Alcohol and Drug Abuse Patient Records regulations: The Federal rules restrict any use of the information to criminally investigate or prosecute any alcohol or drug abuse patient.[facility] Hospital[facility] the event this information is protected by the Federal Confidentiality of Alcohol and Drug Abuse Patient Records regulations: The Federal rules restrict any use of the information to criminally investigate or prosecute any alcohol or drug abuse patient.[facility] Hospital[facility] the event this information is protected by the Federal Confidentiality of Alcohol and Drug Abuse Patient Records regulations: The Federal rules restrict any use of the information to criminally investigate or prosecute any alcohol or drug abuse patient.[facility] Hospital[facility] the event this information is protected by the Federal Confidentiality of Alcohol and Drug Abuse Patient Records regulations: The Federal rules restrict any use of the information to criminally investigate or prosecute any alcohol or drug abuse patient.[facility] Hospital[facility] the event this information is protected by the Federal Confidentiality of Alcohol and Drug Abuse Patient Records regulations: The Federal rules restrict any use of the information to criminally investigate or prosecute any alcohol or drug abuse patient.[facility] Hospital[facility] the event this information is protected by the Federal Confidentiality of Alcohol and Drug Abuse Patient Records regulations: The Federal rules restrict any use of the information to criminally investigate or prosecute any alcohol or drug abuse patient.[facility] HospitalIn the event this information is protected by the Federal Confidentiality of Alcohol and Drug Abuse Patient Records regulations: The Federal rules restrict any use of the information to criminally investigate or prosecute any alcohol or drug abuse patient.[facility] HospitalIn the event this information is protected by the Federal Confidentiality of Alcohol and Drug Abuse Patient Records regulations: The Federal rules restrict any use of the information to criminally investigate or prosecute any alcohol or drug abuse patient.[facility] HospitalIn the event this information is protected by the Federal Confidentiality of Alcohol and Drug Abuse Patient Records regulations: The Federal rules restrict any use of the information to criminally investigate or prosecute any alcohol or drug abuse patient.[facility] HospitalIn the event this information is protected by the Federal Confidentiality of Alcohol and Drug Abuse Patient Records regulations: The Federal rules restrict any use of the information to criminally investigate or prosecute any alcohol or drug abuse patient.[facility] HospitalIn the event this information is protected by the Federal Confidentiality of Alcohol and Drug Abuse Patient Records regulations: The Federal rules restrict any use of the information to criminally investigate or prosecute any alcohol or drug abuse patient.[facility] HospitalIn the event this information is protected by the Federal Confidentiality of Alcohol and Drug Abuse Patient Records regulations: The Federal rules restrict any use of the information to criminally investigate or prosecute any alcohol or drug abuse patient.[facility] HospitalIn the event this information is protected by the Federal Confidentiality of Alcohol and Drug Abuse Patient Records regulations: The Federal rules restrict any use of the information to criminally investigate or prosecute any alcohol or drug abuse patient.[facility] HospitalIn the event this information is protected by the Federal Confidentiality of Alcohol and Drug Abuse Patient Records regulations: The Federal rules restrict any use of the information to criminally investigate or prosecute any alcohol or drug abuse patient.[facility] HospitalIn the event this information is protected by the Federal Confidentiality of Alcohol and Drug Abuse Patient Records regulations: The Federal rules restrict any use of the information to criminally investigate or prosecute any alcohol or drug abuse patient.[facility] HospitalIn the event this information is protected by the Federal Confidentiality of Alcohol and Drug Abuse Patient Records regulations: The Federal rules restrict any use of the information to criminally investigate or prosecute any alcohol or drug abuse patient.[facility] HospitalIn the event this information is protected by the Federal Confidentiality of Alcohol and Drug Abuse Patient Records regulations: The Federal rules restrict any use of the information to criminally investigate or prosecute any alcohol or drug abuse patient.[facility] HospitalIn the event this information is protected by the Federal Confidentiality of Alcohol and Drug Abuse Patient Records regulations: The Federal rules restrict any use of the information to criminally investigate or prosecute any alcohol or drug abuse patient.[facility] HospitalIn the event this information is protected by the Federal Confidentiality of Alcohol and Drug Abuse Patient Records regulations: The Federal rules restrict any use of the information to criminally investigate or prosecute any alcohol or drug abuse patient.[facility] HospitalIn the event this information is protected by the Federal Confidentiality of Alcohol and Drug Abuse Patient Records regulations: The Federal rules restrict any use of the information to criminally investigate or prosecute any alcohol or drug abuse patient.[facility] HospitalIn the event this information is protected by the Federal Confidentiality of Alcohol and Drug Abuse Patient Records regulations: The Federal rules restrict any use of the information to criminally investigate or prosecute any alcohol or drug abuse patient.[facility] HospitalIn the event this information is protected by the Federal Confidentiality of Alcohol and Drug Abuse Patient Records regulations: The Federal rules restrict any use of the information to criminally investigate or prosecute any alcohol or drug abuse patient.[facility] HospitalIn the event this information is protected by the Federal Confidentiality of Alcohol and Drug Abuse Patient Records regulations: The Federal rules restrict any use of the information to criminally investigate or prosecute any alcohol or drug abuse patient.[facility] HospitalIn the event this information is protected by the Federal Confidentiality of Alcohol and Drug Abuse Patient Records regulations: The Federal rules restrict any use of the information to criminally investigate or prosecute any alcohol or drug abuse patient.[facility] HospitalIn the event this information is protected by the Federal Confidentiality of Alcohol and Drug Abuse Patient Records regulations: The Federal rules restrict any use of the information to criminally investigate or prosecute any alcohol or drug abuse patient.[facility] HospitalIn the event this information is protected by the Federal Confidentiality of Alcohol and Drug Abuse Patient Records regulations: The Federal rules restrict any use of the information to criminally investigate or prosecute any alcohol or drug abuse patient.[facility] HospitalIn the event this information is protected by the Federal Confidentiality of Alcohol and Drug Abuse Patient Records regulations: The Federal rules restrict any use of the information to criminally investigate or prosecute any alcohol or drug abuse patient.[facility] HospitalIn the event this information is protected by the Federal Confidentiality of Alcohol and Drug Abuse Patient Records regulations: The Federal rules restrict any use of the information to criminally investigate or prosecute any alcohol or drug abuse patient.[facility] HospitalIn the event this information is protected by the Federal Confidentiality of Alcohol and Drug Abuse Patient Records regulations: The Federal rules restrict any use of the information to criminally investigate or prosecute any alcohol or drug abuse patient.[facility] HospitalIn the event this information is protected by the Federal Confidentiality of Alcohol and Drug Abuse Patient Records regulations: The Federal rules restrict any use of the information to criminally investigate or prosecute any alcohol or drug abuse patient.[facility] HospitalIn the event this information is protected by the Federal Confidentiality of Alcohol and Drug Abuse Patient Records regulations: The Federal rules restrict any use of the information to criminally investigate or prosecute any alcohol or drug abuse patient.[facility] HospitalIn the event this information is protected by the Federal Confidentiality of Alcohol and Drug Abuse Patient Records regulations: The Federal rules restrict any use of the information to criminally investigate or prosecute any alcohol or drug abuse patient.[facility] HospitalIn the event this information is protected by the Federal Confidentiality of Alcohol and Drug Abuse Patient Records regulations: The Federal rules restrict any use of the information to criminally investigate or prosecute any alcohol or drug abuse patient.[facility] HospitalIn the event this information is protected by the Federal Confidentiality of Alcohol and Drug Abuse Patient Records regulations: The Federal rules restrict any use of the information to criminally investigate or prosecute any alcohol or drug abuse patient.[facility] HospitalIn the event this information is protected by the Federal Confidentiality of Alcohol and Drug Abuse Patient Records regulations: The Federal rules restrict any use of the information to criminally investigate or prosecute any alcohol or drug abuse patient.[facility] Reason for Visit (unrecogniz ed section and content) Reason Comments US Specialty Diagnoses / Procedures Referred By Daniel t Referred To Contact 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 Diagnoses AMA (advanced maternal age) multigravida 35+, first trimester 8 weeks gestation of Procedures NUCHAL TRANSLUCENCY WHI US NUCHAL TRANSLUCENCY 1ST GESTATION Brenda Mcdaniel MD [address] [place] [address] [facility] [address] [place] [address] Referral ID Status Reason Start Date Expiration Date V isits Requested Visits Authorized [id number] Closed Auto-Generate d Referral 07/07/2022 07/07/2023 1 1 Reason Comments NIPT results Reason Onset Date Comments Care 09/01/2022 Reason Onset Date Comments Care 09/22/2022 Reason Onset Date Comments Care 10/21/2022 Reason Onset Date Comments Care 11/05/2022 Reason Onset Date Comments Care 01/05/2023 Reason Onset Date Comments Care 01/21/2023 Reason Onset Date Comments Care 01/27/2023 Reason Onset Date Comments Care 02/03/2023 Reason Comments Hands/ Feet Itching Abdominal Pain Epigastric pain inte rmittently daily Specialty Diagnoses / Procedures Referred By Contac t Referred To Contact Radiology Diagnoses Liver disease, unspecified Procedures MR abdomen w and wo contrast Ross Downey MD [address] [facility] [place] [address] Referral ID Status Reason Start Date Expiration Date Visits Re quested Visits Authorized [id number] Closed 06/22/2023 08/06/2023 1 1 Reason Comments Rectal Pain Sometimes has bleedi ng as well. Also having random throbbing abdominal pain. Feels gas pains in her back every morning she wakes up Specialty Diagnoses / Procedures Referred By Contac t Referred To Contact MR IMAGING Diagnoses Liver lesion Procedures MRI LIVER WO/W IVCON MRI ABDOMEN W/O & W/CONTRAST MATERIAL Kelly Win PA-C [address] [facility] [place] [address] [place] [address] Referral ID Status Reason Start Date Expiration Date V isits Requested Visits Authorized [id number] Closed Auto-Generate d Referral 08/27/2024 09/26/2025 1 1 Reason Comments Lump on rectum Lymph nodes swollen in groin area- pain has improved from what it was at her last office visit. Reason Comments New Patient Anal Lesion Reason Comments Appointment Opened In Error Reason Comments Initial OB Visit Reason Onset Date Comments Care 04/25/2025 Reason Comments Appointment Reason Onset Date Comments Care 06/06/2025 Specialty Diagnoses / Procedures Referred By Contac t Referred To Contact [facility] Diagnoses with uncertain dates in first trimester (HCC) Procedures OBSTETRIC ULTRASOUND WHI US PREG UTERUS AFTER 1ST TRIMEST GESTATION Omar Freedman, ESTRELLITA.SYSTEMS TESTING LABORATORY TECHNICIAN [address] [place] [address] Phone: tel: fax: [facility] [address] [place] [address] Referral ID Status Reason Start Date Expiration Date V isits Requested Visits Authorized [id number] Closed Auto-Generate d Referral 03/28/2025 03/28/2026 1 1 Care Teams (unrecognized sec tion and content) S Iron Worker Relationship Specialty Start Date End Date Ross Downey Jr. [address] [facility] [place] [address] PCP - General Family Practice 01/18/18 S Iron Worker Relationship Specialty Start Date End Date Ross Downey Jr. [address] [place] [phone] PCP - General Family Practice 01/18/18 S Iron Worker Relationship Specialty Start Date End Date Ross Downey Jr. [address] [place] [phone] PCP - General Family Practice 01/18/18 S Iron Worker Relationship Specialty Start Date End Date Ross Downey MD [address] [place] [phone] PCP - General 03/23/16 S Iron Worker Relationship Specialty Start Date End Date Ross Downey Jr. [address] [place] [phone] PCP - General Family Practice 01/18/18 S Iron Worker Relationship Specialty Start Date End Date Ross Downey Jr. [address] [place] [phone] PCP - General Family Medicine 01/18/18 S Iron Worker Relationship Specialty Start Date End Date Ross Downey Jr. [address] [place] [phone] PCP - General Family Medicine 01/18/18 S Iron Worker Relationship Specialty Start Date End Date Ross Downey Jr. [address] [place] [phone] PCP - General Family Medicine 01/18/18 S Iron Worker Relationship Specialty Start Date End Date Ross Downey Jr. [address] [place] [phone] PCP - General Family Medicine 01/18/18 S Iron Worker Relationship Specialty Start Date End Date Ross Downey JrJaiden [address] [place] [address] [place] [address] PCP - General Family Medicine 01/18/18 S Iron Worker Relationship Specialty Start Date End Date Ross Downey [address] [place] [address] [place] [address] PCP - General Family Medicine 01/18/18 S Iron Worker Relationship Specialty Start Date End Date Ross Downey Brian Arizmendi [address] [place] [address] [place] [address] PCP - General Family Medicine 01/18/18 S Iron Worker Relationship Specialty Start Date End Date DowneyRoss Brian Arizmendi [address] [place], [place] [address] [address] PCP - General Family Medicine 01/18/18 S Iron Worker Relationship Specialty Start Date End Date Ross Downey [address] [place] [address] [place] [address] PCP - General Family Medicine 01/18/18 S Iron Worker Relationship Specialty Start Date End Date DowneyRoss Brian Arizmendi [address] [place], [place] [address] [address] PCP - General Family Medicine 01/18/18 S Iron Worker Relationship Specialty Start Date End Date DowneyRoss Brian Arizmendi [address] [place] [address] [place] [address] PCP - General Family Medicine 01/18/18 S Iron Worker Relationship Specialty Start Date End Date Shayan Ross Torres Jr. [address] [place] [address] PCP - General Family Medicine 01/18/18 S Iron Worker Relationship Specialty Start Date End Date Ross Downey MD [facility] [place] [address] PCP - General 03/23/16 S Iron Worker Relationship Specialty Start Date End Date Ross Downey MD [facility] [address] PCP - General 03/23/16 S Iron Worker Relationship Specialty Start Date End Date Ross Downey Jr. [facility] [place] [address] PCP - General Family Medicine 01/18/18 S Iron Worker Relationship Specialty Start Date End Date Ross Downey MD [facility] [place] [address] PCP - General 03/23/16 S Iron Worker Relationship Specialty Start Date End Date Ross Downey MD [facility] [place] [address] PCP - General 03/23/16 S Iron Worker Relationship Specialty Start Date End Date Ross Downey MD [facility] [address] PCP - General 03/23/16 S Iron Worker Relationship Specialty Start Date End Date Ross Downey Jr. [facility] [place] [place] [facility] [place] [address] PCP - General Family Medicine 01/18/18 S Iron Worker Relationship Specialty Start Date End Date Ross Downey Jr. [facility] [place] [address] PCP - General Family Medicine 01/18/18 S Iron Worker Relationship Specialty Start Date End Date Ross Downey Jr. [facility] [place] [address] PCP - General Family Medicine 01/18/18 S Iron Worker Relationship Specialty Start Date End Date Ross Downey MD [facility] [place] [address] PCP - General 03/23/16 S Iron Worker Relationship Specialty Start Date End Date Ross Downey Jr. [facility] [place] [address] PCP - General Family Medicine 01/18/18 S Iron Worker Relationship Specialty Start Date End Date Ross Downey Jr. [facility] [place] [address] PCP - General Family Medicine 01/18/18 S Iron Worker Relationship Specialty Start Date End Date Ross Downey Jr. [facility] [place] [address] PCP - General Family Medicine 01/18/18 S Iron Worker Relationship Specialty Start Date End Date Ross Downey Jr. [address] [place] [address] PCP - General Family Medicine 01/18/18 S Iron Worker Relationship Specialty Start Date End Date Ross Downey Jr. [address] [place] [address] PCP - General Family Medicine 01/18/18 S Iron Worker Relationship Specialty Start Date End Date Ross Downey Jr. [facility] [place] [address] PCP - General Family Medicine 01/18/18 S Iron Worker Relationship Specialty Start Date End Date Ross Downey Jr. [facility] [place] [address] PCP - General Family Medicine 01/18/18 S Iron Worker Relationship Specialty Start Date End Date Ross Downey Jr. [facility] [place] [address] PCP - General Family Medicine 01/18/18 S Iron Worker Relationship Specialty Start Date End Date Ross Downey Jr. [facility] [place] [address] PCP - General Family Medicine 01/18/18 S Iron Worker Relationship Specialty Start Date End Date Ross Downey Jr. [facility] [place] [address] PCP - General Family Medicine 01/18/18 S Iron Worker Relationship Specialty Start Date End Date Ross Downey Jr. [address] [place] [address] PCP - General Family Medicine 01/18/18 Goals (unrecognized section and content) Goals may be documented in a n alternate section FOR RECORDS PERTAINING TO PATIENTS WHO ARE OR HAVE BEEN ENROLLED IN A CHEMICAL DEPENDENCY/SUBSTANCEABUSE PROGRAM, SOME INFORMATION MAY BE OMITTED. This clinical summary was aggregated from multiple sources. Caution should be exercised in using it in the provision of clinical care. This summary normalizes information from multiple sources, and as a consequence, information in this document may materially change the coding, format and clinical context of patient data. In addition, data may be omitted in some cases. CLINICAL DECISIONS SHOULD BE BASED ON THE PRIMARY CLINICAL RECORDS. [facility] [employer] [facility]. provides no warranty or guarantee of the accuracy or completeness of information in this document.
--- OUTSIDE RECORDS SUMMARY | 2025-10-12 07:35 | XMS RPT_ITS | CCD ---
Author Organization [facility] ion [facility] Care Team Providers Care Protective Signal Installer Helper Name Role Phone SAMIA MONICA Unavailable Unavailable KIM ROSS Unavailable Unavailable NO PRIMARY CARE, Unavailable Unavailable Kim Ross Unavailable Unavailable Shayan, Ross Unavailable Unavailable Downey, Ross Unavailable Unavailable Kim Ross Unavailable Unavailable Ross Downey Unavailable Unavailable Ross Downey Unavailable Unavailable Ross Downey Primary Care Provider [phone] Ross Downey Primary Care Provider Shayan Arizmendi, [...] Care UnavailBRENDA Olson Referring Unavailable DOWNEY JR, [facility] Unavaila ble REZA, OMAR Referring Unavailable DOWNEY , [facility] Unavaila ble REZA, OMAR Referring Unavailable DOWNEY , ROSS [facility] Unavaila ble SENDY, CAITLYN Attending Unavailable REZA, OMAR Referring Unavailable SHAYAN , ROSS [facility] Unav[facility] ble BRENDA MCDANIEL Attending Unavailable SHAYAN MATUTE, ROSS [facility] Unavaila ble JASMIN MCKEON Attending Unavailable DOWNEY , ROSS [facility] Unavaila ble SHAYAN MATUTE, [facility] Unavaila ble SHAYAN MATUTE, [facility] Unavaila ble SENDY, CAITLYN Attending Unavailable MEENA CUEVAS Attending Unavailable DOWNEY , ROSS [facility] Unavaila ble REZA, OMAR Attending Unavailable SHAYAN MATUTE, [facility] Unavaila BRENDA Ames Attending Unavailable DOWNEY , [facility] Unavaila ble Medications Current Medications Medication Drug [...] ac ( ORAL) Take by mouth. Active Vit,Ahgm60-Yngf-Zvehx (Prenatabs Fa) 1 TABLET tablet (1 source) Start: 02-11-20 take 1 tablet by mouth once daily Vit,Jbyi89-Jwvs- Folic (Prenatabs Fa) 1 TABLET tablet Active [...] spray Indications: Acute non-recurrent pansinusitis Use 1 [place] in each nostril twice daily. 1 Each 0 12/10/2021 07/07/2022 Discontinued (Other) Comment on above: Use 1 [place] in each nostril twice daily. gadobutrol (Gadavist) [...] Comment on above: Take 1 capsule by [facility] three times daily as needed. MEDICATION, NON-DATABASE [...] of ; Translations: [23 weeks gestation of ([facility])] Onset: 5 Episodic Residual codes; unclassified (1 source) 19 weeks gestation of ; Translations: [19 weeks gestation of ([facility])] Onset: 5 Episodic Unclassified (8 sources) Encounter [...] width (RBC) [Ratio] 13.1 % Normal 11.5-15.0 [facility] Comment on above: Order Comment: Blue dennison Type: BLOOD SPECIMEN Ordering Facility: [facility] Address: [address] [place] [address] Performed By: #### 5 8410-2 #### [facility] [id number] [address] [place] [address] [place] Hematocrit (Bld) [Volume fraction] 34.5 % Low 36.0-46.0 [facility] Comment on above: Order Comment: Blue dennison Type: BLOOD SPECIMEN Ordering Facility: [facility] Address: [address] [address] Performed By: #### 5 8410-2 #### [facility] CLIA [id number] [address] [place] [address] [place] Hemoglobin (Bld) [Mass/Vol] 12.3 g/dL Normal 11.5-15.5 [facility] Comment on above: Order Comment: Speci men Type: BLOOD SPECIMEN Ordering Facility: [facility] Address: [address] [place] [address] Performed By: #### 5 8410-2 #### [facility] CLIA [id number] [address] [place] [address] [place] MCH (RBC) [Entitic mass] 29.3 pg Normal 26.0-34.0 [facility] Comment on above: Order Comment: Speci men Type: BLOOD SPECIMEN Ordering Facility: [facility] Address: [address] [place] [address] Performed By: #### 5 8410-2 #### [facility] [id number] [address] [place] [address] [place] MCHC (RBC) [Mass/Vol] 35.7 g/dL Normal 30.5-36.0 [facility] Comment on above: Order Comment: Speci men Type: BLOOD SPECIMEN Ordering Facility: [facility] Address: [address] [place] [address] Performed By: #### 5 8410-2 #### [facility] CLIA [id number] [address] [place] [address] [place] MCV (RBC) [Entitic vol] 82.1 fL Normal 80.0-100.0 [facility] Comment on above: Order Comment: Speci men Type: BLOOD SPECIMEN Ordering Facility: [facility] Address: [address] [place] [address] Performed By: #### 5 8410-2 #### [facility] CLIA [id number] [address] [place] [address] [place] Nucleated RBC (Bld) [#/Vol] 10*3/uL Normal <0.01 [facility] Comment on above: Order Comment: Speci men Type: BLOOD SPECIMEN Ordering Facility: [facility] Address: [address] [place] [address] Performed By: #### 5 8410-2 #### [facility] CLIA [id number] [address] [place] [address] [place] Platelet mean volume (Bld) [Entitic vol] 11.0 fL Normal 9.0-12.7 [facility] Comment on above: Order Comment: Speci men Type: BLOOD SPECIMEN Ordering Facility: [facility] Address: [address] [place] [address] Performed By: #### 5 8410-2 #### [facility] CLIA [id number] [address] [place] [address] [place] Platelets (Bld) [#/Vol] 239 10*3/uL Normal 150-400 [facility] Comment on above: Order Comment: Speci men Type: BLOOD SPECIMEN Ordering Facility: [facility] Address: [address] [place] [address] Performed By: #### 5 8410-2 #### [facility] CLIA [id number] [address] [place] [address] [place] RBC (Bld) [#/Vol] 4.20 10*6/uL Normal 3.90-5.20 [facility] Comment on above: Order Comment: Speci men Type: BLOOD SPECIMEN Ordering Facility: [facility] Address: [address] [place] [address] Performed By: #### 5 8410-2 #### [facility] CLIA [id number] [address] [place] [address] [place] WBC (Bld) [#/Vol] 8.00 10*3/uL Normal 3.70-11.00 [facility] Comment on above: Order Comment: Speci juma Type: BLOOD SPECIMEN Ordering Facility: [facility] Address: [address] [place] [address] Performed By: #### 5 8410-2 #### [facility] CLIA [id number] [address] [place] [address] [place] GESTATIONAL GLUCOSE SCREEN, 1-HOUR, 50 GRAM, NON-FASTINGon 08-01-2025 Glucose [Mass/Vol] 96 mg/dL Normal 74-134 [facility] Comment on above: Order Comment: Blue dennison Type: BLOOD SPECIMEN Ordering Facility: [facility] Address: [address] [place] [address] Result Comment: [facility] Congress of Obstetricians and Gynecologists (Eliel/Chacorta) guidelines state a gestational diabetes mellitus positive screen is made, in women not previously diagnosed with overt diabetes, when the 1 hr plasma glucose level is equal to or above 140 mg/dL. The [facility] Certified Prosthetist and [facility] [place] recommends a 135 mg/dL cutoff. Performed By: #### G LTGST #### [facility] [id number] [address] [place] [address] [place] Reagin and Treponema pallidu m IgG and IgM [Interp]on 08-01-2025 T. pallidum IgG+IgM IA Ql (S) Non-Reactive Normal Nonreactive [facility] Comment on above: Order Comment: Blue dennison Type: BLOOD SPECIMEN Ordering Facility: [facility] Address: [address] [place] [address] Performed By: #### 7 3752-8 #### [facility] CLIA [id number] [address] [place] [address] [place] Reagin+T pallidum IgG+IgM Se rPl-Impon 08-01-2025 Reagin and Treponema pallidum IgG and IgM [Interp] Cannot exclude recent Treponemal infection if specimen collected within 7-10 days after appearance of suspect lesions or 2-3 weeks after an exposure. Clinical correlation is required. Normal [facility] Comment on above: Order Comment: Speci men Type: BLOOD SPECIMEN Ordering Facility: [facility] Address: [address] [place] [address] Performed By: #### 7 3752-8 #### [facility] CLIA [id number] [address] [place] [address] [place] Examination level ultrasound [...] 9 oz EFW by: Hadlock (HC-AC-FL) Extended Disposal Operator 5.4 mm CM 3.9 mm 23% Nicolaides [...] normal LVOT view: normal 3-vessel view: normal 7-oegqfg-kcqvbgp view: normal Heart / Thorax Situs: situs [...] Read By: Marilee Nazario M.D. MATERNAL MEDICINE [facility] Radiology Study observation (narrative) [facility] 25(OH)D3 SerPl-mCncon 2024 25-hydroxyvitamin D3 [Mass/Vol] 26.2 ng/mL Low >=30.0 [facility] Comment on above: Order Comment: Speci men Type: BLOOD SPECIMEN Ordering Facility: [facility] Address: [address] [place] [address] Result Comment: Clas sification of 25 [place] Vitamin D status: Deficiency: <= 20.0 ng/ml. Insufficiency: 21.0-29.0 ng/ml. Sufficiency: >= 30.0 ng/ml. Performed By: #### 1 989-3 #### [facility] CLIA [id number] [address] [place] [address] [place] 25-hydroxyvitamin D3 [Mass/V ol]on 06-04-2025 Interpretation and review of laboratory results Abnormal [facility] CBC panel Auto (Bld)on 06-04 Erythrocyte distribution width (RBC) [Ratio] 13.2 % 11.5 - 15.0 % [facility] Hematocrit (Bld) [Volume fraction] 35.6 % Low 36.0 - 46.0 % [facility] Hemoglobin (Bld) [Mass/Vol] 11.8 g/dL 11.5 - 15.5 g/dL [facility] Interpretation and review of laboratory results Abnormal [facility] MCH (RBC) [Entitic mass] 29.5 pg 26.0 - 34.0 pg [facility] MCHC (RBC) [Mass/Vol] 33.1 g/dL 30.5 - 36.0 g/dL [facility] MCV (RBC) [Entitic vol] 89.0 fL 80.0 - 100.0 fL [facility] Nucleated RBC (Bld) [#/Vol] NINF [facility] Platelet mean volume (Bld) [Entitic vol] 10.3 fL 9.0 - 12.7 fL [facility] Platelets (Bld) [#/Vol] 253 10*3/uL [facility] RBC (Bld) [#/Vol] 4.00 10*6/uL 3.90 - 5.2 0 m/uL [facility] WBC (Bld) [#/Vol] 6.54 10*3/uL [facility] Erythrocyte distribution width (RBC) [Ratio] 13.2 % Normal 11.5-15.0 [facility] Comment on above: Order Comment: Speci men Type: BLOOD SPECIMEN Ordering Facility: [facility] Address: [address] [place] [address] Performed By: #### 5 8410-2 #### [facility] CLIA [id number] [address] Hematocrit (Bld) [Volume fraction] 35.6 % Low 36.0-46.0 [facility] Comment on above: Order Comment: Speci men Type: BLOOD SPECIMEN Ordering Facility: [facility] Address: [address] [place] [address] Performed By: #### 5 8410-2 #### [facility] CLIA [id number] [address] STATES OF [facility] Hemoglobin (Bld) [Mass/Vol] 11.8 g/dL Normal 11.5-15.5 [facility] Comment on above: Order Comment: Speci men Type: BLOOD SPECIMEN Ordering Facility: [facility] Address: [address] [place] [address] Performed By: #### 5 8410-2 #### [facility] CLIA [id number] [address] [place] MCH (RBC) [Entitic mass] 29.5 pg Normal 26.0-34.0 [facility] Comment on above: Order Comment: Speci men Type: BLOOD SPECIMEN Ordering Facility: [facility] Address: [address] [place] [address] Performed By: #### 5 8410-2 #### [facility] CLIA [id number] [address] MCHC (RBC) [Mass/Vol] 33.1 g/dL Normal 30.5-36.0 [facility] Comment on above: Order Comment: Speci men Type: BLOOD SPECIMEN Ordering Facility: [facility] Address: [address] [place] [address] Performed By: #### 5 8410-2 #### [facility] CLIA [id number] [address] [place] MCV (RBC) [Entitic vol] 89.0 fL Normal 80.0-100.0 [facility] Comment on above: Order Comment: Speci men Type: BLOOD SPECIMEN Ordering Facility: [facility] Address: [address] [place] [address] Performed By: #### 5 8410-2 #### [facility] CLIA [id number] [address] Nucleated RBC (Bld) [#/Vol] 10*3/uL Normal <0.01 [facility] Comment on above: Order Comment: Speci men Type: BLOOD SPECIMEN Ordering Facility: [facility] Address: [address] [place] [address] Performed By: #### 5 8410-2 #### [facility] CLIA [id number] [address] Platelet mean volume (Bld) [Entitic vol] 10.3 fL Normal 9.0-12.7 [facility] Comment on above: Order Comment: Speci men Type: BLOOD SPECIMEN Ordering Facility: [facility] Address: [address] [place] [address] Performed By: #### 5 8410-2 #### [facility] CLIA [id number] [address] [place] Platelets (Bld) [#/Vol] 253 10*3/uL Normal 150-400 [facility] Comment on above: Order Comment: Speci men Type: BLOOD SPECIMEN Ordering Facility: [facility] Address: [address] [place] [address] Performed By: #### 5 8410-2 #### [facility] CLIA [id number] [address] [place] RBC (Bld) [#/Vol] 4.00 10*6/uL Normal 3.90-5.20 [facility] Comment on above: Order Comment: Speci men Type: BLOOD SPECIMEN Ordering Facility: [facility] Address: [address] [place] [address] Performed By: #### 5 8410-2 #### [facility] CLIA [id number] [address] [place] WBC (Bld) [#/Vol] 6.54 10*3/uL Normal 3.70-11.00 [facility] Comment on above: Order Comment: Speci men Type: BLOOD SPECIMEN Ordering Facility: [facility] Address: [address] [place] [address] Performed By: #### 5 8410-2 #### [facility] CLIA [id number] [address] [place] [address] [place] Cobalamin (Vitamin B12) [Mas s/Vol]on 06-04-2025 Interpretation and review of laboratory results Normal [facility] Iron and Iron binding capaci ty panelon 06-04-2025 Interpretation and review of laboratory results Abnormal [facility] Iron [Mass/Vol] 89 ug/dL 41 - 186 ug/dL [facility] Iron binding capacity [Mass/Vol] 391 ug/dL High 232 - 386 ug/dL [facility] Iron saturation [Mass fraction] 22.8 % 15.0 - 57.0 % [facility] Iron [Mass/Vol] 89 ug/dL Normal 41-186 [facility] Comment on above: Order Comment: Speci men Type: BLOOD SPECIMEN Ordering Facility: [facility] Address: [address] [place] [address] Performed By: #### 5 195-3, 54447-2 #### [facility] CLIA [id number] [address] [place] Iron binding capacity [Mass/Vol] 391 ug/dL High 232-386 [facility] Comment on above: Order Comment: Speci men Type: BLOOD SPECIMEN Ordering Facility: [facility] Address: [address] [place] [address] Performed By: #### 5 195-3, 57722-5 #### [facility] CLIA [id number] [address] Iron saturation [Mass fraction] 22.8 % Normal 15.0-57.0 [facility] Comment on above: Order Comment: Speci men Type: BLOOD SPECIMEN Ordering Facility: [facility] Address: [address] [place] [address] Performed By: #### 5 195-3, 25427-8 #### [facility] CLIA [id number] [address] VITAMIN B12on 06-04-2025 Cobalamin (Vitamin B12) [Mass/Vol] 411 pg/mL 232 - 1245 pg/mL [facility] VITAMIN D 25 HYDROXYon 06-04 25-hydroxyvitamin D3 [Mass/Vol] 26.2 ng/mL Low 30.0 - PINF ng/mL [facility] Comment on above: Classification of 25 [place] Vitamin D status: Deficiency: <= 20.0 ng/ml. Insufficiency: 21.0-29.0 ng/ml. Sufficiency: >= 30.0 ng/ml. Vit B12 SerPl-mCncon 025 Cobalamin (Vitamin B12) [Mass/Vol] 411 pg/mL Normal 232-1245 [facility] Comment on above: Order Comment: Speci men Type: BLOOD SPECIMEN Ordering Facility: [facility] Address: [address] [place], [place] [address] Performed By: #### 5 195-3, 13049-9 #### [facility] CLIA [id number] [address] STATES OF [facility] Examination level ultrasound on 04-25-2025 Indication First trimester anatomic survey Advanced maternal age Impression The patient is referred for a first trimester anatomy scan including nuchal translucency measurement as clinically indicated. - Single, live, intrauterine . - [place] rump length measurement is consistent with the [...] by U/[place]: 10/30/2025 Assigned: based on stated PILAR, selected on 04/25/2025 Assigned GA 14 w [...] view: suboptimal 4-chamber view with color: suboptimal 0-votxiu-wprqiyy view: normal Abdominal cord insertion: normal Stomach: [...] Read By: Vinita Minor M.D. MATERNAL MEDICINE [facility] Radiology Study observation (narrative) [facility] CBC W Auto Differential pane l (Bld)on 04-11-2025 Basophils (Bld) [#/Vol] 0.04 10*3/uL Normal <0.11 [facility] Comment on above: Order Comment: Speci men Type: BLOOD SPECIMEN Ordering Facility: [facility] Address: [address] [place] [address] Performed By: #### 5 7021-8 #### [facility] CLIA [id number] [address] [place] [address] [place] Basophils/100 WBC (Bld) 0.7 % Normal [facility] Comment on above: Order Comment: Speci men Type: BLOOD SPECIMEN Ordering Facility: [facility] Address: [address] [place] [address] Performed By: #### 5 7021-8 #### [facility] CLIA [id number] [address] [place] [address] [place] Differential cell count method Nom (Bld) Auto Normal [facility] Comment on above: Order Comment: Speci men Type: BLOOD SPECIMEN Ordering Facility: [facility] Address: [address] [place] [address] Performed By: #### 5 7021-8 #### [facility] CLIA [id number] [address] [place] [address] [place] Eosinophils (Bld) [#/Vol] 0.07 10*3/uL Normal <0.46 [facility] Comment on above: Order Comment: Speci men Type: BLOOD SPECIMEN Ordering Facility: [facility] Address: [facility] [place] [address] Performed By: #### 5 7021-8 #### [facility] CLIA [id number] [address] [place] [address] [place] Eosinophils/100 WBC (Bld) 1.2 % Normal [facility] Comment on above: Order Comment: Speci men Type: BLOOD SPECIMEN Ordering Facility: [facility] Address: [address] [place] [address] Performed By: #### 5 7021-8 #### [facility] CLIA [id number] [address] [place] Erythrocyte distribution width (RBC) [Ratio] 12.9 % Normal 11.5-15.0 [facility] Comment on above: Order Comment: Speci men Type: BLOOD SPECIMEN Ordering Facility: [facility] Address: [address] [place] [address] Performed By: #### 5 7021-8 #### [facility] CLIA [id number] [address] [place] Hematocrit (Bld) [Volume fraction] 37.9 % Normal 36.0-46.0 [facility] Comment on above: Order Comment: Speci men Type: BLOOD SPECIMEN Ordering Facility: [facility] Address: [address] [place] [address] Performed By: #### 5 7021-8 #### [facility] CLIA [id number] [address] [place] Hemoglobin (Bld) [Mass/Vol] 12.2 g/dL Normal 11.5-15.5 [facility] Comment on above: Order Comment: Speci men Type: BLOOD SPECIMEN Ordering Facility: [facility] Address: [address] [place] [address] Performed By: #### 5 7021-8 #### [facility] CLIA [id number] [address] [place] [address] [place] Immature granulocytes (Bld) [#/Vol] 10*3/uL Normal <0.10 [facility] Comment on above: Order Comment: Speci men Type: BLOOD SPECIMEN Ordering Facility: [facility] Address: [address] [place] [address] Performed By: #### 5 7021-8 #### [facility] CLIA [id number] [address] OF [facility] Immature granulocytes/100 WBC (Bld) 0.2 % Normal [facility] Comment on above: Order Comment: Speci men Type: BLOOD SPECIMEN Ordering Facility: [facility] Address: [address] [place] [address] Performed By: #### 5 7021-8 #### [facility] CLIA [id number] [address] [place] Lymphocytes (Bld) [#/Vol] 1.74 10*3/uL Normal 1.00-4.00 [facility] Comment on above: Order Comment: Speci men Type: BLOOD SPECIMEN Ordering Facility: [facility] Address: [address] [place] [address] Performed By: #### 5 7021-8 #### [facility] CLIA [id number] [address] Lymphocytes/100 WBC (Bld) 30.3 % Normal [facility] Comment on above: Order Comment: Speci men Type: BLOOD SPECIMEN Ordering Facility: [facility] Address: [address] [place] [address] Performed By: #### 5 7021-8 #### [facility] CLIA [id number] [address] [place] MCH (RBC) [Entitic mass] 28.5 pg Normal 26.0-34.0 [facility] Comment on above: Order Comment: Speci men Type: BLOOD SPECIMEN Ordering Facility: [facility] Address: [address] [place] [address] Performed By: #### 5 7021-8 #### [facility] CLIA [id number] [address] [place] MCHC (RBC) [Mass/Vol] 32.2 g/dL Normal 30.5-36.0 [facility] Comment on above: Order Comment: Speci men Type: BLOOD SPECIMEN Ordering Facility: [facility] Address: [address] [place] [address] Performed By: #### 5 7021-8 #### [facility] CLIA [id number] [address] [place] MCV (RBC) [Entitic vol] 88.6 fL Normal 80.0-100.0 [facility] Comment on above: Order Comment: Speci men Type: BLOOD SPECIMEN Ordering Facility: [facility] Address: [address] [place] [address] Performed By: #### 5 7021-8 #### [facility] CLIA [id number] [address] [place] Monocytes (Bld) [#/Vol] 0.44 10*3/uL Normal <0.87 [facility] Comment on above: Order Comment: Speci men Type: BLOOD SPECIMEN Ordering Facility: [facility] Address: [address] [place] [address] Performed By: #### 5 7021-8 #### [facility] CLIA [id number] [address] Monocytes/100 WBC (Bld) 7.7 % Normal [facility] Comment on above: Order Comment: Speci men Type: BLOOD SPECIMEN Ordering Facility: [facility] Address: [address] [place] [address] Performed By: #### 5 7021-8 #### [facility] CLIA [id number] [address] [place] Neutrophils (Bld) [#/Vol] 3.44 10*3/uL Normal 1.45-7.50 [facility] Comment on above: Order Comment: Speci men Type: BLOOD SPECIMEN Ordering Facility: [facility] Address: [address] [place] [address] Performed By: #### 5 7021-8 #### [facility] CLIA [id number] [address] [place] Neutrophils/100 WBC (Bld) 59.9 % Normal [facility] Comment on above: Order Comment: Speci men Type: BLOOD SPECIMEN Ordering Facility: [facility] Address: [address] [place] [address] Performed By: #### 5 7021-8 #### [facility] CLIA [id number] [address] Nucleated RBC (Bld) [#/Vol] 10*3/uL Normal <0.01 [facility] Comment on above: Order Comment: Speci men Type: BLOOD SPECIMEN Ordering Facility: [facility] Address: [address] [place] [address] Performed By: #### 5 7021-8 #### [facility] CLIA [id number] [address] [place] Nucleated RBC/100 WBC (Bld) [Ratio] 0.0 /100 WBC Normal [facility] Comment on above: Order Comment: Speci men Type: BLOOD SPECIMEN Ordering Facility: [facility] Address: [address] [place] [address] Performed By: #### 5 7021-8 #### [facility] CLIA [id number] [address] [place] Platelet mean volume (Bld) [Entitic vol] 10.4 fL Normal 9.0-12.7 [facility] Comment on above: Order Comment: Speci men Type: BLOOD SPECIMEN Ordering Facility: [facility] Address: [address] [place] [address] Performed By: #### 5 7021-8 #### [facility] CLIA [id number] [address] [place] Platelets (Bld) [#/Vol] 248 10*3/uL Normal 150-400 [facility] Comment on above: Order Comment: Speci men Type: BLOOD SPECIMEN Ordering Facility: [facility] Address: [address] [place] [address] Performed By: #### 5 7021-8 #### [facility] CLIA [id number] [address] [place] RBC (Bld) [#/Vol] 4.28 10*6/uL Normal 3.90-5.20 [facility] Comment on above: Order Comment: Speci men Type: BLOOD SPECIMEN Ordering Facility: [facility] Address: [address] [place] [address] Performed By: #### 5 7021-8 #### [facility] CLIA [id number] [address] WBC (Bld) [#/Vol] 5.74 10*3/uL Normal 3.70-11.00 [facility] Comment on above: Order Comment: Speci men Type: BLOOD SPECIMEN Ordering Facility: [facility] Address: [address] [place] [address] Performed By: #### 5 7021-8 #### [facility] CLIA [id number] [address] Comprehensive metabolic 2000 panelon 04-11-2025 Albumin [Mass/Vol] 4.4 g/dL Normal 3.9-4.9 [facility] Comment on above: Order Comment: Speci men Type: BLOOD SPECIMEN Ordering Facility: [facility] Address: [address] [place] [address] Performed By: #### 5 195-3, 71841-5 #### [facility] CLIA [id number] [address] ALP [Catalytic activity/Vol] 111 U/L Normal 34-123 [facility] Comment on above: Order Comment: Speci men Type: BLOOD SPECIMEN Ordering Facility: [facility] Address: [address] [place] [address] Performed By: #### 5 195-3, 37815-5 #### [facility] CLIA [id number] [address] ALT With P-5'-P [Catalytic activity/Vol] 23 U/L Normal 7-38 [facility] Comment on above: Order Comment: Speci men Type: BLOOD SPECIMEN Ordering Facility: [facility] Address: [address] [place] [address] Performed By: #### 5 195-3, 64302-2 #### [facility] CLIA [id number] [address] [place] [address] [place] Anion gap [Moles/Vol] 10 mmol/L Normal 8-15 [facility] Comment on above: Order Comment: Speci men Type: BLOOD SPECIMEN Ordering Facility: [facility] Address: [address] [place] [address] Performed By: #### 5 195-3, 99171-9 #### [facility] CLIA [id number] [address] [place] AST With P-5'-P [Catalytic activity/Vol] 15 U/L Normal 13-35 [facility] Comment on above: Order Comment: Speci men Type: BLOOD SPECIMEN Ordering Facility: [facility] Address: [address] [place] [address] Performed By: #### 5 195-3, 74388-8 #### [facility] CLIA [id number] [address] [place] Bilirubin [Mass/Vol] 0.4 mg/dL Normal 0.2-1.3 [facility] Comment on above: Order Comment: Speci men Type: BLOOD SPECIMEN Ordering Facility: [facility] Address: [address] [place] [address] Performed By: #### 5 195-3, 37677-1 #### [facility] CLIA [id number] [address] [place] Calcium [Mass/Vol] 9.3 mg/dL Normal 8.5-10.2 [facility] Comment on above: Order Comment: Speci men Type: BLOOD SPECIMEN Ordering Facility: [facility] Address: [address] [place] [address] Performed By: #### 5 195-3, 54529-5 #### [facility] CLIA [id number] [address] [place] Chloride [Moles/Vol] 105 mmol/L Normal 98-107 [facility] Comment on above: Order Comment: Speci men Type: BLOOD SPECIMEN Ordering Facility: [facility] Address: [address] [place] [address] Performed By: #### 5 195-3, 73324-7 #### [facility] CLIA [id number] [address] [place] CO2 [Moles/Vol] 21 mmol/L Low 22-30 [facility] Comment on above: Order Comment: Speci men Type: BLOOD SPECIMEN Ordering Facility: [facility] Address: [address] [place] [address] Performed By: #### 5 195-3, 18734-7 #### [facility] CLIA [id number] [address] [place] Creatinine [Mass/Vol] 0.55 mg/dL Low 0.58-0.96 [facility] Comment on above: Order Comment: Speci men Type: BLOOD SPECIMEN Ordering Facility: [facility] Address: [address] [place] [address] Performed By: #### 5 195-3, 21807-6 #### [facility] CLIA [id number] [address] Creatinine and Glomerular filtration rate.predicted panel (S/P/Bld) 120 mL/min/1.73m??? Normal >=60 [facility] Comment on above: Order Comment: Speci men Type: BLOOD SPECIMEN Ordering Facility: [facility] Address: [address] [place] [address] Result Comment: Yessi mated Glomerular Filtration Rate [...] actual GFR. Performed By: #### 5 195-3, 10643-6 #### [facility] CLIA [id number] [address] [place] Glucose [Mass/Vol] 90 mg/dL Normal 74-99 [facility] Comment on above: Order Comment: Blue dennison Type: BLOOD SPECIMEN Ordering Facility: [facility] Address: [address] [address] Result Comment: The [place] Diabetes Association (ADA) provides guidance for cutoff [...] Standards of Medical Care in Diabetes 2016, [place] Diabetes Association. Diabetes Care. 2016.39(Suppl 1). Performed By: #### 5 195-3, 59030-9 #### [facility] CLIA [id number] 1 [place] [address] [place] Potassium [Moles/Vol] 4.0 mmol/L Normal 3.7-5.1 [facility] Comment on above: Order Comment: Blue dennison Type: BLOOD SPECIMEN Ordering Facility: [facility] Address: [address] [place], [place] [address] Performed By: #### 5 195-3, 07235-2 #### [facility] CLIA [id number] 1 [place] [address] [place] Protein [Mass/Vol] 6.8 g/dL Normal 6.3-8.0 [facility] Comment on above: Order Comment: Blue dennison Type: BLOOD SPECIMEN Ordering Facility: [facility] Address: [address] [address] Performed By: #### 5 195-3, 44048-2 #### [facility] CLIA [id number] 1 [place] [address] [place] Sodium [Moles/Vol] 136 mmol/L Normal 136-144 [facility] Comment on above: Order Comment: Blue dennison Type: BLOOD SPECIMEN Ordering Facility: [facility] Address: [address] [place] [address] Performed By: #### 5 195-3, 54264-3 #### [facility] CLIA [id number] [address] STATES [facility] Urea nitrogen [Mass/Vol] 8 mg/dL Normal 7- [facility] Comment on above: Order Comment: Speci men Type: BLOOD SPECIMEN Ordering Facility: [facility] Address: [address] [place] [address] Performed By: #### 5 195-3, 16782-9 #### [facility] CLIA [id number] [address] [place] HBV surface Ag Ser Qlon 03-18 HBV surface Ag Ql (S) Non-Reactive Normal Nonreactive [facility] Comment on above: Order [facility]: [facility]: [facility] Ordering Facility: [facility] Address: [address] [place] [address] Performed By: #### 5 -3, 20591-4 #### [facility] CLIA [id number] [address] [place] HCV Ab Ser Qlon 04-11-2025 HCV Ab Ql (S) Non-Reactive Normal Nonreactive [facility] Comment on above: Order Comment: Speci men Type: BLOOD SPECIMEN Ordering Facility: [facility] Address: [address] [place] [address] Result Comment: The result suggests no evidence of active infection with Hepatitis C virus. Should recent infection be suspected, repeat testing may be considered 4-6 weeks after this draw. Performed By: #### 5 195-3, 52320-8 #### [facility] CLIA [id number] [address] OF [facility] HIV 1+2 Ab IA Qlon HIV 1 and 2 Ab IA.rapid Nom (S/P/Bld) Normal [facility] Comment on above: Order Comment: Speci [facility] Type: BLOOD SPECIMEN Ordering Facility: [facility] Address: [address] [place] [address] Result Comment: Test not indicated. Performed By: #### 5 195-3, 95590-2 #### [facility] CLIA [id number] [address] HIV 1+2 Ab+HIV1 p24 Ag IA Ql Non-Reactive Normal Nonreactive [facility] Comment on above: Order Comment: Speci men Type: BLOOD SPECIMEN Ordering Facility: [facility] Address: [address] [place] [address] Result Comment: [place] Rev. Code 3701.243(E): This information has been [...] or diagnoses. Performed By: #### 5 195-3, 78847-0 #### [facility] CLIA [id number] [address] HIV immunoassay testing algorithm interpretation (S/P/Bld) [Interp] Normal [facility] Comment on above: Order Comment: Speci men Type: BLOOD SPECIMEN Ordering Facility: [facility] Address: [address] [place] [address] Result Comment: No e vidence of HIV-1 or HIV-2 infection. Should recent infection be suspected, repeat testing may be considered 2-3 weeks after this draw. Performed By: #### 5 195-3, 63849-5 #### [facility] CLIA [id number] [address] [place] [address] HbA1c (Bld)on 04-11-2025 Average glucose Estimated from glycated hemoglobin (Bld) [Mass/Vol] 100 mg/dL Normal [facility] Comment on above: Order Comment: Speci men Type: BLOOD SPECIMEN Ordering Facility: [facility] Address: [address] [place] [address] Result Comment: eAG: (Estimated average glucose) is a calculated value from HgbA1c and is resources representative of the average blood glucose level in the last 2-3 month period. Performed By: #### 5 195-3, 95823-7 #### [facility] CLIA [id number] 1 [place] [address] [place] HbA1c (Bld) [Mass fraction] 5.1 % Normal 4.3-5.6 [facility] Comment on above: Order Comment: Speci men Type: BLOOD SPECIMEN Ordering Facility: [facility] Address: [address] [place] [address] Result Comment: Amer ican Diabetes Association guidelines indicate that patients with HgbA1c in the range 5.7-6.4% are at increased risk for development of diabetes, and intervention by lifestyle modification may be beneficial. HgbA1c greater or equal to 6.5% is considered diagnostic of diabetes. Performed By: #### 5 195-3, 56170-0 #### [facility] CLIA [id number] [address] [place] [address] [place] Lipase SerPl-cCncon 04-11-20 25 Lipase [Catalytic activity/Vol] 14 U/L Low 16-61 [facility] Comment on above: Order Comment: Speci men Type: BLOOD SPECIMEN Ordering Facility: [facility] Address: [address] [place] [address] Performed By: #### 5 195-3, 09815-7 #### [facility] CLIA [id number] 1 [place] [address] [place] [id number] PLUSon 04-11-2025 Cell-free DNA./Cell-free DNA.total Dosage of chromosome-specific cfDNA (cfDNA) [Molar fraction] 17% Normal [facility] Comment on above: Order Comment: Speci men Type: BLOOD SPECIMEN Ordering Facility: [facility] Address: [address] [place] [address] Performed By: #### 5 195-3, 21648-8 #### [facility] CLIA [id number] [address] [place] Chr 13+18+21+X+Y aneuploidy Dosage of chromosome-specific cfDNA Ql (cfDNA) Negative Normal [facility] Comment on above: Order Comment: Speci men Type: BLOOD SPECIMEN Ordering Facility: [facility] Address: [address] [place] [address] Performed By: #### 5 195-3, 00575-4 #### [facility] CLIA [id number] [address] Chr 21 trisomy Dosage of chromosome-specific cfDNA Ql (cfDNA) Negative Normal [facility] Comment on above: Order Comment: Speci men Type: BLOOD SPECIMEN Ordering Facility: [facility] Address: [address] [place] [address] Performed By: #### 5 195-3, 07868-4 #### [facility] CLIA [id number] [address] [place] [address] Chr X and Y aneuploidy risk Sequencing Ql (cfDNA) [Interp] Not detected Normal [facility] Comment on above: Order Comment: Speci men Type: BLOOD SPECIMEN Ordering Facility: [facility] Address: [address] [place] [address] Result Comment: Not Detected Not Detected Performed By: #### 5 -3, 78356-1 #### [facility] CLIA [id number] [address] [place] [address] Citation Lavon (Reference lab test) Comment Normal [facility] Comment on above: Order Comment: Speci men Type: BLOOD SPECIMEN Ordering Facility: [facility] Address: [address] [place] [address] Result Comment: 1. P tata SHETH, et al. Darlyn Med. 2012;14(3):296-305. 2. Anahi CLARK et al. Prenat Diag. 2013;33(6):591-597. 3. Perdomo C, et al. Clin Chem. 2015 Apr;61(4):608-616. 4. Sotero SHETH et al. Darlyn Med. 2011;13(11):913-920. 5. ACOG/SMFM Practice Bulletin No. 226, Jul 2020. Performed By: #### 5 195-3, 73406-0 #### [facility] CLIA [id number] [address] Gestational age Estimated from conception date [facility] Comment on above: Order Comment: Speci men Type: BLOOD SPECIMEN Ordering Facility: [facility] Address: [address] [place] [address] Performed By: #### 5 195-3, 72267-8 #### [facility] CLIA [id number] [address] GESTATIONALAGE AGE > OR = 9W Yes [facility] Comment on above: Order Comment: Speci men Type: BLOOD SPECIMEN Ordering Facility: [facility] Address: [address] [place] [address] Performed By: #### 5 -3, #### [facility] CLIA [id number] [address] [place] [address] Laboratory comment Lavon (Report) Comment [facility] Comment on above: Order Comment: Speci men Type: BLOOD SPECIMEN Ordering Facility: [facility] Address: [address] [place] [address] Result Comment: The MaterniT(R) 21 PLUS laboratory-developed test (LDT) analyzes circulating cell-free DNA from a maternal blood sample. This test is used for screening purposes and not diagnostic. Clinical correlation is recommended. Validation data on twin pregnancies is limited and the ability of this test to detect aneuploidy in higher multiple gestations has not yet been validated. Performed By: #### 5 195-3, 57105-1 #### [facility] CLIA [id number] [address] [place] [address] director epidemiology name Nom (Provider) Comment [facility] Comment on above: Order Comment: Speci men Type: BLOOD SPECIMEN Ordering Facility: [facility] Address: [address] [place] [address] Result Comment: This specimen showed an expected representation of chromosome 21, 18 and 13 material. Clinical correlation is suggested. Comment Leoanrdo Mae MD, PhD, Director, [employer] Performed By: #### 5 195-3, 22334-4 #### [facility] CLIA [id number] 1 [place] [address] [place] LIMITATIONS OF THE TEST Comment Normal [facility] Comment on above: Order Comment: Speci men Type: BLOOD SPECIMEN Ordering Facility: [facility] Address: [address] [place] [address] Result Comment: Matt gómez the results of [...] and Fragmin(R)). Performed By: #### 5 195-3, 58748-8 #### [facility] CLIA [id number] [address] Monosomy X risk Dosage of chromosome-specific cfDNA Ql (Plasma cell-free+WBC DNA) [Interp] Not detected Normal [facility] Comment on above: Order Comment: Blue [facility] Type: BLOOD SPECIMEN Ordering Facility: [facility] Address: [address] [place] [address] Performed By: #### 5 195-3, 70795-8 #### [facility] CLIA [id number] [address] NEGATIVE PREDICTIVE VALUE Note Normal [facility] Comment on above: Order Comment: Blue [facility] Type: BLOOD SPECIMEN Ordering Facility: [facility] Address: [address] [place] [address] Result Comment: The Negative Predictive Value (NPV) for trisomy 21, 18, and 13 is greater than 99%. The NPV for SCA and ESS cannot be calculated as SCA and ESS are only reported when an abnormality is detected. Performed By: #### 5 195-3, 21662-9 #### [facility] CLIA [id number] [address] PERFORMANCE CHARACTERISTICS Note Normal [facility] Comment on above: Order Comment: Blue [facility] Type: BLOOD SPECIMEN Ordering Facility: [facility] Address: [address] [place] [address] Result Comment: ! Sex ! Accuracy: 99.4% [...] gestation only. Performed By: #### 5 195-3, 93082-4 #### [facility] CLIA [id number] [address] POSITIVE PREDICTIVE VALUE N/A Normal [facility] Comment on above: Order Comment: Speci men Type: BLOOD SPECIMEN Ordering Facility: [facility] Address: [address] [place] [address] Performed By: #### 5 195-3, 71954-2 #### [facility] CLIA [id number] [address] Reference Lab Test Method Comment Normal [facility] Comment on above: Order Comment: Speci men Type: BLOOD SPECIMEN Ordering Facility: [facility] Address: [address] [place] [address] Result Comment: Circ ulating cell-free DNA was [...] and 22. Performed By: #### 5 195-3, 82964-3 #### [facility] CLIA [id number] [address] [place] Service comment (Unsp spec) [Interp] Comment Normal [facility] Comment on above: Order Comment: Speci men Type: BLOOD SPECIMEN Ordering Facility: [facility] Address: [address] [place] [address] Result Comment: [employer] is a subsidiary of [employer], using the brand [employer]. This test was developed and its performance characteristics determined by [employer]. It has not been cleared or approved by the Food and Drug Administration. This laboratory is certified under the Clinical Laboratory Improvement Amendments (CLIA) as qualified to perform high complexity clinical laboratory testing and accredited by the College [employer] (CAP). If there is future clinical need for adding MaterniT GENOME testing, this specimen will be available until term. [facility] samples will not be retained beyond 60 days. [facility] patients will have to send a new sample for re-sequencing ([facility] Test Code: [id number]). Performed By: #### 5 195-3, 20954-3 #### [facility] CLIA [id number] [address] Sex Dosage of chromosome-specific cfDNA Nom (cfDNA) Comment Normal [facility] Comment on above: Order Comment: Speci men Type: BLOOD SPECIMEN Ordering Facility: [facility] Address: [address] [place] [address] Result Comment: Cons istent with Male Performed By: #### 5 195-3, 06284-7 #### [facility] CLIA [id number] [address] Test performance information Lavon (Unsp spec) Comment Normal [facility] Comment on above: Order Comment: Speci men Type: BLOOD SPECIMEN Ordering Facility: [facility] Address: [address] [place] [address] Result Comment: The performance characteristics of the MaterniT(R) 21 PLUS laboratory-developed test (LDT) have been determined in a clinical validation study with women at increased risk for chromosomal aneuploidy.[1-4] Performed By: #### 5 -3, 13079-7 #### [facility] CLIA [id number] [address] Trisomy 13 risk Dosage of chromosome-specific cfDNA Ql (cfDNA) [Interp] Negative Normal [facility] Comment on above: Order Comment: Speci men Type: BLOOD SPECIMEN Ordering Facility: [facility] Address: [address] [place] [address] Performed By: #### 5 195-3, 40324-2 #### [facility] CLIA [id number] [address] [place] [address] Trisomy 18 risk Dosage of chromosome-specific cfDNA Ql (Plasma cell-free+WBC DNA) [Interp] Negative Normal [facility] Comment on above: Order Comment: Speci men Type: BLOOD SPECIMEN Ordering Facility: [facility] Address: [address] [place] [address] Performed By: #### 5 195-3, 84914-6 #### [facility] CLIA [id number] [address] [place] Prot/Creat Uron 04-11-2025 Protein/Creatinine (U) [Mass ratio] 0.05 mg/mg Normal <0.15 [facility] Comment on above: Order Comment: Speci men Type: BLOOD SPECIMEN Ordering Facility: [facility] Address: [address] [place] [address] Result Comment: Adul t Proteinuria Categories: <0.15 mg/mg is considered normal to mildly increased 0.15 - 0.50 mg/mg is considered moderately increased >0.50 mg/mg is considered severely increased KDIGO. (2013). KDIGO 2012 Clinical Practice Guideline for the Evaluation and Management of Chronic Kidney Disease. Official Journal of the International Society of Nephrology, 3(1), 1-150. Performed By: #### 5 195-3, 32891-1 #### [facility] CLIA [id number] [address] [place] [address] [place] OF [facility] Protein/Creatinine (U) [Mass ratio]on 04-11-2025 Creatinine (U) [Mass/Vol] 222.2 mg/dL Normal 42.2-237.9 [facility] Comment on above: Order Comment: Speci men Type: BLOOD SPECIMEN Ordering Facility: [facility] Address: [address] [address] Performed By: #### 5 195-3, 35944-7 #### [facility] CLIA [id number] [address] Protein (U) [Mass/Vol] 11 mg/dL Normal 0-20 [facility] Comment on above: Order Comment: Speci men Type: BLOOD SPECIMEN Ordering Facility: [facility] Address: [address] [place] [address] Performed By: #### 5 195-3, 53563-4 #### [facility] CLIA [id number] [address] [place] RUBELLA IGG ANTIBODYon 04-11 RUBELLA IGG AB, QUAL Positive Normal Positive [facility] Comment on above: Order Comment: Speci men Type: BLOOD SPECIMEN Ordering Facility: [facility] Address: [address] [place] [address] Result Comment: The result suggests recent or past exposure to Rubella virus or history of Rubella vaccination. Positive result may also be seen due to presence of passively-transferred antibodies. Please correlate with patient's history. The following results were obtained with the Elecsys Rubella IgG assay. Results from assays of other manufacturers cannot be used interchangeably. Performed By: #### 5 195-3, 59106-4 #### [facility] CLIA [id number] [address] [place] [address] OF [place] Reagin and Treponema pallidu m IgG and IgM [Interp]on 04-11-2025 T. pallidum IgG+IgM IA Ql (S) Non-Reactive Normal Nonreactive [facility] Comment on above: Order Comment: Speci men Type: BLOOD SPECIMEN Ordering Facility: [facility] Address: [address] [place] [address] Performed By: #### 5 195-3, 29871-6 #### [facility] CLIA [id number] [address] [place] [address] [place] Reagin+T pallidum IgG+IgM Se rPl-Impon 04-11-2025 Reagin and Treponema pallidum IgG and IgM [Interp] Cannot exclude recent Treponemal infection if specimen collected within 7-10 days after appearance of suspect lesions or 2-3 weeks after an exposure. Clinical correlation is required. Normal [facility] Comment on above: Order Comment: Speci men Type: BLOOD SPECIMEN Ordering Facility: [facility] Address: [address] [place] [address] Performed By: #### 5 195-3, 38433-8 #### [facility] CLIA [id number] 1 [place] [address] [place] TSH SerPl-aCncon 04-11-2025 TSH Qn 0.308 m[IU]/L Normal 0.270-4.200 [facility] Comment on above: Order Comment: Speci juma Type: BLOOD SPECIMEN Ordering Facility: [facility] Address: [address] [place] [address] Result Comment: If t he patient is , TSH reference range varies by gestational period: First Trimester (weeks 9-12): 0.180-2.990 mIU/L Second Trimester: 0.110-3.980 mIU/L Third Trimester: 0.480-4.710 mIU/L Valeriano Rivera et al. A Practical Approach for the Verifications and Determination of Site- and Trimester-Specific Reference Intervals for Thyroid Function tests in . Thyroid, 2019:29:3:412-420. Jozef E, et al. 2017 Guidelines of the [place] Thyroid Association for the Diagnosis and Management of Thyroid Disease during and the . Thyroid, 2017:27:3:315-389. Performed By: #### 5 195-3, 28556-2 #### [facility] CLIA [id number] [address] STATES OF [facility] TYPE + SCREEN PRENATALon ABO O Normal [facility] Comment on above: Order Comment: Blue dennison Type: BLOOD SPECIMEN Ordering Facility: [facility] Address: [address] [place] [address] Performed By: #### T SPN #### [facility] CLIA [id number] [address] STATES OF [place] Rh Nom (Bld) Positive Normal [facility] Comment on above: Order Comment: Speci juma Type: BLOOD SPECIMEN Ordering Facility: [facility] Address: [address] [place] [address] Performed By: #### T SPN #### [facility] CLIA [id number] [address] OF [facility] TYPE AND SCREEN EXPIRATION 04/14/2025 23:59 Normal [facility] Comment on above: Order Comment: Speci men Type: BLOOD SPECIMEN Ordering Facility: [facility] Address: [address] [place] [address] Performed By: #### T SPN #### [facility] CLIA [id number] 1 [place] [address] [place] Bacteria Ur Culton Bacteria identified Cx Nom (U) ORGANISM ID: 2 10,000 -<50,000 CFU/ml Normal urogenital kendra Normal [facility] Comment on above: Performed By: #### 6 30-4 #### [facility] CLIA [id number] [address] [place] [address] [place] C. trachomatis+N. gonorrhoea e DNA TREVOR+probe Ql (Unsp spec)on 03-28-2025 C. trachomatis rRNA TREVOR+probe Ql (Unsp spec) Not detected Normal Not detected [facility] Comment on above: Order Comment: Speci men Type: SWAB Ordering Facility: [facility] Address: [address] [place] [address] Performed By: #### T RVAMP, 10033-6 #### [facility] CLIA [id number] [address] [place] [address] [place] N. gonorrhoeae rRNA TREVOR+probe Ql (Unsp spec) Not detected Normal Not detected [facility] Comment on above: Order Comment: Speci men Type: SWAB Ordering Facility: [facility] Address: [address] [place] [address] Performed By: #### T RVAMP, 67650-6 #### [facility] CLIA [id number] [address] [place] [address] [place] HIGH RISK HUMAN PAPILLOMA GINO (HPV), PCR FOR DETECTION AND GENOTYPINGon 03-28-2025 HPV 16 Ag Ql (Unsp spec) Not detected Normal Not detected [facility] Comment on above: Order Comment: Speci men Type: FLUID SPECIMEN Ordering Facility: [facility] Address: [address] [place] [address] Performed By: #### H PVHRT #### [facility] CLIA [id number] [address] [place] [address] [place] HPV 18 Ag Ql (Unsp spec) Not detected Normal Not detected [facility] Comment on above: Order Comment: Speci men Type: FLUID SPECIMEN Ordering Facility: [facility] Address: [address] [place] [address] Performed By: #### H PVHRT #### [facility] CLIA [id number] [address] [place] [address] [place] HPV 31+33+35+39+45+51+52 +56+58+59+66+68 DNA TREVOR+probe Ql (Cvx) Not detected Normal Not detected [facility] Comment on above: Order Comment: Speci men Type: FLUID SPECIMEN Ordering Facility: [facility] Address: [address] [place] [address] Result Comment: High Risk HPV Other Type includes HPV types 31, 33, 35, 39, 45, 51, 52, 56, 58, 59, 66 and 68. Performed By: #### H PVHRT #### [facility] CLIA [id number] [address] [place] [address] [place] PAP TESTon 03-28-2025 ADEQUACY Normal [facility] Comment on above: Order Comment: Speci men Type: FLUID SPECIMEN Ordering Facility: [facility] Address: [address] [place] [address] Result Comment: Sati sfactory for interpretation. Transformation zone present Performed By: #### L [id number] #### [facility] CLIA [id number] [address] [place] [address] [place] CASE REPORT Normal [facility] Comment on above: Order Comment: Speci men Type: FLUID SPECIMEN Ordering Facility: [facility] Address: [address], [place] [address] Result Comment: Gyne cologic Cytology Report Case: [id number] Authorizing Provider: Omar Freedman APRN.AUTOMOBILE UPHOLSTERER Collected: 03/28/2025 02:34 PM Ordering Location: OB/Gynecology Received: 03/28/2025 03:37 PM First Screen: Christy, Laney, CT, ASCP Specimen: Pap Test, ThinPrep, Cervix Performed By: #### L [id number] #### [facility] CLIA [id number] [address] [place] [address] [place] CLINICAL HISTORY, CYTOLOGY, CHARGE ENTRY CLERK Routine Exam Normal [facility] Comment on above: Order Comment: Speci men Type: FLUID SPECIMEN Ordering Facility: [facility] Address: [address] [place] [address] Performed By: #### L [id number] #### [facility] CLIA [id number] [address] [place] [address] [place] CYTOLOGY PAP OTHER INTERPRETATION Fungal organisms morphologically consistent with Antionette species. Normal [facility] Comment on above: Order Comment: Speci men Type: FLUID SPECIMEN Ordering Facility: [facility] Address: [address] [place] [address] Performed By: #### L [id number] #### [facility] CLIA [id number] [address] [place] [address] STATES OF [place] FINAL PERFORMING LAB Normal [facility] Comment on above: Order Comment: Speci men Type: FLUID SPECIMEN Ordering Facility: [facility] Address: [address] [place] [address] Result Comment: Tech nical component, cognos analyst screening performed at: [facility], [address] [place] [address] CLIA: [id number] Diagnostic interpretation performed at: [facility], [address] [place] [address] CLIA# [id number] Head Bone Grinder: Brice Orlando MD Performed By: #### L [id number] #### [facility] CLIA [id number] [address] [place], [place] [id number] [place] INTERPRETATION, CYTOLOGY, CHARGE ENTRY CLERK Normal [facility] Comment on above: Order Comment: Speci men Type: FLUID SPECIMEN Ordering Facility: [facility] Address: [address] [place] [address] Result Comment: Nega tive for intraepithelial lesion or malignancy. at 1406 EDT Performed By: #### L [id number] #### [facility] CLIA [id number] [address] [place] [address] [place] LMP 01/24/2025 Normal [facility] Comment on above: Order Comment: Speci men Type: FLUID SPECIMEN Ordering Facility: [facility] Address: [address] [place] [address] Performed By: #### L [id number] #### [facility] CLIA [id number] [address] [place], [place] [id number] [place] PAP DISCLAIMER COMMENT The Pap Smear is a screening test for cervical cancer. False negative results occur with all screening tests, emphasizing the need for rescreening at recommended intervals, and clinical correlation. Normal [facility] Comment on above: Order Comment: Speci men Type: FLUID SPECIMEN Ordering Facility: [facility] Address: [address] [place] [address] Performed By: #### L [id number] #### [facility] CLIA [id number] [address] [place] [address] [place] PAP INFORMATION TECHNOLOGY ASSOCIATE COMMENT This specimen has been analyzed by the FDA-approved iloho System, which uses digital imaging and an enhanced artificial intelligence image analysis algorithm to identify lagunas of interest on the microscopic slide, to assist the event specialist and pathologist in evaluating cells on ThinPrep Pap tests. Following analysis, lagunas of interest on the microscopic slide selected by the algorithm are reviewed by a event specialist. If a sample requires hierarchical review, the pathologist will review the same lagunas of interest selected by the algorithm prior to final interpretation. Normal [facility] Comment on above: Order Comment: Speci men Type: FLUID SPECIMEN Ordering Facility: [facility] Address: [address] [place] [address] Performed By: #### L [id number] #### [facility] CLIA [id number] [address] [place] [address] [place] [address] MAINTENANCE SUPERVISOR ULTRASOUNDon 03-28-20 25 Indication Viability; confirm cardiac [...] Read By: Omar Freedman NP MATERNAL MEDICINE [facility] Radiology Study observation (narrative) [facility] TRICHOMONAS VAGINALIS NAATon 03-28-2025 T. vaginalis DNA TREVOR+probe Ql (Unsp spec) Not detected Normal Not detected [facility] Comment on above: Order Comment: Speci men Type: SWAB Ordering Facility: [facility] Address: [address] [place] [address] Performed By: #### T RVAMP, 29232-6 #### [facility] CLIA [id number] [address] OF [facility] [place] 03-26-2025 CNPN Telephone (OBGYWM) MARIA T PHAN ([id number]) 1985 F Date Time Provider Department 03/26/25 [...] Encounter Status:Closed by MERLYN KEARNEY on 04/29/25 [facility] CNOVon 02-18-2025 CNOV Office Visit (AGGENS3) MARIA T PHAN ([id number]) 1985 F Date Time Provider Department 02/18/25 2:00 PM ELIZABETH KANG During your visit today, we recorded the following information about you: Pulse Blood pressure Weight Height 118/minute 146/80 81.6 kg 1.702 m Elizabeth Kang MD 02/26/2025 10:53 AM Addendum Elizabeth Kang M.D. Colon AND Rectal Surgery [address] [facility], [address] [place] [address] CC: anal lesion/pain HPI: Maria T Phan [...] IV iron Cholestasis during in third trimester ([facility]) 12/17/2021 Elevated liver enzymes History of pre-eclampsia in prior , currently ([facility]) Hypertension Reports hx of pre-eclampsia in 4th [...] examined in right lateral decubitus with a unarmed security officer present. In the posterior midline, there was [...] 13.4 Hematoc (more content not included)... Normal [facility] CNOVon 01-09-2025 CNOV Office Visit (GSTNOR ) MARIA T PHAN ([id number]) 1985 F Date Time Provider Department 01/09/25 3:30 PM MEENA CUEVAS During your visit today, we recorded the following information about you: Pulse Blood pressure Weight Height 99/minute 122/78 79.7 kg 1.702 m Meena Cuevas APRN.AUTOMOBILE UPHOLSTERER 01/09/2025 3:53 PM Signed CHIEF COMPLAINT: Patient [...] was discussed with the patient or authorized resources representative. The patient or authorized resources representative has agreed to proceed with the sensitive examination. Physical Exam Exam conducted with a unarmed security officer present (Renee Castañeda MA). Pulmonary: Effort: Pulmonary [...] Date Reviewed: 01/09/2025 Reviewed by: Meena Cuevas APRN.AUTOMOBILE UPHOLSTERER - Fully Assessed Reason for Visit: Lump on rectum [Other] Cmt: Lymph nodes swollen in groin area- pain has improved from what it was at her last office visit. 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 Normal [facility] MRI LIVER WO/W IVCONon 10-08 MRI [...] changes of the breasts. Lung bases: Unremarkable. Glue Mounter Operator (topogram) images: No additional findings IMPRESSION: 1. [...] 4. Cholelithiasis, no evidence of acute inflammation. Health Management Consultant: PSCB Transcribe Date/Time: Oct 16 2024 10:05A Dictated by : JONY THAKUR MD This examination was interpreted and the report reviewed and electronically signed by: JONY THAKUR MD on Oct 16 2024 10:22AM EST [id number] Normal [facility] US ABDOMEN LIMITEDon 024 US ABDOMEN [...] Signed Date/Time: 08/24/2024 12:35 PM EST Normal [facility] US Abdomen limitedon 024 Abnormal. The etiology of the symptoms is not certain. A large gallstone is present. Please correlate clinically to determine if further evaluation or follow-up is indicated. Hepatic lesion left lobe, mildly larger. The etiology remains uncertain. Consider MRCP for persistent symptoms. Report Dictated on Electronically Signed By: Inderjit Ling MD Electronically Signed Date/Time: 08/24/2024 12:35 PM EST [facility] Patient Name: MARIA T [...] mm nonobstructing right renal calculus. No hydronephrosis. [facility] Inderjit Ling MD - 08/24/2024 Patient Name: [...] Electronically Signed Date/Time: 08/24/2024 12:35 PM EST [facility] [employer] Radiology Study observation (narrative) [employer] US Abdomen limitedOrdered By : Inderjit Ling on 08-24-2024 [employer] Work Phone: XR Chest 2 Viewson No acute cardiopulmonary abnormality identified. Report Dictated on Electronically Signed By: Francis Fox MD Electronically Signed Date/Time: 04/16/2024 3:46 PM EDT [employer] [facility] 1985 [id number] Exam Date/Time: 04/16/2024 13:05 Procedure: XR CHEST [...] pneumothorax. No acute osseous abnormality is demonstrated. [facility] [employer] Francis Fox MD - 04/16/2024 Patient Name: [facility]IA T PHAN : 1985 [id number] Exam Date/Time: 04/16/2024 13:05 Procedure: XR CHEST [...] Electronically Signed Date/Time: 04/16/2024 3:46 PM EDT [facility] Radiology Study observation (narrative) [facility] XR Chest 2 ViewsOrdered By: Francis Fox on 04-16-2024 [facility] Work Phone: XR Tibia and Fibula - left 2 View[employer] 12-21-2023 No osseous abnormalities. Report Dictated on Electronically Signed By: Garry Denson MD Electronically Signed Date/Time: 12/21/2023 4:21 PM [facility] [employer] Patient Name: MARIA T PHAN [facility] 1985 [id number] Exam Date/Time: 12/20/2023 13:33 Procedure: XR TIBIA [...] abnormality or focal swelling at this site. [facility] Garry Denson M D [...] Electronically Signed Date/Time: 12/21/2023 4:21 PM EST [employer] XR Tibia and Fibula - left 2 ViewsOrdered By: Garry Denson on 12-21-2023 [employer] Work Phone: XR Tibia and Fibula - left 2 Viewson 12-20-2023 Radiology Study observation (narrative) [employer] XR Humerus - right Viewson 0 04-14-2023 Findings and impression: Right arm multiple views performed. Bone density is normal. There is no fracture or dislocation, convincing acute bone or soft tissue process seen. The etiology of the symptoms is not certain. Report Dictated on Electronically Signed By: Inderjit Ling Electronically Signed Date/Time: 04/14/2023 7:54 AM EDT [facility] [employer] Patient Name: MARIA T PHAN : 1985 Exam Date/Time: 04/12/2023 13:33 Procedure: XR HUMERUS RIGHT Ordering Provider: DOWNEY JOSEPH Reason For Exam: m89.8x2 Indication: Right arm pain. [facility] [employer] Inderjit Ling MD - 04/14/2023 Patient [...] Electronically Signed Date/Time: 04/14/2023 7:54 AM EDT [employer] XR Humerus - right ViewsOrde red By: Inderjit Ling on 04-14-2023 [employer] Work Phone: XR Humerus - right Viewson 0 04-12-2023 Radiology Study observation (narrative) [facility] [employer] Discharge Instructionon - Discharge Instruction [facility] Medical Records Department [address] [place] [address] Instructions for Home/Discharge Instructions 02/10/23 0858 MR#: [id number] Acct: [id number] Name: MARIA T PHAN Rep #: [id number] : 1985 37 From: Isaias Payan MD [...] CC: Dr. Brian Downey MD Signed Normal [facility] .Auto Diffon 02-09-2023 Basophil, Absolute 0.0 10 3/mcL Normal 0.0-0.3 [facility] ([place]) Comment on above: Performed By: #### A YUMIKO DUNBAR, CBC #### [address] [address] Basophils/100 WBC (Bld) 0.3 % Normal 0.0-2.5 [facility] ([place]) Comment on above: Performed By: #### A YUMIKO DUNBAR, CBC #### [address] [address] Eosinophil, Absolute 0.1 10 3/mcL Normal 0.0-0.7 [facility] ([place]) Comment on above: Performed By: #### A YUMIKO DUNBAR, CBC #### [address] [address] Eosinophils/100 WBC (Bld) 1.1 % Normal 0.0-6.0 [facility] ([place] Comment on above: Performed By: #### A YUMIKO DUNBAR, CBC #### [address] [address] Lymphocyte, Absolute 1.7 10 3/mcL Normal 0.9-4.3 [facility] ([place]) Comment on above: Performed By: #### A YUMIKO DUNBAR, CBC #### [address] [address] Lymphocytes/100 WBC (Bld) 23.5 % Normal 20.0-40.0 [facility] ([place]) Comment on above: Performed By: #### A YUMIKO DUNBAR, CBC #### [address] [address] Monocyte, Absolute 0.5 10 3/mcL Normal 0.1-1.4 [facility] ([place]) Comment on above: Performed By: #### A YUMIKO DUNBAR, CBC #### [address] [address] Monocytes/100 WBC (Bld) 7.5 % Normal 2.0-13.0 [facility] ([place]) Comment on above: Performed By: #### A YUMIKO DUNBAR, CBC #### [address] [address] Neutrophils/100 WBC (Bld) 67.6 % Normal 50.0-75.0 [facility] ([place] Comment on above: Performed By: #### A YUMIKO DUNBAR, CBC #### [address] [address] .NEUABSon 02-09-2023 Neutrophil, Absolute 4.8 10 3/mcL Normal 2.3-8.1 [facility] ([place]) Comment on above: Performed By: #### A YUMIKO DUNBAR, CBC #### [address] [address] CBCon 02-09-2023 Erythrocyte distribution width (RBC) [Ratio] 13.6 % Normal 11.5-15.5 [facility] ([place]) Comment on above: Performed By: #### A YUMIKO DUNBAR, CBC #### [address] [address] Hematocrit (Bld) [Volume fraction] 37.9 % Normal 34.0-46.0 [facility] ([place]) Comment on above: Performed By: #### A YUMIKO DUNBAR, CBC #### [address] [address] Hgb 12.8 G/dL Normal 12.0-16.0 [facility] ([place]) Comment on above: Performed By: #### A CHANTELL DUNBARIFF, CBC #### [address] [address] MCH (RBC) [Entitic mass] 28.6 pg Normal 27.0-33.0 [facility] ([place]) Comment on above: Performed By: #### A YUMIKO DUNBAR, CBC #### [address] [address] MCHC 33.8 G/dL Normal 32.0-36.0 [facility] ([place] Comment on above: Performed By: #### A YUMIKO DUNBAR, CBC #### [place] [address] MCV (RBC) [Entitic vol] 84.4 fL Normal 80.0-99.0 [facility] ([place] Comment on above: Performed By: #### A YUMIKO DUNBAR, CBC #### [address] [address] Platelet 216 10 3/mcL Normal 150-450 [facility] ([place]) Comment on above: Performed By: #### A YUMIKO DUNBAR, CBC #### [place] [id number] Platelet mean volume (Bld) [Entitic vol] 9.1 fL Normal 6.6-10.5 [facility] ([place]) Comment on above: Performed By: #### A YUMIKO DUNBAR, CBC #### [address] [address] RBC 4.49 10 6/mcL Normal 4.10-5.30 [facility] ([place]) Comment on above: Performed By: #### A MANJINDER ADJEANETTE, CBC #### [address] [address] WBC 7.0 10 3/mcL Normal 4.5-10.8 [facility] ([place]) Comment on above: Performed By: #### A MANJINDER, ADIFF, CBC #### [facility] [address] [place] [address] CBC W/Diff, Automatedon 01-16 WBC Normal 4.4-11.0 [facility] Comment on above: Result Comment: Scan brooke image report available in EMR CBCD PERFORMED BY [facility] Performed By: #### B TS, L100.0100 #### [facility] [address] [facility] [place], [address] H AND P Exam - OB/GYNon 01-16 H&P Exam - TANK TRUCK MECHANIC [facility] Medical Records Department [address] [facility] [place] [address] H P Exam - TANK TRUCK MECHANIC 02/09/23 1307 MR#: [id number] Acct: [id number] Name: MAIRA T PHAN Rep #: [id number] : 1985 37 From: Brenda Mcdaniel MD PCP: Dr. Brian Downey MD Status:ADM IN Location: [id number] HPI - General General Date of Admission: [...] Final PILAR: 02/15/23 Gestational age: 39 1/7 [facility] Medical History (Updated 02/09/23 @ 13:09 by [...] Downey MD; Dr. Brenda Mcdaniel MD Signed [facility] L509.8000on 02-09-2023 Syphilis Abs Non-Reactive [facility] Comment on above: Performed By: #### L 509.8000 #### [facility] [address] [place], [address] Operative Reporton 3 Operative Report [facility] Medical Records Department [address] [place] [address] Operative Report 02/09/23 1854 MR#: [id number] Acct: [id number] Name: MARIA T PHAN Rep #: [id number] : 1985 37 From: Brenda Mcdaniel MD PCP: Dr. Brian Downey MD Status:ADM IN [facility] Assessment Plan (1) (spontaneous vaginal delivery): (2) Breech : Maternal Data Information Final PILAR: 02/17/23 Gestational age: 39 1/7 Vaginal Delivery Maternal Presentation Maternal Presentation: Medically Indicated Induction Type of Induction: Pitocin and Amniotomy Operative Information Date of Procedure: 02/09/23 Pre-Operative Diagnosis: labor Post-Operative Diagnosis: same Surgery / Procedure Performed: Spontaneous Vaginal Delivery (Complete breech) cytology laboratory manager #1: Alessandra Ruiz Type of Anesthesia: Epidural [...] None Laceration: None Complication Complications: None 02/09/23 2178 Cosigner Signature (if applicable): CC: Dr. Brian Downey MD; Dr. Brenda Mcdaniel MD Signed [facility] Type AND Screenon 3 ABO and Rh group Nom (Bld) Blood group O Rh(D) positive Normal [facility] Comment on above: Order Comment: Labor Performed By: #### B , L100.0100 #### [facility] [address] [place], [place] [address], [address] URINE OB DIP B/Oon 3 Glucose Ql (U) Negative Neg mg/dL [facility] Protein.monoclonal (U) [Mass/Vol] Negative Neg mg/dL [facility] URINE OB DIP B/Oon 3 Glucose Ql (U) Negative Neg mg/dL [facility] Protein.monoclonal (U) [Mass/Vol] Negative Neg mg/dL [facility] URINE OB DIP B/Oon 3 Glucose Ql (U) Negative Neg mg/dL [facility] Protein.monoclonal (U) [Mass/Vol] Negative Neg mg/dL [facility] URINE OB DIP B/Oon 3 Glucose Ql (U) Negative Neg mg/dL [facility] Protein.monoclonal (U) [Mass/Vol] Negative Neg mg/dL [facility] URINE OB DIP B/Oon 2 Glucose Ql (U) Negative Neg mg/dL [facility] Protein.monoclonal (U) [Mass/Vol] Negative Neg mg/dL [facility] URINE OB DIP B/Oon 2 Glucose Ql (U) Negative Neg mg/dL [facility] Protein.monoclonal (U) [Mass/Vol] Negative Neg mg/dL [facility] [employer] WHIon [facility] URINE OB DIP B/Oon 2 Glucose Ql (U) Negative Neg mg/dL [facility] Protein.monoclonal (U) [Mass/Vol] Negative Neg mg/dL [facility] CBC panel Auto (Bld)on 07-07 Erythrocyte distribution width (RBC) [Ratio] 13.4 % 11.5 - 15.0 % [facility] Hematocrit (Bld) [Volume fraction] 36.8 % 36.0 - 46.0 % [facility] Hemoglobin (Bld) [Mass/Vol] 12.2 g/dL 11.5 - 15.5 g/dL [facility] MCH (RBC) [Entitic mass] 28.3 pg 26.0 - 34.0 pg [facility] MCHC (RBC) [Mass/Vol] 33.2 g/dL 30.5 - 36.0 g/dL [facility] MCV (RBC) [Entitic vol] 85.4 fL 80.0 - 100.0 fL [facility] Nucleated RBC (Bld) [#/Vol] <0.01 k/uL [facility] Platelet mean volume (Bld) [Entitic vol] 9.9 fL 9.0 - 12.7 fL [facility] Platelets (Bld) [#/Vol] 256 10*3/uL 150 - 400 k/uL [facility] RBC (Bld) [#/Vol] 4.31 10*6/uL 3.90 - 5.2 0 m/uL [facility] WBC (Bld) [#/Vol] 7.41 10*3/uL 3.70 - 11. 00 k/uL [facility] Comprehensive metabolic 2000 panelon 07-07-2022 Albumin [Mass/Vol] 4.4 g/dL 3.9 - 4.9 g/dL [facility] ALP [Catalytic activity/Vol] 89 U/L 34 - 123 U/L [facility] ALT [Catalytic activity/Vol] 63 U/L High 7 - 38 U/L [facility] Anion gap [Moles/Vol] 8 mmol/L Low 9 - 18 mmol/L [facility] AST [Catalytic activity/Vol] 30 U/L 13 - 35 U/L [facility] Bilirubin [Mass/Vol] 0.2 mg/dL 0.2 - 1.3 mg/dL [facility] Calcium [Mass/Vol] 9.0 mg/dL 8.5 - 10. 2 mg/dL [facility] Chloride [Moles/Vol] 105 mmol/L 97 - 105 mmol/L [facility] CO2 [Moles/Vol] 22 mmol/L 22 - 30 mmol/L [facility] Creatinine [Mass/Vol] 0.54 mg/dL Low 0.58 - 0.96 mg/dL [facility] Estimated Glomerular Filtration Rate 123 mL/min/1.73m >=60 mL/min/1.73m [facility] Glucose [Mass/Vol] 98 mg/dL 74 - 99 mg/dL [facility] Potassium [Moles/Vol] 3.6 mmol/L Low 3.7 - 5.1 mmol/L [facility] Protein [Mass/Vol] 6.6 g/dL 6.3 - 8.0 g/dL [facility] Sodium [Moles/Vol] 135 mmol/L Low 136 - 144 mmol/L [facility] Urea nitrogen [Mass/Vol] 8 mg/dL 7 - 21 mg/dL [facility] CR Spine Thoracic 3 Viewson 04-28-2022 CR Spine Thoracic 3 Views Patient Name: MARIA T PHAN Diagnostic Radiology ACCESSION EXAM DATE/TIME PROCEDURE ORDERING PROVIDER [id number] 04/28/2022 11:05 EDT CR Spine Thoracic 3 SHAYAN MATUTE, ROSS TORRES Views CPT code 46810 Reason For Exam (CR Spine Thoracic 3 [...] AHMAD Transcribed Date and Time: 04/28/2022 3:19 [facility] XR Spine Thoracic 3 VWon Patient Name: MARIA T PHAN Diagnostic Radiology ACCESSION EXAM DATE/TIME PROCEDURE ORDERING PROVIDER [id number] 04/28/2022 11:05 EDT CR Spine Thoracic 3 DOWNEY JR, ROSS TORRES Views CPT code 22508 Reason For Exam (CR Spine Thoracic 3 [...] AHMAD Transcribed Date and Time: 04/28/2022 3:19 [facility] Nir Reyna MD - 04/28/2022 Patient Name: MARIA T PHAN Diagnostic Radiology ACCESSION EXAM DATE/TIME PROCEDURE ORDERING PROVIDER [id number] 04/28/2022 11:05 EDT CR Spine Thoracic 3 DOWNEY JR, ROSS BRIAN Views CPT code 19055 Reason For Exam (CR Spine Thoracic 3 [...] AHMAD Transcribed Date and Time: 04/28/2022 3:19 [facility] Work Phone: Radiology Study observation (narrative) [facility] Work Phone: XR Spine Thoracic 3 VWOrdere d By: Nir Reyna on 04-28-2022 [facility] Work Phone: Absolute lymphocyte counton 01-11-2022 Lymphocytes Auto (Unsp spec) [#/Vol] 1.70 10*3/uL 0.83-4.51 [facility] Work Phone: Basophil percentageon 2021 Basophils/100 WBC (Bld) 0.4 % 0-1 [facility] Work Phone: Eosinophils/100 WBC (Bld) 1.6 % 0-5 [facility] Work Phone: Neutrophils (Bld) [#/Vol] 5.3 10*3/uL 2.0-7.7 [facility] Work Phone: Neutrophils/100 WBC (Bld) 69.6 % 47-70 [facility] Work Phone: WBC (Bld) [#/Vol] 7.7 10*3/uL 4.4-11.0 [facility] Work Phone: Blood erythrocytes count (nu mber/volume)on 01-11-2022 RBC (Bld) [#/Vol] 4.35 10*6/uL 4.2-5.4 [facility] Work Phone: Blood hemoglobin measurement (mass/volume)on 01-11-2022 Hemoglobin (Bld) [Mass/Vol] 12.8 g/dL 12.0-15.0 [facility] Work Phone: Blood lymphocytes/100 leukoc yteson 01-11-2022 Lymphocytes/100 WBC (Bld) 22.2 % 19-41 [facility] Work Phone: Blood monocytes/100 leukocyt eson 01-11-2022 Monocytes/100 WBC (Bld) 5.5 % 0-10 [facility] Work Phone: Blood platelet mean volumeon 01-11-2022 Platelet mean volume (Bld) [Entitic vol] 10.4 fL 6.2-12.0 [facility] Work Phone: Determination of erythrocyte mean corpuscular volume (MCV)on 01-11-2022 MCV (RBC) [Entitic vol] 86.0 fL 81-99 [facility] Work Phone: Hematocrit Auto (Bld) [Volum e fraction]on 01-11-2022 Hematocrit (Bld) [Volume fraction] 37.4 % 37-47 [facility] Work Phone: Laboratory - Hematology and Cell countson 01-11-2022 Erythrocyte distribution width (RBC) [Entitic vol] 40.9 fL 35.1-43.9 [facility] Work Phone: Erythrocyte distribution width (RBC) [Ratio] 13.2 % 11.6-14.6 [facility] Work Phone: Immature granulocytes/100 WBC (Bld) 0.700 % 0.0-0.9 [facility] Work Phone: Comment on above: IG% - Immature Granu locytes (promyelocytes, myelocytes and metamyelocytes) > 1% indicates that a LEFT SHIFT is Present. MCH (RBC) [Entitic mass] 29.4 pg 27.0-32.0 [facility] Work Phone: Nucleated RBC/100 WBC (Bld) [Ratio] 0 % 0-5 [facility] Work Phone: MCHC Auto (RBC) [Mass/Vol]on 01-11-2022 MCHC (RBC) [Mass/Vol] 34.2 g/dL 32-36 [facility] Work Phone: Platelets bldon 01-11-2022 Platelets (Bld) [#/Vol] 205 10*3/uL 150-450 [facility] Work Phone: BIOPHYSICAL PROFILE US WHDiego 01-08-2022 [employer] Operator Indication Growth, BPP cholestasis, Advanced maternal age [...] EFW (oz) 6 oz EFW by: Hadlock (NYO-RN-GM-FL) Extremities / Bony Struc FL / HC 0.21 Other Structures FHR 153 bpm Anatomy Lateral ventricles: normal Cavum septi pellucidi: normal 4-chamber view: normal RVOT view: normal LVOT view: normal Heart / Thorax Situs: situs solitus (normal) Stomach: normal Kidneys: normal Bladder: normal sex: female Wants to know sex: yes Performed By: Rosa Dorado RDMS, RVT Read By: Jose Wolff M.D. [facility] MRI Abdomen w/o Contraston 0 11-03-2021 MRI Abdomen w/o Contrast Patient Name: MARIA T PHAN Magnetic Resonance Imaging ACCESSION EXAM DATE/TIME PROCEDURE ORDERING PROVIDER [id number] 11/03/2021 08:34 EST MRI Abdomen w/o Contrast ROSS DOWNEY JR CPT code 24753 Reason For Exam (MRI Abdomen w/o Contrast) [...] Transcribed Date and Time: 11/03/2021 9:10 Normal [facility] US Abdomen Limitedon 021 US Abdomen Limited Patient Name: MARIA T PHAN Ultrasound ACCESSION EXAM DATE/TIME PROCEDURE ORDERING PROVIDER [id number] 10/07/2021 17:40 EST US Abdomen Limited ROSS DOWNEY JR CPT code 78976 Reason For Exam (US Abdomen Limited) elevated bilirubin Addendum Critical Test Results: Results were conveyed to Dr. Downey via [employer] messaging at 6:33 PM on 10/07/2021. Report [...] 18:46 EST by MD KATZ JOHN R [facility] XR LUMBAR SPINE (MIN 4 VIEWS )on 07-15-2020 Patient Name: MARIA T PHAN ---Diagnostic Radiology--- Exam Date/Time 07/15/2020 12:28:44 EDT Exam CR Spine Lumbosacral 4+ Views Ordering Physician ROSS DOWNEY JR Accession Number [id number] CPT4 Codes 69423 () Reason For Exam lumbosacral back pain [...] LAURA Transcribed Date and Time: 07/15/2020 5:23 [place], [place] Robert, [facility] Incoming Radiology Results From [facility] - 07/15/2020 5:23 PM EDT Patient Name: MARIA T PHAN ---Diagnostic Radiology--- Exam Date/Time 07/15/2020 12:28:44 EDT Exam CR Spine Lumbosacral 4+ Views Ordering Physician ROSS DOWNEY JR Accession Number [id number] CPT4 Codes 10173 () Reason For Exam lumbosacral back pain [...] LAURA Transcribed Date and Time: 07/15/2020 5:23 [facility] [place] [place] US ABD RIGHT UPPER QUADRANTo n 02-23-2020 [...] evidence for acute cholecystitis. No biliary dilation. Health Management Consultant: JET Transcribe Date/Time: Feb 23 2020 10:53A Dictated by : FRANCISCO SMITH MD This examination was interpreted and the report reviewed and electronically signed by: FRANCISCO SMITH MD on Feb 23 2020 10:54AM EST Normal [facility] MRI BRAIN WO/W IVCONon 02-21 MRI BRAIN [...] limits for age. No significant intracranial abnormality. Health Management Consultant: [facility] Transcribe Date/Time: Feb 22 2020 5:19P Dictated by : YOEL LEWIS MD This examination was interpreted and the report reviewed and electronically signed by: YOEL LEWIS MD on Feb 22 2020 5:26PM EST Normal [facility] XR HUMERUS RIGHT (MIN 2 VIEW S)on 08-28-2019 Patient Name: MARIA T PHAN ---Diagnostic Radiology--- Exam Date/Time 08/28/2019 12:32:00 EST Exam CR Humerus 2+ Views Right Ordering Physician ROSS DOWNEY JR Accession Number [id number] CPT4 Codes 17312 () Reason For Exam M79.621 PAIN RIGHT [...] AHMAD Transcribed Date and Time: 08/28/2019 1:43 [place], [place] Karthik Jones Incoming Radiology Results From [facility] - 08/28/2019 1:43 PM EST Patient Name: MARIA T PHAN ---Diagnostic Radiology--- Exam Date/Time 08/28/2019 12:32:00 EST Exam CR Humerus 2+ Views Right Ordering Physician ROSS DOWNEY JR Accession Number [id number] CPT4 Codes 04501 () Reason For Exam M79.621 PAIN RIGHT [...] AHMAD Transcribed Date and Time: 08/28/2019 1:43 [place], [place] Vital Signs Date Time Vital Sign Value Performing Clinician Facility 06-06-2025 13:52-0400 Body mass index (BMI) [Ratio] 29.04 kg/m2 Caitlyn Kaur MD Work Phone: [facility] 06-06-2025 13:52-0400 Body weight 84.1 kg Caitlyn Kaur MD Work Phone: [facility] 06-06-2025 13:52-0400 Diastolic blood pressure 78 mm[Hg] Caitlyn Kaur MD Work Phone: [facility] 06-06-2025 13:52-0400 Systolic blood pressure 100 mm[Hg] Caitlyn Kaur MD Work Phone: [facility] 04-25-2025 13:48-0400 Body mass index (BMI) [Ratio] 28.66 kg/m2 Brenda Mcdaniel MD Work Phone: [facility] 04-25-2025 13:48-0400 Body weight 83.01 kg Brenda Mcdaniel MD Work Phone: [facility] 04-25-2025 13:48-0400 Diastolic blood pressure 70 mm[Hg] Brenda Mcdaniel MD Work Phone: [facility] 04-25-2025 13:48-0400 Systolic blood pressure 110 mm[Hg] Brenda Mcdaniel MD Work Phone: [facility] 03-28-2025 13:46-0400 Body height 170.2 cm Omar Haury REVIEW TRAINER.AUTOMOBILE UPHOLSTERER Work Phone: [facility] 03-28-2025 13:46-0400 Body mass index (BMI) [Ratio] 28.51 kg/m2 Omar Haury REVIEW TRAINER.AUTOMOBILE UPHOLSTERER Work Phone: [facility] 03-28-2025 13:46-0400 Body weight 82.56 kg Omar Haury REVIEW TRAINER.AUTOMOBILE UPHOLSTERER Work Phone: [facility] 03-28-2025 13:46-0400 Diastolic blood pressure 60 mm[Hg] Omar Haury REVIEW TRAINER.AUTOMOBILE UPHOLSTERER Work Phone: [facility] 03-28-2025 13:46-0400 Systolic blood pressure 120 mm[Hg] Omar Haury REVIEW TRAINER.AUTOMOBILE UPHOLSTERER Work Phone: [facility] 02-18-2025 13:59-0400 Body height 170.2 cm Elizabeth Kang MD Work Phone: [facility] 02-18-2025 13:59-0400 Body mass index (BMI) [Ratio] 28.19 kg/m2 Elizabeth Kang MD Work Phone: [facility] 02-18-2025 13:59-0400 Body weight 81.65 kg Elizabeth Kang MD Work Phone: [facility] 02-18-2025 13:59-0400 Diastolic blood pressure 80 mm[Hg] Elizabeth Kang MD Work Phone: [facility] 02-18-2025 13:59-0400 Heart rate 118 /min Elizabeth Kang MD Work Phone: [facility] 02-18-2025 13:59-0400 Systolic blood pressure 146 mm[Hg] Elizabeth Kang MD Work Phone: [facility] 01-09-2025 15:19-0400 Body height 170.2 cm Meena Hritz REVIEW TRAINER.AUTOMOBILE UPHOLSTERER Work Phone: [facility] 01-09-2025 15:19-0400 Body mass index (BMI) [Ratio] 27.53 kg/m2 Meena Hritz REVIEW TRAINER.AUTOMOBILE UPHOLSTERER Work Phone: [facility] 01-09-2025 15:19-0400 Body weight 79.74 kg Meena Hritz REVIEW TRAINER.AUTOMOBILE UPHOLSTERER Work Phone: [facility] 01-09-2025 15:19-0400 Diastolic blood pressure 78 mm[Hg] Meena Hritz REVIEW TRAINER.AUTOMOBILE UPHOLSTERER Work Phone: [facility] 01-09-2025 15:19-0400 Heart rate 99 /min Meena Hritz REVIEW TRAINER.AUTOMOBILE UPHOLSTERER Work Phone: [facility] 01-09-2025 15:19-0400 Systolic blood pressure 122 mm[Hg] Meena Hritz REVIEW TRAINER.AUTOMOBILE UPHOLSTERER Work Phone: [facility] 04-26-2024 14:23-0400 Body height 170.2 cm Kelly Kalka PA-C Work Phone: [facility] 04-26-2024 14:23-0400 Body mass index (BMI) [Ratio] 25.84 kg/m2 Kelly Kalka PA-C Work Phone: [facility] 04-26-2024 14:23-0400 Body weight 74.84 kg Kelly Kalka PA-C Work Phone: [facility] 04-26-2024 14:23-0400 Diastolic blood pressure 70 mm[Hg] Kelly Rasmussenka PA-C Work Phone: [facility] 04-26-2024 14:23-0400 Heart rate 81 /min Kelly Kalka PA-C Work Phone: [facility] 04-26-2024 14:23-0400 Systolic blood pressure 118 mm[Hg] Kelly Kalka PA-C Work Phone: [facility] 06-18-2023 11:20-0400 Body height 170.2 cm Carmen Ball REVIEW TRAINER.AUTOMOBILE UPHOLSTERER Work Phone: [facility] 06-18-2023 11:20-0400 Body temperature 96.01 [degF] Carmen Ball REVIEW TRAINER.AUTOMOBILE UPHOLSTERER Work Phone: [facility] 06-18-2023 11:20-0400 Body weight 78.47 kg Carmen Ball REVIEW TRAINER.AUTOMOBILE UPHOLSTERER Work Phone: [facility] 06-18-2023 11:20-0400 Diastolic blood pressure 80 mm[Hg] Carmen Ball REVIEW TRAINER.AUTOMOBILE UPHOLSTERER Work Phone: [facility] 06-18-2023 11:20-0400 Heart rate 76 /min Carmen Ball REVIEW TRAINER.AUTOMOBILE UPHOLSTERER Work Phone: [facility] 06-18-2023 11:20-0400 Systolic blood pressure 135 mm[Hg] Carmen Ball REVIEW TRAINER.AUTOMOBILE UPHOLSTERER Work Phone: [facility] 02-03-2023 09:49-0400 Body weight 87.54 kg Brenda Mcdaniel MD Work Phone: [facility] 02-03-2023 09:49-0400 Diastolic blood pressure 80 mm[Hg] Brenda Mcdaniel MD Work Phone: [facility] 02-03-2023 09:49-0400 Systolic blood pressure 119 mm[Hg] Brenda Mcdaniel MD Work Phone: [facility] 01-27-2023 10:50-0400 Body weight 87.09 kg Brenda Mcdaniel MD Work Phone: [facility] 01-27-2023 10:50-0400 Diastolic blood pressure 83 mm[Hg] Brenda Mcdaniel MD Work Phone: [facility] 01-27-2023 10:50-0400 Systolic blood pressure 121 mm[Hg] Brenda Mcdaniel MD Work Phone: [facility] 01-21-2023 15:18-0400 Body weight 87.82 kg Brenda Mcdaniel MD Work Phone: [facility] 01-21-2023 15:18-0400 Diastolic blood pressure 78 mm[Hg] Brenda Mcdaniel MD Work Phone: [facility] 01-21-2023 15:18-0400 Systolic blood pressure 112 mm[Hg] Brenda Mcdaniel MD Work Phone: [facility] 01-05-2023 11:43-0400 Body weight 86.18 kg Brenda Mcdaniel MD Work Phone: [facility] 01-05-2023 11:43-0400 Diastolic blood pressure 70 mm[Hg] Brenda Mcdaniel MD Work Phone: [facility] 01-05-2023 11:43-0400 Systolic blood pressure 114 mm[Hg] Brenda Mcdaniel MD Work Phone: [facility] 11-05-2022 10:12-0500 Body weight 83.46 kg Brenda Mcdaniel MD Work Phone: [facility] 11-05-2022 10:12-0500 Diastolic blood pressure 66 mm[Hg] Brenda Mcdaniel MD Work Phone: [facility] 11-05-2022 10:12-0500 Systolic blood pressure 108 mm[Hg] Brenda Mcdaniel MD Work Phone: [facility] 10-21-2022 15:16-0500 Body weight 83.92 kg Brenda Mcdaniel MD Work Phone: [facility] 01-05-2023 15:16-0500 Diastolic blood pressure 68 mm[Hg] Brenda Mcdaniel MD Work Phone: [facility] 10-21-2022 15:16-0500 Systolic blood pressure 118 mm[Hg] Brenda Mcdaniel MD Work Phone: [facility] 09-22-2022 11:16-0500 Body weight 82.56 kg Lynette Figueroa MD Work Phone: [facility] 09-22-2022 11:16-0500 Diastolic blood pressure 60 mm[Hg] Lynette Figueroa MD Work Phone: [facility] 09-22-2022 11:16-0500 Systolic blood pressure 98 mm[Hg] Lynette Figueroa MD Work Phone: [facility] 09-01-2022 16:12-0500 Body weight 79.83 kg Brenda Mcdaniel MD Work Phone: [facility] 09-01-2022 16:12-0500 Diastolic blood pressure 60 mm[Hg] Brenda Mcdaniel MD Work Phone: [facility] 09-01-2022 16:12-0500 Systolic blood pressure 112 mm[Hg] Brenda Mcdaniel MD Work Phone: [facility] 08-04-2022 10:15-0400 Body weight 77.47 kg Brenda Mcdaniel MD Work Phone: [facility] 08-04-2022 10:15-0400 Diastolic blood pressure 66 mm[Hg] Brenda Mcdaniel MD Work Phone: [facility] 08-04-2022 10:15-0400 Systolic blood pressure 102 mm[Hg] Brenda Mcdaniel MD Work Phone: [facility] 07-07-2022 13:04-0400 Diastolic blood pressure 72 mm[Hg] Brenda Mcdaniel MD Work Phone: [facility] 07-07-2022 13:04-0400 Systolic blood pressure 112 mm[Hg] Brenda Mcdaniel MD Work Phone: [facility] 01-13-2022 08:33-0400 Diastolic blood pressure 74 mm[Hg] [facility] Work Phone: 01-13-2022 08:33-0400 Heart rate 82 /min [facility] Work Phone: 01-13-2022 08:33-0400 Systolic blood pressure 110 mm[Hg] [facility] Work Phone: 01-13-2022 08:31-0400 Body temperature 97.9 [degF] [facility] Work Phone: 01-13-2022 08:30-0400 Respiratory rate 16 /min [facility] Work Phone: 01-12-2022 16:27-0400 SaO2% (BldA) [Mass fraction] 99 % [facility] Work Phone: 01-11-2022 07:44-0400 Body height 170.18 cm [facility] Work Phone: 01-11-2022 07:44-0400 Body mass index (BMI) [Ratio] 29.9 kg/m2 [facility] Work Phone: 01-11-2022 07:44-0400 Body weight 86.9 kg [facility] Work Phone: 01-08-2022 14:59-0400 Body height 170.2 cm Jose Wolff MD Work Phone: [facility] 01-08-2022 14:59-0400 Body weight 85.73 kg Jose Wolff MD Work Phone: [facility] 01-08-2022 14:59-0400 Diastolic blood pressure 80 mm[Hg] Jose Wolff MD Work Phone: [facility] 01-08-2022 14:59-0400 Systolic blood pressure 120 mm[Hg] Jose Wolff MD Work Phone: [facility] Encounters Encounter Date Encounter Type Care Provider Facility Start: 08-16-2025 End: 08-16-2025 ambulatory ROSS BRIAN DOWNEY JR Facility:[facility] Start: 08-01-2025 End: 08-01-2025 ambulatory ROSS DOWNEY JR Facility:[facility] Start: 07-04-2025 End: 07-04-2025 ambulatory BRENDA MCDANIEL Facility:[facility] Start: 06-06-2025 End: 06-06-2025 ambulatory CAITLYN KAUR Facility:[facility] Start: 06-06-2025 End: 06-06-2025 Patient encounter procedure Caitlyn Kaur MD Work Phone: OB/Gynecology Comment on above: 19 weeks gestation o f (HCC) (Primary Dx); Supervision of high risk in second trimester ([facility]); AMA (advanced maternal age) multigravida 35+, first trimester ([facility]) Multigravida of adva nced maternal age in first trimester ([facility]) (Primary Dx); with uncertain dates in first trimester ([facility]); Prior with demise and current in first trimester ([facility]) Start: 06-04-2025 End: 06-04-2025 ambulatory Brenda Mcdaniel MD Work Phone: OB/Gynecology Comment on above: Blood work Start: 04-25-2025 End: 04-25-2025 Patient encounter procedure Brenda Mcdaniel MD Work Phone: OB/Gynecology Comment on above: Encounter for superv ision of high risk in first trimester, antepartum (HCC) (Primary Dx); AMA (advanced maternal age) multigravida 35+, first trimester ([facility]); 13 weeks gestation of ([facility]) Encounter for antena beck screening for malformation using ultrasound ([facility]) (Primary Dx); 13 weeks gestation of ([facility]) Start: 04-25-2025 End: 04-25-2025 ambulatory OMAR FREEDMAN Facility:[facility] Start: 04-17-2025 End: 04-17-2025 ambulatory Brenda Mcdaniel MD Work Phone: OB/Gynecology Comment on above: [place]fr[place] Start: 04-11-2025 End: 04-11-2025 ambulatory OMAR FREEDMAN Facility[facility] Start: 04-01-2025 End: 06-01-2025 Follow-up encounter Omar Freemdan APRN.CNP Work Phone: OB/Gynecology Start: 03-28-2025 End: [...] Start: 03-28-2025 End: 03-28-2025 ambulatory OMAR FREEDMAN Facility:[facility] Start: 03-26-2025 End: 04-29-2025 Telephone encounter Omar Freedman APRN.AUTOMOBILE UPHOLSTERER Work Phone: OB/Gynecology Comment on above: Appointment Start: 03-18-2025 End: 03-19-2025 ambulatory Brenda Mcdaniel MD Work Phone: OB/Gynecology Comment on above: Gerber Start: 03-15-2025 End: 03-15-2025 Telephone encounter Omar Freedman APRN.AUTOMOBILE UPHOLSTERER Work Phone: OB/Gynecology Comment on above: Appointment; Opened In Error Start: 02-18-2025 End: 02-18-2025 Office outpatient new 45 minutes Elizabeth Kang MD Work Phone: [facility] Comment on above: Anal fistula (Primar y Dx) Start: 02-18-2025 End: 02-18-2025 ambulatory ELIZABETH KANG Facility:[facility] Start: 01-21-2025 End: 01-21-2025 ambulatory Kelly Win PA-C Work Phone: [facility] Comment on above: Spot still not gone Start: 01-09-2025 End: 01-09-2025 ambulatory MEENA CUEVAS Facility:[facility] Start: 01-09-2025 End: 01-09-2025 Office outpatient visit 15 minutes Meena Cuevas REVIEW TRAINER.AUTOMOBILE UPHOLSTERER Work Phone: [facility] Comment on above: Anal disorder (Prima ry Dx); Papule Start: 10-08-2024 ambulatory KELLY RASMUSSENKA Facility: [facility] Start: 10-08-2024 End: 10-08-2024 Subsequent hospital visit by physician Mri Bath (1.5t/Lg Bore 70cm) Work Phone: [facility] Comment on above: Liver lesion [K76.9] Start: 08-25-2024 End: 08-26-2024 ambulatory Kelly Rasmussenka PA-C Work Phone: [facility] Comment on above: Ultrasound Start: 08-24-2024 End: 08-24-2024 Subsequent hospital visit by physician Ross Downey MD Work Phone: [facility] Comment on above: Right upper quadrant pain Start: 08-24-2024 End: 08-24-2024 ambulatory ROSS DOWNEY [facility] Start: 05-25-2024 ambulatory Kelly Rasmussenka PA-C [...] by physician Ross Downey MD Work Phone: [facility] Radiology Comment on above: Hypertrophy of bone, left shoulder Hypertrophy of bone, left shoulder (Primary Dx) Start: 04-16-2024 End: 04-17-2024 ambulatory [facility] Start: 04-12-2024 End: 07-12-2024 Transcribe Orders Ross Downey MD Work Phone: [facility] Central Scheduling Comment on above: Right upper quadrant pain (Primary Dx) Start: 12-20-2023 End: 12-20-2023 Subsequent hospital visit by physician Ross Downey MD Work Phone: [facility] Radiology Comment on above: Pain in left knee Pain in left knee (P rimary Dx) Start: 12-20-2023 End: 12-20-2023 [facility] Start: 06-30-2023 End: 06-30-2023 Subsequent hospital visit by physician Ross Downey MD Work Phone: [facility] MRI Comment on above: Liver disease, unspe cified Start: 06-18-2023 End: 06-18-2023 Patient encounter procedure Carmen Acuña REVIEW TRAINER.AUTOMOBILE UPHOLSTERER Work Phone: [facility] Comment on above: Procedure not gino d out (Primary Dx) Start: 04-12-2023 End: 04-12-2023 Subsequent hospital visit by physician [facility] Xr Exam Room 3 [facility] Radiology Comment on above: Other specified diso [...] Evaluation and management of inpatient Brian Downey Facility:[facility] Start: 02-03-2023 End: 02-03-2023 Patient encounter [...] Phone: OB/Gynecology Comment on above: Grand multipara ([facility] Dx); Antepartum multigravida of advanced maternal [...] Start: 09-22-2022 End: 09-22-2022 Patient encounter procedure Lynette Figueroa MD Work [...] requested procedure Brenda Mcdaniel MD Work Phone: [facility] Work Phone: Start: 07-07-2022 End: 07-07-2022 Patient [...] by physician Ross Downey MD Work Phone: [facility] Radiology Start: 01-22-2022 Refill Brenda [...] End: 01-13-2022 [facility] Start: 01-08-2022 End: 01-08-2022 Patient encounter procedure Jose Wolff MD Work Phone: Maternal Medicine Comment on above: Cholestasis during p regnancy in third trimester (Primary Dx); Supervision of other high risk pregnancies, third trimester; Prior poor obstetrical history in third trimester, antepartum Start: 06-15-2021 Patient requested procedure Jose Wolff MD Work Phone: [facility] Work Phone: Start: 07-15-2020 End: 07-15-2020 Subsequent hospital visit by physician Ross Downey Work Phone: [facility] Radiology Start: 08-28-2019 End: 08-28-2019 Subsequent hospital visit by physician Ross Downey Work Phone: [facility] Radiology Start: 10-28-2017 [facility] Start: 10-12-2017 Ambulatory Kim [facility] Start: 07-15-2017 Ambulatory Kim [facility] Procedures Date Procedure Procedure Detail Performing Clinician Start: 06-06-2025 Us preg uterus after 1st trimest 1/ gestation Omar Freedman APRN.AUTOMOBILE UPHOLSTERER Work Phone: Start: 04-25-2025 Us preg uterus after 1st trimest 1/ gestation Omar Freedman APRN.AUTOMOBILE UPHOLSTERER Work Phone: Start: 04-11-2025 Antibody screen [facility] Comment on above: Order Comment: Speci men Type: BLOOD SPECIMEN Ordering Facility: [facility] Address: [address] [place] [address] Performed By: #### T SPN #### [facility] [place] [id number] [address] [place] [address] [place] Start: 03-28-2025 Us uterus l imited 1/> fetuses Omar Freedman APRN.AUTOMOBILE UPHOLSTERER Work Phone: Start: 08-24-2024 Us abdominal real [...] Start: 10-21-2022 URINE OB DIP B/O Sid Mcdaniel MD Work Phone: Start: 09-22-2022 URINE OB [...] for Adults (1 - 1-dose 75+ series) [facility] Start: 2046 RSV Immunization aged 60 or older (1 - 1-dose 60+ series) RSV Immunization aged 60 or older (1 - 1-dose 60+ series) [facility] Start: 2036 Zoster Vaccines (1 of 2) Zoster Vaccines (1 of 2) [facility] Start: 03-28-2030 Screening for malignant neoplasm of cervix Cervical Cancer Screening [facility] Start: 09-05-2025 RSV Vaccine (1 - Risk 1-dose series) RSV Vaccine (1 - Risk 1-dose series) [facility] Start: 07-04-2025 End: 07-04-2025 Patient encounter procedure 07/04/2025 1:40 PM EDT Routine Office Visit OB/Gynecology [address] [place] [address] Brenda Mcdaniel MD [address] [place] [address] OB OB/Gynecology Comment on above: OB Start: 06-17-2025 Influenza vaccination [facility] Start: 06-06-2025 End: 06-06-2025 Patient encounter procedure [facility] Comment on above: Anatomy Anatomy/OB Start: 06-05-2025 End: 06-05-2025 Patient encounter procedure Maternal Fet al Medicine Comment on above: Anatomy Anatomy/OB Start: 05-01-2025 End: 05-01-2025 Patient encounter procedure 05/01/2025 1:10 PM EDT Routine Office Visit OB/Gynecology [address] [place], [place] [id number] Brenda Mcdaniel MD [address] [place] [id number] OB/Gynecology Comment on above: Start: 04-25-2025 End: 04-25-2025 Patient encounter procedure OB/Gynecolog y Comment on above: Nuchal/ OB Nuchal Start: 04-20-2025 End: 04-20-2025 ambulatory 04/20/2025 10:30 AM EDT Results Only [facility] [address] [place] [address] [facility] Start: 03-28-2025 End: 06-27-2025 ANEMIA REFLEX PANEL ANEMIA REFLEX PANEL Lab Routine with uncertain dates in first trimester (HCC) Expected: 03/28/2025, Expires: 06/27/2025 [facility] Work Phone: Comment on above: Expected: 03/28/2025, Expires: Start: 03-28-2025 End: 06-27-2025 Chromosome 21 trisomy [Presence] in Blood or Tissue by Cytogenetics [id number] PLUS Lab Routine 9 weeks gestation of (HCC) Encounter for supervision of high risk in first trimester, antepartum (HCC) Expected: 03/28/2025, Expires: 06/27/2025 [facility] Comment on above: Expected: 03/28/2025, Expires: Start: 03-28-2025 End: 06-27-2025 Comprehensive metabolic 2000 panel - Serum or Plasma COMPREHENSIVE METABOLIC PANEL Lab Routine History of gestational hypertension Expected: 03/28/2025, Expires: 06/27/2025 [facility] Comment on above: Expected: 03/28/2025, Expires: Start: 03-28-2025 End: 06-27-2025 Hemoglobin A1c in Blood HEMOGLOBIN A1C Lab Routine with uncertain dates in first trimester (HCC) Expected: 03/28/2025, Expires: 06/27/2025 [facility] Comment on above: Expected: 03/28/2025, Expires: Start: 03-28-2025 End: 06-27-2025 Hepatitis B virus surface Ag [Presence] in Serum HEPATITIS B SURFACE ANTIGEN Lab Routine with uncertain dates in first trimester (HCC) Expected: 03/28/2025, Expires: 06/27/2025 [facility] Comment on above: Expected: 03/28/2025, Expires: Start: 03-28-2025 End: 06-27-2025 Hepatitis C virus Ab [Presence] in Serum HEPATITIS C ANTIBODY IA WITH CONFIRMATION Lab Routine with uncertain dates in first trimester (HCC) Expected: 03/28/2025, Expires: 06/27/2025 [facility] Comment on above: Expected: 03/28/2025, Expires: Start: 03-28-2025 End: 06-27-2025 HIV 1+2 Ab [Presence] in Serum or Plasma by Immunoassay HIV 1/2 COMBO WITH REFLEX TO DIFFERENTIATION Lab Routine with uncertain dates in first trimester (HCC) Expected: 03/28/2025, Expires: 06/27/2025 [facility] Comment on above: Expected: 03/28/2025, Expires: Start: 03-28-2025 End: 06-27-2025 Lipase [Enzymatic activity/volume] in Serum or Plasma LIPASE Lab Routine Encounter for supervision of high risk in first trimester, antepartum (HCC) History of gestational hypertension Expected: 03/28/2025, Expires: 06/27/2025 [facility] Comment on above: Expected: 03/28/2025, Expires: Start: 03-28-2025 End: 06-27-2025 MYRIAD FORESIGHT CARRIER SCREEN MYRIAD FORESIGHT CARRIER SCREEN Lab Routine 9 weeks gestation of ([facility]) Encounter for supervision of high risk in first trimester, antepartum ([facility]) Expected: 03/28/2025, Expires: 06/27/2025 [facility] Comment on above: Expected: 03/28/2025, Expires: Start: 03-28-2025 End: 03-28-2026 OBSTETRIC ULTRASOUND WHI OBSTETRIC ULTRASOUND [facility]I Anc Imaging Routine with uncertain dates in first trimester ([facility]) Expected: 03/28/2025, Expires: 03/28/2026 [facility] Comment on above: Expected: 03/28/2025, Expires: Start: 03-28-2025 End: 06-27-2025 Protein/Creatinine [Mass Ratio] in Urine PROTEIN / CREATININE RATIO Lab Routine History of gestational hypertension Expected: 03/28/2025, Expires: 06/27/2025 [facility] Comment on above: Expected: 03/28/2025, Expires: Start: 03-28-2025 End: 06-27-2025 RUBELLA IGG ANTIBODY RUBELLA IGG ANTIBODY Lab Routine with uncertain dates in first trimester ([facility]) Expected: 03/28/2025, Expires: 06/27/2025 [facility] Comment on above: Expected: 03/28/2025, Expires: Start: 03-28-2025 End: 06-27-2025 SYPHILIS TREPONEMAL W/REFLEX SYPHILIS TREPONEMAL W/REFLEX Lab Routine with uncertain dates in first trimester ([facility]) Expected: 03/28/2025, Expires: 06/27/2025 [facility] Comment on above: Expected: 03/28/2025, Expires: Start: 03-28-2025 End: 06-27-2025 Thyrotropin [Units/volume] in Serum or Plasma THYROID STIMULATING HORMONE Lab Routine History of gestational hypertension Expected: 03/28/2025, Expires: 06/27/2025 [facility] Comment on above: Expected: 03/28/2025, Expires: Start: 03-28-2025 End: 06-27-2025 TYPE + SCREEN TYPE + SCREEN Blood Bank Routine with uncertain dates in first trimester (HCC) Expected: 03/28/2025, Expires: 06/27/2025 [facility] Comment on above: Expected: 03/28/2025, Expires: Start: 03-28-2025 End: 03-28-2025 Patient encounter procedure 03/28/2025 1:45 PM EDT Initial Office Visit OB/Gynecology [address] [place] [address] Omar Freedman APRN.AUTOMOBILE UPHOLSTERER [address] [place] [place] [address] OB/Gynecology Comment on above: Start: 06-17-2024 COVID-19 Vaccine ( season) COVID-19 Vaccine ( season) [facility] Start: 06-17-2024 COVID-19 Vaccine ( season) COVID-19 Vaccine ( season) [facility] Start: 06-17-2024 Influenza vaccination [facility] Start: 05-12-2024 End: 05-12-2024 Patient encounter procedure [...] sided abdominal pain Expected: 04/26/2024, Expires: 07/26/2024 [facility] Work Phone: Comment on above: Expected: 04/26/2024, Expires: Start: 04-26-2024 End: 07-26-2024 CELIAC SCREEN WITH REFLEX CELIAC SCREEN WITH REFLEX Lab Routine Diarrhea, unspecified type Expected: 04/26/2024, Expires: 07/26/2024 [facility] Comment on above: Expected: 04/26/2024, Expires: Start: 04-26-2024 End: 07-26-2024 Choriogonadotropin ( test) [Presence] in Urine HCG, QUALITATIVE, URINE Lab Routine Diarrhea, unspecified type Expected: 04/26/2024, Expires: 07/26/2024 [facility] Comment on above: Expected: 04/26/2024, Expires: Start: 04-26-2024 End: 07-26-2024 Comprehensive metabolic 2000 panel - Serum or Plasma COMPREHENSIVE METABOLIC PANEL Lab Routine Right sided abdominal pain Expected: 04/26/2024, Expires: 07/26/2024 [facility] Comment on above: Expected: 04/26/2024, Expires: Start: 04-26-2024 End: 07-26-2024 Lipase [Enzymatic activity/volume] in Serum or Plasma LIPASE Lab Routine Right sided abdominal pain Expected: 04/26/2024, Expires: 07/26/2024 [facility] Comment on above: Expected: 04/26/2024, Expires: Start: 04-12-2024 End: 04-12-2025 US Abdomen limited US abdomen limited Imaging Routine Right upper quadrant pain Expected: 04/12/2024, Expires: 04/12/2025 [email or web address] Work Phone: Comment on above: Expected: 04/12/2024, Expires: 5 Start: 10-17-2023 Behavioral Health Screening Behavioral Health Screening [facility] Start: 06-17-2023 COVID-19 Vaccine () COVID-19 Vaccine () [facility] Start: 06-17-2023 Influenza vaccination [facility] Start: 06-08-2023 HPV TESTING HPV TESTING [facility] Start: 06-08-2023 PAP TESTING PAP TESTING [facility] Start: 06-08-2023 Screening for malignant neoplasm of cervix Cervical Cancer Screening [facility] Start: 10-21-2022 End: 12-21-2022 CBC W Auto Differential panel - Blood CBC + DIFF Lab Routine 23 weeks gestation of AMA (advanced maternal age) multigravida 35+, second trimester History of pre-eclampsia in prior , currently Expected: 10/21/2022, Expires: 12/21/2022 [facility] Work Phone: Comment on above: Expected: 10/21/2022, Expires: 3 Start: 10-21-2022 End: 12-21-2022 Comprehensive metabolic 2000 panel - Serum or Plasma COMP METABOLIC PANEL Lab Routine 23 weeks gestation of AMA (advanced maternal age) multigravida 35+, second trimester History of pre-eclampsia in prior , currently Expected: 10/21/2022, Expires: 12/21/2022 [facility] Work Phone: Comment on above: Expected: 10/21/2022, Expires: 3 Start: 10-21-2022 End: 12-21-2022 GEST GLUC SCREEN, 1-HR, 50 GM, NON-FASTING GEST GLUC SCREEN, 1-HR, 50 GM, NON-FASTING Lab Routine 23 weeks gestation of AMA (advanced maternal age) multigravida 35+, second trimester History of pre-eclampsia in prior , currently Expected: 10/21/2022, Expires: 12/21/2022 [facility] Work Phone: Comment on above: Expected: 10/21/2022, Expires: 3 Start: 10-21-2022 End: 12-21-2022 SYPHILIS TOTAL W/REFLEX SYPHILIS TOTAL W/REFLEX Lab Routine 23 weeks gestation of AMA (advanced maternal age) multigravida 35+, second trimester History of pre-eclampsia in prior , currently Expected: 10/21/2022, Expires: 12/21/2022 [facility] Work Phone: Comment on above: Expected: 10/21/2022, Expires: 3 Start: 10-17-2022 DEPRESSION ASSESSMENT DEPRESSION ASSESSMENT [facility] Start: 09-01-2022 End: 11-01-2022 ALPHA FETOPRO MATERNAL [facility] Work Phone: Comment on above: Expected: 09/01/2022, Expires: 3 Start: 08-04-2022 End: 08-04-2023 OBSTETRIC ULTRASOUND WHI OBSTETRIC ULTRASOUND [facility] Anc Imaging Routine Supervision of other high risk pregnancies, first trimester Encounter for screening of mother Multigravida of advanced maternal age in second trimester Expected: 08/04/2022, Expires: 08/04/2023 [facility] Work Phone: Comment on above: Expected: 08/04/2022, Expires: 3 Start: 08-03-2022 End: 10-03-2022 Chromosome 21 trisomy [Presence] in Blood or Tissue by Cytogenetics [id number] PLUS Lab Routine Multigravida of advanced maternal age in first trimester Expected: 08/03/2022, Expires: 10/03/2022 [facility] Work Phone: Comment on above: Expected: 08/03/2022, Expires: 2 Start: 07-07-2022 End: 09-06-2022 Hepatitis B virus surface Ab [Presence] in Serum by Immunoassay [facility] Work Phone: Comment on above: Expected: 07/07/2022, Expires: 2 Start: 07-07-2022 End: 09-06-2022 Hepatitis C virus Ab [Presence] in Serum [facility] Work Phone: Comment on above: Expected: 07/07/2022, Expires: 2 Start: 07-07-2022 End: 09-06-2022 HIV 1+2 Ab [Presence] in Serum or Plasma by Immunoassay [facility] Work Phone: Comment on above: Expected: 07/07/2022, Expires: 2 Start: 07-07-2022 End: 09-06-2022 Protein/Creatinine [Mass Ratio] in Urine PROTEIN CREATININE RATIO Lab Routine AMA (advanced maternal age) multigravida 35+, first trimester 8 weeks gestation of Supervision of other high risk pregnancies, first trimester History of pre-eclampsia in prior , currently , first trimester Expected: 07/07/2022, Expires: 09/06/2022 [facility] Work Phone: Comment on above: Expected: 07/07/2022, Expires: 2 Start: 07-07-2022 End: 09-06-2022 RUBELLA IGG AB [facility] Work Phone: Comment on above: Expected: 07/07/2022, Expires: 2 Start: 07-07-2022 End: 09-06-2022 SYPHILIS TOTAL W/REFLEX [facility] Work Phone: Comment on above: Expected: 07/07/2022, Expires: 2 Start: 07-07-2022 End: 09-06-2022 TYPE + SCREEN [facility] Work Phone: Comment on above: Expected: 07/07/2022, Expires: 2 Start: 06-17-2022 Influenza vaccination [facility] Start: 10-17-2021 DEPRESSION ASSESSMENT DEPRESSION ASSESSMENT [facility] Start: 06-17-2021 Influenza vaccination INFLUENZA (#1) [facility] Start: 06-17-2020 Influenza vaccination Flu vaccine (#1) [place] Start: 06-17-2019 Influenza vaccination Flu vaccine (#1) [place] Start: 2016 Screening for malignant neoplasm of cervix [facility] Start: 2013 HPV Vaccine (1 - 3-dose SCDM series) HPV Vaccine (1 - 3-dose SCDM series) [facility] Start: 2007 Cervical cancer screen Cervical cancer screen [place], [place] Start: 2007 Screening for malignant neoplasm of cervix [facility] Start: 2005 DTaP/Tdap/Td vaccine (1 - Tdap) DTaP/Tdap/Td vaccine (1 - Tdap) [facility] Start: 2005 DTaP/Tdap/Td Vaccines (1 - Tdap) DTaP/Tdap/Td Vaccines (1 - Tdap) [facility] Start: 2005 Hepatitis A Vaccines (1 of 2 - Risk 2-dose series) Hepatitis A Vaccines (1 of 2 - Risk 2-dose series) [facility] Start: 2005 Hepatitis B Vaccine (1 of 3 - 19+ 3-dose series) Hepatitis B Vaccine (1 of 3 - 19+ 3-dose series) [facility] Start: 2005 Hepatitis B Vaccines (1 of 3 - 19+ 3-dose series) Hepatitis B Vaccines (1 of 3 - 19+ 3-dose series) [facility] Start: 2005 Urine microalbumin profile [facility] Start: 2004 Anxiety Screening Anxiety Screening [facility] Start: 2004 Depression Screening Depression Screening [facility] Start: 2004 Hepatitis C screening Hepatitis C Screening [facility] Start: 2001 HIV screen HIV screen [place], [place] Start: 2001 HIV screening HIV screen [facility] Start: 1999 Varicella vaccination Varicella Vaccines (1 of 2 - 13+ 2-dose series) [facility] Start: 1998 Adult depression screening assessment DEPRESSION SCREENING [facility] Start: 1998 Depression Screen Depression Screen [facility] Start: 1997 DTaP/Tdap/Td vaccine (1 - Tdap) DTaP/Tdap/Td vaccine (1 - Tdap) [place] Start: 1991 COVID-19 VACCINE (1) COVID-19 VACCINE (1) [facility] Start: 1987 MMR Vaccines (1 of 1 - Standard series) MMR Vaccines (1 of 1 - Standard series) [facility] Start: 1987 Varicella vaccination Varicella Vaccines (1 of 2 - 2-dose childhood series) [facility] Start: 1987 Varicella Vaccine (1 of 2 - 2-dose childhood series) Varicella Vaccine (1 of 2 - 2-dose childhood series) [facility] Start: 1986 COVID-19 VACCINE (#1) COVID-19 VACCINE (#1) [facility] Start: 1986 HEPATITIS B (1 of 3 - 3-dose series) HEPATITIS B (1 of 3 - 3-dose series) [facility] Start: 1986 Hepatitis B Vaccines (1 of 3 - 3-dose series) Hepatitis B Vaccines (1 of 3 - 3-dose series) [facility] Start: 1986 HIV screening HIV Screening [facility] Bacteria identified in Urine by Culture URINE CULTURE Microbiology Routine AMA (advanced maternal age) multigravida 35+, first trimester 8 weeks gestation of 07/07/2022 2:18 PM EDT [facility] Work Phone: Bacteria identified in Urine by Culture BACTERIAL CULTURE, URINE Microbiology Routine with uncertain dates in first trimester ([facility]) 03/28/2025 2:34 PM EDT [facility] Calprotectin [Mass/m ass] in Stool CALPROTECTIN,FECAL Lab Routine Diarrhea, unspecified type Ordered: 04/26/2024 [facility] Comment on above: Ordered: 04/26/2024 Chlamydia trachomatis+Neisseria gonorrhoeae DNA [Presence] in Unspecified specimen by TREVOR with probe detection GC/CHLAMYDIA DNA DET Lab Routine AMA (advanced maternal age) multigravida 35+, first trimester 8 weeks gestation of 07/07/2022 2:18 PM EDT [facility] Work Phone: Chlamydia trachomatis+Neisseria gonorrhoeae DNA [Presence] in Unspecified specimen by TREVOR with probe detection GONORRHEA/CHLAMYDIA NAAT Lab Routine with uncertain dates in first trimester ([facility]) Screening for cervical cancer 03/28/2025 2:34 PM EDT [facility] Clostridioides diffi cile toxin genes [Presence] in Stool by TREVOR with probe detection C. DIFFICILE PCR Lab Routine Diarrhea, unspecified type Ordered: 04/26/2024 [facility] Comment on above: Ordered: 04/26/2024 End: 05-26-2025 CT Abdomen and Pelvis W contrast IV CT ABD/PEL W IVCON Radiology Routine Right sided abdominal pain Abdominal distension (gaseous) Right lower quadrant abdominal pain Nausea 1 Occurrences starting 04/26/2024 until 05/26/2025 [facility] Comment on above: 1 Occurrences starting 04/26/2024 until 05/26/2025 End: 03-07-2023 nonstress test NON-STRESS TEST Procedures Routine AMA (advanced maternal age) multigravida 35+, third trimester Once per week for 4 Occurrences starting 01/05/2023 until 03/07/2023 [facility] Work Phone: Comment on above: Once per week for 4 Occurrences starting 01/05/2023 until 03/07/2023 Gastrointestinal pat hogens panel - Stool by TREVOR with probe detection EXPANDED STOOL GASTROINTESTINAL PANEL BY PCR Lab Routine Diarrhea, unspecified type Ordered: 04/26/2024 [facility] Comment on above: Ordered: 04/26/2024 End: 06-30-2023 MR Abdomen WO and W contrast IV [facility] Work Phone: Comment on above: Once for 1 Occurrences starting 06/30/20 until 06/30/2023 End: 10-08-2024 MR Liver WO and W contrast IV [facility] Work Phone: Comment on above: 1 Occurrences starting 10/08/2024 until 10/08/2024 NUCHAL TRANSLUCENCY WHI NUCHAL T RANSLUCENCY WHI Anc Imaging Routine AMA (advanced maternal age) multigravida 35+, first trimester 8 weeks gestation of Ordered: 07/07/2022 [facility] Work Phone: Comment on above: Ordered: 07/07/2022 OUTSIDE PROCEDURE SCAN OUTSIDE P ROCEDURE SCAN Procedures Ordered: 04/12/2023 [facility] Comment on above: Ordered: 04/12/2023 OUTSIDE PROCEDURE SCAN OUTSIDE P ROCEDURE SCAN Procedures Ordered: 06/29/2023 [facility] Comment on above: Ordered: 06/29/2023 OUTSIDE PROCEDURE SCAN OUTSIDE P ROCEDURE SCAN Procedures Ordered: 12/20/2023 [facility] Comment on above: Ordered: 12/20/2023 OUTSIDE PROCEDURE SCAN OUTSIDE P ROCEDURE SCAN Procedures Ordered: 04/16/2024 [facility] Comment on above: Ordered: 04/16/2024 PANC ELASTASE, FECAL PANC ELASTA SE, FECAL Lab Routine Diarrhea, unspecified type Ordered: 04/26/2024 [facility] Comment on above: Ordered: 04/26/2024 PAP TEST PAP TEST Lab Rou radha with uncertain dates in first trimester (HCC) Screening for cervical cancer Encounter for screening for human papillomavirus (HPV) 03/28/2025 2:34 PM EDT [facility] Patient Education After a Vaginal [facility] Work Phone: Patient referral [facility] Work Phone: ROUTINE, GR OUP B STREP PCR ROUTINE, GROUP B STREP PCR Microbiology Routine Grand multipara Antepartum multigravida of advanced maternal age 36 weeks gestation of 01/21/2023 3:51 PM EDT [facility] Work Phone: TRICHOMONAS VAGINALIS NAAT TRICH OMONAS VAGINALIS NAAT Lab Routine with uncertain dates in first trimester (HCC) 03/28/2025 2:34 PM EDT [facility] URINE OB DIP B/O URINE OB DIP B/ O Lab Routine 34 weeks gestation of AMA (advanced maternal age) multigravida 35+, third trimester Ordered: 01/05/2023 [facility] Work Phone: Comment on above: Ordered: 01/05/2023 URINE OB DIP B/O URINE OB DIP B/ O Lab Routine AMA (advanced maternal age) multigravida 35+, third trimester 37 weeks gestation of Ordered: 01/27/2023 [facility] Work Phone: Comment on above: Ordered: 01/27/2023 End: 04-12-2023 XR [facility] Comment on above: Once for 1 Occurrences starting 04/12/20 until 04/12/2023 End: 04-12-2023 XR Shoulder - right 2 Views [employer] Work Phone: Comment on above: Once for 1 Occurrences starting 04/12/20 23 until 04/12/2023 End: 12-20-2023 XR Tibia and Fibula - left 2 Views [employer] Work Phone: Comment on above: Once for 1 Occurrences starting 12/20/19 24 until 12/20/2023 [facility] Immunizations Immunization Date Immunization Notes Care Provider Alma Rosa eduardo 08-15-2014 influenza virus vacc ine, unspecified formulation [facility] 3 [facility] Payers Date Payer Category Payer Self-pay [id number] 2022 Commercial Managed C are - HMO MMO SUPERMED Member Subscriber Plan / Payer (Effective 2022-Present) Name: Maria T Phan Relation to Subscriber: Spouse Name: Tho Phan Date of : 1982 Address: [address] [place] [address] Payer ID: Not on file Type: Commercial Address: [place] [id number] 2021 Unknown [id number] 2021 Private Health Insurance MMO SUP ERMED PPO Member Subscriber Plan / Payer (Effective 2021-Present) Name: MARIA T PHAN Relation to Subscriber: Spouse Name: THO PHAN Date of : 1982 (Home) Address: [address] [place] [address] Payer ID: Not on file Type: PPO Address: [place] [id number] 2021 Unknown 2021 Unknown MMO MMO SUPERMED PLUS [id number] 2021-Present [phone] [address] [place] [address] PPO [id number] 2021 Unknown [id number] 2018 Medicaid [facility] [facility] MED[facility] [id number] 2018-Present [phone] [address] [place] [address] Medicaid [id number] 2018 Medicaid [id number] Unknown [id number] Unknown SELF PAY INSURANCE [id number] Unknown [id number] Social History Date Type Detail Facility Start: 03-23-2016 End: 07-07-2022 Tobacco smoking status NHIS Never smoker [facility] Start: 03-23-2016 Alcohol intake Current non-dr solar sales of alcohol (finding) [place], [place] Start: 1985 Sex Assigned At Not on file [place] Start: 03-23-2016 End: 07-07-2022 Tobacco use and exposure Never used [place] Start: 01-07-2022 End: 06-06-2025 Alcohol intake Ex-drinker (finding) [facility] Start: 03-26-2021 Education 13 [facility] Start: 05-18-2021 [facility] Start: 11-22-2021 End: 06-30-2023 Exposure to SARS-CoV-2 (event) Not sure [facility] Start: 01-11-2022 Tobacco smoking stat us TXIS Unknown if ever smoked [facility] Work Phone: Start: 02-16-2018 None [facility] Work Phone: Start: 1985 Sex Assigned At Female [facility] Work Phone: Start: 06-18-2023 End: 06-19-2023 Gender identity Not on file [facility] Start: 06-18-2023 End: 06-19-2023 History of Social function [facility] The thought of lisbet vasquez myself has occurred to me Never [facility] Start: 09-17-2012 National Score (1-10 0), lower number is lower risk 62 [facility] Start: 05-17-2022 Sex Female (finding) [facility] [...] Type Note Facility 06-06-2025 Note HNO ID: [id number] Author: CAITLYN KAUR MD Service: ? Author Type: Physician Type: Progress Notes Filed: 06/06/2025 14:05 Note Text: SW- Pt doing well. No pain. Vb, lof. Not feeling FM yet. PE: Gen- NAD, well appearing See flowsheet A/p 19 wk gestation - Anatomy US today - Completed labs - Cont LDA - RTO 4 wks Caitlyn Kaur DO [facility] 06-06-2025 History of Present illness Narrative SW- Pt doing well. No pain. Vb, lof. Not feeling FM yet. PE: Gen- NAD, well appearing See flowsheet A/p 19 wk gestation - Anatomy US today - Completed labs - Cont LDA - RTO 4 wks Caitlyn Kaur DO documented in this encounter [facility] 06-06-2025 Instructions Mahsa Mirza MA - 06/06/2025 1:52 PM EDT SEQUENTIAL SCREENINGS The [facility] offers sequential screenings for women who are [...] It will require an appointment with our machine maintenance technician. This is not an ultrasound performed [...] the above symptoms, contact our office at [phone] and ask to speak with a nurse. After hours, you can call doctors registry at [phone] OR call [facility] at [phone] and ask to have the doctor rehabilitation teacher paged. If you consider this an emergency, dial 4-9-9 or go to your nearest emergency department. NEED HELP? Are you dealing with a violent or abusive relationship? Are you a victim of rape or sexual assult? Call [facility] [place] ([facility] 24 hour Crisis Hotline: 891.240.9545 or 294-127-1618. MANUAL Your Guide to a Healthy manual is now on-line. Visit [email or web address] Zay to download your free copy documented in this encounter [facility] 06-04-2025 Telephone encounter Note Patient 18w5d, last seen in office on 04/25. Her next appointment with you is on 06/06. Rosa Sher RN [facility] 06-04-2025 Miscellaneous Notes Patient 18w5d, last seen in office on 04/25. Her next appointment with you is on 06/06. Rosa Sher RN documented in this encounter [facility] 04-25-2025 Progress note Formatting of t his [...] anatomy done (Z3A.13) 13 weeks gestation of ([facility]) n/v of , cont. symptomatic measures and zofran prn f/u in 6 weeks for anatomy US and OB visit or prn starting asa prophylaxis today Brenda Mcdaniel M.D. [facility] 04-25-2025 Miscellaneous Notes RR- VB No. LOF [...] Brenda Mcdaniel M.D. documented in this encounter [facility] 04-25-2025 Instructions Portia Lilly MA - 04/25/2025 1:49 PM EDT SEQUENTIAL SCREENINGS The [facility] offers sequential screenings for women who are [...] It will require an appointment with our machine maintenance technician. This is not an ultrasound performed [...] the above symptoms, contact our office at [phone] and ask to speak with a nurse. After hours, you can call doctors registry at [phone] OR call [facility] at [phone] and ask to have the doctor rehabilitation teacher paged. If you consider this an emergency, dial 7 or go to your nearest emergency department. NEED HELP? Are you dealing with a violent or abusive relationship? Are you a victim of rape or sexual assult? Call [facility] ([place]) 24 hour Crisis Hotline: 857.914.7230 or 648-658-2993. MANUAL Your Guide to a Healthy manual is now on-line. Visit [email or web address] alisonCaro to download your free copy documented in this encounter [facility] 04-17-2025 Telephone encounter Note Patient 11w6d, next appointment on 04/25/25. Rosa Sher RN [facility] 04-17-2025 Miscellaneous Notes Patient 11w6d, next appointment on 04/25/25. Rosa Sher RN documented in this encounter [facility] 03-28-2025 Note HNO ID: [id number] Author: OMAR FREEDMAN APRN.AUTOMOBILE UPHOLSTERER Service: ? Author Type: Nurse Practitioner Type: Progress Notes Filed: 03/28/2025 14:26 Note Text: Drama Teacher offered: Patient declines. INITIAL OB ASSESSMENT HPI: Maria T is a 39 year old White here to establish Obstetrical Care. Patient's last menstrual period was 01/24/2025. from OB Dating Form. was planned Complaints: (!) Severe nausea/vomiting OB History [id number] Para11 Term9 Preterm2 AB1 Ctrevf10 SAB1 IAB0 Ectopic0 Multiple0 Live Icsuwk26 Previous history: Prior : No History of [...] Status: Partner: Name: Tho Age: 41 Occupation: Car [employer] Gender: Male PAST MEDICAL HISTORY Diagnosis Date [...] breath, Wheezing GASTROINTE (more content not included)... [facility] 03-28-2025 History of Present illness Narrative Drama Teacher offered: Patient declines. INITIAL OB ASSESSMENT HPI: Maria T is a 39 year old White here to establish Obstetrical Care. Patient's last menstrual period was 01/24/2025. from OB Dating Form. was planned Complaints: (!) Severe nausea/vomiting OB History Kxhmjls03 Para11 Term9 Preterm2 AB1 Qosttv91 SAB1 IAB0 Ectopic0 Multiple0 Live Ukmlmm57 Previous history: Prior : No History of [...] Status: Partner: Name: Tho Age: 41 Occupation: Car [employer] Gender: Male PAST MEDICAL HISTORY Diagnosis Date Anemia In 6th - patient required IV iron Cholestasis during in third trimester ([facility]) 12/17/2021 Elevated liver enzymes Gestational hypertension ([facility]) History of pre-eclampsia in prior , currently ([facility]) Hypertension Reports hx of pre-eclampsia in 4th [...] discussed with the Patient or Patient's Authorized Construction Site Manager. As applicable, any other physician, advance practice provider, medical student, or other health professional student that will be observing or involved in the sensitive examination for educational or training purposes was discussed with the Patient or Authorized Construction Site Manager. The Patient or Authorized Construction Site Manager has agreed to proceed with the sensitive [...] Your guide to a health and the Beaming Inspector. Reviewed midwifery and chief development officer services that are available. 2) Screening: Hemoglobin [...] (28-30 weeks): [] Consent [] Contraception [] Cartoonist Special Effects [] TeamBirth handout Third trimester (36-40 weeks): [] GBS [] Presentation - [] Scheduled [] yes - Hibiclens, pre-op instructions, CBC, T&S ordered [] no [] H&P [] Preferences worksheet [] Scanned in EM Multigravida of Advanced Maternal Age in First Trimester ([facility]) - 03/28/2025 Comment: March 28, 2025 Will be 40 at PILAR Omar Freedman APRN.DAMION Nausea and Vomiting in ([facility]) - 06/15/2021 Comment: March 28, 2025 Vomiting several times per day and affecting QOL. Would like to trial Zofran as this has helped in the past. Vitamin B6 and doses reviewed. Zofran rx sent - 1st trimester risks reviewed. To notify if symptoms aren't improving. Omar Freedman APRN.DAMION Prior With Demise, Antepartum ([facility]) - 02/15/2019 Comment: 01/24/18: Previous IUFD @ 23 weeks - attributed to cord accident. IOL and delivery in [facility] without complication. Ary Jensen APRN.CNM History of Pre-Eclampsia in Prior , Currently ([facility]) - 02/15/2019 History of Gestational Hypertension - 03/28/2025 Comment: March 28, 2025 Baseline labs ordered. 162 mg ASA at 12 weeks. Omar Freedman APRN.CNP History of Cholestasis During - 07/07/2022 History of Depression, Currently ([facility]) - 02/15/2019 Comment: March 28, 2025 Denies any current mental health concerns. Omar Freedman APRN.AUTOMOBILE UPHOLSTERER Family History of Defects - 02/15/2019 Comment: 06/15/2021atient's mother ad 2 uncles born with hole in heart-no corrective surgery. FOB's brother with Down Syndrome. TKRN Follow up in 4 weeks or sooner prn. Plan for NT scan between 12w0d and 13w6d gestation. Omar Freedman APRN.DAMION documented in this encounter [facility] 03-28-2025 Instructions Omar Freedman APRN.DAMION - 03/28/2025 1:40 PM EDT Please select the following link to access the [facility] Your Guide to a Healthy . [email or web address] MORNING SICKNESS IN by Angeilca Call M.D. for [place] As you may already know, morning sickness can often be more appropriately called evening sickness or mkjtm-oupsse-yb-the-day sickness. While there are the alec few, [...] medication, Doxylamine, is currently marketed as an nskf-bcf-omibwya sleeping pill. Ask your practitioner if creating a vitamin B6/Doxylamine combination with vnft-hbo-bqdmpdd medications would be safe for you. Prescription [...] to help control my nausea and vomiting? [employer] has a helpful fact sheet on nausea in with recommendations. You can review it here: https://[facility].org/fact-shee ts/sepxeb-shhtvqyh-bflciomdv-nvp/p df/. Also, eating small meals often, drinking [...] MotherToBaby fact sheet Paternal Exposures at https://mothertobaby.org/fact-shee ts/vmnxbfqu-kbwabymsm-kcxarmgna/pd f/. documented in this encounter [facility] 03-26-2025 Telephone encounter Note Called patient and left voice mail to give our office a call back to go over NOB intake questions, I informed her that if she was not able to call back prior to her appointment 03/28/25 to arrive 30 minuets early. Merlyn Kearney MA [facility] 03-26-2025 Miscellaneous Notes Called patient and left voice mail to give our office a call back to go over NOB intake questions, I informed her that if she was not able to call back prior to her appointment 03/28/25 to arrive 30 minuets early. Merlyn Kearney MA documented in this encounter [facility] 03-18-2025 Telephone encounter Note Needs a visit for rx [facility] Work Phone: 03-18-2025 Miscellaneous Notes Needs a visit for rx Patient is scheduled for New OB appointment on 03/28. Rosa Sher RN documented in this encounter [facility] 03-18-2025 Telephone encounter Note Patient is scheduled for New OB appointment on 03/28. Rosa Sher RN [facility] 03-15-2025 Telephone encounter Note Appears to have been opened in error. Disregard. Frances Lassiter RN [facility] 03-15-2025 Miscellaneous Notes Appears to have been opened in error. Disregard. Frances Lassiter, RN I don't see a note associated with this Omar Freedman APRN.CNP documented in this encounter [facility] 03-15-2025 Telephone encounter Note I don't see a note associated with this Omar Freedman APRN.CNP [facility] Work Phone: 02-18-2025 Note HNO ID: [id number] Author: ELIZABETH KANG MD Service: ? Author Type: Physician Type: Progress Notes Filed: 02/26/2025 10:53 Note Text: Elizabeth Kang M.D. Colon AND Rectal Surgery [address] [facility], [address] [place] [address] CC: anal lesion/pain HPI: Maria T Phan [...] examined in right lateral decubitus with a unarmed security officer present. In the posterior midline, there was [...] 0.96 mg/dL Fin (more content not included)... [facility] 02-18-2025 History of Present illness Narrative Images from the original note were not included. Elizabeth Kang M.D. Colon & Rectal Surgery [address] [facility], [address] [place] [id number] CC: anal lesion/pain HPI: Maria T Phan [...] examined in right lateral decubitus with a unarmed security officer present. In the posterior midline, there was [...] This office note has been created using jslyhl, a speech recognition software program, and may contain errors including punctuation, grammar, spelling, gender, and inappropriate words or phrases that pertain to the sytem. documented in this encounter [facility] 01-21-2025 Note Addended by: KELLY WIN on: 01/21/2025 03:57 PM Modules accepted: Orders [facility] 01-21-2025 Miscellaneous Notes Addended by: KELLY WIN on: 01/21/2025 03:57 PM Modules accepted: Orders documented in this encounter [facility] 01-09-2025 Note HNO ID: [id number] Author: MEENA CUEVAS APRN.AUTOMOBILE UPHOLSTERER Service: ? Author Type: Nurse Practitioner Type: [...] was discussed with the patient or authorized resources representative. The patient or authorized resources representative has agreed to proceed with the sensitive examination. Physical Exam Exam conducted with a unarmed security officer present (Renee Castañeda MA). Pulmonary: Effort: Pulmonary [...] Cuevas APRN.CNP January 09, 2025 3:51 PM [facility] 01-09-2025 History of Present illness Narrative [...] was discussed with the patient or authorized resources representative. The patient or authorized resources representative has agreed to proceed with the sensitive examination. Physical Exam Exam conducted with a unarmed security officer present (Renee Castañeda MA). Pulmonary: Effort: Pulmonary [...] 2025 3:51 PM documented in this encounter [facility] 10-08-2024 History of Present illness Narrative Radiology [...] PATIENT PRESENTS WITH AN IMPLANTABLE OR ATTACHED QUARRY PLANT CRUSHER OPERATOR: No ALLERGIES: Reviewed and unchanged CONTRAST ALLERGY: NO. EXAM: MRI - CONTRAST TYPE: GROUP II PERIPHERAL IV DATA: Ambulatory: A peripheral IV was started in the Right antecubital site with a Angio cath: 22 gauge. RADIOLOGY DEPARTMENT: MR; Exam(s) Completed: Body: Liver (routine) SIGNATURE: RT Cortes(R) PATIENT NAME: Maria T Phan DATE: October 08, 2024 TIME: 4:14 PM documented in this encounter [facility] 10-08-2024 Note HNO ID: [id number] Author: DUNG AGARWAL RT(Zbigniew) Service: Radiology Author [...] PATIENT PRESENTS WITH AN IMPLANTABLE OR ATTACHED QUARRY PLANT CRUSHER OPERATOR: No ALLERGIES: Reviewed and unchanged CONTRAST ALLERGY: NO. EXAM: MRI - CONTRAST TYPE: GROUP II PERIPHERAL IV DATA: Ambulatory: A peripheral IV was started in the Right antecubital site with a Angio cath: 22 gauge. RADIOLOGY DEPARTMENT: MR; Exam(s) Completed: Body: Liver (routine) SIGNATURE: RT Cortes(R) PATIENT NAME: Maria T Phan DATE: October 08, 2024 TIME: 4:14 PM [facility] 04-26-2024 History of Present illness Narrative [...] hemorrhoid. No evidence of ext hemorrhoids, fissures. Drama Teacher: Linsey Colvin MA Musculoskeletal: General: Normal range [...] which included preparing to see the patient, wrka-ue-cugy patient care, completing clinical documentation, obtaining and/or reviewing separately obtained history, performing a medically appropriate examination, counseling and educating the patient/family/caregiver, ordering medications, tests, or procedures, communicating with other HCPs (not separately reported), independently interpreting results (not separately reported), communicating results to the patient/family/caregiver, and care coordination (not separately reported). Kelly Win PA-C April 26, 2024 2:50 PM documented in this encounter [facility] 06-18-2023 History of Present illness Narrative Pt [...] positive for Covid. documented in this encounter [facility] 02-17-2023 Miscellaneous Notes I'm glad to hear things are getting better. I would expect for the spinal headache to continue resolving. Since it is getting better I don't think that anesthesia would recommend any further treatment at this time. She should continue hydration and caffeine to help. If pain becomes severe would recommend eval at [facility] Isaias Payan MD Spoke with pt and [...] Marilu Silvestre LPN documented in this encounter [facility] 02-11-2023 Note [facility] Medical Records Department [address] [place] [address] Discharge Summary 02/11/23 0848 MR#: [id number] Acct: [id number] Name: MARIA T PHAN Rep #: [id number] : 1985 37 From: Alessandra Ruiz CNM PCP: Dr. Brian Downey MD Status:ADM IN Location: [id number] Providers Date of Admission: 02/09/23 Primary Care [...] MI Ruiz; Dr. Brian Downey MD Signed [facility] 02-10-2023 History of Present illness Narrative Patient delivered via by Dr. Mcdaniel on 02/09/23 at [facility]. See OB history. Amira Giauque RN documented in this encounter [facility] 02-03-2023 History of Present illness Narrative NST [...] Brenda Mcdaniel MD documented in this encounter [facility] 02-03-2023 Miscellaneous Notes RR- VB No. LOF [...] Brenda Mcdaniel M.D. documented in this encounter [facility] 02-03-2023 Albin Lilly Ma - 02/03/2023 9:51 AM EDT SEQUENTIAL SCREENINGS The [facility] offers sequential screenings for women who are [...] It will require an appointment with our machine maintenance technician. This is not an ultrasound performed [...] the above symptoms, contact our office at [phone] and ask to speak with a nurse. After hours, you can call doctors registry at [phone] OR call [facility] at [phone] and ask to have the doctor rehabilitation teacher paged. If you consider this an emergency, dial 8-5-8 or go to your nearest emergency department. NEED HELP? Are you dealing with a violent or abusive relationship? Are you a victim of rape or sexual assult? Call [facility] ([place]) 24 hour Crisis Hotline: 222.807.8879 or 010-322-3860. MANUAL Your Guide to a Healthy manual is now on-line. Visit [email or web address] Zay to download your free copy documented in this encounter [facility] 01-27-2023 History of Present illness Narrative NST [...] Brenda Mcdaniel MD documented in this encounter [facility] 01-27-2023 Miscellaneous Notes RR- VB No. LOF [...] Brenda Mcdaniel M.D. documented in this encounter [facility] 01-27-2023 Instructions Portia Lilly In - 01/27/2023 10:51 AM EDT SEQUENTIAL SCREENINGS The [facility] offers sequential screenings for women who are [...] It will require an appointment with our machine maintenance technician. This is not an ultrasound performed [...] the above symptoms, contact our office at [phone] and ask to speak with a nurse. After hours, you can call doctors registry at [phone] OR call [facility] at [phone] and ask to have the doctor rehabilitation teacher paged. If you consider this an emergency, dial 06-17- or go to your nearest emergency department. NEED HELP? Are you dealing with a violent or abusive relationship? Are you a victim of rape or sexual assult? Call [facility] ([place]) 24 hour Crisis Hotline: 558.831.1031 or 129-815-4203. MANUAL Your Guide to a Healthy manual is now on-line. Visit [email or web address] Zay to download your free copy documented in this encounter [facility] 01-21-2023 History of Present illness Narrative NST [...] Brenda Mcdaniel MD documented in this encounter [facility] 01-21-2023 Miscellaneous Notes RR- good FM. no VB/LOF. GBS done. NST reactive. F/u in 1 week or prn. Brenda Mcdaniel MD documented in this encounter [facility] 01-21-2023 Albin Richardson Ma - 01/21/2023 3:17 PM EDT SEQUENTIAL SCREENINGS The [facility] offers sequential screenings for women who are [...] It will require an appointment with our machine maintenance technician. This is not an ultrasound performed [...] the above symptoms, contact our office at [phone] and ask to speak with a nurse. After hours, you can call doctors registry at [phone] OR call [facility] at [phone] and ask to have the doctor rehabilitation teacher paged. If you consider this an emergency, dial 5-3-1 or go to your nearest emergency department. NEED HELP? Are you dealing with a violent or abusive relationship? Are you a victim of rape or sexual assult? Call [facility] ([place]) 24 hour Crisis Hotline: 144.867.1224 or 758-102-9800. MANUAL Your Guide to a Healthy manual is now on-line. Visit [email or web address] Zay to download your free copy documented in this encounter [facility] 01-05-2023 Miscellaneous Notes RR- some heartburn, using OTC meds and uses prn. No ctxs. No VB/LOF. Good FM. Brenda Mcdaniel MD documented in this encounter [facility] 01-05-2023 Albin Lilly Ma - 01/05/2023 11:43 AM EDT SEQUENTIAL SCREENINGS The [facility] offers sequential screenings for women who are [...] It will require an appointment with our machine maintenance technician. This is not an ultrasound performed [...] the above symptoms, contact our office at [phone] and ask to speak with a nurse. After hours, you can call doctors registry at [phone] OR call [facility] at [phone] and ask to have the doctor rehabilitation teacher paged. If you consider this an emergency, dial 9-1-6 or go to your nearest emergency department. NEED HELP? Are you dealing with a violent or abusive relationship? Are you a victim of rape or sexual assult? Call [facility] ([place]) 24 hour Crisis Hotline: 920.196.5970 or 469-959-4786. MANUAL Your Guide to a Healthy manual is now on-line. Visit [email or web address] to download your free copy documented in this encounter [facility] 11-05-2022 Miscellaneous Notes RR_ no VB/LOF. Good [...] Brenda Mcdaniel MD documented in this encounter [facility] 11-05-2022 Instructions Portia Lilly Ma - 11/05/2022 10:14 AM EST SEQUENTIAL SCREENINGS The [facility] offers sequential screenings for women who are [...] It will require an appointment with our machine maintenance technician. This is not an ultrasound performed [...] the above symptoms, contact our office at [phone] and ask to speak with a nurse. After hours, you can call doctors registry at [phone] OR call [facility] at [phone] and ask to have the doctor rehabilitation teacher paged. If you consider this an emergency, dial 9-1-3 or go to your nearest emergency department. NEED HELP? Are you dealing with a violent or abusive relationship? Are you a victim of rape or sexual assult? Call [facility] ([place]) 24 hour Crisis Hotline: 255.546.7138 or 624-137-7854. MANUAL Your Guide to a Healthy manual is now on-line. Visit [email or web address] to download your free copy documented in this encounter [facility] 11-04-2022 Miscellaneous Notes Patient c/o an intermittent warmth sensation in posterior right calf that runs down to foot. Is having a throbbing sensation and cramping. Denies warmth, redness to right calf. documented in this encounter [facility] 10-21-2022 Miscellaneous Notes RR_ No VB/LOF. Good FM. 28 week labs next visit. F/u in 4 weeks or prn. Brenda Mcdaniel MD documented in this encounter [facility] 10-21-2022 Albin Lilly Ma - 10/21/2022 3:14 PM EST SEQUENTIAL SCREENINGS The [facility] offers sequential screenings for women who are [...] It will require an appointment with our machine maintenance technician. This is not an ultrasound performed [...] the above symptoms, contact our office at [phone] and ask to speak with a nurse. After hours, you can call doctors registry at [phone] OR call [facility] at [phone] and ask to have the doctor rehabilitation teacher paged. If you consider this an emergency, dial 06-17- or go to your nearest emergency department. NEED HELP? Are you dealing with a violent or abusive relationship? Are you a victim of rape or sexual assult? Call [facility] ([place]) 24 hour Crisis Hotline: 549.203.4031 or 355-852-6739. MANUAL Your Guide to a Healthy manual is now on-line. Visit [email or web address] to download your free copy documented in this encounter [facility] 10-13-2022 Miscellaneous Notes Order signed. Alessandra Ruiz APRN.CNM Please see pt's Rupeetalkt message in RR absence. Marilu Silvestre LPN documented in this encounter [facility] 09-22-2022 Miscellaneous Notes DM- Pt doing well today. Denies Vaginal Bleeding, Leaking fluid, or cramping. movement. Anatomy us pending. GIRL. Recommend her to start ASA. Repeat CMP at 28 weeks- slightly elevated ALT. RTO 4 wks. Lynette Leiva MD documented in this encounter [facility] 09-22-2022 Instructions Kayla Scott Ma - 09/22/2022 10:19 AM EST SEQUENTIAL SCREENINGS The [facility] offers sequential screenings for women who are [...] It will require an appointment with our machine maintenance technician. This is not an ultrasound performed [...] the above symptoms, contact our office at [phone] and ask to speak with a nurse. After hours, you can call doctors registry at [phone] OR call [facility] at [phone] and ask to have the doctor rehabilitation teacher paged. If you consider this an emergency, dial 4-5-0 or go to your nearest emergency department. NEED HELP? Are you dealing with a violent or abusive relationship? Are you a victim of rape or sexual assult? Call [facility] ([place]) 24 hour Crisis Hotline: 125.266.5823 or 571-866-7131. MANUAL Your Guide to a Healthy manual is now on-line. Visit [email or web address] to download your free copy documented in this encounter [facility] 09-01-2022 Miscellaneous Notes RR_ Mood stable, still a lot of stress but able to deal with it better. Some flutters. Nausea better, uses zofran prn. AFP today. US for anatomy scheduled. Taking PNV. F/u in 4 weeks or prn. Brenda Mcdaniel MD documented in this encounter [facility] 09-01-2022 Albin Lilly Ma - 09/01/2022 4:07 PM EST SEQUENTIAL SCREENINGS The [facility] offers sequential screenings for women who are [...] It will require an appointment with our machine maintenance technician. This is not an ultrasound performed [...] the above symptoms, contact our office at [phone] and ask to speak with a nurse. After hours, you can call doctors registry at [phone] OR call [facility] at [phone] and ask to have the doctor rehabilitation teacher paged. If you consider this an emergency, dial 9-1-9 or go to your nearest emergency department. NEED HELP? Are you dealing with a violent or abusive relationship? Are you a victim of rape or sexual assult? Call [facility] ([place]) 24 hour Crisis Hotline: 477.140.2264 or 745-146-3362. MANUAL Your Guide to a Healthy manual is now on-line. Visit [email or web address] to download your free copy documented in this encounter [facility] 08-09-2022 Miscellaneous Notes Called Maria T Phan [...] Meera Arvizu MA documented in this encounter [facility] 08-04-2022 Miscellaneous Notes RR_ No VB/LOF. Feeling better nausea parker but hits her in the middle of night. Mood more stable. Still has zofran. NT today and NIPT. Reviewed use as screen for aneuploidy. F/u in 4 weeks or prn. Brenda Mcdaniel MD documented in this encounter [facility] 08-04-2022 Albin Mike Glass Integrated Logistics Support Manager - 08/04/2022 10:14 AM EDT SEQUENTIAL SCREENINGS The [facility] offers sequential screenings for women who are [...] It will require an appointment with our machine maintenance technician. This is not an ultrasound performed [...] the above symptoms, contact our office at [phone] and ask to speak with a nurse. After hours, you can call doctors registry at [phone] OR call [facility] at [phone] and ask to have the doctor rehabilitation teacher paged. If you consider this an emergency, dial 9-1-1 or go to your nearest emergency department. NEED HELP? Are you dealing with a violent or abusive relationship? Are you a victim of rape or sexual assult? Call [facility] ([place]) 24 hour Crisis Hotline: 322.414.4951 or 855-523-1480. MANUAL Your Guide to a Healthy manual is now on-line. Visit [email or web address] [email or web address] to download your free copy documented in this encounter [facility] 07-07-2022 History of Present illness Narrative INITIAL [...] Multivitamin with Folic acid: Yes Occupation: homemaker Mosque or heritage: No Would refuse blood transfusion if medically necessary: No No weight on file for this encounter. Patient BMI over 30? No Marital Status: Partner: Name: Sharad Age: 39 Occupation: Car [employer] Gender: male History of STDs: None PAST [...] RELIEF) 50 mcg/actuation nasal spray Use 1 [place] in each nostril twice daily. (Patient not [...] Brenda Mcdaniel MD documented in this encounter [facility] 07-07-2022 Instructions Portia Lilly Ma - 07/07/2022 12:51 PM EDT Please select the following link to access the [facility] Your Guide to a Healthy . [email or web address] documented in this encounter [facility] 07-07-2022 Miscellaneous Notes Patient returned call. Will come in today after 12 PM once her sheepskin pickler arrives. Kim Castellon RN 4th attempt to [...] and is available documented in this encounter [facility] 01-22-2022 Miscellaneous Notes Patient delivered 01/11/22. Amira Csota RN documented in this encounter [facility] 01-20-2022 Miscellaneous Notes Patient delivered on 01/11/22. Rosa Sher RN documented in this encounter [facility] 01-13-2022 Miscellaneous Notes Prescription signed. Brenda Buckley APRN.AUTOMOBILE UPHOLSTERER documented in this encounter [facility] 01-12-2022 History of Present illness Narrative Patient delivered via at [facility] on 01/11/22 per Brenda Mcdaniel MD. See OB Outcome note. Kim Castellon, RN documented in this encounter [facility] 12-17-2021 History of Past i llness Narrative [...] to cord accident. IOL and delivery in [facility] without complication. Ary Jensen APRN.CNM H/O pre-eclampsia in prior , currently 01/24/2018 02/22/2018 Overview: 01/24/18: Reports pre-eclampsia in 4th , was induced @ 40 weeks. Ary Jensen APRN.CNM documented as of this encounter (statuses as of 10/22/2022) [facility] History of Past illness Narrative* Problem Noted [...] to cord accident. IOL and delivery in [facility] without complication. Ary Jensen APRN.CNM H/O pre-eclampsia in prior , currently 01/24/2018 02/22/2018 Overview: 01/24/18: Reports pre-eclampsia in 4th , was induced @ 40 weeks. Ary Jensen APRN.CNM documented as of this encounter (statuses as of 11/04/2022) [facility] History of Past illness Narrative* Problem Noted [...] to cord accident. IOL and delivery in [facility] without complication. Ary Jensen APRN.CNM H/O pre-eclampsia in prior , currently 01/24/2018 02/22/2018 Overview: 01/24/18: Reports pre-eclampsia in 4th , was induced @ 40 weeks. Ary Jensen APRN.CNM documented as of this encounter (statuses as of 11/04/2022) [facility] History of Past illness Narrative* Problem Noted [...] to cord accident. IOL and delivery in [facility] without complication. Ary Jensen APRN.CNM H/O pre-eclampsia in prior , currently 01/24/2018 02/22/2018 Overview: 01/24/18: Reports pre-eclampsia in 4th , was induced @ 40 weeks. Ary Jensen APRN.CNM documented as of this encounter (statuses as of 11/05/2022) [facility] History of Past illness Narrative* Problem Noted [...] to cord accident. IOL and delivery in [facility] without complication. Ary Jensen APRN.MI H/O pre-eclampsia in prior , currently 01/24/2018 02/22/2018 Overview: 01/24/18: Reports pre-eclampsia in 4th , was induced @ 40 weeks. Ary Jensen APRN.CNM documented as of this encounter (statuses as of 01/05/2023) [facility] History of Past illness Narrative* Problem Noted [...] to cord accident. IOL and delivery in [facility] without complication. Ary Jensen APRN.CNM H/O pre-eclampsia in prior , currently 01/24/2018 02/22/2018 Overview: 01/24/18: Reports pre-eclampsia in 4th , was induced @ 40 weeks. Ary Jensen APRN.CNM documented as of this encounter (statuses as of 01/21/2023) [facility] History of Past illness Narrative* Problem Noted [...] to cord accident. IOL and delivery in [facility] without complication. Ary Jensen APRN.CNM H/O pre-eclampsia in prior , currently 01/24/2018 02/22/2018 Overview: 01/24/18: Reports pre-eclampsia in 4th , was induced @ 40 weeks. Ary Jensen APRN.CNM documented as of this encounter (statuses as of 01/28/2023) [facility] History of Past illness Narrative* Problem Noted [...] to cord accident. IOL and delivery in [facility] without complication. Ary Jensen APRN.CNM H/O pre-eclampsia in prior , currently 01/24/2018 02/22/2018 Overview: 01/24/18: Reports pre-eclampsia in 4th , was induced @ 40 weeks. Ary Jensen APRN.CNM documented as of this encounter (statuses as of 02/03/2023) [facility] History of Past illness Narrative* Problem Noted [...] to cord accident. IOL and delivery in [facility] without complication. Ary Jensen APRN.CNM H/O pre-eclampsia in prior , currently 01/24/2018 02/22/2018 Overview: 01/24/18: Reports pre-eclampsia in 4th , was induced @ 40 weeks. Ary Jensen APRN.CNM documented as of this encounter (statuses as of 02/10/2023) [facility] History of Past illness Narrative* Problem Noted [...] to cord accident. IOL and delivery in [facility] without complication. rAy Jensen APRN.CNM H/O pre-eclampsia in prior , currently 01/24/2018 02/22/2018 Overview: 01/24/18: Reports pre-eclampsia in 4th , was induced @ 40 weeks. Ary Jensen APRN.CNM documented as of this encounter (statuses as of 02/18/2023) [facility] History of Past illness Narrative* Problem Noted [...] to cord accident. IOL and delivery in [facility] without complication. Ary Jensen APRN.MI H/O pre-eclampsia in prior p regnancy, currently 01/24/2018 02/22/2018 Overview: 01/24/18: Reports pre-eclampsia in 4th , was induced @ 40 weeks. Ary Jensen APRN.CNM documented as of this encounter (statuses as of 06/18/2023) [facility] History of Past illness Narrative* Problem Noted [...] to cord accident. IOL and delivery in [facility] without complication. Ary Jensen APRN.CNM H/O pre-eclampsia in prior , currently 01/24/2018 02/22/2018 Overview: 01/24/18: Reports pre-eclampsia in 4th , was induced @ 40 weeks. Ary Jensen APRN.CNM documented as of this encounter (statuses as of 01/08/2022) [facility] History of Past illness Narrative* Problem Noted [...] to cord accident. IOL and delivery in [facility] without complication. Ary Jensen APRN.CNM H/O pre-eclampsia in prior , currently 01/24/2018 02/22/2018 Overview: 01/24/18: Reports pre-eclampsia in 4th , was induced @ 40 weeks. Ary Jensen APRN.CNM documented as of this encounter (statuses as of 01/12/2022) [facility] History of Past illness Narrative* Problem Noted [...] to cord accident. IOL and delivery in [facility] without complication. Ary Jensen APRN.CNM H/O pre-eclampsia in prior , currently 01/24/2018 02/22/2018 Overview: 01/24/18: Reports pre-eclampsia in 4th , was induced @ 40 weeks. Ary Jensen APRN.CNM documented as of this encounter (statuses as of 01/13/2022) [facility] of [facility] illness Narrative* Problem Noted [...] to cord accident. IOL and delivery in [facility] without complication. Ary Jensen APRN.CNM H/O pre-eclampsia in prior , currently 01/24/2018 02/22/2018 Overview: 01/24/18: Reports pre-eclampsia in 4th , was induced @ 40 weeks. Ary Jensen APRN.CNM documented as of this encounter (statuses as of 01/20/2022) [facility] of [facility] illness Narrative* Problem Noted [...] to cord accident. IOL and delivery in [facility] without complication. Ary Jensen APRN.CNM H/O pre-eclampsia in prior , currently 01/24/2018 02/22/2018 Overview: 01/24/18: Reports pre-eclampsia in 4th , was induced @ 40 weeks. Ary Jensen APRN.CNM documented as of this encounter (statuses as of 01/22/2022) [facility] of [facility] illness Narrative* Problem Noted [...] to cord accident. IOL and delivery in [facility] without complication. Ary Jensen APRN.CNM H/O pre-eclampsia in prior , currently 01/24/2018 02/22/2018 Overview: 01/24/18: Reports pre-eclampsia in 4th , was induced @ 40 weeks. Ary Jensen APRN.CNM documented as of this encounter (statuses as of 06/29/2022) [facility] of [facility] illness Narrative* Problem Noted [...] to cord accident. IOL and delivery in [facility] without complication. Ary Jensen APRN.CNM H/O pre-eclampsia in prior , currently 01/24/2018 02/22/2018 Overview: 01/24/18: Reports pre-eclampsia in 4th , was induced @ 40 weeks. Ary Jensen APRN.CNM documented as of this encounter (statuses as of 07/07/2022) [facility] of [facility] illness Narrative* Problem Noted [...] to cord accident. IOL and delivery in [facility] without complication. Ary Jensen APRN.CNM H/O pre-eclampsia in prior , currently 01/24/2018 02/22/2018 Overview: 01/24/18: Reports pre-eclampsia in 4th , was induced @ 40 weeks. Ary Jensen APRN.CNM documented as of this encounter (statuses as of 07/07/2022) [facility] of [facility] illness Narrative* Problem Noted [...] to cord accident. IOL and delivery in [facility] without complication. Ary Jensen APRN.CNM H/O pre-eclampsia in prior , currently 01/24/2018 02/22/2018 Overview: 01/24/18: Reports pre-eclampsia in 4th , was induced @ 40 weeks. Ary Jensen APRN.CNM documented as of this encounter (statuses as of 07/29/2022) [facility] of [facility] illness Narrative* Problem Noted [...] to cord accident. IOL and delivery in [facility] without complication. Ary Jensen APRN.CNM H/O pre-eclampsia in prior , currently 01/24/2018 02/22/2018 Overview: 01/24/18: Reports pre-eclampsia in 4th , was induced @ 40 weeks. Ary Jensen APRN.CNM documented as of this encounter (statuses as of 08/03/2022) [facility] of [facility] illness Narrative* Problem Noted [...] to cord accident. IOL and delivery in [facility] without complication. Ary Jensen APRN.CNM H/O pre-eclampsia in prior , currently 01/24/2018 02/22/2018 Overview: 01/24/18: Reports pre-eclampsia in 4th , was induced @ 40 weeks. Ary Jensen APRN.CNM documented as of this encounter (statuses as of 08/04/2022) [facility] of [facility] illness Narrative* Problem Noted [...] to cord accident. IOL and delivery in [facility] without complication. Ary Jensne APRN.CNM H/O pre-eclampsia in prior , currently 01/24/2018 02/22/2018 Overview: 01/24/18: Reports pre-eclampsia in 4th , was induced @ 40 weeks. Ary Jensen APRN.CNM documented as of this encounter (statuses as of 08/04/2022) [facility] of [facility] Narrative* Problem Noted [...] to cord accident. IOL and delivery in [facility] without complication. Ary Jensen APRN.CNM H/O pre-eclampsia in prior , currently 01/24/2018 02/22/2018 Overview: 01/24/18: Reports pre-eclampsia in 4th , was induced @ 40 weeks. Ary Jensen APRN.CNM documented as of this encounter (statuses as of 08/09/2022) [facility] of [facility] Narrative* Problem Noted [...] to cord accident. IOL and delivery in [facility] without complication. Ary Jensen APRN.CNM H/O pre-eclampsia in prior , currently 01/24/2018 02/22/2018 Overview: 01/24/18: Reports pre-eclampsia in 4th , was induced @ 40 weeks. Ary Jensen APRN.CNM documented as of this encounter (statuses as of 09/01/2022) [facility] of [facility] illness Narrative* Problem Noted [...] to cord accident. IOL and delivery in [facility] without complication. Ary Jensen APRN.CNM H/O pre-eclampsia in prior , currently 01/24/2018 02/22/2018 Overview: 01/24/18: Reports pre-eclampsia in 4th , was induced @ 40 weeks. Ary Jensen APRN.CNM documented as of this encounter (statuses as of 09/22/2022) [facility] note* Diagnosis Cholestasis during in third trimester- Primary Supervision of other high risk pregnancies, third trimester Prior poor obstetrical history in third trimester, antepartum [facility]* Diagnosis Onset Date Resolution Status 36 weeks gestation of acute Advanced maternal age during in third trimester acute Cholestasis during in third trimester acute Grand multipara in labor acu te Personal history of COVID-19 acute delivery acute Status post vaginal delivery acute Supervision of other high ri sk pregnancies, third trimester acute Unfavorable cervix in term acute [facility] Work Phone: Evaluation note* Diagnosis Postoperative pain- Primary Other acute postoperative pain documented in this encounter [facility]* Diagnosis with uncertain dates in first trimester- Primary documented in this encounter [facility]* Diagnosis AMA (advanced maternal age) multigravida 35+, first trimester- Primary 8 weeks gestation of state, incidental Supervision of other high risk pregnancies, first trimester History of pre-eclampsia in prior , currently , first trimester documented [facility] encounter [facility]* Diagnosis Multigravida of advanced maternal age in first trimester- Primary documented in this encounter [facility]* Diagnosis 12 weeks gestation of - Primary state, incidental Supervision of other high risk pregnancies, first trimester Encounter for screening of mother Unspecified screening Multigravida of advanced maternal age in second trimester Advanced maternal age in multigravida, first trimester [facility] Diagnosis Encounter for (NT) nuchal translucency scan- Primary Other specified screening 12 weeks gestation of state, incidental Multigravida of advanced maternal age in first trimester documented in this encounter [facility] note* Diagnosis 16 weeks gestation of - Primary state, incidental AMA (advanced maternal age) multigravida 35+, second trimester documented in this encounter [facility]* Diagnosis History of pre-eclampsia in prior , currently - Primary with other poor obstetric history Antepartum multigravida of advanced maternal age Grand multipara Grand multiparity in labor and delivery, unspecified as to episode of care or not applicable 19 weeks gestation of state, incidental documented in this encounter [facility]* Diagnosis 23 weeks gestation of - Primary state, incidental AMA (advanced maternal age) multigravida 35+, second trimester History of pre-eclampsia in prior , currently with other poor obstetric history [facility] Diagnosis AMA (advanced maternal age) multigravida 35+, second trimester- Primary 25 weeks gestation of state, incidental Leg cramps in Other specified complication of , unspecified as to episode of care Right leg pain Pain in limb Headache in , antepartum, second trimester documented [facility] encounter [facility]* Diagnosis 34 weeks gestation of - Primary state, incidental AMA (advanced maternal age) multigravida 35+, third trimester Supervision of other high risk pregnancies, third trimester [facility] Diagnosis Grand multipara- Primary Grand multiparity in labor and delivery, unspecified as to episode of care or not applicable Antepartum multigravida of advanced maternal age 36 weeks gestation of state, incidental AMA (advanced maternal age) multigravida 35+, third trimester [facility] Diagnosis AMA (advanced maternal age) multigravida 35+, third trimester- Primary 37 weeks gestation of state, incidental AMA (advanced maternal age) multigravida 36+, third trimester [facility]* Diagnosis 38 weeks gestation of - Primary state, incidental AMA (advanced maternal age) multigravida 35+, third trimester Grand multipara Grand multiparity in labor and delivery, unspecified as to episode of care or not applicable Supervision of other high risk pregnancies, third trimester documented in this encounter [facility] note* Diagnosis Other specified disorders of bone, upper arm documented in this encounter [facility] note* Diagnosis Pain in right shoulder documented in this encounter [facility] note* Diagnosis Procedure not carried out- Primary Procedure not carried out for other reasons documented in this encounter [facility] note* Diagnosis Liver disease, unspecified documented in this encounter [facility] note* Diagnosis Other specified disorders of bone, upper arm- Primary Other specified disorders of bone, upper arm documented in this encounter [facility] note* Diagnosis Pain in left knee documented in this encounter [facility] note* Diagnosis Pain in left knee- Primary Pain in left knee documented in this encounter [facility] note* Diagnosis Hypertrophy of bone, left shoulder documented in this encounter [facility] note* Diagnosis Diarrhea, unspecified type- Primary BRBPR (bright red blood per rectum) Hemorrhage of rectum and anus Hemorrhoids, internal Internal hemorrhoids without mention of complication Right sided abdominal pain Abdominal pain, unspecified site Abdominal distension (gaseous) Flatulence, eructation, and gas pain Right lower quadrant abdominal pain Abdominal pain, right lower quadrant Nausea Nausea alone documented in this encounter [facility] note* Diagnosis Hemorrhoids, internal- Primary Internal hemorrhoids without mention of complication documented in this encounter [facility] note* Diagnosis Right upper quadrant pain- Primary Abdominal pain, right upper quadrant documented in this encounter [facility] note* Diagnosis Hypertrophy of bone, left shoulder- Primary Hypertrophy of bone, left shoulder documented in this encounter [facility] note* Diagnosis Right upper quadrant pain Abdominal pain, right upper quadrant documented in this encounter [facility] note* Diagnosis Liver lesion Other specified disorders of liver documented in this encounter [facility] note* Diagnosis Anal disorder- Primary Other specified disorder of rectum and anus Papule Other specified disorder of skin documented in this encounter [facility] note* Diagnosis Anal lesion- Primary Other specified disorder of rectum and anus documented in this encounter [facility] note* Diagnosis Anal fistula- Primary documented in this encounter [facility]* Diagnosis Supervision of high risk in first trimester (HCC)- Primary Unspecified high-risk [facility] Diagnosis Encounter for supervision of high risk in first trimester, antepartum (HCC)- Primary 9 weeks gestation of ([facility]) state, incidental with uncertain dates in first trimester ([facility]) Screening for cervical cancer Screening for malignant neoplasm of the cervix Encounter for screening for human papillomavirus (HPV) Special screening examination for human papillomavirus (HPV) Nausea and vomiting in ([facility]) Unspecified vomiting of , unspecified as to episode of care Multigravida of advanced maternal age in first trimester ([facility]) History of gestational hypertension History of pre-eclampsia in prior , currently (HCC) with other poor obstetric history History of depression, currently (HCC) with other poor obstetric history [facility] Diagnosis Encounter for supervision of high risk in first trimester, antepartum (HCC)- Primary AMA (advanced maternal age) multigravida 35+, first trimester (HCC) 13 weeks gestation of ([facility]) state, incidental [facility]* Diagnosis Encounter for screening for malformation using ultrasound ([facility])- Primary 13 weeks gestation of ([facility]) state, incidental [facility] Diagnosis Supervision of high risk in second trimester (HCC)- Primary Unspecified high-risk Malaise and fatigue Other malaise and fatigue [facility]* Diagnosis 19 weeks gestation of (HCC)- Primary state, incidental Supervision of high risk in second trimester (HCC) Unspecified high-risk AMA (advanced maternal age) multigravida 36+, first trimester (HCC) [facility] Diagnosis Multigravida of advanced maternal age in first trimester (HCC)- Primary with uncertain dates in first trimester (HCC) Prior with demise and current in first trimester ([facility]) documented in this encounter [facility] for referral (narrative)* Diagnostic Procedure Only (Routine) - Authorized Specialty Diagnoses / Procedures Referred By Contac t Referred To Contact [facility] Diagnoses AMA (advanced maternal age) multigravida 35+, first trimester 8 weeks gestation of Procedures NUCHAL TRANSLUCENCY WHI US NUCHAL TRANSLUCENCY 1ST GESTATION Brenda Mcdaniel MD [address] [place] [address] [facility] [place] [facility] [place] [address] [place] [id number] Referral ID Status Reason Start Date Expiration Date Visits Requested Visits Authorized [id number] Authorized Auto-Generat ed Referral 07/07/2022 07/07/2023 1 1 T [facility] for referral (narrative)* Diagnostic Procedure Only (Routine) - Pending Review Specialty Diagnoses / Procedures Referred By Ziaac t Referred To Contact [facility] Diagnoses Supervision of other high risk pregnancies, first trimester Encounter for screening of mother Multigravida of advanced maternal age in second trimester Procedures OBSTETRIC ULTRASOUND WHI US PREG UTERUS AFTER 1ST TRIMEST GESTATION Brenda Mcdaniel MD [address] [place] [address] [id number] [place] [address] Referral ID Status Reason Start Date Expiration Date Visits Requested Visits Authorized [id number] Pending Review Auto-Generat ed Referral 08/04/2023 1 1 T [facility] for referral (narrative)* Outpatient Procedure (Routine) - Authorized Specialty Diagnoses / Procedures Referred By Contac t Referred To Contact [facility] Diagnoses AMA (advanced maternal age) multigravida 36+, third trimester Procedures NON-STRESS TEST NON-STRESS TEST Brenda Mcdaniel MD [address] [place] [address] [facility] [place] [facility] [place] [address] [place] [id number] Referral ID Status Reason Start Date Expiration Date Visits Requested Visits Authorized [id number] Authorized Auto-Generat ed Referral 01/05/2023 01/05/2024 4 1 [facility] Diagnostic Procedure Only (Routine) - Closed Specialty Diagnoses / Procedures Referred By Daniel blanco Referred To Contact [facility] Diagnoses with uncertain dates in first trimester (HCC) Procedures OBSTETRIC ULTRASOUND WHI US PREG UTERUS AFTER 1ST TRIMEST GESTATION Omar Freedman APRN.[employer] [address] [place] [address] Phone: tel: fax: [facility] [address] [place] [address] Referral ID Status Reason Start Date Expiration Date V isits Requested Visits Authorized [id number] Closed Auto-Generate d Referral 03/28/2025 03/28/2026 1 1 [facility] Summary Purpose Family History No Family History Records FoundNo Family History Records FoundNo Family History Records FoundNo Family History Records FoundNo Family History Records FoundNo Family History Records FoundNo Family History Records FoundNo Family History Records FoundNo Family History Records Found Advance Directives No Advanced Directives Records FoundDocuments on File Type Date 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 Advance Directives and Living Will Power of Cue Selector Documents on File Type Date 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 ACP-Advance Directive ACP-Power of Cue Selector Documents on File Type Date 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 Advance Directive(s) 10/08/2021 7:09 PM Advance Directive Response Recorded Date/ Time Living Will No January 11, 2022 9:22am Power of Cue Selector No January 11 9:22am Chief Complaint and [...] and wo contrast Ross Downey MD [address] [place] [address] Referral ID Status Reason Start Date Expiration Date Visits Re quested Visits Authorized [id number] Closed 06/22/2023 08/06/2023 1 1 Specialty Diagnoses / Procedures Referred By Contac t Referred To Contact CT IMAG[facility] Diagnoses Right sided abdominal pain Abdominal distension (gaseous) Right lower quadrant abdominal pain Nausea Procedures CT ABD/PEL W IVCON CT ABD & PELVIS W/CONTRAST Kelly Win PA-C [address] [place] [address] Ct [id number] Referral ID Status Reason Start Date Expiration Date Visits Requested Visits Authorized [id number] Authorized Auto-Generat ed Referral 04/26/2024 05/26/2025 1 1 Specialty Diagnoses / Procedures [facility] Diagnoses Liver lesion Procedures MRI LIVER WO/W IVCON MRI ABDOMEN W/O & W/CONTRAST MATERIAL Kelly Win PA-C [address] [facility] [place] [address] [place] [address] Referral ID Status Reason Start Date Expiration Date V isits Requested Visits Authorized [id number] Closed Auto-Generate d Referral 08/27/2024 09/26/2025 1 1 Additional Source Comments INFORMATION SOURCE (unrecogn ized section and content) DATE CREATED AUTHOR 04/11/2018 [facility] DATE CREATED AUTHOR AUTHOR'S ORGANIZ ATION 04/11/2018 [facility] DATE CREATED AUTHOR AUTHOR'S ORGANIZ ATION 03/01/2020 [facility] DATE CREATED AUTHOR AUTHOR'S ORGANIZ ATION 05/05/2022 [facility] DATE CREATED AUTHOR AUTHOR'S ORGANIZ ATION 02/10/2023 [facility] DATE CREATED AUTHOR AUTHOR'S ORGANIZ ATION 02/15/2023 [facility] DATE CREATED AUTHOR AUTHOR'S ORGANIZ ATION 08/26/2024 [facility] DATE CREATED AUTHOR AUTHOR'S ORGANIZ ATION 06/06/2025 [facility] DATE CREATED AUTHOR AUTHOR'S ORGANIZ ATION 08/21/2025 [facility] Source Comments (unrecognize d section and content) In the event this informatio n is protected by the Federal Confidentiality of Alcohol and Drug Abuse Patient Records regulations: The Federal rules restrict any use of the information to criminally investigate or prosecute any alcohol or drug abuse patient.[facility] the event this information is protected by the Federal Confidentiality of Alcohol and Drug Abuse Patient Records regulations: The Federal rules restrict any use of the information to criminally investigate or prosecute any alcohol or drug abuse patient.[facility] System[facility] the event this information is protected by the Federal Confidentiality of Alcohol and Drug Abuse Patient Records regulations: The Federal rules restrict any use of the information to criminally investigate or prosecute any alcohol or drug abuse patient.[facility] System[facility] the event this information is protected by the Federal Confidentiality of Alcohol and Drug Abuse Patient Records regulations: The Federal rules restrict any use of the information to criminally investigate or prosecute any alcohol or drug abuse patient.[facility] System[facility] the event this information is protected by the Federal Confidentiality of Alcohol and Drug Abuse Patient Records regulations: The Federal rules restrict any use of the information to criminally investigate or prosecute any alcohol or drug abuse patient.[facility] System[facility] the event this information is protected by the Federal Confidentiality of Alcohol and Drug Abuse Patient Records regulations: The Federal rules restrict any use of the information to criminally investigate or prosecute any alcohol or drug abuse patient.[facility] SystemIn the event this information is protected by the Federal Confidentiality of Alcohol and Drug Abuse Patient Records regulations: The Federal rules restrict any use of the information to criminally investigate or prosecute any alcohol or drug abuse patient.[facility] SystemIn the event this information is protected by the Federal Confidentiality of Alcohol and Drug Abuse Patient Records regulations: The Federal rules restrict any use of the information to criminally investigate or prosecute any alcohol or drug abuse patient.[facility] System[facility] the event this information is protected by the Federal Confidentiality of Alcohol and Drug Abuse Patient Records regulations: The Federal rules restrict any use of the information to criminally investigate or prosecute any alcohol or drug abuse patient.[facility] System[facility] the event this information is protected by the Federal Confidentiality of Alcohol and Drug Abuse Patient Records regulations: The Federal rules restrict any use of the information to criminally investigate or prosecute any alcohol or drug abuse patient.[facility] SystemIn the event this information is protected by the Federal Confidentiality of Alcohol and Drug Abuse Patient Records regulations: The Federal rules restrict any use of the information to criminally investigate or prosecute any alcohol or drug abuse patient.[facility] SystemIn the event this information is protected by the Federal Confidentiality of Alcohol and Drug Abuse Patient Records regulations: The Federal rules restrict any use of the information to criminally investigate or prosecute any alcohol or drug abuse patient.[facility] SystemIn the event this information is protected by the Federal Confidentiality of Alcohol and Drug Abuse Patient Records regulations: The Federal rules restrict any use of the information to criminally investigate or prosecute any alcohol or drug abuse patient.[facility] SystemIn the event this information is protected by the Federal Confidentiality of Alcohol and Drug Abuse Patient Records regulations: The Federal rules restrict any use of the information to criminally investigate or prosecute any alcohol or drug abuse patient.[facility] SystemIn the event this information is protected by the Federal Confidentiality of Alcohol and Drug Abuse Patient Records regulations: The Federal rules restrict any use of the information to criminally investigate or prosecute any alcohol or drug abuse patient.[facility] SystemIn the event this information is protected by the Federal Confidentiality of Alcohol and Drug Abuse Patient Records regulations: The Federal rules restrict any use of the information to criminally investigate or prosecute any alcohol or drug abuse patient.[facility] SystemIn the event this information is protected by the Federal Confidentiality of Alcohol and Drug Abuse Patient Records regulations: The Federal rules restrict any use of the information to criminally investigate or prosecute any alcohol or drug abuse patient.[facility] SystemIn the event this information is protected by the Federal Confidentiality of Alcohol and Drug Abuse Patient Records regulations: The Federal rules restrict any use of the information to criminally investigate or prosecute any alcohol or drug abuse patient.[facility] SystemIn the event this information is protected by the Federal Confidentiality of Alcohol and Drug Abuse Patient Records regulations: The Federal rules restrict any use of the information to criminally investigate or prosecute any alcohol or drug abuse patient.[facility] SystemIn the event this information is protected by the Federal Confidentiality of Alcohol and Drug Abuse Patient Records regulations: The Federal rules restrict any use of the information to criminally investigate or prosecute any alcohol or drug abuse patient.[facility] SystemIn the event this information is protected by the Federal Confidentiality of Alcohol and Drug Abuse Patient Records regulations: The Federal rules restrict any use of the information to criminally investigate or prosecute any alcohol or drug abuse patient.[facility] SystemIn the event this information is protected by the Federal Confidentiality of Alcohol and Drug Abuse Patient Records regulations: The Federal rules restrict any use of the information to criminally investigate or prosecute any alcohol or drug abuse patient.[facility] SystemIn the event this information is protected by the Federal Confidentiality of Alcohol and Drug Abuse Patient Records regulations: The Federal rules restrict any use of the information to criminally investigate or prosecute any alcohol or drug abuse patient.[facility] SystemIn the event this information is protected by the Federal Confidentiality of Alcohol and Drug Abuse Patient Records regulations: The Federal rules restrict any use of the information to criminally investigate or prosecute any alcohol or drug abuse patient.[facility] SystemIn the event this information is protected by the Federal Confidentiality of Alcohol and Drug Abuse Patient Records regulations: The Federal rules restrict any use of the information to criminally investigate or prosecute any alcohol or drug abuse patient.[facility] SystemIn the event this information is protected by the Federal Confidentiality of Alcohol and Drug Abuse Patient Records regulations: The Federal rules restrict any use of the information to criminally investigate or prosecute any alcohol or drug abuse patient.[facility] SystemIn the event this information is protected by the Federal Confidentiality of Alcohol and Drug Abuse Patient Records regulations: The Federal rules restrict any use of the information to criminally investigate or prosecute any alcohol or drug abuse patient.[facility] SystemIn the event this information is protected by the Federal Confidentiality of Alcohol and Drug Abuse Patient Records regulations: The Federal rules restrict any use of the information to criminally investigate or prosecute any alcohol or drug abuse patient.[facility] SystemIn the event this information is protected by the Federal Confidentiality of Alcohol and Drug Abuse Patient Records regulations: The Federal rules restrict any use of the information to criminally investigate or prosecute any alcohol or drug abuse patient.[facility] SystemIn the event this information is protected by the Federal Confidentiality of Alcohol and Drug Abuse Patient Records regulations: The Federal rules restrict any use of the information to criminally investigate or prosecute any alcohol or drug abuse patient.[facility] SystemIn the event this information is protected by the Federal Confidentiality of Alcohol and Drug Abuse Patient Records regulations: The Federal rules restrict any use of the information to criminally investigate or prosecute any alcohol or drug abuse patient.[facility] SystemIn the event this information is protected by the Federal Confidentiality of Alcohol and Drug Abuse Patient Records regulations: The Federal rules restrict any use of the information to criminally investigate or prosecute any alcohol or drug abuse patient.[facility] SystemIn the event this information is protected by the Federal Confidentiality of Alcohol and Drug Abuse Patient Records regulations: The Federal rules restrict any use of the information to criminally investigate or prosecute any alcohol or drug abuse patient.[facility] SystemIn the event this information is protected by the Federal Confidentiality of Alcohol and Drug Abuse Patient Records regulations: The Federal rules restrict any use of the information to criminally investigate or prosecute any alcohol or drug abuse patient.[facility] SystemIn the event this information is protected by the Federal Confidentiality of Alcohol and Drug Abuse Patient Records regulations: The Federal rules restrict any use of the information to criminally investigate or prosecute any alcohol or drug abuse patient.[facility] SystemIn the event this information is protected by the Federal Confidentiality of Alcohol and Drug Abuse Patient Records regulations: The Federal rules restrict any use of the information to criminally investigate or prosecute any alcohol or drug abuse patient.[facility] SystemIn the event this information is protected by the Federal Confidentiality of Alcohol and Drug Abuse Patient Records regulations: The Federal rules restrict any use of the information to criminally investigate or prosecute any alcohol or drug abuse patient.[facility] SystemIn the event this information is protected by the Federal Confidentiality of Alcohol and Drug Abuse Patient Records regulations: The Federal rules restrict any use of the information to criminally investigate or prosecute any alcohol or drug abuse patient.[facility] SystemIn the event this information is protected by the Federal Confidentiality of Alcohol and Drug Abuse Patient Records regulations: The Federal rules restrict any use of the information to criminally investigate or prosecute any alcohol or drug abuse patient.[facility] SystemIn the event this information is protected by the Federal Confidentiality of Alcohol and Drug Abuse Patient Records regulations: The Federal rules restrict any use of the information to criminally investigate or prosecute any alcohol or drug abuse patient.[facility] SystemIn the event this information is protected by the Federal Confidentiality of Alcohol and Drug Abuse Patient Records regulations: The Federal rules restrict any use of the information to criminally investigate or prosecute any alcohol or drug abuse patient.[facility] SystemIn the event this information is protected by the Federal Confidentiality of Alcohol and Drug Abuse Patient Records regulations: The Federal rules restrict any use of the information to criminally investigate or prosecute any alcohol or drug abuse patient.[facility] SystemIn the event this information is protected by the Federal Confidentiality of Alcohol and Drug Abuse Patient Records regulations: The Federal rules restrict any use of the information to criminally investigate or prosecute any alcohol or drug abuse patient.[facility] SystemIn the event this information is protected by the Federal Confidentiality of Alcohol and Drug Abuse Patient Records regulations: The Federal rules restrict any use of the information to criminally investigate or prosecute any alcohol or drug abuse patient.[facility] SystemIn the event this information is protected by the Federal Confidentiality of Alcohol and Drug Abuse Patient Records regulations: The Federal rules restrict any use of the information to criminally investigate or prosecute any alcohol or drug abuse patient.[facility] Reason for Visit (unrecogniz ed section and content) Reason Comments US Specialty Diagnoses / Procedures Referred By Daniel t Referred To Contact [facility] Diagnoses Cholestasis during in third trimester Supervision of other high risk pregnancies, third trimester Procedures BIOPHYSICAL PROFILE US WHI BIOPHYSICAL PROFILE NON-STRESS TESTING Brenda Mcdaniel MD [address] [place] [address] [address] Referral ID Status Reason Start Date Expiration Date V isits Requested Visits Authorized [id number] Closed Auto-Generate d Referral 11/20/2021 11/20/2022 10 1 Reason Comments Ob Delivery Note Reason Comments 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 Reason Comments Missed Appointment Reason Comments Initial OB Visit Reason Onset Date Comments Care 08/04/2022 Specialty Diagnoses / Procedures Referred By Daniel blanco Referred To Contact [facility] [place] Diagnoses AMA (advanced maternal age) multigravida 35+, first trimester 8 weeks gestation of Procedures NUCHAL TRANSLUCENCY WHI US NUCHAL TRANSLUCENCY 1ST GESTATION Brenda Mcdaniel MD [address] [place] [address] [facility] [place] [place] [address] [place] [address] Referral ID Status Reason Start Date Expiration Date V isits Requested Visits Authorized [id number] Closed Auto-Generate d Referral 07/07/2022 07/07/2023 1 [...] and wo contrast Ross Downey MD [address] [facility] [place] [address] Referral ID Status Reason Start Date Expiration Date Visits Re quested Visits Authorized [id number] Closed 06/22/2023 08/06/2023 1 1 Reason Comments Rectal Pain Sometimes has bleedi ng as well. Also having random throbbing abdominal pain. Feels gas pains in her back every morning she wakes up Specialty Diagnoses / Procedures Referred By Contac t Referred To Contact [facility] Diagnoses Liver lesion Procedures MRI LIVER WO/W IVCON MRI ABDOMEN W/O & W/CONTRAST MATERIAL Kelly Win PA-C [address] [facility] [place] [address] [place] [address] Referral ID Status Reason Start Date Expiration Date V isits Requested Visits Authorized [id number] Closed Auto-Generate d Referral 08/27/2024 09/26/2025 1 [...] Referred By Contac t Referred To Contact [facility] Diagnoses with uncertain dates in first trimester (HCC) Procedures OBSTETRIC ULTRASOUND WHI US PREG UTERUS AFTER 1ST TRIMEST GESTATION Omar Freedman, ESTRELLITA.AUTOMOBILE UPHOLSTERER [address] [place] [address] Phone: tel: fax: [facility] [address] [place] [address] Referral ID Status Reason Start Date Expiration Date V isits Requested Visits Authorized [id number] Closed Auto-Generate d Referral 03/28/2025 03/28/2026 1 1 Care Teams (unrecognized sec tion and content) Protective Signal Installer Helper Relationship Specialty Start Date End Date Ross Downey Jr. [address] [facility] [address] PCP - General Family Practice 01/18/18 Protective Signal Installer Helper Relationship Specialty Start Date End Date Ross Downey Jr. [address] [place] [phone] PCP - General Family Practice 01/18/18 Protective Signal Installer Helper Relationship Specialty Start Date End Date Ross Downey Jr. [address] [place] [phone] PCP - General Family Practice 01/18/18 Protective Signal Installer Helper Relationship Specialty Start Date End Date Ross Downey MD [address] [place] [phone] PCP - General 03/23/16 Protective Signal Installer Helper Relationship Specialty Start Date End Date Ross Downey Jr. [address] [place] [phone] PCP - General Family Practice 01/18/18 Protective Signal Installer Helper Relationship Specialty Start Date End Date Ross Downey Jr. [address] [place] [phone] PCP - General Family Medicine 01/18/18 Protective Signal Installer Helper Relationship Specialty Start Date End Date Ross Downey Jr. [address] [place] [phone] PCP - General Family Medicine 01/18/18 Protective Signal Installer Helper Relationship Specialty Start Date End Date Ross Downey Jr. [address] [place] [phone] PCP - General Family Medicine 01/18/18 Protective Signal Installer Helper Relationship Specialty Start Date End Date Ross Downey Jr. [address] [place] [phone] PCP - General Family Medicine 01/18/18 Protective Signal Installer Helper Relationship Specialty Start Date End Date Ross Downey JrJaiden [address] [place] [address] [place] [address] PCP - General Family Medicine 01/18/18 Protective Signal Installer Helper Relationship Specialty Start Date End Date Ross Downey [address] [place] [address] [place] [address] PCP - General Family Medicine 01/18/18 Protective Signal Installer Helper Relationship Specialty Start Date End Date Ross Downey Brian Arizmendi [address] [place] [address] [place] [address] PCP - General Family Medicine 01/18/18 Protective Signal Installer Helper Relationship Specialty Start Date End Date DowneyRoss Brian Arizmendi [address] [place] [address] [address] PCP - General Family Medicine 01/18/18 Protective Signal Installer Helper Relationship Specialty Start Date End Date Ross Downey [address] [place] [address] [place] [address] PCP - General Family Medicine 01/18/18 Protective Signal Installer Helper Relationship Specialty Start Date End Date DowneyRoss Brian Arizmendi [address] [place] [address] [address] PCP - General Family Medicine 01/18/18 Protective Signal Installer Helper Relationship Specialty Start Date End Date DowneyRoss Brian Arizmendi [address] [place] [address] [place] [address] PCP - General Family Medicine 01/18/18 Protective Signal Installer Helper Relationship Specialty Start Date End Date Shayan Ross Torres Jr. [address] [place] [address] PCP - General Family Medicine 01/18/18 Protective Signal Installer Helper Relationship Specialty Start Date End Date Ross Downey MD [facility] [place] [address] PCP - General 03/23/16 Protective Signal Installer Helper Relationship Specialty Start Date End Date Ross Downey MD [facility] [place] [address] PCP - General 03/23/16 Protective Signal Installer Helper Relationship Specialty Start Date End Date Ross Downey Jr. [facility] [place] [address] PCP - General Family Medicine 01/18/18 Protective Signal Installer Helper Relationship Specialty Start Date End Date Ross Downey MD [facility] [place] [address] PCP - General 03/23/16 Protective Signal Installer Helper Relationship Specialty Start Date End Date Ross Downey MD [facility] [place] [address] PCP - General 03/23/16 Protective Signal Installer Helper Relationship Specialty Start Date End Date Ross Downey MD [facility] [place] [address] PCP - General 03/23/16 Protective Signal Installer Helper Relationship Specialty Start Date End Date Ross Downey Jr. [facility] [address] [facility] [place] [address] PCP - General Family Medicine 01/18/18 Protective Signal Installer Helper Relationship Specialty Start Date End Date Ross Downey Jr. [facility] [place] [address] PCP - General Family Medicine 01/18/18 Protective Signal Installer Helper Relationship Specialty Start Date End Date Ross Downey Jr. [facility] [place] [address] PCP - General Family Medicine 01/18/18 Protective Signal Installer Helper Relationship Specialty Start Date End Date Ross Downey MD [facility] [place] [address] PCP - General 03/23/16 Protective Signal Installer Helper Relationship Specialty Start Date End Date Ross Downey Jr. [facility] [place] [address] PCP - General Family Medicine 01/18/18 Protective Signal Installer Helper Relationship Specialty Start Date End Date Ross Downey Jr. [facility] [place] [address] PCP - General Family Medicine 01/18/18 Protective Signal Installer Helper Relationship Specialty Start Date End Date Ross Downey Jr. [facility] [place] [address] PCP - General Family Medicine 01/18/18 Protective Signal Installer Helper Relationship Specialty Start Date End Date Ross Downey Jr. [address] [place] [address] PCP - General Family Medicine 01/18/18 Protective Signal Installer Helper Relationship Specialty Start Date End Date Ross Downey Jr. [address] [place] [address] PCP - General Family Medicine 01/18/18 Protective Signal Installer Helper Relationship Specialty Start Date End Date Ross Downey Jr. [facility] [place] [address] PCP - General Family Medicine 01/18/18 Protective Signal Installer Helper Relationship Specialty Start Date End Date Ross Downey Jr. [facility] [place] [address] PCP - General Family Medicine 01/18/18 Protective Signal Installer Helper Relationship Specialty Start Date End Date Ross Downey Jr. [facility] [place] [address] PCP - General Family Medicine 01/18/18 Protective Signal Installer Helper Relationship Specialty Start Date End Date Ross Downey Jr. [facility] [place] [address] PCP - General Family Medicine 01/18/18 Protective Signal Installer Helper Relationship Specialty Start Date End Date Ross Downey Jr. [facility] [place] [address] PCP - General Family Medicine 01/18/18 Protective Signal Installer Helper Relationship Specialty Start Date End Date Ross Downey Jr. [address] [place] [address] PCP - General Family Medicine 01/18/18 Goals [...] BE BASED ON THE PRIMARY CLINICAL RECORDS. [facility] [employer] [facility]. provides no warranty or guarantee of the accuracy or completeness of information in this document.
[2025-10-12] MEDS: Mag /Aluminum/Simeth WCH UDC 30 ML ORAL.SUSP PO ×2 (07:37→16:18)
[2025-10-12] MEDS: Lactated Ringers 1,000 ML 50 ML IV (08:15)
[2025-10-12] MEDS: Penicillin G Pot 5,000,000 UNITS in 0.9% Normal Saline (100mL MB+) 100 ML 150 UNITS IV (08:16)
[2025-10-12] MEDS: Oxytocin 15 Units/NS 250ml 15 UNITS/250 ML IV.SOLN 2 UNITS IV (08:19)
[2025-10-12 08:34] LABS: Hematocrit 33.3 % (37-47); Hemoglobin 10.9 g/dL (12.0-15.0); Immature Granulocytes Count 0.030 X10^3/uL (0.0-0.0); Mean Corp Hgb Conc 32.7 g/dL (32-36); Mean Corpuscular Volume 83.0 fL (81-99); Mean Platelet Vol. 10.4 fl (6.2-12.0); NRBC Flagged by Analyzer 0 % (0-5); Platelet Count 272 K/mm3 (150-450); RBC Distribution Width CV 13.4 % (11.6-14.6); RBC Distribution Width SD 40.8 fl (35.1-43.9); Red Blood Count 4.01 M/mm3 (4.2-5.4); White Blood Count 4.2 K/mm3 (4.4-11.0)
[2025-10-12 09:27] LABS: Syphilis Antibodies Nonreactive (Nonreactive)
--- NOTE | 2025-10-12 10:49 | HP.PCM.OB_ITS ---
HPI - General General Date of Admission: 10/12/25 Date of Service: 10/12/25 HPI Narrative MARITZA PHAN, is a 40 F who presents for induction. Maternal Data Information PILAR Calculator Estimated Delivery Date Method Current WG Current Estimate 10/31/25 Manual 37w 2d PFSH [facility] Medical History (Updated 10/12/25 @ 10:[address] Isaias Payan MD) Neck pain Breech delivery Personal history of COVID-19 Grand multipara in labor depression Home Medications ?Medication ?Instructions ?Recorded ?Last Taken ?Type vits,calcium no.78-iron 1 tab PO DAILY pregna ncy 02/10/18 02/08/23 21:00 History fumarate-folic acid 29 mg-1 mg tablet (Prenatabs FA) Allergy/AdvReac Type Severity Reaction Status Date / Time No Known Allergies Allergy Verified 10/12/25 07:39 Surgical History History of surgery Status post vaginal delivery Social History Smoking Status: Never smoker History Elective abortions Hx Para 10 Spontaneous abortions Hx # Term Pregnancies Ectopic pregnancies Hx # Pregnancies Multiple births # of living children NST FHR Rate Baby A Baseline: 135 Variability:: Moderate Accelerations:: 15 x 15 Decelerations:: Variable Uterine Activity:: Q3 minutes Vital Signs Vital Signs Vital Signs: 10/12/25 07:29 10/12/25 07:29 10/12/25 07:29 Temperature Temperature Source Pulse Rate 90 Respiratory Rate Blood Pressure 131/84 H BP Systolic 131 BP Diastolic 84 Pulse Ox 98 10/12/25 07:31 10/12/25 07:31 10/12/25 07:31 Temperature 97.2 F L Temperature Source Temporal Pulse Rate Respiratory Rate 16 Blood Pressure BP Systolic BP Diastolic Pulse Ox 10/12/25 08:25 10/12/25 08:25 10/12/25 08:25 Temperature Temperature Source Pulse Rate 83 Respiratory Rate Blood Pressure 121/82 H BP Systolic 121 BP Diastolic 82 Pulse Ox 96 10/12/25 09:13 10/12/25 09:13 10/12/25 09:13 Temperature Temperature Source Pulse Rate 80 81 Respiratory Rate Blood Pressure 126/81 H BP Systolic 126 BP Diastolic 81 Pulse Ox 10/12/25 09:13 10/12/25 09:14 10/12/25 09:14 Temperature Temperature Source Temporal Pulse Rate Respiratory Rate 16 Blood Pressure BP Systolic BP Diastolic Pulse Ox 97 10/12/25 09:14 10/12/25 10:09 10/12/25 10:09 Temperature 97.3 F L Temperature Source Pulse Rate 78 Respiratory Rate Blood Pressure 121/76 H BP Systolic 121 BP Diastolic 76 Pulse Ox 10/12/25 10:10 10/12/25 10:10 Temperature Temperature Source Pulse Rate 222 H Respiratory Rate Blood Pressure BP Systolic BP Diastolic Pulse Ox 85 Weight Weight: 191 lb 12.835 oz Body Mass Index (BMI) 30.0 PRE- weight 160 lb PRE- Body Mass Index 25.1 (BMI) Physical Exam Const alert, oriented x3 and no apparent distress Chest inspection of chest normal GI non-tender, non-distended and no masses Inspection: gravid external exam normal Narrative: cvx - 1/50/-2 Labs Labs Labs: Blood Type O POSITIVE Antibody Screen NEGATIVE Hct, (37-47) 33.3 % L Hgb, (12.0-15.0) 10.9 g/dL L Syphilis Total Ab, (Nonreactive) Nonreactive Rhogam given: No Assessment & Plan (1) Grand multipara in labor: (2) Cholestasis during in third trimester: PLAN: Plan Admit to L&D Induction for cholestasis - on pitocin and plan for AROM GBS positive - on pcn Pain - declines epidural EFW - less than 4500g and patient with adequate pelvis Routine care
[2025-10-12] MEDS: Penicillin G 3,000,000 Units 50 ML 100 UNITS IV ×2 (12:30→16:00)
--- NOTE | 2025-10-12 13:14 | PCM.PN.OB ---
Subjective Subjective Patient comfortable with ctxs Objective Data Objective Data Vital Signs: Vital Signs Temp Pulse Resp BP Pulse Ox 97.6 F L 90 16 125/78 H 98 10/12/25 12:30 10/12/25 12:30 10/12/25 12:30 10/12/25 12:30 10/12/25 12:30 Weight: 191 lb 12.835 oz Body Mass Index (BMI) 30.0 Intake & Output: Intake and Output for Last 24 Hours 10/10/25 10/11/25 10/12/25 23:59 23:59 23:59 Intake Total 112.43 / 112.43 Balance 112.43 / 112.43 Lab / Micro Data 10/12/25 08:15 Labs: Laboratory Results - last 24 hr 10/12/25 08:15: WBC 4.2 L, RBC 4.01 L, Hgb 10.9 L, Hct 33.3 L, MCV 83.0, MCH 27.2, MCHC 32.7, RDW Std Deviation 40.8, RDW Coeff of Kathryn 13.4, Plt Count 272, MPV 10.4, Immature Gran % (Auto) 0.700, Neut % (Auto) 53.5, Lymph % (Auto) 31.4, Fannin % (Auto) 10.5 H, Eos % (Auto) 2.9, Baso % (Auto) 1.0, Absolute Neuts (auto) 2.3, Absolute Lymphs (auto) 1.32, Nucleated RBC % 0, Syphilis Total Ab Nonreactive, Blood Type O POSITIVE, Antibody Screen NEGATIVE Physical Exam Const alert and oriented x3 Chest inspection of chest normal Resp normal respiratory effort Narrative: cvx - 2.5/80/-2 NST FHR Rate Baby A Baseline: 135 Variability:: Moderate Accelerations:: 15 x 15 Decelerations:: Variable Uterine Activity:: Q3 minutes Assessment & Plan (1) Cholestasis during in third trimester: PLAN: Plan AROM scant clear fluid & IUPC placed Continue pitocin induction
[2025-10-12] MEDS: fentaNYL 100 MCG/2 ML Ampul IV (16:08)
--- NOTE | 2025-10-12 19:00 | OB.VAGDELI_ITS ---
Maternal Data Information PILAR Calculator Estimated Delivery Date Method Current WG Current Estimate 10/31/25 Manual 37w 2d Vaginal Delivery Maternal Presentation Maternal Presentation: Medically Indicated Induction Type of Induction: Pitocin and Amniotomy Medical Reason for Induction: Other (Cholestasis) Vaginal Delivery Information Procedure Performed: Spontaneous Vaginal Delivery Surgeon/Practitioner: Isaias Payan Date of Procedure: 10/12/25 Pre-Procedure Diagnosis: Cholestasis of Post-Procedure Diagnosis: Same Estimated Blood Loss: 100ml Findings Description of procedure: I was present in room began pushing. Patient pushed well to deliver the head. head was gently guided to allow delivery of anterior and posterior shoulders. No excess traction placed on the head. The body delivered. 3VC clamped and cut in delayed fashion. Placenta delivered with gentle traction and good uterine tone obtained. Presentation: SHANIKA Amniotic Membrane Rupture Type: Artificial Amniotic Fluid Description: Clear Placental Delivery Description: Expressed Placenta Disposition: [facility] Cord Vessel Description: 3 Vessels Infant A Gender: Male (1 minute): 7 (5 minute): 9 Delayed Cord Clamping: Yes Judicial Law Clerk terra cotta mold maker: No Post Vaginal Deli Medications given after delivery: IV Pitocin Episiotomy Description: None Laceration: None Complication Complications: No
[2025-10-12] MEDS: Ketorolac 30 MG/ML Syringe IV (20:12)
[2025-10-12] MEDS: Oxytocin 15 Units/NS 250ml 15 UNITS/250 ML IV.SOLN 83 UNITS IV (20:18)
[2025-10-13] VITALS (8 sets, daily range): BP systolic 118–147; BP diastolic 55–94; PULSE 70–89; RESP 16; TEMP 36.1–36.6; O2SAT 98–100
[2025-10-13] MEDS: Mag /Aluminum/Simeth WCH UDC 30 ML ORAL.SUSP PO (09:02)
--- NOTE | 2025-10-13 09:26 | PCM.PN.OB ---
Subjective Subjective Pain controlled Objective Data Objective Data Vital Signs: Vital Signs Temp Pulse Resp BP Pulse Ox O2 Del Method 97.1 F L 89 16 129/79 H 100 Room Air 10/13/25 08:15 10/13/25 08:15 10/13/25 08:15 10/13/25 08:15 10/13/25 08:15 10/13/25 08:15 Oxygen Delivery Method Room Air Weight: 191 lb 12.835 oz Body Mass Index (BMI) 30.0 Intake & Output: Intake and Output for Last 24 Hours 10/11/25 10/12/25 10/13/25 23:59 23:59 23:59 Intake Total 1295.00 / 1295.00 Output Total 100 / 100 Balance 1295.00 / 1295.00 -100 / -100 Lab / Micro Data 10/12/25 08:15 Labs: Laboratory Results - last 24 hr 10/12/25 08:15: Syphilis Total Ab Nonreactive, Blood Type O POSITIVE, Antibody Screen NEGATIVE Physical Exam Const alert, oriented x3 and no apparent distress HEENT normocephalic GI soft to palpation, non-tender and non-distended GI Narrative: fundus firm, mid & below umbilicus Extremity normal to inspection and no calf tenderness Assessment & Plan (1) Cholestasis during in third trimester: COMMENT: PPD#1 (2) Status post vaginal delivery: PLAN: Plan Routine care
[2025-10-14] VITALS (10 sets, daily range): BP systolic 110–137; BP diastolic 55–85; PULSE 78–90; RESP 16–18; TEMP 36.4–36.6; O2SAT 96–97
--- NOTE | 2025-10-14 08:06 | PCM.PROGNOTE ---
Subjective Subjective patient seen at bedside, doing well. Patient reports good pain control. lochia mild. breast feeding going well Objective Data Objective Data Vital Signs: Vital Signs Temp Pulse Resp BP Pulse Ox O2 Del Method 97.8 F 78 16 110/55 L 98 Room Air 10/14/25 03:10 10/14/25 03:10 10/14/25 03:10 10/14/25 03:10 10/13/25 16:53 10/14/25 03:10 Oxygen Delivery Method Room Air Weight: 87 kg Body Mass Index (BMI) 30.0 Intake & Output: Intake and Output for Last 24 Hours 10/12/25 10/13/25 10/14/25 23:59 23:59 23:59 Intake Total 1295.00 / 1295.00 Output Total 100 / 100 Balance 1295.00 / 1295.00 -100 / -100 Lab / Micro Data 10/12/25 08:15 Physical Exam Narrative Abd: fundus firm. Const alert and oriented x3 General Appearance: cooperative HEENT normocephalic Neck General: normal visual inspection GI soft to palpation and non-distended GI Narrative: Fundus firm Extremity normal to inspection and no calf tenderness Skin no rashes or lesions noted Neuro oriented x3 and CN's II-XII intact bilaterally Psych mental status grossly normal Assessment & Plan Assessment/Plan (1) Status post vaginal delivery: (2) Cholestasis during in third trimester: PLAN: Plan PPD# 2 , Doing well Routine care pain mgmt ambulation dc home time spent with patient face to face on day of discharge was <30min
--- NOTE | 2025-10-14 08:11 | PCM.DC.BLA ---
Discharge Summary Date of Admission: 10/12/25 Date of Discharge: 10/14/25 Summary: pt admitted for IOL due to cholestasis of at 37 weeks gestation. pt had an uncomplicated PP course and was discharged home on PPD #2 Meaningful Use Info Meaningful Use Meaningful Use Diagnoses (Choose all that apply): None applicable Ischemic Stroke Statin Dosing Therapy Reference: STATIN DOSE THERAPY REFERENCE: * Patients > 75 years receive moderate or high dose statin therapy. * Patients 75 years or YOUNGER should receive HIGH intensity statin dose unless contraindicated. You will be required to document reason for non-treatment if statin daily dose does not meet guidelines. HIGH DOSE STATIN THERAPY DAILY Atorvastatin > than or = to 40 mg Rosuvastatin > than or = to 20 mg Amlodipine + Atorvastatin > than or = to 2.5/40 mg Ezetimibe + Simvastatin 10/80 mg Simvastatin 80mg Discharge Plan Admission Admit Date/Time: 10/12/25 07:11 Attending Provider: Isaias Payan Primary Care Provider: Fransisco Downey Discharge Orders/Prescriptions Prescriptions: No Action Prenatabs FA 1 TABLET tablet 1 tab PO DAILY Referrals / Follow Up: Fransisco Downey MD [Primary Care Provider, Medical]
--- NOTE | 2025-10-14 08:12 | DCINST_ITS ---
Discharge Instructions DC O2, CPAP, BIPAP needs Home O2 Discharge instructions: No Dressing / Incision May resume sexual activity in: 6-8 weeks Dressing / Incision Call your doctor if you observe: Fever of 101 or Higher, Inability to urinate, Using more than 1 pad per hour and Uncontrolled pain Follow Up Care Please Follow Up With: Lynette Leiva MD When: 1 week post and again at 6 weeks post . [phone]: if you had PREECLAMPSIA or other Blood pressure concerns in labor you should be seen in 48-72 hours in the office. Test Results: Test results from this visit will be discussed in further detail at your follow- up appointment, if applicable. Discharge Plan Admission Admit Date/Time: 10/12/25 07:11 Attending Provider: Isaias Payan Primary Care Provider: Fransisco Downey Discharge Orders/Prescriptions Prescriptions: New acetaminophen 500 mg Tablet 1,000 mg PO Q6H PRN PRN (Reason: Pain 1-10 Or Fever) Qty: 0 0RF ibuprofen 600 mg Tablet 600 mg PO Q6H PRN PRN (Reason: Pain Score 1-10) Qty: 0 0RF Continued Prenatabs FA 1 TABLET tablet 1 tab PO DAILY Referrals / Follow Up: Fransisco Downey MD [Primary Care Provider, Medical] Disposition Disposition (needs filled in before D/C Order can be placed): Home, Self Care
[2025-10-14] MEDS: Mag /Aluminum/Simeth WCH UDC 30 ML ORAL.SUSP PO (16:19)
[2025-10-15 01:33] VITALS: BP 122/71; PULSE 84; PULSE 94; RESP 16; TEMP 36.2; O2SAT 97
== END 2025-10-14 20:40 | disposition home or self-care (01) | DRG 805 ==
PROVIDERS: Admitting Provider Obstetrics & Gynecology; PCP Family Medicine Geriatric Medicine; Referring Provider Obstetrics & Gynecology; Visit Provider Obstetrics & Gynecology
DX: O26.62 Liver and biliary tract disorders in childbirth (principal); Z37.0 Single live birth; K83.1 Obstruction of bile duct; O98.82 Other maternal infectious and parasitic diseases complicating childbirth; B95.1 Streptococcus, group B, as the cause of diseases classified elsewhere; O76 Abnormality in fetal heart rate and rhythm complicating labor and delivery; O99.62 Diseases of the digestive system complicating childbirth; Z87.59 Personal history of other complications of pregnancy, childbirth and the puerperium; Z3A.37 37 weeks gestation of pregnancy
CPT/HCPCS: 59025; 59050; 85025; 86780; 86850; 86900; 86901; 99221; G0378; J2405